=== PATIENT | female | born 1960 | race Caucasian/White ===

== ENCOUNTER → 2020-06-19 07:49 | Outpatient (BNVA) | payer OTHER, SELFPAY | PROVIDERS: Visit Provider Internal Medicine Endocrinology, Diabetes & Metabolism ==

== ENCOUNTER 2020-06-19 08:37 | Outpatient (REF) | payer OTHER, SELFPAY ==
[2020-06-19 10:58] LABS: Free T4 (Free Thyroxine) 1.38 ng/dL (0.71-1.85); Thyroid Stimulating Hormone 0.33 uIU/mL (0.32-4.0)
[2020-06-22 04:52] LABS: Thyroglobulin Antibody <1 IU/mL (<=1); Thyroglobulin Level <0.1 ng/mL
== END 2020-06-19 08:38 | disposition home or self-care (01) ==
LOC: HO.10HDL 08:37
PROVIDERS: Visit Provider Internal Medicine Endocrinology, Diabetes & Metabolism
DX: C73 Malignant neoplasm of thyroid gland (principal); R79.89 Other specified abnormal findings of blood chemistry
CPT/HCPCS: 36415; 82306; 84432; 84439; 84443; 86800

== ENCOUNTER 2020-06-27 14:27 | Outpatient (REF) | payer OTHER, SELFPAY ==
--- NOTE | ~2020-06-27 | US_ITS ---
EXAMINATION: US THYROID CLINICAL INFORMATION: Total thyroidectomy. COMPARISON: Ultrasound soft tissues lymph node 06/29/2019. Ultrasound thyroid soft tissues 12/15/2017. TECHNIQUE: Linear transducer grayscale and color Doppler examination with attention to the region of the thyroid. FINDINGS: No residual thyroid soft tissue seen. Although some subcentimeter benign-appearing lymph nodes are present, there is abnormal bilateral lymphadenopathy. There is a new 2.3 x 0.9 x 2.3 cm right level 2 lymph node which is round and cystic in appearance. There is a new 1.3 x 0.7 x 2.0 cm right level 1B lymph node which is round and cystic in appearance. There is a new 1.5 x 0.7 x 1.6 cm left level 1B lymph node which is round and cystic in appearance. A 2.3 x 0.9 x 2.0 cm left level 2 lymph node has increased in size from 1.1 x 1.4 x 2.0 cm which is round and cystic in appearance. A left level 2 lymph node has increased in size to 2.3 x 0.7 x 1.4 cm, previously 0.8 x 0.8 x 1.1 cm which is round and cystic in appearance. There is a new left level 5A lymph node that measures 2.0 x 0.5 x 0.9 cm with effacement of the central fatty hilum. US/US soft tiss head and/or neck IMPRESSION: No residual thyroid soft tissue present, status post total thyroidectomy. There is bilateral cervical lymphadenopathy with multiple abnormal lymph nodes new or increased in size from prior study 06/30/2019. The appearance is concerning for metastatic disease.
== END 2020-06-27 14:28 | disposition home or self-care (01) ==
LOC: HO.US 14:27
PROVIDERS: Visit Provider Internal Medicine Endocrinology, Diabetes & Metabolism
DX: C73 Malignant neoplasm of thyroid gland (principal)
CPT/HCPCS: 76536

== ENCOUNTER 2020-08-03 07:44 | Outpatient (REF) | payer OTHER, SELFPAY ==
--- NOTE | 2020-08-03 09:13 | PM.OP ---
Brief Operative Note Date of Service: 08/03/20 Pre-op diagnosis: HISTORY OF PTC, ABNORMAL LYMPHADENOPATHY Post-op diagnosis: same Procedure: This procedure was explained to the patient. Alternatives, risks and benefits were discussed. Written consent was obtained. The whole neck was scan to confirm that abnormal lymphadenopathy reported in prior ultrasound was truly abnormal. The right level 2 lymph node 2.3 x 0.9 x 2.3 cm was a normal morphology lymph node with normal fatty hilum. No need for biopsy. The right submandibular lymph node was also a normal morphology lymph node, this lymph node was not biopsied. Left neck showed that the left level 5 a lymph node was actually not a level 5 lymph node was a level 3. Biopsy of this lymph node was performed. The 2 level 2 left lateral neck lymph nodes had not significant change in morphology they were mostly Normal lymph nodes. I did perform a biopsy of the 1 that significantly increased in size level 2 1. Size 2 x 0.9 x 1.8 cm After sterile preparation of the skin, fine-needle aspiration biopsy of left lateral neck level 3 lymph node size 1.3 x 0.8 cm was performed under direct ultrasound guidance to confirm accurate needle placement. Two passes were performed with 25 gauge needles. Sample was submitted to cytology, initial cytology reading was adequate. One pass were dedicated for thyroglobulin washout of the needle. Second fine-needle aspiration of left lateral neck level 2 lymph nodes size 2 x 0.9 x 1.8 cm was performed under ultrasound guidance to confirm accurate needle placement. Two passes were performed with 25 gauge needles. One pass was dedicated for thyroglobulin washout of the needle. Patient tolerated procedure well. Aftercare instructions were provided. Impression: uncomplicated fine-needle aspiration biopsy of left lateral neck level 3 lymph node and left lateral neck level 2 lymph node under direct ultrasound guidance. Surgeon: Nikole Carranza MD Anesthesia: local (Lidocaine 1% 2 mL) Estimated blood loss (mL): 0 Condition: stable Disposition: same day
[2020-08-03] MEDS: Lidocaine HCl 1 % 20 ML VIAL 5 ML SUBCUT (12:09)
[2020-08-05 23:37] LABS: Thyroglobulin, Fine Needle Asp <0.1 ng/mL
== END 2020-08-03 07:45 | disposition home or self-care (01) ==
LOC: HO.US 07:44
PROVIDERS: Visit Provider Internal Medicine Endocrinology, Diabetes & Metabolism
DX: C73 Malignant neoplasm of thyroid gland (principal)
CPT/HCPCS: 10005; 10006; 36415; 88172; 88173; 88177; 88300

== ENCOUNTER → 2020-08-07 08:49 | Outpatient (BNVA) | payer OTHER, SELFPAY | PROVIDERS: Visit Provider Internal Medicine Endocrinology, Diabetes & Metabolism | DX: C73 Malignant neoplasm of thyroid gland (principal) | CPT/HCPCS: 96372 ==

== ENCOUNTER → 2020-08-08 08:47 | Outpatient (BNVA) | payer OTHER, SELFPAY | PROVIDERS: Visit Provider Internal Medicine Endocrinology, Diabetes & Metabolism | DX: C73 Malignant neoplasm of thyroid gland (principal) | CPT/HCPCS: 96372 ==

== ENCOUNTER 2020-08-11 11:30 | Outpatient (REF) | payer OTHER, SELFPAY ==
[2020-08-14 05:36] LABS: Thyroglobulin Antibody <1 IU/mL (<=1); Thyroglobulin Level 0.1 ng/mL
== END 2020-08-11 11:31 | disposition home or self-care (01) ==
LOC: HO.LAB 11:30
PROVIDERS: Visit Provider Internal Medicine Endocrinology, Diabetes & Metabolism
DX: C73 Malignant neoplasm of thyroid gland (principal)
CPT/HCPCS: 36415; 84432; 84443; 86800

== ENCOUNTER → 2020-08-18 07:25 | Outpatient (BNVA) | payer OTHER, SELFPAY | PROVIDERS: Visit Provider Internal Medicine Endocrinology, Diabetes & Metabolism ==

== ENCOUNTER 2021-07-17 08:42 | Outpatient (REF) | payer OTHER, SELFPAY ==
--- NOTE | 2021-07-17 11:22 | PFT_ITS ---
Forced vital capacity 89%. FEV1 74%. FEV1/FVC ratio is 64, moderately decreased. QNI16-09 is 34% and MVV 85%. Post bronchodilator therapy, there is a small improvement in MRY49-26. Total lung capacity 126%. Residual volume 158% indicating hyperinflation and air trapping. Diffusion capacity is 76%. CONCLUSION: Moderately severe obstructive airway disorder. Only minimal improvement after bronchodilator therapy is noted. Clinical correlation recommended. MD SYLVAIN Cordova/GERARDO / [id number]
== END 2021-07-17 08:43 | disposition home or self-care (01) ==
LOC: HO.RESP 08:42
PROVIDERS: PCP Internal Medicine; Visit Provider Internal Medicine
DX: R06.00 Dyspnea, unspecified (principal)
CPT/HCPCS: 94060; 94727; 94729

== ENCOUNTER 2021-07-27 09:27 | Outpatient (REF) | payer OTHER, SELFPAY ==
[2021-08-01 16:42] LABS: HPV mRNA E6/E7 rflx Not Detected (Not Detected)
== END 2021-07-27 09:28 | disposition home or self-care (01) ==
LOC: HO.LAB 09:27
PROVIDERS: PCP Internal Medicine; Visit Provider Obstetrics & Gynecology
DX: Z01.419 Encounter for gynecological examination (general) (routine) without abnormal findings (principal); Z11.51 Encounter for screening for human papillomavirus (HPV)
CPT/HCPCS: 87624; 88142

== ENCOUNTER → 2021-08-10 09:56 | Outpatient (BNVA) | payer OTHER, SELFPAY | PROVIDERS: PCP Internal Medicine; Visit Provider Hospitalist | DX: J44.9 Chronic obstructive pulmonary disease, unspecified (principal); F17.200 Nicotine dependence, unspecified, uncomplicated; Z71.6 Tobacco abuse counseling | CPT/HCPCS: 99202 ==

== ENCOUNTER → 2021-08-23 09:53 | Outpatient (BNVA) | payer OTHER, SELFPAY | PROVIDERS: PCP Internal Medicine; Visit Provider Internal Medicine Endocrinology, Diabetes & Metabolism | DX: C73 Malignant neoplasm of thyroid gland (principal) | CPT/HCPCS: 99212 ==

== ENCOUNTER 2021-09-10 08:50 | Outpatient (REF) | payer OTHER, SELFPAY | END 2021-09-10 08:51 | disposition home or self-care (01) | LOC: HO.RESP 08:50 | PROVIDERS: PCP Internal Medicine; Visit Provider Hospitalist | DX: Z13.89 Encounter for screening for other disorder (principal) ==

== ENCOUNTER 2021-09-14 14:19 | Outpatient (REF) | payer OTHER, SELFPAY ==
--- NOTE | ~2021-09-14 | CT_ITS ---
EXAMINATION: CT CHEST SCREENING CLINICAL INFORMATION: Nicotine dependence. COMPARISON: None. TECHNIQUE: Multidetector volumetric CT imaging of the chest is performed without contrast using low dose technique. Additional 2D coronal and sagittal reformatted images and axial 3D maximum intensity projection (MIP) images are generated on the CT workstation. This CT examination was performed using dose optimization techniques as appropriate, variously including the following: *Automated exposure control *Adjustment of mA and/or kV according to patient size (this includes techniques or standardized protocols for targeted exams where dose is matched to indication/reason for exam; i.e. extremities or head) *Use of iterative reconstruction technique DLP: 52 mGy-cm FINDINGS: LUNGS: The lungs are well-expanded and clear acute pneumonic process. There are a few scattered pulmonary nodules. A 3 mm groundglass nodule right upper lobe axial image 13/4, 2 mm nodule right upper lobe subpleural based image 12/4, 2 mm nodule right upper lobe axial image 211/6, 2 mm nodule left upper lobe axial image 205/6, 2 mm nodule lingula axial image 357/6. No acute consolidation, mass or atelectasis seen. MEDIASTINUM: The thyroid lobes are symmetrical and normal. The central trachea and the bronchi are widely patent. The heart size and the great vessels are normal caliber. No abnormal size mediastinal or hilar lymphadenopathy seen. There is no pericardial effusion. PLEURA: There is no pleural effusion. No pleural mass or thickening. AXILLA: No lymphadenopathy. UPPER ABDOMEN: Visualized liver, spleen and pancreas unremarkable. OSSEOUS STRUCTURES: No lytic or sclerotic process seen. There is mild ventral spondylosis dorsal spine. CT/CT lung screening IMPRESSION: Small bilateral 2-3 100 range pulling nodules. No acute pneumonic process. ASSESSMENT: Lung-RADS category 2: Benign RECOMMENDATION: Low-dose annual CT chest exam
== END 2021-09-14 14:20 | disposition home or self-care (01) ==
LOC: HO.CT 14:19
PROVIDERS: PCP Internal Medicine; Visit Provider Physician Assistant Medical
DX: Z12.2 Encounter for screening for malignant neoplasm of respiratory organs (principal); F17.210 Nicotine dependence, cigarettes, uncomplicated
CPT/HCPCS: 71271; G0296

== ENCOUNTER → 2021-10-05 09:34 | Outpatient (BNVA) | payer OTHER, SELFPAY | PROVIDERS: PCP Internal Medicine; Visit Provider Hospitalist | DX: Z23 Encounter for immunization (principal); J44.9 Chronic obstructive pulmonary disease, unspecified; R91.8 Other nonspecific abnormal finding of lung field; Z87.891 Personal history of nicotine dependence | CPT/HCPCS: 90471; 90732; 99212 ==

== ENCOUNTER 2022-01-01 08:00 | Outpatient (RCR) | payer OTHER, SELFPAY ==
--- NOTE | 2021-12-18 08:51 | MHC.PT.EP ---
[facility] [place] Office [place] Office [place] Office [address] Theresa Loomis [address] [phone] F: [phone] F: [phone] F: [phone] F: [phone] Physical Therapy Plan of Care Date of Evaluation: Date of Surgery: NA Diagnosis: Pain in L shoulder Assessment: Ev is a 61 year old female who is referred to PT for L shoulder pain . She reports of having sudden onset of L shoulder pain about 6 months back. She denies any trauma or fall. On PT examination she presents with TTP over L UT, TTP over lateral deltoid, shoulder joint line, 4/10 pain with shoulder movements like lifting, carrying, reaching and L SL, pain with L shoulder motions, decreased L shoulder and scap strength and altered posture. Due to these impairments she has pain with all ALDS however is independent with them. She would benefit from skilled PT to address the aforementioned impairments and improve tolerance to functional activities. Frequency and Duration: The patient will be seen 2/week for 5 weeks Short Term Goals: 1. Pt will have 50% decrease in pain which will enable her to sleep through the night in 2 weeks. 2. Pt will be able to move shoulder through all planes of motion without pain which will enable her to wash her hair, dress upper body without pain in 3 weeks. Carrier Driver Goals: 1. Pt will demonstrate an increase in muscle strength by 1 grade which will enable her to perform all ADLS like carrying, and lifting without pain in 5 weeks. 2. Pt will be independent with HEP for symptom management and maintenance following d/c in 5 weeks. Treatment Plan: Modalities to reduce pain, spasms and effusion. Manual therapy to restore motion and function. Therapeutic exercise to improve strength and flexibility. Neuromuscular re-education for posture and balance. Therapeutic activities to return to functional activities of daily living. Electronically signed by: Justa Meek PT DPT Please sign and return to therapist. Thank you for your referral.
--- NOTE | 2022-01-10 08:39 | MHC.PT.DC ---
[facility] [place] Office [place] Office [place] Office [address] Theresa Loomis 140 [facility] [phone] F: [phone] F: [phone] F: [phone] F: [phone] Physical Therapy Discharge Report Diagnosis: Pain in L shoulder Date of Surgery: NA Date of Evaluation: 12/18/21 Date of Discharge: 01/10/22 Treatments to Date: 4 Cancellations to Date: 0 No Shows to Date: 0 Discharge Status: Patient Elected to Stop Discharge Summary: Ev completed 4 PT visits and then called and d/c herself from PT. Electronically signed by: Justa Meek PT DPT Please sign and return to therapist. Thank you for your referral.
== END 2022-01-10 08:40 | disposition home or self-care (01) ==
LOC: HO.PT 08:00
PROVIDERS: PCP Internal Medicine; Visit Provider Internal Medicine
DX: M25.512 Pain in left shoulder (principal)
CPT/HCPCS: 97110; 97112; 97140; 97161

== ENCOUNTER → 2022-01-22 11:49 | Outpatient (BNVA) | payer OTHER, SELFPAY | PROVIDERS: PCP Internal Medicine; Visit Provider Nurse Practitioner Family | DX: Z01.818 Encounter for other preprocedural examination (principal); Z85.038 Personal history of other malignant neoplasm of large intestine | CPT/HCPCS: 99202; 99212 ==

== ENCOUNTER 2022-02-18 08:43 | Outpatient (REF) | payer OTHER, SELFPAY ==
[2022-02-18 08:52] LABS: MANUAL DIFF FLAG NO
[2022-02-18 09:18] LABS: Basophils Absolute Auto 0.1 X10*3/uL (0.0-0.2); Basophils Percent Auto 0.7 % (0-2); Eosinophils Absolute Auto 0.5 X10*3/uL (0.0-0.4); Eosinophils Percent Auto 3.9 % (0-4); Hematocrit 45.3 % (37.0-47.0); Hemoglobin 14.9 g/dl (12.0-16.0); Imm Gran Abs Auto 0.04 X10*3/uL (0.00-0.03); Imm Gran Pct Auto 0.3 % (0.0-0.4); Lymphocytes Absolute Auto 3.5 X10*3/uL (1.2-4.9); Lymphocytes Percent Auto 28.3 % (20-40); Mean Corpuscular HGB Conc 32.9 g/dl (31.0-35.0); Mean Corpuscular Hemoglobin 30.5 pg (27.0-33.0); Mean Corpuscular Volume 92.8 fL (80.0-98.0); Mean Platelet Volume 9.6 fL (9.4-12.3); Monocytes Absolute Auto 0.7 X10*3/uL (0.1-1.2); Neutrophils Absolute Auto 7.4 x10*3/uL (2.0-8.3); Neutrophils Percent Auto 60.8 % (45-73); Platelet Count 348 X10*3/uL (160-400); Red Blood Count 4.88 X10*6/uL (4.20-5.50); Red Cell Distribution Width 13.8 % (11.0-16.0); White Blood Count 12.3 X10*3/uL (4.8-10.8)
[2022-02-18 09:57] LABS: Alanine Aminotransferase 22 U/L (0-31); Albumin Level 4.7 g/dL (3.5-5.0); Alkaline Phosphatase 79 U/L (39-117); Anion Gap 17 (12-20); Aspartate Amino Transferase 16 U/L (5-31); Bilirubin Total 0.6 mg/dL (0.0-1.0); Blood Urea Nitrogen 12 mg/dL (9-16); Carbon Dioxide 23 mmol/L (22-29); Chloride 104 mmol/L (96-108); Cholesterol 221 mg/dL; Estimated Glomerular Filt Rate > 60; Glucose Fasting 91 mg/dL (60-99); HDL Cholesterol 44 mg/dL; LDL Cholesterol Calculated 142 mg/dl; Potassium 4.3 mmol/L (3.3-5.1); Sodium 140 mmol/L (135-145); Total Protein 7.2 g/dL (6.5-8.0); Triglycerides 176 mg/dL
[2022-02-18 10:19] LABS: Free T4 (Free Thyroxine) 1.12 ng/dL (0.71-1.85); Thyroid Stimulating Hormone 0.42 uIU/mL (0.32-4.0); Vitamin D 25-OH Total 47.1 ng/mL (>30)
[2022-02-21 07:17] LABS: Thyroglobulin Antibody <1 IU/mL (<=1); Thyroglobulin Level <0.1 ng/mL
== END 2022-02-18 08:44 | disposition home or self-care (01) ==
LOC: HO.LAB 08:43
PROVIDERS: Absent Provider Internal Medicine Endocrinology, Diabetes & Metabolism; PCP Internal Medicine; Visit Provider Internal Medicine
DX: Z00.00 Encounter for general adult medical examination without abnormal findings (principal); E55.9 Vitamin D deficiency, unspecified; E89.0 Postprocedural hypothyroidism; C73 Malignant neoplasm of thyroid gland; J44.9 Chronic obstructive pulmonary disease, unspecified
CPT/HCPCS: 36415; 80053; 80061; 82306; 84432; 84439; 84443; 85025; 86800

== ENCOUNTER 2022-05-29 08:24 | Day surgery (SDC) | payer OTHER, SELFPAY ==
--- NOTE | 2022-05-28 12:38 | P.CONAN_ITS ---
Documented by User: Cate Christianson NP 05/28/22 12:43 HPI - Anesthesia Eval Consult details Narrative: 62yo F for Colonoscopy PMFSH Active Problems Active Problems: All Active Problems (Updated 02/19/22 @ 15:40 by Sue Reynoso MD) Elevated BP without diagnosis of hypertension (Acute) Leukocytosis (Acute) Pure hypercholesterolemia (Acute) Left shoulder pain (Acute) Physical exam (Acute) Pulmonary nodules (Acute) Primary thyroid cancer (Acute ~2013) Post-surgical hypothyroidism (Acute ~2013) COPD (chronic obstructive pulmonary disease) (Acute) Personal history of nicotine dependence (Acute) Overweight (BMI 25.0-29.9) (Acute) Dyspnea (Acute) Postmenopausal (Acute) Low vitamin D level (Acute) Past Medical History Medical History COPD (chronic obstructive pulmonary disease) Dyspnea Low vitamin D level Overweight (BMI 25.0-29.9) Personal history of nicotine dependence Post-surgical hypothyroidism (~2013) Postmenopausal Primary thyroid cancer (~2013) Pulmonary nodules Rectal adenoma Tubular adenoma Tubular adenoma of colon (~2009) Family History Family History Father No problems noted. Mother Polycythemia vera Sister Mental health disorder Surgical History Surgical History History of colonoscopy History of HPV infection (~1996) History of skin cancer (~2009) History of total thyroidectomy (~2013) Social History Social History Housing: House Alcohol intake: current Alcohol intake frequency: holidays/special occasions only Alcohol type: wine and hard liquor Patient Tobacco Use Status: Current everyday Tobacco user Tobacco use type: Cigarette Cigarettes Per Day: 6 Years Smoked: (onset 14, x47yrs, max 1ppd, now 1/2ppd - 40pyh) e-Cigarette/Vaping Use: Never Used Second Hand Smoke Exposure: No Use of substances other than those prescribed or required for medical reasons: No Are you DNR?: No Advance Directives: No Advance Directives Information Provided: Yes service: No Current occupational status: unemployed Cognitive needs: No Hearing needs: No Vision needs: No Meds Allergies Allergy/AdvReac Type Severity Reaction Status Date / Time bee stings Allergy Severe Severe Uncoded 02/19/22 15:25 Swelling Home Medications Medication Instructions Recorded Confirmed Last Taken Type albuterol sulfate 2.5 mg/3 mL 2.5 mg inhalation Q6H PRN wheezing 11/15/21 05/23/22 Unknown History (0.083 %) solution for nebulization Exam Exam Date and Time: May 28, 2022 1238 Pertinent Lab Results Pertinent Lab Results: Laboratory Tests 02/18/22 02/18/22 08:51 08:51 WBC 12.3 H Hgb 14.9 Hct 45.3 Plt Count 348 Sodium 140 Potassium 4.3 Chloride 104 Carbon Dioxide 23 BUN 12 Creatinine 0.75 Narrative Narrative: PFT 07/2021 CONCLUSION:? Moderately severe obstructive airway disorder. ? Only minimal improvement after bronchodilator therapy is noted. ? Clinical correlation recommended. Assessment and Plan Assessment Anesthesia Assessment: Chart Reviewed Documented by User: Aubree Jaime MD 05/29/22 09:41 PMFSH Past Medical History Medical History COPD (chronic obstructive pulmonary disease) Dyspnea Low vitamin D level Overweight (BMI 25.0-29.9) Personal history of nicotine dependence Post-surgical hypothyroidism (~2013) Postmenopausal Primary thyroid cancer (~2013) Pulmonary nodules Rectal adenoma Tubular adenoma Tubular adenoma of colon (~2009) Family History Family History Father No problems noted. Mother Polycythemia vera Sister Mental health disorder Family history of problems with anesthesia: No Surgical History Surgical History History of colonoscopy History of HPV infection (~1996) History of skin cancer (~2009) History of total thyroidectomy (~2013) History of Problems with Anesthesia: No Social History Social History Housing: House Alcohol intake: current Alcohol intake frequency: holidays/special occasions only Alcohol type: wine and hard liquor Patient Tobacco Use Status: Current everyday Tobacco user Tobacco use type: Cigarette Cigarettes Per Day: 6 Years Smoked: (onset 14, x47yrs, max 1ppd, now 1/2ppd - 40pyh) e-Cigarette/Vaping Use: Never Used Second Hand Smoke Exposure: No Use of substances other than those prescribed or required for medical reasons: No Are you DNR?: No Advance Directives: No Advance Directives Information Provided: Yes service: No Current occupational status: unemployed Cognitive needs: No Hearing needs: No Vision needs: No Meds Allergies Allergy/AdvReac Type Severity Reaction Status Date / Time bee stings Allergy Severe Severe Uncoded 02/19/22 15:25 Swelling Home Medications Medication Instructions Recorded Confirmed Last Taken Type albuterol sulfate 2.5 mg/3 mL 2.5 mg inhalation Q6H PRN wheezing 11/15/21 0 05/23/22 Unknown History (0.083 %) solution for nebulization Exam Airway Mallampati Class: II TM Dist: >3cm Neck ROM: Full Heart: rrr Lungs: cta Assessment and Plan Assessment Anesthesia Assessment: Anesthesia Plan Discussed and Chart Reviewed Final Anesthetic Review Family History of Problems with Anesthesia: No History of Problems with Anesthesia: No NPO: Yes ASA Class: II Final Preanesthetic Review: No Changes in Pt Med Stat, Meds/Allgs Chart Reviewed and Consent Obtained/Reviewed Patient Risk: Intermediate Procedure Risk: Intermediate Anesthetic Plan Anesthetic Plan: MAC: Disposition: Standard PACU
[2022-05-29] VITALS (13 sets, daily range): BP systolic 121–143; BP diastolic 58–81; PULSE 64–706; RESP 16–18; TEMP 36.1–36.8; O2SAT 94–97; BMI 31.7
--- NOTE | 2022-05-29 09:01 | MHC.SHP ---
Pre-Procedural Eval Section A Date of Service: 05/29/22 Section B Chief Complaint: Encounter for screening for malignant neoplasm of Details of Present Illness: hx of colon cancer Relevant Family History (Specify if Yes): No Relevant Social History: Tobacco Use Present Medications: see Short Stay Collaborative assessment Medical History: Significant History (COPD (chronic obstructive pulmonary disease) Dyspnea Low vitamin D level Overweight (BMI 25.0-29.9) Personal history of nicotine dependence Post-surgical hypothyroidism (~2013) Postmenopausal Primary thyroid cancer (~2013) Pulmonary nodules Rectal adenoma Tubular adenoma Tubular adenoma of colon (~) History of Previous Operations: Relevant previous surgery/procedure and date(s) (History of colonoscopy History of HPV infection (~1996) History of skin cancer (~2009) History of total thyroidectomy (~2013)) Allergies: Allergies Allergy/AdvReac Type Severity Reaction Status Date / Time bee stings Allergy Severe Severe Uncoded 02/19/22 15:25 Swelling Review of Systems Sugical H&P ROS: Negative: Constitution, Cardiovascular, Respiratory, Neurological, Psychiatric, Hem-Onc, Allergic/Immunologic, Gastrointestinal, Genitourinary, Musculoskeletal, Integumentary, Endocrine and Eyes/Ears/Nose/Throat Exam Surgical H&P Exam: Normal: HEENT, Normal: Heart, Normal: Lungs, Normal: Extremities, Normal: Abdomen, Normal: Skin and Normal: Neurological Plan Diagnosis/Plan: Unchanged I have reviewed the history and physical and performed a pertinent physical examination on my patient. No changes have occurred unless specified. Time Spent With Patient Time: Total time managing care of this patient today ____ minutes.
[2022-05-29] MEDS: Lactated Ringers 1,000 ML 100 ML IVCONT (09:33)
--- NOTE | 2022-05-29 09:48 | W.PM.OPN ---
Operative Note Operative Note Date of Service: 05/29/22 Narrative: Operative Information Procedure Description: Colonoscopy Indication: surveillance -hx of colon cancer Anesthesia: MAC COLONOSCOPY Instrument: Olympus variable stiffness pediatric scope 190L Colonoscopy Monitoring: Vital signs and clinical assessment, continuous EKG monitoring, Pulse oximetry, Carbon Dioxide monitoring and blood pressure monitoring were done throughout the procedure. Colon withdrawal time was 56 minutes. Procedure: The patient was placed in the left lateral decubitis position and pre-procedure medications were administered. After a digital rectal examination of the ano-rectum, the video colonoscope was inserted into the rectum and advanced through the colon to the cecum/TI. The colonoscope was slowly withdrawn in a retrograde panoramic fashion and the colon mucosa was carefully examined including a retroflexed view of the rectum. Findings and interventions are described below. Procedure Difficulty: moderate Findings: Terminal Ileum-normal Cecum: Lateral spreading granular polyp noted about 15-20 mm lifted with ERBE jet and then removed piece meal using hot and cold snare as well as biopsy. Polyp base was then treated with 30 Daniels APC. and the edges also ablated. Ascending Colon: normal Transverse Colon - 6-7 mm sessile polyp removed with cold forceps Descending Colon:normal Sigmoid Colon: x 2 sessile polyps 6-9 mm removed with cold snare, moderate diverticulosis noted Rectum: Retroflexion with small internal hemorrhoids, grade I, 10 mm sessile polyp removed with cold snare Anorectum - normal Colon preparation: [place] Bowel Preparation Scale Right colon; 2 Transverse colon: 2 Left colon; 2 (0 = Unprepared colon segment with mucosa not seen due to solid stool that cannot be cleared. 1 = Portion of mucosa of the colon segment seen, but other areas of the colon segment not well seen due to staining, residual stool and/or opaque liquid. 2 = Minor amount of residual staining, small fragments of stool and/or opaque liquid, but mucosa of colon segment seen well. 3 = Entire mucosa of colon segment seen well with no residual staining, small fragments of stool or opaque liquid) Impression and Post Procedure Diagnosis: polyps internal hemorrhoids diverticular disease Plan: High fiber diet leaflet Avoid straining at stool, epsom salts and sitz bath, anusol supps or cream Repeat Colonoscopy in 3-4 months or earlier if clinically indicated Avoid nsaids like aspirin, alleve for 1 week consider genetic testing for polyposis syndromes if not done already come to ED [facility] if profuse rectal bleeding or abdominal pain, will give 1 week ABx to prevent post polypectomy syndrome Above findings were reviewed with the patient and relevant handouts were provided if indicated.
[2022-05-29] MEDS: metroNIDAZOLE/NS 500 MG/100 ML PIGGYBACK 100 MG IV (11:31)
[2022-05-29] MEDS: cefTRIAXone sodium 1 GM in 0.9 % Sodium Chloride 50 ML IV (12:56)
== END 2022-05-29 14:33 ==
LOC: HO.SSS 08:25
PROVIDERS: PCP Internal Medicine; Visit Provider Internal Medicine Gastroenterology
PROC: 0DJD8ZZ Inspection of Lower Intestinal Tract, Via Natural or Artificial Opening Endoscopic (ICD-10-PCS; CPT 45378; principal; 2022-05-29 10:00)
DX: Z12.11 Encounter for screening for malignant neoplasm of colon (principal); Z85.038 Personal history of other malignant neoplasm of large intestine; D12.3 Benign neoplasm of transverse colon; D12.5 Benign neoplasm of sigmoid colon; D12.8 Benign neoplasm of rectum; K63.5 Polyp of colon; K57.30 Diverticulosis of large intestine without perforation or abscess without bleeding; K64.0 First degree hemorrhoids; K59.00 Constipation, unspecified; E89.0 Postprocedural hypothyroidism; Z85.850 Personal history of malignant neoplasm of thyroid; G47.33 Obstructive sleep apnea (adult) (pediatric); J44.9 Chronic obstructive pulmonary disease, unspecified; R91.8 Other nonspecific abnormal finding of lung field; Z79.51 Long term (current) use of inhaled steroids; Z79.899 Other long term (current) drug therapy; Z85.828 Personal history of other malignant neoplasm of skin; F17.210 Nicotine dependence, cigarettes, uncomplicated
CPT/HCPCS: 45385; 45380; 45381; 88305; C2618; J0696; Q9968

== ENCOUNTER → 2022-06-12 11:52 | Outpatient (BNVA) | payer OTHER, SELFPAY | PROVIDERS: PCP Internal Medicine; Referring Provider Internal Medicine; Visit Provider Nurse Practitioner Family | DX: D36.9 Benign neoplasm, unspecified site (principal); Z98.890 Other specified postprocedural states | CPT/HCPCS: 99212 ==

== ENCOUNTER 2022-08-15 07:27 | Day surgery (SDC) | payer OTHER, SELFPAY ==
[2022-08-12 11:55] VITALS: BMI 32.2
[2022-08-15 07:36] VITALS: BMI 30.5
[2022-08-15 07:51] VITALS: BP 150/75; PULSE 67; RESP 16; TEMP 36.9; O2SAT 97
--- NOTE | 2022-08-15 08:01 | PC.NURSE ---
Dr. Pizarro made aware of patients respiratory status in preop. Faint expiratory and inspiratory wheezes throughout, diminished. Patient has diagnosed COPD, Smoker for 50+ years. Lung sounds normal for patient. Patient to use home inhaler before procedure start per Dr. Pizarro.
--- NOTE | 2022-08-15 08:06 | MHC.SHP ---
Pre-Procedural Eval Section A Date of Service: 08/15/22 Section B Chief Complaint: Benign neoplasm, unspecified site Relevant Family History (Specify if Yes): No Relevant Social History: None Present Medications: see Short Stay Collaborative assessment Medical History: Significant History (COPD (chronic obstructive pulmonary disease) Dyspnea Low vitamin D level Overweight (BMI 25.0-29.9) Personal history of nicotine dependence Post-surgical hypothyroidism (~2013) Postmenopausal Primary thyroid cancer (~2013) Pulmonary nodules Rectal adenoma Tubular adenoma Tubular adenoma of colon (~) History of Previous Operations: Relevant previous surgery/procedure and date(s) (History of colonoscopy History of HPV infection (~1996) History of skin cancer (~2009) History of total thyroidectomy (~2013)) Allergies: Allergies Allergy/AdvReac Type Severity Reaction Status Date / Time bee stings Allergy Severe Severe Uncoded 08/15/22 07:50 Swelling Review of Systems Sugical H&P ROS: Negative: Constitution, Cardiovascular, Respiratory, Neurological, Psychiatric, Hem-Onc, Allergic/Immunologic, Gastrointestinal, Genitourinary, Musculoskeletal, Integumentary, Endocrine and Eyes/Ears/Nose/Throat Exam Surgical H&P Exam: Normal: HEENT, Normal: Heart, Normal: Lungs, Normal: Extremities, Normal: Abdomen, Normal: Skin and Normal: Neurological Plan Diagnosis/Plan: Unchanged I have reviewed the history and physical and performed a pertinent physical examination on my patient. No changes have occurred unless specified. Time Spent With Patient Time: Total time managing care of this patient today ____ minutes.
[2022-08-15] MEDS: Lactated Ringers 1,000 ML 80 ML IVCONT (08:16)
--- NOTE | 2022-08-15 08:22 | W.PM.OPN ---
Operative Note Operative Note Date of Service: 08/15/22 Narrative: Operative Information Procedure Description: Colonoscopy Indication: hx of polyps Anesthesia: MAC COLONOSCOPY Instrument: Olympus variable stiffness pediatric scope 190L Colonoscopy Monitoring: Vital signs and clinical assessment, continuous EKG monitoring, Pulse oximetry, Carbon Dioxide monitoring and blood pressure monitoring were done throughout the procedure. Colon withdrawal time was 13 minutes. Procedure: The patient was placed in the left lateral decubitis position and pre-procedure medications were administered. After a digital rectal examination of the ano-rectum, the video colonoscope was inserted into the rectum and advanced through the colon to the cecum/TI. The colonoscope was slowly withdrawn in a retrograde panoramic fashion and the colon mucosa was carefully examined including a retroflexed view of the rectum. Findings and interventions are described below. Procedure Difficulty: moderate Findings: Terminal Ileum-normal Cecum:? normal Ascending Colon: normal Transverse Colon - 7-8 mm sessile polyp mm removed with cold snare Descending Colon:normal Sigmoid Colon:? x 1 sessile polyps 10 mm removed with cold snare, moderate diverticulosis noted Rectum: Retroflexion with small internal hemorrhoids, grade I, Anorectum - normal Colon preparation: [place] Bowel Preparation Scale Right colon; borderline 2 Transverse colon: 2 Left colon; 1-2 (0 = Unprepared colon segment with mucosa not seen due to solid stool that cannot be cleared. 1 = Portion of mucosa of the colon segment seen, but other areas of the colon segment not well seen due to staining, residual stool and/or opaque liquid. 2 = Minor amount of residual staining, small fragments of stool and/or opaque liquid, but mucosa of colon segment seen well. 3 = Entire mucosa of colon segment seen well with no residual staining, small fragments of stool or opaque liquid) Impression and Post Procedure Diagnosis: polyps internal hemorrhoids diverticular disease Plan: High fiber diet leaflet Avoid straining at stool, epsom salts and sitz bath, anusol supps or cream Repeat Colonoscopy in 2-3 years or earlier if clinically indicated due to hx of polyps and fair prep today on left side Above findings were reviewed with the patient and relevant handouts were provided if indicated.
--- NOTE | 2022-08-15 08:35 | HO.ANESPROP2 ---
HPI - Anesthesia Eval Consult details Narrative: 62F for surveillance colonoscopy [facility] Active Problems Active Problems: All Active Problems (Updated 02/19/22 @ 15:40 by Sue Reynoso MD) Elevated BP without diagnosis of hypertension (Acute) Leukocytosis (Acute) Pure hypercholesterolemia (Acute) Left shoulder pain (Acute) Physical exam (Acute) Pulmonary nodules (Acute) Primary thyroid cancer (Acute ~2013) Post-surgical hypothyroidism (Acute ~2013) COPD (chronic obstructive pulmonary disease) (Acute) Personal history of nicotine dependence (Acute) Overweight (BMI 25.0-29.9) (Acute) Dyspnea (Acute) Postmenopausal (Acute) Low vitamin D level (Acute) Past Medical History Medical History COPD (chronic obstructive pulmonary disease) Dyspnea Low vitamin D level Overweight (BMI 25.0-29.9) Personal history of nicotine dependence Post-surgical hypothyroidism (~2013) Postmenopausal Primary thyroid cancer (~2013) Pulmonary nodules Rectal adenoma Tubular adenoma Tubular adenoma of colon (~2009) Family History Family History Father No problems noted. Mother Polycythemia vera Sister Mental health disorder Family history of problems with anesthesia: No Surgical History Surgical History History of colonoscopy History of HPV infection (~1996) History of skin cancer (~2009) History of total thyroidectomy (~2013) History of Problems with Anesthesia: No Social History Social History Housing: House Alcohol intake: current Alcohol intake frequency: holidays/special occasions only Alcohol type: wine and hard liquor Patient Tobacco Use Status: Current everyday Tobacco user Tobacco use type: Cigarette Cigarettes Per Day: 6 Years Smoked: 50 Smoked in Last 30 Days: Yes e-Cigarette/Vaping Use: Never Used Second Hand Smoke Exposure: No Use of substances other than those prescribed or required for medical reasons: No Are you DNR?: No Advance Directives: No Advance Directives Information Provided: Yes service: No Current occupational status: unemployed Cognitive needs: No Hearing needs: No Vision needs: Yes Meds Allergies Allergy/AdvReac Type Severity Reaction Status Date / Time bee stings Allergy Severe Severe Uncoded 08/15/22 07:50 Swelling Active Medications: Current Medications Lactated Ringer's (Lr) 1,000 mls @ 80 mls/hr IVCONT .[id number] KAMALJIT Last Admin: 08/15/22 08:16 Dose: 80 mls/hr Home Medications Medication Instructions Recorded Confirmed Last Taken Type albuterol sulfate 2.5 mg/3 mL 2.5 mg inhalation Q6H PRN wheezing 11/15/21 08/15/22 Unknown History (0.083 %) solution for nebulization Exam Exam Date and Time: August 15, 2022 0835 Height,Weight and Vital Signs: Height 5 ft 4 in Weight 178 lb Last Vital Signs Temp 98.4 F 08/15/22 07:51 Pulse 67 08/15/22 07:51 Resp 16 08/15/22 07:51 BP 150/75 H 08/15/22 07:51 Pulse Ox 97 08/15/22 07:51 O2 Del Method Room Air 08/15/22 07:51 Airway TM Dist: >3cm Neck ROM: Full Denture: Upper and Lower Loose/Missing/Broken Teeth: Yes Assessment and Plan Assessment Anesthesia Assessment: Anesthesia Plan Discussed and Chart Reviewed Final Anesthetic Review Family History of Problems with Anesthesia: No History of Problems with Anesthesia: No NPO: Yes ASA Class: III Final Preanesthetic Review: No Changes in Pt Med Stat, Meds/Allgs Chart Reviewed, Consent Obtained/Reviewed and Anes Risks/Benef Reviewed Patient Risk: Intermediate Procedure Risk: Low Anesthetic Plan Anesthetic Plan: MAC: Disposition: Standard PACU
[2022-08-15 08:50] VITALS: BP 133/64; PULSE 65; RESP 18; TEMP 37; O2SAT 97
[2022-08-15 09:05] VITALS: BP 144/74; PULSE 61; RESP 18; TEMP 36.8; O2SAT 96
== END 2022-08-15 09:20 | disposition home or self-care (01) ==
PROVIDERS: PCP Internal Medicine; Visit Provider Internal Medicine Gastroenterology
PROC: 0DJD8ZZ Inspection of Lower Intestinal Tract, Via Natural or Artificial Opening Endoscopic (ICD-10-PCS; CPT 45378; principal; 2022-08-15 08:30)
DX: Z12.11 Encounter for screening for malignant neoplasm of colon (principal); D12.3 Benign neoplasm of transverse colon; D12.5 Benign neoplasm of sigmoid colon; K57.30 Diverticulosis of large intestine without perforation or abscess without bleeding; K64.0 First degree hemorrhoids; J44.9 Chronic obstructive pulmonary disease, unspecified; Z85.048 Personal history of other malignant neoplasm of rectum, rectosigmoid junction, and anus; Z86.010 Personal history of colon polyps
CPT/HCPCS: 45385; 88305

== ENCOUNTER 2022-08-21 06:33 | Outpatient (REF) | payer OTHER, SELFPAY ==
[2022-08-21 08:02] LABS: Alanine Aminotransferase 13 U/L (0-31); Albumin Level 4.6 g/dL (3.5-5.0); Alkaline Phosphatase 65 U/L (39-117); Anion Gap 13 (12-20); Aspartate Amino Transferase 17 U/L (5-31); Bilirubin Total 0.3 mg/dL (0.0-1.0); Blood Urea Nitrogen 13 mg/dL (9-16); Calcium 9.5 mg/dL (8.4-10.2); Carbon Dioxide 26 mmol/L (22-29); Chloride 109 mmol/L (96-108); Cholesterol 145 mg/dL; Estimated Glomerular Filt Rate > 60; Glucose Fasting 90 mg/dL (60-99); HDL Cholesterol 39 mg/dL; LDL Cholesterol Calculated 79 mg/dl; Sodium 143 mmol/L (135-145); Total Protein 6.7 g/dL (6.5-8.0); Triglycerides 135 mg/dL
[2022-08-21 08:22] LABS: Thyroid Stimulating Hormone 1.93 uIU/mL (0.32-4.0); Vitamin D 25-OH Total 65.4 ng/mL (>30)
== END 2022-08-21 06:34 | disposition home or self-care (01) ==
LOC: HO.LAB 06:33
PROVIDERS: PCP Internal Medicine; Visit Provider Internal Medicine
DX: E78.00 Pure hypercholesterolemia, unspecified (principal); E78.5 Hyperlipidemia, unspecified; C73 Malignant neoplasm of thyroid gland; E55.9 Vitamin D deficiency, unspecified
CPT/HCPCS: 36415; 80053; 80061; 82306; 84443

== ENCOUNTER → 2022-08-22 09:39 | Outpatient (BNVA) | payer OTHER, SELFPAY | PROVIDERS: PCP Internal Medicine; Visit Provider Internal Medicine Endocrinology, Diabetes & Metabolism | DX: E89.0 Postprocedural hypothyroidism (principal); Z85.850 Personal history of malignant neoplasm of thyroid; Z79.899 Other long term (current) drug therapy | CPT/HCPCS: 99212 ==

== ENCOUNTER → 2022-08-30 09:16 | Outpatient (BNVA) | payer OTHER, SELFPAY | PROVIDERS: PCP Internal Medicine; Visit Provider Nurse Practitioner Family | DX: K64.9 Unspecified hemorrhoids (principal); K57.90 Diverticulosis of intestine, part unspecified, without perforation or abscess without bleeding; D36.9 Benign neoplasm, unspecified site; Z98.890 Other specified postprocedural states | CPT/HCPCS: 99212 ==

== ENCOUNTER 2022-09-30 15:11 | Outpatient (REF) | payer OTHER, SELFPAY ==
--- NOTE | ~2022-09-30 | CT_ITS ---
EXAMINATION: CT CHEST SCREENING CLINICAL INFORMATION: 50 pack year history. Current smoker. COMPARISON: Previous chest CT September 2021 TECHNIQUE: Multidetector volumetric CT imaging of the chest is performed without contrast using low dose technique. Additional 2D coronal and sagittal reformatted images and axial 3D maximum intensity projection (MIP) images are generated on the CT workstation. This CT examination was performed using dose optimization techniques as appropriate, variously including the following: *Automated exposure control *Adjustment of mA and/or kV according to patient size (this includes techniques or standardized protocols for targeted exams where dose is matched to indication/reason for exam; i.e. extremities or head) *Use of iterative reconstruction technique DLP: 55 mGy-cm FINDINGS: LUNGS: Emphysema. There are multiple new bilateral pulmonary nodules. Heterogeneous semisolid peripheral right upper lobe nodule measuring 5 mm axial image 81 series 5. Heterogeneous or semisolid 5 mm left upper lobe nodule axial image 87 series 5. 3 mm heterogeneous semisolid peripheral right upper lobe nodule axial image 10 series 5. 4 mm left upper lobe nodule axial image 127 series 5. 2 mm left upper lobe nodule axial image 165 series 5. 3 mm peripheral or subpleural left lower lobe nodule adjacent to the fissure axial image 168 series 5. 4 mm left upper lobe nodule axial image 190 series 5. 3 mm left upper lobe nodule axial image 190 series 5. 8 mm paramediastinal left upper lobe nodule axial image 194 series 5 with spiculated margins. 6 mm right lower lobe nodule axial image 249 series 5 and 5 mm lingular nodule axial image 365 series 5. 3 mm peripheral or subpleural right lower lobe nodule adjacent to the major fissure axial image 332 series 5. 3 mm lingular nodule axial image 299 series 5. Question 5 mm central left lower lobe nodule posterior to the left pulmonary hilum versus vessel axial image 194 series 5. MEDIASTINUM: The thyroid gland has been removed. New enlarged mediastinal lymph nodes. Upper normal-size right pre-/paratracheal lymph node measuring 1 cm in short axis axial image 15 series 3. Enlarged AP window lymph node versus central lung mass measuring 3.4 cm in short axis axial image 20 series 3. Enlarged left precarinal lymph node measuring 1.9 cm in short axis axial image 22. Question enlarged left hilar adenopathy. This is separate from a nonenhanced vessels and possible central left lung mass. This measures 4 cm axial image 28 series 3. Normal heart size. No pericardial effusion. CORONARY ARTERY CALCIFICATION: None visualized on this study. PLEURA: There is no pleural effusion. No pleural mass or thickening. AXILLA: No lymphadenopathy. UPPER ABDOMEN: Unremarkable OSSEOUS STRUCTURES: Degenerative changes. CT/CT lung screening IMPRESSION: New abnormal mediastinal and left hilar lymphadenopathy. Multiple new bilateral pulmonary nodules. Largest pulmonary nodules are in the left upper lobe and right lower lobe. Largest pulmonary nodule measures 8 mm in the anterior segment. ASSESSMENT: Lung-RADS category 4X RECOMMENDATION: PET/CT scan or tissue sampling recommended. Contrast-enhanced chest CT may also be helpful to separate central lymphadenopathy from vascular structures. Findings will be communicated by the Same[employer] work flow shredder picker
--- NOTE | ~2022-09-30 | XR_ITS ---
EXAMINATION: XR SHOULDER, LEFT CLINICAL INFORMATION: Left shoulder pain. COMPARISON: None available. TECHNIQUE: Four views of the left shoulder. FINDINGS: No acute fractures or subluxation. Mild degenerative osteoarthritis of the acromioclavicular joint. No abnormal soft tissue calcifications. Left-sided mediastinal mass at the level of the aortopulmonary window, best characterized on a CTA of the chest performed subsequently on 10/15/2022. XR/XR shoulder LT min 2V IMPRESSION: 1. No acute fractures or subluxation. 2. Mild degenerative osteoarthritis of the acromioclavicular joint. 3. Left mediastinal mass, best characterized on a CTA of the chest performed subsequently on 10/15/2022.
== END 2022-09-30 15:12 | disposition home or self-care (01) ==
LOC: HO.XRAY 15:11
PROVIDERS: PCP Internal Medicine; Visit Provider Internal Medicine
DX: Z12.2 Encounter for screening for malignant neoplasm of respiratory organs (principal); F17.210 Nicotine dependence, cigarettes, uncomplicated; M25.512 Pain in left shoulder
CPT/HCPCS: 71271; 73030

== ENCOUNTER 2022-10-14 23:30 | Emergency (ER) | payer OTHER, SELFPAY ==
--- NOTE | ~2022-10-14 | CT_ITS ---
EXAMINATION: CT ANGIOGRAM OF THE CHEST WITH AND WITHOUT CONTRAST (CT PULMONARY ANGIOGRAM FOR PE) CLINICAL INFORMATION: Shortness of breath. COMPARISON: Lung screening chest CT dated 09/28/2022. TECHNIQUE: Prior to contrast administration, noncontrast localization images were obtained. Subsequently, multidetector volumetric imaging was performed from the thoracic inlet to below the diaphragms following the administration of 80 mL Omnipaque 350 intravenous contrast. No contrast reaction reported Sagittal, coronal, and MIP oblique sagittal reformatted images were obtained on the CT workstation, uploaded to PACS, and reviewed. This CT examination was performed using dose optimization techniques as appropriate, variously including the following: *Automated exposure control *Adjustment of mA and/or kV according to patient size (this includes techniques or standardized protocols for targeted exams where dose is matched to indication/reason for exam; i.e. extremities or head) *Use of iterative reconstruction technique Total exam dose-length product 324 mGy-cm FINDINGS: QUALITY OF STUDY/CONTRAST BOLUS: Satisfactory. PULMONARY ARTERIES: Narrowing of the left main pulmonary artery and proximal branches without intraluminal filling defects. THORACIC AORTA: Mild atherosclerosis in the aortic arch without significant dilatation. No evidence for dissection. LUNGS/PLEURA/AIRWAYS: Mild to moderate centrilobular emphysema is seen. Scattered pulmonary nodules are again seen. Accounting Technician nodules are as follows: Right apex, lateral: 0.4 cm, image 65, series 7 Right apex, anterior: 0.3 cm, image 93, series 7 Left upper lobe, anteromedial: 0.9 cm, image 188, series 7 Lingula lateral, posterior. Fissural: 0.6 cm, image 337, series 7 Right lower lobe, base: 0.6 cm, image 366, series 7 Linear nodularity posteriorly in the superior segment of the left lower lobe is again noted without significant change (image 200, series 7). Mild bibasilar linear atelectasis or scarring. There are no pleural effusions. The airways show mild narrowing of the left mainstem bronchus and proximal branches secondary to the mass without other significant abnormality. MEDIASTINUM: Status post thyroidectomy without abnormality in the thyroid bed. Normal heart size. No pericardial effusion. No evidence of septal bowing or right heart strain. Again seen is a large left hilar mass measuring approximately 7.0 x 5.0 x 7.0 cm (image 21, series 5; image 52, series 8). Several enlarged mediastinal and hilar lymph nodes are seen. A construction representative pretracheal lymph node measures 1.2 cm in short axis (image 15, series 5). A right hilar lymph node measures 1.0 cm (image 25, series 5). CORONARY ARTERY CALCIFICATION: None visualized on this study. CHEST WALL/AXILLA: No axillary or internal mammary lymphadenopathy. OSSEOUS STRUCTURES: No acute or suspicious osseous abnormality. UPPER ABDOMEN: Left adrenal nodules measuring 1.8 cm in the lateral limb and 1.1 cm in the medial limb (image 50, series 8; image 49, series 8). Mildly prominent adjacent lymph nodes are also seen. A construction representative lymph node measures 0.9 cm in short axis (image 39, series 8). No reflux of contrast into the hepatic veins to suggest elevated right heart pressures. CT/CT angio chest PE protocol IMPRESSION: 1. No evidence for pulmonary embolism. 2. Large left mediastinal mass as well as lymphadenopathy and pulmonary nodules concerning for malignancy. Biopsy and follow-up as per oncologic protocol. If not performed previously, a PET CT scan may be of value to better assess disease extent. 3. Left adrenal nodules are nonspecific but represents interval increase from the previous study and are concerning for metastatic nodules. Mildly enlarged adjacent lymph nodes may be related as well. VTE: Negative.
--- NOTE | ~2022-10-14 | XR_ITS ---
EXAMINATION: XR CHEST CLINICAL INFORMATION: Difficulty breathing COMPARISON: CT chest 09/30/2022 TECHNIQUE: 2 views of the chest were obtained. FINDINGS: Again seen is a large mediastinal mass in the AP window similar in appearance to the purse seiner radiograph from the CT on 09/30/2022. There is COPD with hyperexpansion and flattening of the diaphragms. Many pulmonary nodules seen on the prior CT scan are beyond the resolution of the chest radiograph and not appreciated. No pleural effusions. No pneumothorax. XR/XR chest 2V IMPRESSION: No acute intrathoracic disease. Large mediastinal mass unchanged when compared to the CT scan on 09/30/2022.
[2022-10-14 23:48] VITALS: BP 127/104; PULSE 74; RESP 22; TEMP 36.7; O2SAT 94; BMI 29.5
[2022-10-15 01:57] VITALS: BP 141/76; PULSE 90; RESP 16; TEMP 36.6; O2SAT 95
--- NOTE | 2022-10-15 02:07 | MHC.EDTECH ---
PATIENT BLOOD DRAWN AND SENT TO LAB ,VITALS SIGN RE CHECK .
[2022-10-15 02:09] LABS: Hematocrit 44.7 % (37.0-47.0); Hemoglobin 14.6 g/dl (12.0-16.0); Mean Corpuscular HGB Conc 32.7 g/dl (31.0-35.0); Mean Corpuscular Hemoglobin 30.6 pg (27.0-33.0); Mean Corpuscular Volume 93.7 fL (80.0-98.0); Mean Platelet Volume 9.5 fL (9.4-12.3); Platelet Count 266 X10*3/uL (160-400); Red Blood Count 4.77 X10*6/uL (4.20-5.50); Red Cell Distribution Width 13.1 % (11.0-16.0); White Blood Count 12.3 X10*3/uL (4.8-10.8)
[2022-10-15 02:27] LABS: Alanine Aminotransferase 23 U/L (0-31); Albumin Level 4.7 g/dL (3.5-5.0); Alkaline Phosphatase 83 U/L (39-117); Anion Gap 15 (12-20); Aspartate Amino Transferase 50 U/L (5-31); Bilirubin Total 0.3 mg/dL (0.0-1.0); Blood Urea Nitrogen 17 mg/dL (9-16); Calcium 10.6 mg/dL (8.4-10.2); Carbon Dioxide 25 mmol/L (22-29); Chloride 103 mmol/L (96-108); Creatinine Clr Calc Pharmacy 74.6; Estimated Glomerular Filt Rate > 60; Glucose Random 91 mg/dL (60-115); Potassium 4.7 mmol/L (3.3-5.1); Sodium 138 mmol/L (135-145); Total Protein 7.6 g/dL (6.5-8.0)
[2022-10-15 04:46] VITALS: BP 96/68; PULSE 72; RESP 12; TEMP 36.6; O2SAT 91
--- NOTE | 2022-10-15 05:44 | ED.SOB ---
HPI - SOB/Dyspnea General Chief Complaint: Dyspnea Stated Complaint: difficulty/painful breathing Time Seen by Provider: 10/15/22 04:44 History of Present Illness HPI Narrative: Patient is a 62-year-old female with a history of smoking. Positive previous history of having a mediastinal mass. Presented today with having increasing shortness of breath. Tightness in his chest. Patient from home. No coughing or congestion or respiratory symptoms. No diaphoresis. [place] short of breath. Very weak. Related Data Previous Rx's Medication Instructions Recorded levothyroxine 112 mcg tablet 112 mcg PO DAILY #90 tabs 01/21/22 rosuvastatin 10 mg tablet 10 mg PO BEDTIME 90 days #90 tabs 08/15/22 Ventolin HFA 90 mcg/actuation 2 puff PO Q6H PRN for wheezing 30 08/20/22 aerosol inhaler (albuterol sulfate) days #8 grams albuterol sulfate 2.5 mg/3 mL 2.5 mg (3 mL) inhalation Q6H PRN 08/20/22 (0.083 %) solution for nebulization wheezing #180 mL budesonide-formoterol HFA 160 2 puff inhalation BID 30 days 08/20/22 mcg-4.5 mcg/actuation aerosol #10.2 grams inhaler (Symbicort) nicotine 14 mg/24 hr daily 1 patch topical DAILY #28 patches 08/20/22 transdermal patch hydrocortisone 2.5 % topical cream 1 appl SD BID-QID PRN hemorrhoids 08/30/22 with perineal applicator #30 grams (Proctosol HC) polyethylene glycol 3350 17 17 g PO DAILY #510 grams 08/30/22 gram/dose oral powder (Miralax) cholecalciferol (vitamin D3) 50 50 mcg PO DAILY #30 caps 09/06/22 mcg (2,000 unit) capsule prednisone 20 mg tablet 40 mg PO DAILY 5 days #10 tabs 10/15/22 Allergies Allergy/AdvReac Type Severity Reaction Status Date / Time bee stings Allergy Severe Severe Uncoded 08/30/22 09:32 Swelling Review of Systems Review of Systems: Positive shortness of breath positive generalized malaise Yes all other systems are reviewed and are negative PMFSH Past Medical History Attestation statement: The following information was validated with the patient. Medical History COPD (chronic obstructive pulmonary disease) Dyspnea Low vitamin D level Nicotine dependence, cigarettes, uncomplicated Overweight (BMI 25.0-29.9) Post-surgical hypothyroidism (~2013) Postmenopausal Primary thyroid cancer (~2013) Pulmonary nodules Rectal adenoma Tubular adenoma Tubular adenoma of colon (~2009) Surgical History History of colonoscopy History of HPV infection (~1996) History of skin cancer (~2009) History of total thyroidectomy (~2013) Family History Family History Father No problems noted. Mother Polycythemia vera Sister Mental health disorder Social History Social History Housing: House Alcohol intake: never Patient Tobacco Use Status: Current everyday Tobacco user Tobacco use type: Cigarette Cigarettes Per Day: 6 Years Smoked: 50 Smoked in Last 30 Days: No e-Cigarette/Vaping Use: Never Used Second Hand Smoke Exposure: No Use of substances other than those prescribed or required for medical reasons: No Advance Directives: No Advance Directives Information Provided: Yes service: No Current occupational status: unemployed Cognitive needs: No Hearing needs: No Vision needs: Yes Physical Exam Vital Signs: Vital Signs: Last Vital Signs Temp 97.9 F 10/15/22 04:46 Pulse 71 10/15/22 08:32 Resp 16 10/15/22 08:32 BP 115/64 10/15/22 07:33 Pulse Ox 91 L 10/15/22 07:33 O2 Del Method Room Air 10/15/22 07:33 BMI result Body Mass Index 29.5 Appearance: Alert. Oriented X3. No acute distress. Eyes: Pupils equal, round and reactive to light. ENT: Pharynx normal. Neck: Normal inspection. Neck supple. No lymph nodes noted. No crepitus CVS: Normal heart rate and rhythm. Pulses normal. Normal S1 and S2 Respiratory: No respiratory distress. Breath sounds normal. No Wheezing. No rales Abdomen: Soft and nontender. No rigidity. No distention. good BS x4 Skin: Skin warm and dry. Normal skin color. Normal skin turgor. Extremities: No lower extremity edema. Neurovascular intact to all extremities. No Lacerations. No Rash Neuro: Oriented X 3. No motor deficit. No sensory deficit. Moving all extermities. No slurred speech Course Course Course Narrative: Rate: 94 Rhythm: NSR [place]: normal Normal P waves. Normal ESTEFANI. Normal QRS complex. ST T wave : inverted V1, nonspecific changes inf leads qTC: slightly prolonged at 470 prior studies: The study has been interpreted contemporaneously by me. . 94% on room air wants to go home will start on prednisone. states she is going to follow up with her sample preparation supervisor Medications Administered Discontinued Medications Generic Name Dose Route Start Last Admin Trade Name Freq PRN Reason Stop Dose Admin Albuterol Sulfate 2.5 mg 10/15/22 08:15 10/15/22 08:35 Albuterol Sulfate (0.083%) 2.5 Mg/3 Ml Vial.Neb INHALE 10/15/22 08:56 2.5 mg Q20M KAMALJIT Administration Albuterol/Ipratropium 3 ml 10/15/22 08:15 10/15/22 08:28 Albuterol/Iprat 2.5/0.5mg 3 Ml Ampul.Neb INHALE 10/15/22 08:16 3 ml ONCE ONE Administration Sodium Chloride 500 mls @ 999 mls/hr 10/15/22 06:00 10/15/22 06:58 Ns IV 10/15/22 06:30 Infused .Q31M KAMALJIT Infusion Iohexol 65 ml 10/15/22 08:23 10/15/22 08:24 Iohexol 350 Mg/Ml 100 Ml Infus..Btl IV 10/15/22 08:24 65 ml ONCE ONE Administration Methylprednisolone Sodium Succinate 125 mg 10/15/22 05:51 10/15/22 06:11 Methylprednisolone Sod Succ 125 Mg/2 Ml Vial IVPUSH 10/15/22 05:52 125 mg ONCE ONE Administration Medical Decision Making Medical Decision Making MDM Narrative: History of mediastinal mass. Complaining of shortness of breath with a history of COPD. Cannot exclude the possibility of PE. CTA was ordered. Patient troponin was normal. Chest pain shortness of breath has been ongoing. Patient given steroids. Will give neb treatment. EKG is pending. CTA of the chest is still pending. Patient's case being turned over the change of shift. Differential Diagnosis Differential Diagnoses: The differential diagnosis associated with the presentation includes COPD, CHF, pulmonary emboli, pneumonia Lab Data MDM Lab Attestation statement: I reviewed the patient's lab results. 10/15/22 02:05 10/15/22 02:05 Labs: Lab Results 10/15/22 10/15/22 10/15/22 Range/Units 02:05 02:05 02:05 WBC 12.3 H (4.8-10.8) X10*3/uL RBC 4.77 (4.20-5.50) X10*6/uL Hgb 14.6 (12.0-16.0) g/dl Hct 44.7 (37.0-47.0) % MCV 93.7 (80.0-98.0) fL MCH 30.6 (27.0-33.0) pg MCHC 32.7 (31.0-35.0) g/dl RDW 13.1 (11.0-16.0) % Plt Count 266 (160-400) X10*3/uL MPV 9.5 (9.4-12.3) fL Absolute Nucleated RBC 0.000 (0.0-0.012) X10*3/uL Nucleated RBC % (auto) 0.0 (0.0-0.2) /100WBC Sodium 138 (135-145) mmol/L Potassium 4.7 (3.3-5.1) mmol/L Chloride 103 (96-108) mmol/L Carbon Dioxide 25 (22-29) mmol/L Anion Gap 15 (12-20) BUN 17 H (9-16) mg/dL Creatinine 0.79 (0.5-1.4) mg/dL Estim Creat Clear Calc 74.6 Estimated GFR > 60 Random Glucose 91 (60-115) mg/dL Calcium 10.6 H D (8.4-10.2) mg/dL Magnesium 2.2 (1.6-2.6) mg/dL Total Bilirubin 0.3 (0.0-1.0) mg/dL AST 50 H (5-31) U/L ALT 23 (0-31) U/L Alkaline Phosphatase 83 (39-117) U/L Troponin I High Sens (<3.5-17.0) ng/L B-Natriuretic Peptide 15 (<100) pg/mL Total Protein 7.6 (6.5-8.0) g/dL Albumin 4.7 (3.5-5.0) g/dL 10/15/22 Range/Units 06:11 WBC (4.8-10.8) X10*3/uL RBC (4.20-5.50) X10*6/uL Hgb (12.0-16.0) g/dl Hct (37.0-47.0) % MCV (80.0-98.0) fL MCH (27.0-33.0) pg MCHC (31.0-35.0) g/dl RDW (11.0-16.0) % Plt Count (160-400) X10*3/uL MPV (9.4-12.3) fL Absolute Nucleated RBC (0.0-0.012) X10*3/uL Nucleated RBC % (auto) (0.0-0.2) /100WBC Sodium (135-145) mmol/L Potassium (3.3-5.1) mmol/L Chloride (96-108) mmol/L Carbon Dioxide (22-29) mmol/L Anion Gap (12-20) BUN (9-16) mg/dL Creatinine (0.5-1.4) mg/dL Estim Creat Clear Calc Estimated GFR Random Glucose (60-115) mg/dL Calcium (8.4-10.2) mg/dL Magnesium (1.6-2.6) mg/dL Total Bilirubin (0.0-1.0) mg/dL AST (5-31) U/L ALT (0-31) U/L Alkaline Phosphatase (39-117) U/L Troponin I High Sens < 2.7 (<3.5-17.0) ng/L B-Natriuretic Peptide (<100) pg/mL Total Protein (6.5-8.0) g/dL Albumin (3.5-5.0) g/dL Radiology Impression Discussion of test interpretation with radiology: I have reviewed the radiologist's reading. External Record Review External record reviewed: Outpatient record Discharge Plan Discharge Clinical Impression: COPD (chronic obstructive pulmonary disease), Shortness of breath Patient Disposition: Home, Self-Care Instructions: COPD (Chronic Obstructive Pulmonary Disease) (ED) Additional Instructions: return to ED for any worsening symptoms or concerns return for increased shortness of breath, fevers, chest pain or any other concerns. follow up with your sample preparation supervisor as soon as possible to get this mass worked up as it is causing. Prescriptions: New prednisone 20 mg tablet 40 mg PO DAILY 5 Days Qty: 10 0RF No Action levothyroxine 112 mcg tablet 112 mcg PO DAILY Qty: 90 2RF rosuvastatin 10 mg tablet 10 mg PO BEDTIME 90 Days Qty: 90 1RF albuterol sulfate [Ventolin HFA] 90 mcg/actuation HFA aerosol inhaler 2 puff PO Q6H PRN (Reason: for wheezing) 30 Days Qty: 8 2RF nicotine 14 mg/24 hr patch 24 hour 1 patch topical DAILY Qty: 28 3RF budesonide-formoterol [Symbicort] 160-4.5 mcg/actuation HFA aerosol inhaler 2 puff inhalation BID 30 Days Qty: 10.2 11RF albuterol sulfate 2.5 mg /3 mL (0.083 %) solution for nebulization 2.5 mg inhalation Q6H PRN (Reason: wheezing) Qty: 180 0RF cholecalciferol (vitamin D3) 50 mcg (2,000 unit) capsule 50 mcg PO DAILY Qty: 30 5RF polyethylene glycol 3350 [Miralax] 17 gram/dose powder 17 g PO DAILY Qty: 510 2RF hydrocortisone [Proctosol HC] 2.5 % cream with perineal applicator 1 appl SD BID-QID PRN (Reason: hemorrhoids) Qty: 30 2RF
[2022-10-15] MEDS: methylPREDNISolone Sod Succ 125 MG/2 ML VIAL IVPUSH (06:11)
[2022-10-15] MEDS: 0.9 % Sodium Chloride 500 ML 999 ML IV (06:12)
[2022-10-15 06:19] LABS: B Type Natriuretic Peptide 15 pg/mL (<100); Magnesium 2.2 mg/dL (1.6-2.6)
[2022-10-15 06:44] LABS: Troponin-I High Sensitivity < 2.7 ng/L (<3.5-17.0)
[2022-10-15 07:33] VITALS: BP 115/64; PULSE 71; RESP 15; O2SAT 91
--- NOTE | 2022-10-15 08:13 | ECG_ITS ---
Test Reason : cp Blood Pressure : / mmHG Vent. Rate : 094 BPM Atrial Rate : 094 BPM P-R Int : 190 ms QRS Dur : 094 ms QT Int : 376 ms P-R-T Axes : 056 020 059 degrees QTc Int : 470 ms Normal sinus rhythm Possible Left atrial enlargement Borderline ECG No previous ECGs available Referred By: Mago Castorena Electronically Signed By:Bryson Lynch
[2022-10-15] MEDS: iohexoL 350 MG/ML 100 ML INFUS..BTL 65 ML IV (08:24)
[2022-10-15] MEDS: Albuterol/Iprat 2.5/0.5MG 3 ML AMPUL.NEB INHALE (08:28)
[2022-10-15] MEDS: Albuterol Sulfate (0.083%) 2.5 MG/3 ML VIAL.NEB INHALE ×3 (08:29→08:35)
[2022-10-15 08:32] VITALS: PULSE 71; RESP 16; O2SAT 89
[2022-10-15 10:08] VITALS: BP 122/77; PULSE 88; RESP 18; TEMP 36.4; O2SAT 94
== END 2022-10-15 10:31 | disposition home or self-care (01) ==
PROVIDERS: Emergency Medicine Emergency Medical Services; Emergency Provider Emergency Medicine; PCP Internal Medicine
DX: J44.9 Chronic obstructive pulmonary disease, unspecified (principal); R06.02 Shortness of breath; Z79.02 Long term (current) use of antithrombotics/antiplatelets; Z79.899 Other long term (current) drug therapy; F17.210 Nicotine dependence, cigarettes, uncomplicated
CPT/HCPCS: 36415; 71046; 71275; 80053; 83735; 83880; 84484; 85027; 93005; 94640; 96361; 96374; 99285; J2930; Q9967

== ENCOUNTER 2022-10-16 11:47 | Day surgery (SDC) | payer OTHER, SELFPAY ==
--- NOTE | 2022-10-15 13:39 | P.CONAN_ITS ---
Documented by User: Cate Christianson NP 10/15/22 13:42 HPI - Anesthesia Eval Consult details Narrative: 62yo F for Endoscopic Bronchial Ultrasound [facility] 10/14/[address] Diaz recommend for chest tightness. Found to be COPD exac and started on prednisone 40mg daily s/p [place] 08/2022 with MAC PMFSH Active Problems Active Problems: All Active Problems (Updated 10/15/22 @ 08:19 by Mago Castorena MD) Shortness of breath (Acute) Pulmonary nodules (Acute) Nicotine dependence, cigarettes, uncomplicated (Acute) COPD (chronic obstructive pulmonary disease) (Acute) Primary thyroid cancer (Acute ~2013) Leukocytosis (Acute) Elevated BP without diagnosis of hypertension (Acute) Pure hypercholesterolemia (Acute) Left shoulder pain (Acute) Post-surgical hypothyroidism (Acute ~2013) Postmenopausal (Acute) Low vitamin D level (Acute) Overweight (BMI 25.0-29.9) (Acute) Past Medical History Medical History (Updated 10/16/22 @ 12:05 by Elle June RN) COPD (chronic obstructive pulmonary disease) Dyspnea HTN (hypertension) Low vitamin D level Nicotine dependence, cigarettes, uncomplicated Overweight (BMI 25.0-29.9) Post-surgical hypothyroidism (~2013) Postmenopausal Primary thyroid cancer (~2013) Pulmonary nodules Rectal adenoma Tubular adenoma of colon (~2009) Family History Family History Father No problems noted. Mother Polycythemia vera Sister Mental health disorder Family history of problems with anesthesia: No Surgical History Surgical History (Updated 10/16/22 @ 12:07 by Elle June RN) History of bilateral carpal tunnel release History of colonoscopy History of HPV infection (~1996) History of skin cancer (~2009) History of total thyroidectomy (~2013) Status post de Quervain's release surgery History of Problems with Anesthesia: No Social History Social History Housing: House Alcohol intake: never Patient Tobacco Use Status: Current everyday Tobacco user Tobacco use type: Cigarette Cigarettes Per Day: 2 Years Smoked: 50 e-Cigarette/Vaping Use: Never Used Second Hand Smoke Exposure: No Use of substances other than those prescribed or required for medical reasons: No Are you DNR?: No Advance Directives: No Advance Directives Information Provided: Yes service: No Current occupational status: unemployed Cognitive needs: No Hearing needs: No Vision needs: Yes Meds Allergies Allergy/AdvReac Type Severity Reaction Status Date / Time bee stings Allergy Severe Severe Uncoded 10/16/22 12:07 Swelling Exam Exam Date and Time: October 15, 2022 1339 Pertinent Lab Results Pertinent Lab Results: Laboratory Tests 10/15/22 10/15/22 02:05 02:05 WBC 12.3 H Hgb 14.6 Hct 44.7 Plt Count 266 Sodium 138 Potassium 4.7 Chloride 103 Carbon Dioxide 25 BUN 17 H Creatinine 0.79 Narrative Narrative: EKG 10/2022 Vent. Rate : 094 BPM ? ? Atrial Rate : 094 BPM ?? P-R Int : 190 ms? QRS Dur : 094 ms ? ? QT Int : 376 ms ? ? ? P-R-T Axes : 056 020 059 degrees ?? QTc Int : 470 ms ? Normal sinus rhythm Possible Left atrial enlargement Borderline ECG No previous ECGs available Chest CTA 10/2022 CT angio chest PE protocol IMPRESSION: 1. No evidence for pulmonary embolism. 2. Large left mediastinal mass as well as lymphadenopathy and pulmonary nodules concerning for malignancy. Biopsy and follow-up as per oncologic protocol. If not performed previously, a PET CT scan may be of value to better assess disease extent. 3. Left adrenal nodules are nonspecific but represents interval increase from the previous study and are concerning for metastatic nodules. Mildly enlarged adjacent lymph nodes may be related as well. Assessment and Plan Assessment Anesthesia Assessment: Chart Reviewed Final Anesthetic Review Family History of Problems with Anesthesia: No History of Problems with Anesthesia: No Documented by User: Rodrigo Bess MD 10/16/22 13:51 [facility] Past Medical History Medical History (Updated 10/16/22 @ 12:05 by Elle June RN) COPD (chronic obstructive pulmonary disease) Dyspnea HTN (hypertension) Low vitamin D level Nicotine dependence, cigarettes, uncomplicated Overweight (BMI 25.0-29.9) Post-surgical hypothyroidism (~2013) Postmenopausal Primary thyroid cancer (~2013) Pulmonary nodules Rectal adenoma Tubular adenoma of colon (~2009) Family History Family History Father No problems noted. Mother Polycythemia vera Sister Mental health disorder Surgical History Surgical History (Updated 10/16/22 @ 12:07 by Elle June RN) History of bilateral carpal tunnel release History of colonoscopy History of HPV infection (~1996) History of skin cancer (~2009) History of total thyroidectomy (~2013) Status post de Quervain's release surgery Social History Social History Housing: House Alcohol intake: never Patient Tobacco Use Status: Current everyday Tobacco user Tobacco use type: Cigarette Cigarettes Per Day: 2 Years Smoked: 50 e-Cigarette/Vaping Use: Never Used Second Hand Smoke Exposure: No Use of substances other than those prescribed or required for medical reasons: No Are you DNR?: No Advance Directives: No Advance Directives Information Provided: Yes service: No Current occupational status: unemployed Cognitive needs: No Hearing needs: No Vision needs: Yes Meds Allergies Allergy/AdvReac Type Severity Reaction Status Date / Time bee stings Allergy Severe Severe Uncoded 10/16/22 12:07 Swelling Exam Airway Mallampati Class: II TM Dist: >3cm Neck ROM: Full Heart: ok Lungs: ok Assessment and Plan Final Anesthetic Review NPO: Yes ASA Class: III Final Preanesthetic Review: No Changes in Pt Med Stat, Meds/Allgs Chart Reviewed, Consent Obtained/Reviewed and Anes Risks/Benef Reviewed Patient Risk: Intermediate Procedure Risk: Intermediate Anesthetic Plan Anesthetic Plan: MAC: and Agree w/ Assess. and Plan Disposition: Standard PACU
[2022-10-16] VITALS (9 sets, daily range): BP systolic 86–123; BP diastolic 39–68; PULSE 61–73; RESP 11–19; TEMP 36.2–36.5; O2SAT 89–98; BMI 29.5
--- NOTE | ~2022-10-16 | XR_ITS ---
EXAMINATION: XR CHEST CLINICAL INFORMATION: Status post bronchoscopy COMPARISON: Chest 10/15/2022 TECHNIQUE: AP upright portable view of the chest was obtained. 1510 hours FINDINGS: EKG leads project over the chest. Again seen is a large mediastinal mass in the AP window. There is increased lucency projected over this area. No pneumothorax. Again noted is COPD with flattening of the hemidiaphragms. No focal consolidation or interstitial pulmonary edema. Heart size is normal. Trace atelectasis at the left lung base. XR/XR chest 1V IMPRESSION: 1. No pneumothorax. 2. Large mediastinal mass. New increased lucency is seen over this area. 3. COPD. 4. Trace atelectasis at the left lung base.
--- NOTE | 2022-10-16 10:27 | MHC.SHP ---
Pre-Procedural Eval Section A Date of Service: 10/16/22 The patient is an INPATIENT: No Changes since office visit: No Cold of Flu in the past 2 weeks, No New Medical Problems, No Changes in Medication and No Patient answered all questions The History & Physical has been completed within 30 days and I have reviewed it.: No Section B Chief Complaint: Other nonspecific abnormal finding of lung field Relevant Family History (Specify if Yes): No Relevant Social History: None Present Medications: see Short Stay Collaborative assessment Medical History: Significant History History of Previous Operations: Relevant previous surgery/procedure and date(s) Allergies: Allergies Allergy/AdvReac Type Severity Reaction Status Date / Time bee stings Allergy Severe Severe Uncoded 08/30/22 09:32 Swelling Review of Systems Sugical H&P ROS: Negative: Constitution, Cardiovascular, Neurological, Psychiatric, Hem-Onc, Allergic/Immunologic, Gastrointestinal, Genitourinary, Musculoskeletal, Integumentary and Endocrine and Yes, Specify: Respiratory (cough) Exam Surgical H&P Exam: Normal: HEENT, Normal: Heart, Normal: Lungs, Normal: Extremities, Normal: Abdomen, Normal: Skin and Normal: Neurological Plan Diagnosis/Plan: Change (EBUS to assess Left hilar mass) I have reviewed the history and physical and performed a pertinent physical examination on my patient. No changes have occurred unless specified. Time Spent With Patient Time: Total time managing care of this patient today ____ minutes.
[2022-10-16] MEDS: Lactated Ringers 1,000 ML 100 ML IVCONT (12:45)
--- NOTE | 2022-10-16 14:52 | P.BOP_ITS ---
Brief Operative Note Date of Service: 10/16/22 Pre-op diagnosis: lung mass Post-op diagnosis: other (lung cancer) Procedure: EBUS with TBNA and bronchoscopy with biopsies THERESA Implants: Surgeon: Mick Diaz MD Anesthesia: GLMA Was an Doggy Daycare Activities Director used for this Procedure?: No Estimated blood loss (mL): 2 Pathology: other (THERESA biopsies; 4L TBNA) Condition: stable Disposition: same day
--- NOTE | 2022-10-17 01:48 | OP_ITS ---
DATE OF SERVICE: 10/16/2022 SURGEON: Mick Diaz MD PREOPERATIVE DIAGNOSIS: Mediastinal hilar mass. POSTOPERATIVE DIAGNOSIS: Lung cancer. PROCEDURE PERFORMED: ESTIMATED BLOOD LOSS: COMPLICATIONS: No complications noted. ANESTHESIA: LMA. ASSISTANTS: SPECIMENS: PROCEDURES PERFORMED: Endobronchial ultrasound, bronchoscopy with transbronchial needle aspiration of 4L and also bronchoscopy with left upper lobe biopsies. DESCRIPTION OF PROCEDURE: After the patient was adequately sedated, a flexible digital bronchoscope was inserted via LMA to the level of the larynx. Vocal cords moved symmetrically to the midline without any lesions or masses. After instilling additional lidocaine, the bronchoscope was then passed through vocal cords to the level of the trachea. After administering additional lidocaine using the endobronchial ultrasound bronchoscope, EBUS, we were able to visualize different stations. The patient did have a significant mass-like density at station 4L. Therefore, using 19-gauge needle, transbronchial needle aspirations were obtained, and cystologist documented evidence of malignant cells. Additional passes were done, a total of 5, and sent to the cystology. Afterwards, the bronchoscope was then removed and replaced with a regular bronchoscopy. The tracheobronchial tree was examined up to the subsegmental level. The patient did have irregular mucosa in airways primarily in the distal left mainstem bronchus and also in the left upper lobe area. Areas were fullness and hypervascular and friable mucosa. Some obstruction to the left upper lobe area. Using forceps, forceps biopsy was obtained from the left upper lobe. Difficult to visualize because of the bleeding and oozing and malacia of the airways. Specimens were sent to pathology in formalin. Bronchial washings were also collected and sent for cytology and also microbiology. No evidence of any active bleeding. Half an ampule of epinephrine was also used for good hemostasis. The bronchoscope was then removed. The total endoscopic time was approximately 45 minutes. The patient tolerated the procedure well. Vital signs were stable throughout the procedure. INTERPRETATION: 1. Significant hilar and mediastinal mass, status post EBUS with transbronchial needle aspirations identifying lung cancer in the mass. 2. Forceps biopsies of left upper lobe were abnormal and endobronchial lesion likely also consistent with the cancer. Washings were also collected. X-ray pending. Mick Diaz MD MR/MODL / [id number]
== END 2022-10-16 17:19 | disposition home or self-care (01) ==
PROVIDERS: PCP Internal Medicine; Visit Provider Hospitalist
PROC: (CPT 31628; principal; 2022-10-16 13:00)
DX: C34.12 Malignant neoplasm of upper lobe, left bronchus or lung (principal); C77.1 Secondary and unspecified malignant neoplasm of intrathoracic lymph nodes; J44.9 Chronic obstructive pulmonary disease, unspecified; R06.09 Other forms of dyspnea; Z85.850 Personal history of malignant neoplasm of thyroid; E89.0 Postprocedural hypothyroidism; F17.210 Nicotine dependence, cigarettes, uncomplicated; R05.8 Other specified cough; E55.9 Vitamin D deficiency, unspecified; E66.3 Overweight; Z68.29 Body mass index [BMI] 29.0-29.9, adult; Z79.51 Long term (current) use of inhaled steroids; Z85.828 Personal history of other malignant neoplasm of skin
CPT/HCPCS: 31628; 31652; 71045; 87070; 87077; 87102; 87106; 87116; 87186; 87205; 87206; 88172; 88173; 88177; 88305; 88341; 88342; J0171; J2250; J3010

== ENCOUNTER → 2022-10-22 14:00 | Outpatient (BNV) | payer OTHER, SELFPAY | PROVIDERS: PCP Internal Medicine; Visit Provider Internal Medicine | DX: C34.81 Malignant neoplasm of overlapping sites of right bronchus and lung (principal); C34.82 Malignant neoplasm of overlapping sites of left bronchus and lung; C79.51 Secondary malignant neoplasm of bone; R79.89 Other specified abnormal findings of blood chemistry | CPT/HCPCS: 99205; 99212; 99213; 99214 ==

== ENCOUNTER 2022-10-24 13:24 | Outpatient (REF) | payer OTHER, SELFPAY ==
--- NOTE | ~2022-10-24 | MR_ITS ---
EXAMINATION: MR BRAIN WITHOUT AND WITH CONTRAST CLINICAL INFORMATION: Lung carcinoma. Dizziness. COMPARISON: No relevant prior imaging. TECHNIQUE: Multiplanar MR imaging of brain was performed without and with contrast. A total of 8 mL Gadavist was utilized for this examination. FINDINGS: There are innumerable osseous lesions throughout the bone marrow the calvarium, skull base, and visualized upper cervical spine consistent with widespread metastatic disease in the setting of lung carcinoma. There is also relatively mild smooth dural thickening and enhancement over the cerebral convexities. Otherwise no discrete enhancing nodular lesion within the intracranial compartment. No abnormal intracranial mass effect. No midline shift or hydrocephalus. The cervicomedullary junction is normal. There is a small developmental venous anomaly traversing the right occipital lobe. No intracranial mass effect or midline shift. No abnormal extra-axial collection. Lateral and third ventricles are normal. No hydrocephalus. There is no acute territorial infarct. No pathological magnetic susceptibility artifact. Intracranial vascular flow voids are grossly maintained. There is no mastoid or middle ear effusion. Mild paranasal sinus disease primarily affecting the ethmoid air cells. Globes and orbits are symmetric. MR/MR head/brain wo/w con IMPRESSION: There is widespread osseous metastatic disease involving the calvarium, skull base, and visualized upper cervical spine. There is also relatively mild smooth dural thickening and enhancement over the cerebral convexities. Otherwise no discrete enhancing nodular lesion within the intracranial compartment. No abnormal intracranial mass effect or hydrocephalus.
== END 2022-10-24 13:25 | disposition home or self-care (01) ==
LOC: HO.MRI 13:24
PROVIDERS: PCP Internal Medicine; Visit Provider Internal Medicine
DX: C34.90 Malignant neoplasm of unspecified part of unspecified bronchus or lung (principal)
CPT/HCPCS: 70553; A9585

== ENCOUNTER → 2022-10-29 11:05 | Outpatient (BNVA) | payer OTHER, SELFPAY | PROVIDERS: PCP Internal Medicine; Referring Provider Internal Medicine; Visit Provider Surgery | DX: Z01.818 Encounter for other preprocedural examination (principal); C34.90 Malignant neoplasm of unspecified part of unspecified bronchus or lung | CPT/HCPCS: 99202 ==

== ENCOUNTER 2022-10-30 07:11 | Day surgery (SDC) | payer OTHER, SELFPAY ==
--- NOTE | 2022-10-29 14:28 | HO.ANESPROP2 ---
HPI - Anesthesia Eval Consult details Narrative: 62yo F for Port placement w/Doppler u/s Fluoroscopy Lung CA PMFSH Active Problems Active Problems: All Active Problems (Updated 10/22/22 @ 14:16 by Carmen Cisneros MD) Small cell lung cancer (Acute) Lung cancer (Acute) Left shoulder pain (Acute) Pure hypercholesterolemia (Acute) Leukocytosis (Acute) Elevated BP without diagnosis of hypertension (Acute) Pulmonary nodules (Acute) Nicotine dependence, cigarettes, uncomplicated (Acute) COPD (chronic obstructive pulmonary disease) (Acute) Primary thyroid cancer (Acute ~2013) Post-surgical hypothyroidism (Acute ~2013) Postmenopausal (Acute) Low vitamin D level (Acute) Overweight (BMI 25.0-29.9) (Acute) Past Medical History Medical History COPD (chronic obstructive pulmonary disease) Dyspnea HTN (hypertension) Low vitamin D level Lung cancer Nicotine dependence, cigarettes, uncomplicated Overweight (BMI 25.0-29.9) Post-surgical hypothyroidism (~2013) Postmenopausal Primary thyroid cancer (~2013) Pulmonary nodules Rectal adenoma Tubular adenoma of colon (~2009) Family History Family History Father No problems noted. Mother Polycythemia vera Pulmonary cancer Sister Mental health disorder Family history of problems with anesthesia: No Surgical History Surgical History History of bilateral carpal tunnel release History of colonoscopy History of HPV infection (~1996) History of skin cancer (~2009) History of total thyroidectomy (~2013) Status post de Quervain's release surgery History of Problems with Anesthesia: No Social History Social History Housing: House Alcohol intake: never Patient Tobacco Use Status: Current everyday Tobacco user Tobacco use type: Cigarette Cigarettes Per Day: 3 Years Smoked: 50 e-Cigarette/Vaping Use: Never Used Second Hand Smoke Exposure: No Do you feel safe in your current relationship?: Yes Do you have thoughts of harming others: None service: No Current occupational status: unemployed Cognitive needs: No Hearing needs: No Vision needs: Yes Meds Allergies Allergy/AdvReac Type Severity Reaction Status Date / Time bee stings Allergy Severe Severe Uncoded 10/31/22 09:32 Swelling Home Medications Medication Instructions Recorded Confirmed Last Taken Type nebulizers 10/31/22 Unknown History Exam Exam Date and Time: October 29, 2022 1428 Pertinent Lab Results Pertinent Lab Results: Laboratory Tests 10/25/22 10/25/22 09:25 09:25 WBC 10.7 Hgb 13.9 Hct 42.9 Plt Count 254 Sodium 138 Potassium 4.4 Chloride 104 Carbon Dioxide 25 BUN 18 H Creatinine 0.77 Narrative Narrative: EKG 10/2022 Vent. Rate : 094 BPM ? ? Atrial Rate : 094 BPM ?? P-R Int : 190 ms? QRS Dur : 094 ms ? ? QT Int : 376 ms ? ? ? P-R-T Axes : 056 020 059 degrees ?? QTc Int : 470 ms ? Normal sinus rhythm Possible Left atrial enlargement Borderline ECG No previous ECGs available Assessment and Plan Assessment Anesthesia Assessment: Chart Reviewed Final Anesthetic Review Family History of Problems with Anesthesia: No History of Problems with Anesthesia: No
[2022-10-30] VITALS (7 sets, daily range): BP systolic 131–142; BP diastolic 60–83; PULSE 74–92; RESP 16–18; TEMP 36.1–37.3; O2SAT 95–96; BMI 29.5
--- NOTE | ~2022-10-30 | FL_ITS ---
EXAMINATION: XR FLUOROSCOPY WITH IMAGES CLINICAL INFORMATION: Port placement. COMPARISON: None available. TECHNIQUE: Fluoroscopy Supervised By: Dr. Trevizo. Fluoroscopy Time: 37.4 seconds. Cumulative Dose: 5.35 mGy. DAP: Gycm2. Images: 2. FINDINGS: Images demonstrate a right jugular port with tip projecting over the cavoatrial junction. Endotracheal tube tip is 4 cm above the bita. FL/FL guidance in OR IMPRESSION: Fluoroscopy guidance for Port-A-Cath placement.
--- NOTE | 2022-10-30 07:21 | PC.NURSE ---
patient drank two cups of coffee this morning with sugar and cream. md nicole aware and is ok to proceed.
[2022-10-30] MEDS: Lactated Ringers 1,000 ML 100 ML IVCONT (07:56)
--- NOTE | 2022-10-30 08:02 | P.CONAN_ITS ---
COUNT INCLUDES THE [facility] Active Problems Active Problems: All Active Problems (Updated 10/22/22 @ 14:16 by Carmen Cisneros MD) Small cell lung cancer (Acute) Lung cancer (Acute) Left shoulder pain (Acute) Pure hypercholesterolemia (Acute) Leukocytosis (Acute) Elevated BP without diagnosis of hypertension (Acute) Pulmonary nodules (Acute) Nicotine dependence, cigarettes, uncomplicated (Acute) COPD (chronic obstructive pulmonary disease) (Acute) Primary thyroid cancer (Acute ~2013) Post-surgical hypothyroidism (Acute ~2013) Postmenopausal (Acute) Low vitamin D level (Acute) Overweight (BMI 25.0-29.9) (Acute) Past Medical History Medical History COPD (chronic obstructive pulmonary disease) Dyspnea HTN (hypertension) Low vitamin D level Lung cancer Nicotine dependence, cigarettes, uncomplicated Overweight (BMI 25.0-29.9) Post-surgical hypothyroidism (~2013) Postmenopausal Primary thyroid cancer (~2013) Pulmonary nodules Rectal adenoma Tubular adenoma of colon (~2009) Family History Family History Father No problems noted. Mother Polycythemia vera Pulmonary cancer Sister Mental health disorder Family history of problems with anesthesia: No Surgical History Surgical History History of bilateral carpal tunnel release History of colonoscopy History of HPV infection (~1996) History of skin cancer (~2009) History of total thyroidectomy (~2013) Status post de Quervain's release surgery History of Problems with Anesthesia: No Social History Social History Housing: House Alcohol intake: never Patient Tobacco Use Status: Current everyday Tobacco user Tobacco use type: Cigarette Cigarettes Per Day: 3 Years Smoked: 50 e-Cigarette/Vaping Use: Never Used Second Hand Smoke Exposure: No Use of substances other than those prescribed or required for medical reasons: No Are you DNR?: No Advance Directives: No Advance Directives Information Provided: Yes Recently lost weight without trying: No Nutrition Risks: No Nutritional Risk service: No Current occupational status: unemployed Cognitive needs: No Hearing needs: No Vision needs: Yes Meds Allergies Allergy/AdvReac Type Severity Reaction Status Date / Time bee stings Allergy Severe Severe Uncoded 10/29/22 11:24 Swelling Active Medications: Current Medications Albuterol Sulfate (Albuterol Sulfate (0.083%) 2.5 Mg/3 Ml Vial.Neb) 2.5 mg INHALE ONCE PRN PRN Reason: Shortness of Breath/Wheezing Lactated Ringer's (Lr) 1,000 mls @ 100 mls/hr IVCONT .Q10H KAMALJIT Last Admin: 10/30/22 07:56 Dose: 100 mls/hr Exam Exam Date and Time: October 30, 2022 0802 Height,Weight and Vital Signs: Height 5 ft 4 in Weight 78.018 kg Last Vital Signs Temp 99.1 F 10/30/22 07:48 Pulse 78 10/30/22 07:48 Resp 18 10/30/22 07:48 BP 136/77 10/30/22 07:48 Pulse Ox 96 10/30/22 07:48 O2 Del Method Room Air 10/30/22 07:48 Airway Mallampati Class: III (k) TM Dist: >3cm Neck ROM: Full Heart: RRR Lungs: CTA Assessment and Plan Final Anesthetic Review Family History of Problems with Anesthesia: No History of Problems with Anesthesia: No ASA Class: III Final Preanesthetic Review: Meds/Allgs Chart Reviewed and Consent Obtained/Reviewed Patient Risk: Intermediate Procedure Risk: Low Anesthetic Plan Anesthetic Plan: GA Disposition: Standard PACU
[2022-10-30] MEDS: Albuterol Sulfate (0.083%) 2.5 MG/3 ML VIAL.NEB INHALE (08:12)
--- NOTE | 2022-10-30 09:28 | P.OP_ITS ---
Operative Note Operative Note Date of Service: 10/30/22 Narrative: Preoperative diagnosis: [] Lung cancer Postop diagnosis: [] Same Procedure [] right internal jugular vein Port-A-Cath placement with Doppler ultrasound guidance and fluoroscopy Surgeon: [] Santhosh Pin Machine Operator: [] Type of Anesthesia: [] General Indication for surgery: [] Chemotherapy Findings: [] Patient was brought to the operating room, placed on operative table in supine position, and after adequate level of general anesthesia was induced, the right neck and chest were prepped draped in usual sterile fashion. Using Doppler ultrasound guidance, the right internal jugular vein was identified and cannulated using Seldinger technique. A wire was advanced to the level of the superior vena cava under fluoroscopic guidance. A pocket was fashioned approximately 3 finger breaths below the cannulation site using Bovie and tunneled to the wire. The catheter was placed through the subcutaneous tunnel, connected to a port, and the port secured to the pocket using 3-0 Vicryl sutures. Dilating sheath was then placed over the wire again under fluoroscopic guidance and a wire retrieved. The pre heparin flushed catheter was advanced over the dilating sheath to the level of superior vena cava under fluoroscopic guidance. Peel-away sheath was removed without incident. Antegrade and retrograde flow established easily. Wounds were irrigated, secured hemostasis, and closed using interrupted inverted dermal 3-0 Vicryl sutures followed by Steri-Strips and sterile dressings. At completion the procedure, the port was again tested for antegrade and retrograde flow which were easily established. Postprocedure x-ray in the operating room demonstrated catheter in good position with no pneumothorax. Sponge, needle, and instrument counts were reported to be correct. Patient tolerated the procedure well and emerged anesthesia stable condition. EBL minimal
--- NOTE | 2022-10-30 09:50 | HO.POSTANES ---
Post Anesthesia Evaluation Post Anesthesia Evaluation Date of Service: 10/30/22 Vital Signs: Vital Signs Temp Pulse Resp BP Pulse Ox O2 Del Method 10/30/22 09:48 85 16 134/70 95 Room Air 10/30/22 09:43 90 16 142/83 H 95 Room Air 10/30/22 09:38 97 F 92 16 136/60 95 Room Air 10/30/22 08:14 74 17 10/30/22 07:48 99.1 F 78 18 136/77 96 Room Air Anesthesia: General Endotracheal-GETA Mental Status: Awake Pain Control: Satisfactory Nausea/Vomiting: None Hydration: Adequate Anesthesia-Related Issues: No Anes. Related Issues
== END 2022-10-30 11:11 | disposition home or self-care (01) ==
PROVIDERS: PCP Internal Medicine; Visit Provider Surgery
PROC: (CPT 36561; principal; 2022-10-30 08:20)
DX: Z45.2 Encounter for adjustment and management of vascular access device (principal); C34.90 Malignant neoplasm of unspecified part of unspecified bronchus or lung; Z85.850 Personal history of malignant neoplasm of thyroid; E89.0 Postprocedural hypothyroidism; Z85.828 Personal history of other malignant neoplasm of skin; I10 Essential (primary) hypertension; J44.9 Chronic obstructive pulmonary disease, unspecified; F17.210 Nicotine dependence, cigarettes, uncomplicated; Z79.899 Other long term (current) drug therapy
CPT/HCPCS: 36561; 94640; C1788; J0690; J1643; J2250; J2795

== ENCOUNTER → 2022-10-31 09:24 | Outpatient (BNVA) | payer OTHER, SELFPAY | PROVIDERS: PCP Internal Medicine; Visit Provider Hospitalist | DX: C34.90 Malignant neoplasm of unspecified part of unspecified bronchus or lung (principal); J44.9 Chronic obstructive pulmonary disease, unspecified; R91.8 Other nonspecific abnormal finding of lung field; F17.200 Nicotine dependence, unspecified, uncomplicated | CPT/HCPCS: 99212 ==

== ENCOUNTER 2022-11-19 07:54 | Outpatient (REF) | payer OTHER, SELFPAY ==
--- NOTE | ~2022-11-19 | PE_ITS ---
EXAMINATION: Fluorine-18 FDG PET/CT Scan CLINICAL INDICATION: Subsequent treatment management. Bilateral lung cancer, chemotherapy started 3 weeks ago. PROCEDURE: 63 minutes following the intravenous administration of 17.1 mCi of fluorine 18 FDG, images from the base of the skull to the mid thighs were obtained using a combined PET/CT scanner with CT scan based attenuation correction. No oral contrast was administered. No intravenous contrast was administered. Transverse, coronal, sagittal, and volume reconstruction projections were obtained. The patient's blood glucose as determined by a finger stick, was 93 mg/dl immediately prior to injection. Total CT exam dose-length product 716.69 mGy-cm * These CT images were obtained using dose optimization techniques as appropriate, variously including the following: Automated exposure control * Adjustment of mA and/or kV according to patient size (this includes techniques or standardized protocols for targeted exams where dose is matched to indication/reason for exam; i.e. extremities or head) * Use of iterative reconstruction technique COMPARISON: No previous PET/CT scan is available for comparison. CT angiogram of the chest dated 10/15/2022 is available for comparison. MRI of the head dated 10/24/2022 is also available for comparison. FINDINGS: (Slice numbers described in this report are numbered superiorly to inferiorly with slice #1 in the head) NECK AND VISUALIZED HEAD: No definite foci of abnormal FDG activity are noted. The distribution of FDG activity is physiological. There is no cervical lymphadenopathy. There is no abnormal FDG activity associated with the extensive widespread osseous metastatic disease in the calvarium visualized on the 10/24/2022 MRI of the head. The absence of abnormal osseous FDG activity in the visualized calvarium may be due to this being inseparable from the adjacent intense physiological brain FDG activity or may be due to recent chemotherapy effect. There is no cervical lymphadenopathy. The patient is status post total thyroidectomy with multiple metallic surgical clips present in the thyroid bed region. There is no abnormal FDG activity in the thyroid bed region. THORAX: There is a focus of abnormal FDG activity in the left perihilar and AP window region showing SUVmax 4.7, slice 84/311. This is inseparable from and may extend into the adjacent left main stem pulmonary artery. This is in the region of the mass present on the 10/15/2022 CTA of the chest. Some residual soft tissue mass is probably present, but this is inseparable from the adjacent vessels on these nondiagnostic CT images performed without intravenous contrast. Several right upper lobe pulmonary nodules are visualized and appear unchanged from the 10/15/2022 CTA: 0.4 cm, slice 84/407; 0.4 cm anterolateral, slice 92/407; 0.4 cm lateral right upper lobe slice 95/407; and 0.4 cm slice 94/407. Additional nodules visualized on the CTA are not apparent on these nondiagnostic CT images. All of these pulmonary nodules are much too small to be characterized on the FDG PET images. There is no pleural or pericardial fluid, or pneumothorax. There is no additional mediastinal, supraclavicular, or axillary lymphadenopathy. A right-sided chest port with internal jugular catheter terminating in the superior vena cava is noted. ABDOMEN AND PELVIS: There is FDG activity of varying intensities present throughout the gastrointestinal tract. Although most of this is mild, much more intensely increased FDG activity is present in several foci in the right colon with no definite corresponding CT abnormalities. There is an additional discrete focus of more prominent FDG activity in the left pelvis within the rectosigmoid colon, also with no corresponding CT abnormality. There is diverticulosis without evidence of diverticulitis. The hollow viscera are otherwise unremarkable. The liver, gallbladder, spleen, kidneys, adrenal glands and pancreas are unremarkable. There is no retroperitoneal, mesenteric, pelvic or inguinal lymphadenopathy. The pelvic organs are unremarkable. MUSCULOSKELETAL: FDG avid foci are present in the lateral aspect of the right second rib, right fifth rib and in adjacent anterolateral aspects of the right fifth and sixth ribs. Corresponding fractures are present at these sites on the corresponding CT images. There is also an FDG avid focus in the posterior aspect of the left eighth rib in the small focus of increased FDG activity is present in the inferior aspect of the left scapula, slice 77/311. More intensely increased FDG activity is present associated with compression deformity in the T7 vertebral body showing SUVmax 5.7, slice 91/311. There is somewhat prominent marrow activity in the spine and pelvis diffusely as well as in the proximal marrow of the femurs bilaterally. There are no additional discrete foci of more prominently increased FDG activity visualized. VASCULAR: Scattered vascular calcifications are present. PET/PET CT fusion skull to thigh IMPRESSION: 1. The large left hilar mass visualized on the 10/15/2022 CTA of the chest has markedly diminished in size, but some focal abnormal FDG activity of mild intensity is present in this region. This is inseparable from the left main pulmonary artery and some vascular invasion may be present at this site. These findings are consistent with a significant partial response to therapy. A baseline FDG PET CT scan is not available to compare changes in FDG avidity. 2. An FDG avid T7 compression deformity is present, and likely represents metastatic disease although a recent osteoporotic insufficiency fracture might also have this appearance. 3. Several FDG avid rib fractures are present. These may represent healing traumatic fractures or pathologic fractures at the sites of rib metastases. 4. An FDG avid left scapular focus is likely a metastasis. 5. Extensive calvarial metastasis visualized on the 2022 MRI of the head are not visualized on these images which does not include the entire head. This may be due to a response to therapy or mildly FDG avid calvarial lesions may not be separable from the adjacent intense physiological FDG brain activity. 6. Discrete foci of FDG activity in the right colon and a smaller focus in the left side of the rectosigmoid colon are nonspecific. There are no corresponding CT abnormalities, but because of the very focal appearance, malignancy cannot be excluded. These could be further characterized with colonoscopy, if clinically indicated. 7. Diffuse FDG activity in the marrow of the spine, pelvis and proximal femurs is nonspecific. While this may be evidence of diffuse metastatic disease, bone marrow stimulating chemotherapy such as from Neulasta or Neupogen could also be responsible for this appearance. Clinical correlation is recommended. 8. No additional abnormalities suspicious for other metastatic or malignant lesions are noted.
== END 2022-11-19 07:55 | disposition home or self-care (01) ==
LOC: HO.PET 07:54
PROVIDERS: PCP Internal Medicine; Visit Provider Internal Medicine
DX: Z13.89 Encounter for screening for other disorder (principal)

== ENCOUNTER 2023-01-21 11:56 | Outpatient (REF) | payer OTHER, SELFPAY ==
--- NOTE | ~2023-01-21 | XR_ITS ---
EXAMINATION: XR CHEST CLINICAL INFORMATION: Rib pain, question fractures COMPARISON: 10/16/2022 TECHNIQUE: 2 views of the chest were obtained. FINDINGS: Right internal jugular tunneled chest port identified with internal tip in superior vena cava. Heart and mediastinum within normal limits. AP window mass seen on previous radiograph not appreciated currently. No vascular congestion, consolidations or effusions. Interval appearing rib fractures. On the right healing fractures are identified involving the fifth and sixth anterior ribs. More acute appearing fractures are suspected involving the right fifth through seventh lateral ribs. On the left, healing fractures are questioned involving the fourth and fifth anterior ribs. No pneumothoraces. XR/XR chest 2V IMPRESSION: Bilateral rib fractures of varying ages. Dedicated rib series or CT would provide more definitive evaluation.
== END 2023-01-21 11:57 | disposition home or self-care (01) ==
LOC: HO.XRAY 11:56
PROVIDERS: Visit Provider Internal Medicine
DX: C34.90 Malignant neoplasm of unspecified part of unspecified bronchus or lung (principal)
CPT/HCPCS: 71046

== ENCOUNTER 2023-01-23 16:43 | Outpatient (REF) | payer OTHER, SELFPAY ==
[2023-01-23 17:19] LABS: Basophils Absolute Auto 0.2 X10*3/uL (0.0-0.2); Basophils Percent Auto 0.8 % (0-2); Eosinophils Absolute Auto 0.2 X10*3/uL (0.0-0.4); Eosinophils Percent Auto 0.8 % (0-4); Hematocrit 37.7 % (37.0-47.0); Hemoglobin 12.5 g/dl (12.0-16.0); Imm Gran Abs Auto 0.25 X10*3/uL (0.00-0.03); Imm Gran Pct Auto 1.4 % (0.0-0.4); Lymphocytes Percent Auto 27.2 % (20-40); MANUAL DIFF FLAG SCAN; Mean Corpuscular HGB Conc 33.2 g/dl (31.0-35.0); Mean Corpuscular Hemoglobin 33.1 pg (27.0-33.0); Mean Corpuscular Volume 99.7 fL (80.0-98.0); Mean Platelet Volume 8.9 fL (9.4-12.3); Monocytes Absolute Auto 1.2 X10*3/uL (0.1-1.2); Monocytes Percent Auto 6.5 % (2-11); Neutrophils Absolute Auto 11.7 x10*3/uL (2.0-8.3); Neutrophils Percent Auto 63.3 % (45-73); Platelet Count 422 X10*3/uL (160-400); Red Blood Count 3.78 X10*6/uL (4.20-5.50); Red Cell Distribution Width 19.3 % (11.0-16.0); SCAN SMEAR FLAG 1; White Blood Count 18.5 X10*3/uL (4.8-10.8)
[2023-01-23 17:25] LABS: D Dimer High Sensitivity 195 NG/ML
[2023-01-23 17:45] LABS: SLIDE REVIEW VERIFIED
[2023-01-23 17:54] LABS: Anion Gap 15 (12-20); Blood Urea Nitrogen 26 mg/dL (9-16); Calcium 9.8 mg/dL (8.4-10.2); Carbon Dioxide 24 mmol/L (22-29); Chloride 104 mmol/L (96-108); Estimated Glomerular Filt Rate > 60; Glucose Random 84 mg/dL (60-115); Potassium 3.8 mmol/L (3.3-5.1); Sodium 139 mmol/L (135-145)
[2023-01-23 18:01] LABS: Erythrocyte Sedimentation Rate 32 MM/HR (0-20)
[2023-01-23 18:02] LABS: Troponin-I High Sensitivity < 2.7 ng/L (<3.5-17.0)
== END 2023-01-23 16:44 | disposition home or self-care (01) ==
LOC: HO.LAB 16:43
PROVIDERS: PCP Internal Medicine; Visit Provider Hospitalist
DX: R07.9 Chest pain, unspecified (principal)
CPT/HCPCS: 36415; 80048; 84484; 85025; 85379; 85652

== ENCOUNTER 2023-01-27 13:59 | Outpatient (REF) | payer OTHER, SELFPAY ==
--- NOTE | ~2023-01-27 | CT_ITS ---
EXAMINATION: CT ANGIOGRAM OF THE CHEST WITH AND WITHOUT CONTRAST (CT PULMONARY ANGIOGRAM FOR PE) CLINICAL INFORMATION: Lung cancer, pleuritic pain COMPARISON: 10/15/2022 CT, 01/21/2023 chest radiograph TECHNIQUE: Prior to contrast administration, noncontrast localization images were obtained. Subsequently, multidetector volumetric imaging was performed from the thoracic inlet to below the diaphragms following the administration of 80 mL Omnipaque 350 intravenous contrast. No contrast reaction reported Sagittal, coronal, and MIP oblique sagittal reformatted images were obtained on the CT workstation, uploaded to PACS, and reviewed. This CT examination was performed using dose optimization techniques as appropriate, variously including the following: *Automated exposure control *Adjustment of mA and/or kV according to patient size (this includes techniques or standardized protocols for targeted exams where dose is matched to indication/reason for exam; i.e. extremities or head) *Use of iterative reconstruction technique Total exam dose-length product 122 mGy-cm FINDINGS: QUALITY OF STUDY/CONTRAST BOLUS: Satisfactory. PULMONARY ARTERIES: Main pulmonary arteries are not dilated. No intra-arterial filling defects to suggest pulmonary thromboembolism THORACIC AORTA: Minimal atherosclerotic calcifications nonaneurysmal aorta. LUNGS: Trachea and bronchi are widely patent. Left mainstem and bronchial branch narrowings are no longer seen. Centrilobular emphysema is identified. Bilateral upper and lower lobe dependent atelectasis. Dense lingular atelectasis. NODULES: RUL: No change 4 mm, 7:80, 4 mm, 7:128. Slight decrease in size anterior nodule, 7:121. No change 3 mm subpleural, coronal 35/127, 3 mm subpleural, coronal 53/127. RML: No change 3 mm, 9:138. RLL: 6 mm nodule seen on previous study is no longer identified. THERESA: 9 mm nodule seen on previous study no longer identified. LINGULA: Significant decrease in size from 6 to 2 mm nodular density in close association with the left major fissure, 7:364. PLEURA: No pleural effusion or pneumothorax. Bilateral pleural nodularities have resolved. MEDIASTINUM: Thyroid has been surgically removed. Large left mediastinal mass seen on 10/15/2022 is significantly smaller. Only 2.9 x 1.4 cm residual tissue identified in the AP window. 1 cm short axis pretracheal lymph node is less well-defined than on previous study. 7 mm right hilar and subcarinal lymph nodes are less prominent. CORONARY ARTERY CALCIFICATION: None visualized on this study. Heart size within normal limits. No pericardial effusion. CHEST WALL/AXILLA: Tunneled right internal jugular chest port with internal tip in the superior vena cava. No pathologic lymphadenopathy. OSSEOUS STRUCTURES: Right fifth and sixth anterolateral healing rib fractures. On 10/15/2022, subtle nondisplaced right fifth anterolateral rib fracture is seen. Sclerotic right posterior ninth, left fourth and fifth anterior ribs. Sclerotic left base posterior rib with question pathologic fracture. Interval development of tiny sclerotic focus sternum. Worsening T7 compression fracture, anteriorly measuring 9 mm, previously 1.2 cm. T7 vertebral body is now diffusely sclerotic. Interval development of mild T10 sclerosis without loss of body height. Unchanged lucency right T1 vertebral body. UPPER ABDOMEN: Diffusely hypodense enlarged liver. 1.3 and 1.4 cm medial and lateral left adrenal lesions are no longer appreciated. 7 mm lymph node anterior to the left adrenal gland is unchanged. CT/CT angio chest PE protocol IMPRESSION: No CT evidence of pulmonary thromboembolism. Significant reduction in size large left mediastinal mass. Stable to decreasing pulmonary nodules and mediastinal lymph nodes. Left adrenal lesions on previous study are no longer appreciated. Interval development of bilateral rib and sternal sclerotic foci. Worsening T7 compression fracture with increasing sclerosis. Development of sclerotic T10 vertebral body all concerning for metastatic involvement. VTE: negative
[2023-01-27] MEDS: iohexoL 350 MG/ML 100 ML INFUS..BTL IV (15:16)
== END 2023-01-27 14:00 | disposition home or self-care (01) ==
LOC: HO.CT 13:59
PROVIDERS: PCP Internal Medicine; Visit Provider Internal Medicine
DX: C34.90 Malignant neoplasm of unspecified part of unspecified bronchus or lung (principal); R07.81 Pleurodynia
CPT/HCPCS: 71275; Q9967

== ENCOUNTER 2023-02-22 09:24 | Outpatient (AMB) | payer OTHER, SELFPAY ==
--- NOTE | 2023-02-22 11:01 | AM.OFFWIN_ITS ---
Intake Vital Signs 02/22/23 11:02 Height 5 ft 4 in Weight 179 lb BMI 30.7 BP 144/80 H Blood Pressure Location Lt brachial Position Sitting Pulse 83 Pulse Source Pulse Oximeter Temp 98.3 F Temp Source Oral Pulse Oximetry (%) 97 Oxygen Delivery Method Room Air Intake Visit Reasons: EP-Bi ear [phone] Intake Note: Patient is here with sore throat, bilateral ear pain, she had sweats, shivers last night. Patient Tobacco Use Status: Current everyday Tobacco user Allergies bee stings Allergy (Severe, Uncoded 02/22/23 11:05) Severe Swelling Do you need a note to return to daycare/school/sports/work: No HPI HPI Comments History of Present Illness Details This is a 63-year-old female who presents to the office today for sick visit. Patient complaining of chills/shivers x1 day in the setting of bilateral ear pain, right greater than left, x1 week. Patient has been taking her temperature and she has not had any measured fevers. She denies any cough or congestion/rhinorrhea. She does report a mild sore throat. She denies any dysphagia. She denies any throat swelling. [facility] Medical History (Updated 01/23/23 @ 16:10 by Mick Diaz MD) Chest pain Lung cancer HTN (hypertension) Nicotine dependence, cigarettes, uncomplicated Rectal adenoma Pulmonary nodules Tubular adenoma of colon (~2009) Overweight (BMI 25.0-29.9) COPD (chronic obstructive pulmonary disease) Dyspnea Postmenopausal Primary thyroid cancer (~2013) Low vitamin D level Post-surgical hypothyroidism (~2013) Surgical History Status post de Quervain's release surgery History of bilateral carpal tunnel release History of total thyroidectomy (~2013) History of colonoscopy History of skin cancer (~2009) History of HPV infection (~1996) Family History Father No problems noted. Mother Polycythemia vera Pulmonary cancer Sister Mental health disorder Social History Housing: House Alcohol intake: never Patient Tobacco Use Status: Current everyday Tobacco user Tobacco use type: Cigarette Cigarettes Per Day: 3 Years Smoked: 50 e-Cigarette/Vaping Use: Never Used Second Hand Smoke Exposure: No service: No Current occupational status: unemployed Cognitive needs: No Hearing needs: No Vision needs: Yes Female Reproductive History Menstrual Age of Menarche: 10 Review of Systems Const All systems reviewed & are unremarkable except as noted in HPI and below Reports no additional complaints Eyes Reports no additional complaints ENT Reports no additional complaints Card Reports no additional complaints Resp Reports no additional complaints GI Reports no additional complaints Reports no additional complaints Musc Reports no additional complaints Skin/Breast Reports system reviewed and no additional complaints, except as documented Neuro Reports no additional complaints Psych Reports no additional complaints Endo Reports no additional complaints Mak/Lymph Reports no additional complaints Aller/Immun Reports no additional complaints Physical Exam Vital Signs: Last Vital Signs Temp 98.3 F 02/22/23 11:02 Pulse 83 02/22/23 11:02 BP 144/80 H 02/22/23 11:02 Pulse Ox 97 02/22/23 11:02 Oxygen Delivery Method Room Air 02/22/23 11:02 BMI result Body Mass Index 30.7 Const Other: Vital signs reviewed. Constitutional: Non-toxic appearing. No acute distress. Well-developed and well-nourished. HEENT: Normocephalic and atraumatic. Tympanic membranes are erythematous and bulging bilaterally, right greater than left. External auditory canals without erythema or edema bilaterally. Moist mucous membranes. Mild posterior pharyngeal erythema but no exudates, unilateral tonsillar swelling, uvular deviation, or peritonsillar mass/cellulitis. No postauricular swelling, tenderness, or erythema. Skin: Warm and dry. No rashes or lesions noted. Neck: Full and painless range of motion. No cervical lymphadenopathy. Cardio: Regular rate. No lower extremity edema. No JVD. Pulmonary: No respiratory distress. No accessory muscle usage. Gastrointestinal: Soft, nontender, and nondistended in all 4 quadrants. Musculoskeletal: Normal range of motion in joints throughout the body. No deformity or other signs of injury. Neuro: Alert and oriented x4. Cranial nerves 2-12 grossly intact. No focal deficits appreciated. Psych: Normal mood and affect. Assessment & Plan Assessment & Plan (1) Acute otitis media: Code(s): H66.90 - Otitis media, unspecified, unspecified ear Plan: This is a 63-year-old female presenting to the office complaining of bilateral ear pain right greater than left with associated chills and sore throat. On physical examination, patient has bilateral tympanic membrane erythema and bulging as well as mild posterior pharyngeal erythema. No evidence of mastoiditis or peritonsillar abscess/cellulitis. Patient's vital signs are stabl e, physical exam is otherwise benign, and patient is overall nontoxic appearing. History and physical most consistent with acute otitis media and viral pharyngitis. Patient sent home on p.o. amoxicillin clavulanate twice daily times 10 days. Recommended symptomatic management including rest, increased fluids, advil/tylenol for pain/fever, salt water gargles, and over the counter throat lozenges/decongestants. Patient advised to follow up here or go to the emergency room for worsening/persistent symptoms. Patient verbalizes understanding and is in agreement the plan. Coding Level of Care Code Est Pt Level 3 (63890) Diagnoses Acute otitis media H66.90
[2023-02-22 11:02] VITALS: BP 144/80; PULSE 83; TEMP 36.8; O2SAT 97; BMI 30.7
== END 2023-02-22 11:21 | disposition home or self-care (01) ==
PROVIDERS: PCP Internal Medicine; Visit Provider Physician Assistant Medical
DX: H66.93 Otitis media, unspecified, bilateral (principal)
CPT/HCPCS: 99051; 99213

== ENCOUNTER 2023-02-25 12:30 | Outpatient (REF) | payer OTHER, SELFPAY ==
--- NOTE | ~2023-02-25 | PE_ITS ---
EXAMINATION: Fluorine-18 FDG PET/CT Scan CLINICAL INDICATION: Subsequent treatment management. Left lung cancer 1995, restaging. Chemotherapy, last treatment 2 weeks ago. PROCEDURE: 74 minutes following the intravenous administration of 16.4 mCi of fluorine 18 FDG, images from the base of the skull to the mid thighs were obtained using a combined PET/CT scanner with CT scan based attenuation correction. No oral contrast was administered. No intravenous contrast was administered. Transverse, coronal, sagittal, and volume reconstruction projections were obtained. The patient's blood glucose as determined by a finger stick, was 77 mg/dl immediately prior to injection. Total CT exam dose-length product 898.96 mGy-cm * These CT images were obtained using dose optimization techniques as appropriate, variously including the following: Automated exposure control * Adjustment of mA and/or kV according to patient size (this includes techniques or standardized protocols for targeted exams where dose is matched to indication/reason for exam; i.e. extremities or head) * Use of iterative reconstruction technique COMPARISON: The previous PET CT scan dated 11/19/2022 is available for comparison. CT angiogram of the chest dated 01/27/2023 is also available for comparison. FINDINGS: (Slice numbers described in this report are numbered superiorly to inferiorly with slice #1 in the head) NECK AND VISUALIZED HEAD: There is a small focus of mildly increased FDG activity in the posterior aspect of the mid left parotid gland, SUVmax 5.5, slice 25/267. The soft tissue density on the corresponding CT images measures 1.0 x 0.8 cm in largest transverse dimensions.c this focus was present on the prior 11/19/2022 PET/CT scan, but could not be well characterized because of the marked misregistration of the PET and CT images on that prior study, but this is not present on the current study. There are no other foci of abnormal FDG activity in the neck or visualized head. All the other activity appears physiological. As noted on the prior study, the patient is status post total thyroidectomy with multiple metallic sutures present in the thyroid bed region. There are no additional foci of abnormal FDG activity in the neck or visualized head. THORAX: There is a large somewhat patchy region of increased FDG activity in the right lung, predominantly in the right upper lobe but extending into the right middle lobe within additional small discrete similar region posteromedially in the right lower lobe. This does not have sharp margins and the most intense activity is anteromedially in the right upper lobe with SUVmax 3.0, slice 66/267. Definite associated CT findings are not present in these regions on either these nondiagnostic CT images, with the diagnostic CTA of the chest dated 01/27/2023. There is mildly abnormal FDG activity was not present on the prior 11/19/2022 PET/CT scan. Abnormal FDG activity in the perihilar region of the left lung on 11/19/2022 study shows marked diminution in FDG avidity, now showing SUVmax 2.8, slice 83/267 and also appears smaller in extent. Most of the previous scattered small subcentimeter pulmonary nodules visualized on the prior 11/19/2022 PET/CT scan and more recent 01/27/2023 diagnostic CTA of the chest are not well visualized on the current nondiagnostic CT images. The only clearly delineated such nodule is a 0.3 cm subpleural nodule located anterolaterally in the right upper lobe, slice 98/349. No new pulmonary nodules are suggested at all of the nodules visualized on the most recent 01/27/2023 CTA are much too small to be characterized on the FDG PET images. There is no mediastinal, supraclavicular, or axillary lymphadenopathy. There is no pleural or pericardial fluid, or pneumothorax. There is a right chest port with internal jugular catheter terminating in the superior vena cava in place. ABDOMEN AND PELVIS: FDG activity of varying intensities is present throughout the gastrointestinal tract, most prominently in the rectosigmoid colon. However there is no suspicious focal component and no corresponding CT abnormalities are present. There is diverticulosis without evidence of diverticulitis. The hollow viscera are otherwise unremarkable. There is diffuse fatty infiltration of the liver, but the liver is otherwise unremarkable. The gallbladder, spleen, kidneys, adrenal glands and pancreas are unremarkable. There is no retroperitoneal, mesenteric, pelvic or inguinal lymphadenopathy. The pelvic organs are unremarkable. MUSCULOSKELETAL: There is abnormal FDG activity in the T10 vertebral body, SUVmax 5.0, slice 109/267 and associated with subtle sclerosis on the CT images. This is similar in appearance to the 11/19/2022 study, when this showed SUVmax 4.7, slice 113/311, measured in retrospect. FDG avid compression deformity in the T7 vertebral body noted on the previous study is now slightly less intense, showing SUVmax 4.2, slice 87/267 versus SUVmax 5.7 previously. Is compression deformity appears more severe is more sclerotic on the current CT images. Mild FDG activity is present in a slightly heterogeneous pattern throughout the mid and lower thoracic spine and less intensely in the lumbar spine. Small lucency in the right side of the T1 vertebral body is unchanged from 01/27/2023 but was not definitely present on the 11/19/2022 PET/CT scan and there is no abnormal FDG activity at this site. Mildly FDG avid healing rib fractures noted on the prior study no longer show abnormal FDG activity. No additional suspicious sclerotic or lytic lesions are present, but there is slight prominence of FDG activity in the posterior iliac bones bilaterally and in the sacrum, but without definite corresponding CT abnormalities or focal component and this intensity is less prominent than on the prior 11/19/2022 PET/CT scan. VASCULAR: Scattered vascular calcifications are present. Reference SUVmax Levels: Mediastinal Blood Pool: 2.1, Slice 83/267 Liver: 3.3, Slice 143/267 PET/PET CT fusion skull to thigh IMPRESSION: 1. There is been significant decrease in FDG avidity of the left perihilar mass which also appears diminished in extent on the PET images. This is evidence of a significant partial metabolic response to therapy. 2. Diffuse poorly marginated FDG activity in the right lung, predominantly in the right upper lobe is noted as described above, without definite corresponding CT abnormalities. This is most likely inflammatory in etiology and could be due to post radiation or chemotherapy pneumonitis. 3. FDG avid osseous metastases persist but appear improved, particularly in the spine. No new FDG avid osseous lesions are present and FDG activity associated with several sclerotic or fractured ribs is no longer present. 4. A 1 cm FDG avid soft tissue focus in the left parotid gland is better visualized on the current study due to some misregistration on the prior. Although nonspecific, this is probably a benign parotid lesions such as a Pinellas's tumor or pleomorphic adenoma. Attention on follow-up imaging is recommended. 5. No additional abnormalities suspicious for other metastatic or malignant lesions are noted.
== END 2023-02-25 12:31 | disposition home or self-care (01) ==
LOC: HO.PET 12:30
PROVIDERS: PCP Internal Medicine; Visit Provider Internal Medicine
DX: Z13.89 Encounter for screening for other disorder (principal)

== ENCOUNTER 2023-03-11 15:02 | Outpatient (REF) | payer OTHER, SELFPAY ==
--- NOTE | ~2023-03-11 | MR_ITS ---
EXAMINATION: MR BRAIN WITH AND WITHOUT CONTRAST CLINICAL INFORMATION: Calvarial lesions, assess for intracranial metastases COMPARISON: MRI brain 10/24/2022 and PET/CT 02/25/2023 TECHNIQUE: MRI of the brain was obtained using routine sequences before and following administration of intravenous contrast. A total of 8 mL of Gadavist was administered intravenously. FINDINGS: Decreased size and new partial fatty marrow reconstitution of previously seen osseous metastases involving the calvarium, skull base, and imaged cervical spinal column compatible with favorable treatment response. However, there are multiple new enhancing lesions throughout the supratentorial and infratentorial compartment compatible with intracranial metastases, for example within the high left middle frontal gyrus, 2 mm; a couple in the lateral left postcentral gyrus, punctate; left maurice radiata, anterior left frontal lobe, and left lateral operculum all measuring 2 mm; left inferior temporal gyrus, 3.5 mm; anterior inferior left temporal lobe, 3.4 mm, right temporal periventricular white matter, 2.7 mm; right lateral precentral gyrus, 2.5 mm; and multiple within the left greater than right cerebellar hemispheres inclusive of the left cerebellar tonsil with largest in the peripheral left cerebellum, 4 mm. Some demonstrate corresponding T2 FLAIR signal abnormality, however there is no significant vasogenic edema or mass effect. Redemonstrated right temporal occipital developmental venous anomaly. No acute infarct. The GRE sequence is without susceptibility artifact to suggest acute or chronic blood products. No extra-axial fluid collection. Stable mild global cerebral volume loss. Redemonstrated few scattered T2 FLAIR hyperintense foci in the subcortical and periventricular white matter, nonspecific but presumably mild chronic microangiopathy. The intracranial dural venous sinus and arterial flow voids are preserved. Normal appearance of the midline structures. The orbits are grossly unremarkable. Mild paranasal sinus mucosal thickening. A couple opacified bilateral mastoid air cells. 1.3 cm lesion in the superficial lobe of the left parotid gland with corresponding FDG activity on PET, unchanged, and may reflect benign or malignant etiologies, including a pleomorphic adenoma, Warthin tumor, or ирина metastasis. MR/MR head/brain wo/w con IMPRESSION: 1. Multiple new small enhancing lesions throughout the supratentorial and infratentorial compartment suspicious for metastases, with largest measuring 4 mm in the left cerebellum. No significant vasogenic edema or mass effect. These findings were communicated to at 1:28pm on 03/14/2023. 2. Decreased size and new partial fatty marrow reconstitution of previously seen osseous metastatic disease involving the calvarium, skull base, and imaged cervical spinal column compatible with favorable treatment response. 3. 1.3 cm lesion in the superficial lobe of the left parotid gland with corresponding FDG activity on PET, unchanged, and may reflect benign or malignant etiologies, including a pleomorphic adenoma, Warthin tumor, or ирина metastasis.
[2023-03-11] MEDS: gadobutroL 10 ML VIAL IVPUSH (15:59)
== END 2023-03-11 15:03 | disposition home or self-care (01) ==
LOC: HO.MRI 15:02
PROVIDERS: PCP Internal Medicine; Visit Provider Internal Medicine
DX: C34.90 Malignant neoplasm of unspecified part of unspecified bronchus or lung (principal)
CPT/HCPCS: 70553; A9585

== ENCOUNTER 2023-04-01 14:44 | Outpatient (AMB) | payer OTHER, SELFPAY ==
[2023-04-01 14:45] VITALS: BP 130/70; PULSE 110; O2SAT 94; BMI 30.9
--- NOTE | 2023-04-01 14:45 | A.OFFPC_ITS ---
Vital Signs 04/01/23 14:45 Height 5 ft 4 in Weight 180 lb BMI 30.9 BP 130/70 Blood Pressure Location Lt brachial Position Sitting Pulse 110 H Pulse Source Pulse Oximeter Pulse Oximetry (%) 94 Oxygen Delivery Method Room Air Intake Visit Reasons: Annual Exam Intake Note: Patient here for an annual physical exam Verse Writer Required: No Accompanied by: Self / Same As Patient Allergies bee stings Allergy (Severe, Uncoded 04/01/23 15:03) Severe Swelling Medication List - Last Reconciled 04/01/23 by Sue Reynoso MD albuterol sulfate 2.5 mg (3 mL) inhalation Q6H PRN budesonide-formoterol 160-4.5 mcg/actuation (Symbicort) 2 puffs inhalation BID 30 days bupropion HCl 150 mg (2 x 75 mg) PO BID 30 days cholecalciferol (vitamin D3) 50 mcg PO DAILY levothyroxine 112 mcg PO DAILY nebulizers As directed ondansetron 8 mg PO Q8H PRN oxycodone 10 mg PO Q6H PRN polyethylene glycol 3350 (Miralax) 17 grams PO DAILY Ventolin HFA 90 mcg/actuation (albuterol sulfate) 2 puffs PO Q6H PRN 30 days NS Tobacco use date assessed: 07/03/22 Dental Screening Dental Screen Date: 04/01/23 Did you have a dental visit in the last 12 months?: No Did you have a dental problem in the last 6 months where you did not have access to dental care?: No Was dental information given to patient?: Patient has dentist HPI HPI Comments History of Present Illness Details This is 63-year-old female with COPD and small cell lung cancer comes for her physical exam. On longstanding inhaler for her COPD. She is follow by pulmonology. Was advised to quit smoking. Diagnosed October 2022 and last chemotherapy was last week. She will start radiotherapy next month. She follows with Hematology-Oncology which did MRI of the brain and lesions were there. Has not had a mammogram in over a year. Had colonoscopy 2022. Pap smear was last year and was normal. No chest pain or shortness of breath more than usual. [facility] Medical History Chest pain Lung cancer HTN (hypertension) Nicotine dependence, cigarettes, uncomplicated Rectal adenoma Pulmonary nodules Tubular adenoma of colon (~2009) Overweight (BMI 25.0-29.9) COPD (chronic obstructive pulmonary disease) Dyspnea Postmenopausal Primary thyroid cancer (~2013) Low vitamin D level Post-surgical hypothyroidism (~2013) Surgical History Status post de Quervain's release surgery History of bilateral carpal tunnel release History of total thyroidectomy (~2013) History of colonoscopy History of skin cancer (~2009) History of HPV infection (~1996) Family History Father No problems noted. Mother Polycythemia vera Pulmonary cancer Sister Mental health disorder Housing: House Alcohol intake: never Patient Tobacco Use Status: Current everyday Tobacco user Tobacco use type: Cigarette Cigarettes Per Day: 3 Years Smoked: 50 e-Cigarette/Vaping Use: Never Used Second Hand Smoke Exposure: No service: No Current occupational status: unemployed Cognitive needs: No Hearing needs: No Vision needs: Yes Female Reproductive History Menstrual Age of Menarche: 10 Questionnaire Thrive Questionnaire Date Thrive assessed: 07/03/22 ABNER-7 AMB Questionnaire ABNER-7 Date ABNER - 7 assessed: 07/03/22 Source: Developed by Drs. Edmund Azevedo, Nanette Romero, Abdiaziz Colon and colleagues, with an educational carl from [employer]. Review of Systems Const All systems reviewed & are unremarkable except as noted in HPI and below Eyes Reports no additional complaints, Denies change in vision and Denies other visual disturbances Card Denies chest pain at rest, Denies chest pain with activity, Denies edema, Denies irregular heart rhythm, Denies claudication, Denies dyspnea, Denies dyspnea on exertion, Denies orthopnea, Denies paroxysmal nocturnal dyspnea and Denies slow heart rate Resp Denies cough, Denies dyspnea and Denies dyspnea on exertion GI Denies abdominal pain, Denies change in bowel habits, Denies excessive flatus, Denies nausea and Denies vomiting Denies urinary incontinence, Denies urinary hesitancy and Denies urinary urgency Musc Denies abnormal gait, Denies atrophy, Denies deformity and Denies limited range of motion Skin/Breast Denies bleeding lesions, Denies changing lesions and Denies rash Neuro Denies abnormal gait, Denies confusion and Denies lack of coordination Psych Denies confusion Physical exam (Primary Care) Vital Signs: Last Vital Signs Pulse 110 H 04/01/23 14:45 BP 130/70 04/01/23 14:45 Pulse Ox 94 04/01/23 14:45 Oxygen Delivery Method Room Air 04/01/23 14:45 BMI result Body Mass Index 30.9 Tobacco/Smoking Status: Tobacco use Status Tobacco use date assessed 07/03/22 04/01/23 14:52 Patient Tobacco Use Status Current everyday Tobacco 04/01/23 15:08 Tobacco use type Cigarette 04/01/23 15:08 e-Cigarette/Vaping Use Never Used 04/01/23 15:08 Thrive Assessment: Date of Thrive Assessment Date Thrive assessed 07/03/22 04/01/23 14:52 Const General: No confusion Orientation/consciousness: patient oriented x3 and No confusion HENMT Head: Yes normal to inspection, Yes normocephalic and Yes atraumatic Ears: external ears normal Eyes General: appearance normal, both eyes and all related structures Eyelids: Yes eyelids normal Conjunctivae: conjunctivae normal Neck Neck: Yes normal visual inspection and Yes supple Resp Effort & Inspection: normal respiratory effort Auscultation: clear to auscultation bilaterally Cardio Jugular venous distension: no JVD Rate: regular rate Rhythm: regular rhythm Heart sounds: S1 normal heart sound present and S2 normal heart sound present GI Inspection: Yes normal to inspection Palpation (GI): Soft to palpation and nontender Auscultation: normal bowel sounds Skin General skin exam: no rashes or lesions noted Neuro General: patient oriented x3, no focal motor deficits and No confusion Extrem General: Yes full ROM Psych Appearance: grossly normal Office Procedures Flu Questionnaire Does the patient have a severe egg allergy?: No Immunizations flu vacc [id number] 6mos up(PF) 60 mcg(15 mcgx4)/0.5 mL IM syringe Performing Provider: Sue Reynoso MD [facility] Documented (not given) by: SAUD Tapia on 04/01/23 15:19 Reason Not Given: Patient Refused Assessment and Plan Assessment & Plan (1) Physical exam: Code(s): Z00.00 - Encounter for general adult medical examination without abnormal findings Plan: Repeat in a year. (2) Small cell lung cancer: Code(s): C34.90 - Malignant neoplasm of unspecified part of unspecified bronchus or lung Plan: Continue treatment. Follow-up with Hematology and pulmonology. (3) COPD (chronic obstructive pulmonary disease): Code(s): J44.9 - Chronic obstructive pulmonary disease, unspecified Plan: Continue Symbicort. Use rescue inhaler as needed. Orders: Orders Lipid Panel Today E78.5 - Hyperlipidemia, unspecified Thyroid Stimulating Hormone Today C73 - Malignant neoplasm of thyroid gland, E89.0 - Postprocedural hypothyroidism MM screening mammo BI Today Z12.31 - Encounter for screening mammogram for malignant neoplasm of breast Influenza [id number] Immunization Today Z23 - Encounter for immunization Coding Level of Care Code Est Pt Prev Care 40-64y(60553) Diagnoses Physical exam Z00.00 Small cell lung cancer C34.90 COPD (chronic obstructive pulmonary disease) J44.9 Time Spent (min) 34
== END 2023-04-01 15:17 | disposition home or self-care (01) ==
PROVIDERS: PCP Internal Medicine; Visit Provider Internal Medicine
DX: Z00.00 Encounter for general adult medical examination without abnormal findings (principal); C34.90 Malignant neoplasm of unspecified part of unspecified bronchus or lung; J44.9 Chronic obstructive pulmonary disease, unspecified; E55.9 Vitamin D deficiency, unspecified
CPT/HCPCS: 99396

== ENCOUNTER 2023-05-14 15:08 | Outpatient (REF) | payer OTHER, SELFPAY | END 2023-05-14 15:09 | disposition home or self-care (01) | LOC: HO.MAMMO 15:08 | PROVIDERS: PCP Internal Medicine; Visit Provider Internal Medicine | DX: Z12.31 Encounter for screening mammogram for malignant neoplasm of breast (principal) | CPT/HCPCS: 77063; 77067 ==

== ENCOUNTER → 2023-05-14 15:15 | Outpatient (BNV) | payer OTHER, SELFPAY | PROVIDERS: PCP Internal Medicine; Visit Provider Radiology Diagnostic Radiology | DX: Z12.31 Encounter for screening mammogram for malignant neoplasm of breast (principal) | CPT/HCPCS: 77063; 77067 ==

== ENCOUNTER 2023-05-27 09:54 | Outpatient (AMB) | payer OTHER, SELFPAY ==
--- NOTE | 2023-05-27 09:55 | A.OFFVIS_ITS ---
Intake Vital Signs 05/27/23 09:56 Height 5 ft 4 in Weight 164 lb 3.91 oz BMI 28.2 BP 138/72 Blood Pressure Location Rt brachial Position Sitting Pulse 107 H Pulse Source Pulse Oximeter Pulse Oximetry (%) 97 Oxygen Delivery Method Room Air Intake Visit Reasons: [place]/PFT Results Allergies bee stings Allergy (Severe, Uncoded 05/27/23 10:00) Severe Swelling HPI HPI Comments History of Present Illness Details The patient is a 63-year-old woman, active smoker, presenting with worsening respiratory symptoms now for the last year. Seems like it respiratory symptoms are getting worse. She is complaining of increasing dyspnea on exertion. Moderate severity. Also has a productive cough. Usually worse in the morning. The patient does have a rescue inhaler that she uses regularly. Does give her partial relief. Unfortunately she continues to smoke cigarettes. She is walking all her life. She did try Flovent, but was not helpful. Will switch over to a combination inhaler this time. Patient needs to be treated for bronchitis and will go ahead and evaluate her in the lung cancer screening program. 10/05/2021 the patient is here for a pulmonary follow-up visit. Overall the patient has been doing well from a respiratory status. She responded well to the Symbicort. However, she continues to smoke. She still struggling with that. The patient is willing to start Wellbutrin which she use in the past with good response and also she can also use a patch along with that. She did undergo the lung cancer screening program we did review together. The patient has pulmonary nodules that are subcentimeter in size and will need to be followed. 10/31/2022 the patient is here for pulmon le follow-up visit. She is status post bronchoscopy. Her cultures have been positive for Staph aureus. She was starte d on doxycycline am about to complete a 2 week course. Her respiratory status has been improved. Unfortunately she was diagnosed with small cell lung cancer. She was already evaluated by Oncology already had her port placed on a very short amount of time in already received her 1st course of chemotherapy. The MRI of the brain was done but is still pending as far as the results. Her breathing is good right now is overall better. I am hopeful that she can continue current respiratory therapy. Will plan to have her undergo PFTs in 6 months and a follow-up then. If the patient has any worsening symptoms prior to that she is to call for an earlier assessment. 05/27/2023 the patient is here for pulmon le follow-up visit. The patient overall is doing fairly well. She denies any significant shortness of breath or cough. The patient has been working closely with Oncology. She did complete her chemo radiation and now currently on maintenance immune therapy with the PDL1 inhibitor. She has not on any steroids. She is tolerating the therapy well without any evidence of any inflammatory reactions. She does have a PET scan scheduled coming up. In the meantime she does continue to use her Symbicort with good effect. She has not required her rescue inhaler. She will have a PET scan scheduled for restaging in the patient will follow-up with us in 6 months. [facility] Medical History Chest pain Lung cancer HTN (hypertension) Nicotine dependence, cigarettes, uncomplicated Rectal adenoma Pulmonary nodules Tubular adenoma of colon (~2009) Overweight (BMI 25.0-29.9) COPD (chronic obstructive pulmonary disease) Dyspnea Postmenopausal Primary thyroid cancer (~2013) Low vitamin D level Post-surgical hypothyroidism (~2013) Surgical History Status post de Quervain's release surgery History of bilateral carpal tunnel release History of total thyroidectomy (~2013) History of colonoscopy History of skin cancer (~2009) History of HPV infection (~1996) Family History Father No problems noted. Mother Polycythemia vera Pulmonary cancer Sister Mental health disorder Social History Housing: House Alcohol intake: never Patient Tobacco Use Status: Current everyday Tobacco user Tobacco use type: Cigarette Years Smoked: 50 e-Cigarette/Vaping Use: Never Used Second Hand Smoke Exposure: No Do you feel safe in your current relationship?: Yes Do you have thoughts of harming others: None service: No Current occupational status: unemployed Cognitive needs: No Hearing needs: No Vision needs: Yes Female Reproductive History Menstrual Age of Menarche: 10 Review of Systems Const Denies fever(s) Eyes Denies change in vision ENT Denies change in voice Card Denies chest pain and Reports dyspnea on exertion Resp Denies chest congestion, Reports cough, Reports dyspnea on exertion and Denies wheezing GI Reports no additional complaints Musc Reports no additional complaints Skin/Breast Denies rash Neuro Reports no additional complaints Aller/Immun Denies wheezing Physical Exam Vital Signs: Last Vital Signs Pulse 107 H 05/27/23 09:56 BP 138/72 05/27/23 09:56 Pulse Ox 97 05/27/23 09:56 Oxygen Delivery Method Room Air 05/27/23 09:56 BMI result Body Mass Index 28.2 Const General: alert Neck Neck: Yes normal visual inspection, Yes full ROM and Yes no lymphadenopathy Chest Chest palpation & inspection: normal inspection of the chest Resp Auscultation: diminished lung sounds Cardio Rate: regular rate Rhythm: regular rhythm Heart sounds: S1 normal heart sound present and S2 normal heart sound present GI Palpation (GI): Soft to palpation and nontender Auscultation: normal bowel sounds Skin General skin exam: rashes and/or lesions noted Immunizations pneumoc 20-jamison conj-dip cr(PF) 0.5 mL IM syringe Performing Provider: Mick Diaz MD Performing Location: [facility] [place] [facility] Administered by: Tatyana Lancaster LPN on 05/27/23 10:20 Dose Route Admin Location Dispensed Lot Number Expiration Date [facility] Ironing Pleater 0.5 mL IM Left Deltoid 0.5 mL [id number] 12/10/23 3319-9640-94 [email or web address] VIS Given Date VIS Provided VIS Publication Date 05/27/23 Single Vaccine 22 Eligibility Eligibility Date Funding Source Not [facility] [place] Eligible 05/27/23 Private Assessment & Plan Assessment & Plan (1) COPD (chronic obstructive pulmonary disease): Code(s): J44.9 - Chronic obstructive pulmonary disease, unspecified Qualifiers: COPD type: chronic bronchitis Chronic bronchitis type: simple Qualified Code(s): J41.0 - Simple chronic bronchitis (2) Personal history of nicotine dependence: Comment: (current smoker, onset 14, max 1ppd now 1/2ppd, x 48yrs, 40pyh) Code(s): Z87.891 - Personal history of nicotine dependence (3) Pulmonary nodules: Code(s): R91.8 - Other nonspecific abnormal finding of lung field (4) Small cell lung cancer: Code(s): C34.90 - Malignant neoplasm of unspecified part of unspecified bronchus or lung Plan Continue Symbicort NYDIA as needed smoking cessation Awaiting PET F/U 6 months Orders: Orders Pneumococcal 20 Immunization Today Z23 - Encounter for immunization Coding Level of Care Code Est Pt Level 4 (28790) Diagnoses Simple chronic bronchitis J41.0 COPD type: chronic bronchitis Chronic bronchitis type: simple Personal history of nicotine dependence Z87.891 Pulmonary nodules R91.8 Small cell lung cancer C34.90 Time Spent (min) 16
[2023-05-27 09:56] VITALS: BP 138/72; PULSE 107; O2SAT 97; BMI 28.2
== END 2023-05-27 10:19 | disposition home or self-care (01) ==
PROVIDERS: PCP Internal Medicine; Visit Provider Hospitalist
DX: Z23 Encounter for immunization (principal); J41.0 Simple chronic bronchitis; F17.210 Nicotine dependence, cigarettes, uncomplicated; R91.8 Other nonspecific abnormal finding of lung field; C34.90 Malignant neoplasm of unspecified part of unspecified bronchus or lung
CPT/HCPCS: 99214

== ENCOUNTER → 2023-05-27 09:54 | Outpatient (BNVA) | payer OTHER, SELFPAY | PROVIDERS: PCP Internal Medicine; Visit Provider Hospitalist | DX: J41.0 Simple chronic bronchitis (principal); R91.8 Other nonspecific abnormal finding of lung field; C34.90 Malignant neoplasm of unspecified part of unspecified bronchus or lung; Z87.891 Personal history of nicotine dependence; Z23 Encounter for immunization | CPT/HCPCS: 90471; 90677; 99212 ==

== ENCOUNTER 2023-06-23 08:46 | Outpatient (AMB) | payer OTHER, SELFPAY ==
--- NOTE | 2023-06-23 08:52 | MHC.OFFVIS ---
Intake Vital Signs 06/23/23 08:56 Height 5 ft 4 in Weight 169 lb BMI 29.0 BP 161/98 H Blood Pressure Location Rt brachial Position Sitting Pulse 104 H Intake Visit Reasons: Discuss port a cath access Intake Note: Port-a- cath placament on 10-30-22. Patient scheduled to discuss port a cath malfunctioning. Patient c/o: port not working when getting blood draws. Medication and txt still go in fine. Virtual Classroom Manager Required: No Accompanied by: Self / Same As Patient Allergies bee stings Allergy (Severe, Uncoded 06/23/23 08:55) Severe Swelling HPI HPI Comments History of Present Illness Details Patient presents for port evaluation. Patient had Port-A-Cath placed proximally I months ago for chemotherapy for lung cancer. Over last few sessions, the chemo was able to be infused but blood draws have been unsuccessful. Patient is well known to me. [facility] Medical History Chest pain Lung cancer HTN (hypertension) Nicotine dependence, cigarettes, uncomplicated Rectal adenoma Pulmonary nodules Tubular adenoma of colon (~2009) Overweight (BMI 25.0-29.9) COPD (chronic obstructive pulmonary disease) Dyspnea Postmenopausal Primary thyroid cancer (~2013) Low vitamin D level Post-surgical hypothyroidism (~2013) Surgical History Status post de Quervain's release surgery History of bilateral carpal tunnel release History of total thyroidectomy (~2013) History of colonoscopy History of skin cancer (~2009) History of HPV infection (~1996) Family History Father No problems noted. Mother Polycythemia vera Pulmonary cancer Sister Mental health disorder Social History Housing: House Alcohol intake: never Patient Tobacco Use Status: Current everyday Tobacco user Tobacco use type: Cigarette Cigarettes Per Day: 3 Years Smoked: 50 e-Cigarette/Vaping Use: Never Used Second Hand Smoke Exposure: No service: No Current occupational status: unemployed Cognitive needs: No Hearing needs: No Vision needs: Yes Female Reproductive History Menstrual Age of Menarche: 10 Physical Exam Vital Signs: Last Vital Signs Pulse 104 H 06/23/23 08:56 BP 161/98 H 06/23/23 08:56 BMI result Body Mass Index 29.0 Chest Other: Port site clean dry and intact. Under sterile technique, with alcohol prep, port was accessed and was able to be infused but no blood draw was obtained. Assessment & Plan Assessment & Plan (1) Encounter for care related to Port-a-Cath: Code(s): Z45.2 - Encounter for adjustment and management of vascular access device Plan Discussed the case with Radiology PA and current recommendation is for tPA infusion through the port at the infusion center. We will try to make arrangements for this for the patient with the infusion center all questions answered. Coding Level of Care Code Est Pt Level 4 (25596) Diagnoses Encounter for care related to Port-a-Cath Z45.2
[2023-06-23 08:56] VITALS: BP 161/98; PULSE 104; BMI 29.0
== END 2023-06-23 09:37 | disposition home or self-care (01) ==
PROVIDERS: PCP Internal Medicine; Visit Provider Surgery
DX: Z45.2 Encounter for adjustment and management of vascular access device (principal)
CPT/HCPCS: 99214

== ENCOUNTER → 2023-06-23 08:46 | Outpatient (BNVA) | payer OTHER, SELFPAY | PROVIDERS: PCP Internal Medicine; Visit Provider Surgery ==

== ENCOUNTER 2023-06-23 12:00 | Outpatient (RCR) | payer OTHER, SELFPAY ==
[2022-10-22 14:05] VITALS: BP 173/81; PULSE 80; TEMP 35.6; O2SAT 92; BMI 28.6
--- NOTE | 2022-10-22 14:16 | PM.HEMONCCN ---
Subjective - Subjective Chief complaint: Lung cancer Patient: new to practice Consult date: 10/22/22 Requesting Physician: Dr. Diaz Primary Care Provider: Sue Reynoso MD Medical Summary: Diagnosis: Extensive stage small cell lung cancer October 2022 HPI - Consult Narrative Reason for consult: Small cell lung cancer Narrative: Ev Pacheco is a 62 year old female was recently diagnosed with extensive stage small cell lung cancer. She says she has been having symptoms of cough for a while but has had increasing dyspnea in the last 2-3 months. She is an active smoker, she reports productive cough and exertional dyspnea but no hemoptysis. She has had about 15 lb weight loss in the last 2-3 months. In September 2021 she underwent lung cancer screening, CT chest at that time revealed subcentimeter pulmonary nodules for which follow-up was recommended. She had a 1 year follow-up CT chest in September 2022 which revealed multiple new bilateral pulmonary nodules along with abnormal mediastinal and left hilar lymphadenopathy. Largest pulmonary nodule measuring 8 mm, central lung mass measuring 3.4 cm and enlarged left precarinal lymph node measuring 1.9 cm. There was also left lung mass measuring 4 cm. She subsequently underwent CT angiogram which was negative for pulmonary embolism but showed significant hilar and mediastinal mass along with multiple bilateral lung nodules. She underwent EBUS with transbronchial needle aspiration of left upper lobe lung mass. Pathology from 10/16/2022 reported as small cell carcinoma. Lymph node, 4 L FNA was also positive for small cell carcinoma. Patient's family history significant for mother having of lung cancer at age 59 and maternal grandmother having of breast cancer. Patient reports overall worsening of her symptoms and she is now experiencing dizziness but no gait or balance problems. No focal numbness or tingling. She also reports nausea and poor appetite as well as weight loss. She reports pain in right lower chest area, she is taking Tylenol but it is not helping. She is also experiencing insomnia. She uses inhalers for her COPD. She denies any underlying heart problems, she is up-to-date with colonoscopy. She denies diabetes or neuropathy. She reports no autoimmune disorders. Review of Systems - Constitutional Reports as per HPI, Reports lack of energy, Reports malaise, Reports poor appetite, Reports weight loss - Cardiovascular Reports no additional cardiovascular complaints - Respiratory Reports no additional respiratory complaints - Gastrointestinal Reports no additional gastrointestinal complaints - Neurologic Reports no additional neurologic complaints Oncology Screenings - ECOG Performance Status ECOG Performance Status: 1 [facility] Medical History: Medical History (Last Reviewed 10/22/22 @ 14:08 by Allan Luna) COPD (chronic obstructive pulmonary disease) Dyspnea HTN (hypertension) Low vitamin D level Lung cancer Nicotine dependence, cigarettes, uncomplicated Overweight (BMI 25.0-29.9) Post-surgical hypothyroidism Onset Date: ~2013 Postmenopausal Primary thyroid cancer Onset Date: ~2013 Pulmonary nodules Rectal adenoma Tubular adenoma of colon Onset Date: ~2009 Family History: Family History (Last Reviewed 10/22/22 @ 14:08 by Allan Luna) Father No problems noted. Mother Polycythemia vera Pulmonary cancer Sister Mental health disorder Surgical History: Surgical History (Last Reviewed 10/22/22 @ 14:08 by Allan Luna) History of bilateral carpal tunnel release History of colonoscopy History of HPV infection Onset Date: ~1996 History of skin cancer Onset Date: ~2009 History of total thyroidectomy Onset Date: ~2013 Status post de Quervain's release surgery Social History: Social History (Last Updated 10/22/22 @ 14:09 by Allan Luna) Living Situation History: Housing: House Alcohol History Details: 1. How often do you have a drink containing alcohol?: b. Monthly or less 2. How many drinks containing alcohol do you have on a typical day when you are drinking?: a. 1 or 2 Tobacco History: Patient Tobacco Use Status: Current everyday Tobacco Tobacco use type: Cigarette Years Smoked: 50 e-Cigarette/Vaping Use: Never Used Second Hand Smoke Exposure: No Domestic Abuse History: Do you feel safe in your current relationship?: Yes Homicidal Assessment: Do you have thoughts of harming others: None Occupation Assessmet: service: No Current occupational status: unemployed Home Medications and Allergies Allergies Allergy/AdvReac Type Severity Reaction Status Date / Time bee stings Allergy Severe Severe Uncoded 10/22/22 14:09 Swelling Physical Exam Vital signs: Vital Signs Temp 96.1 F L 10/22/22 14:05 Pulse 80 10/22/22 14:05 BP 173/81 H 10/22/22 14:05 Pulse Ox 92 10/22/22 14:05 O2 Del Method Room Air 10/22/22 14:05 Intake & Output 10/21/22 10/22/22 10/22/22 18:59 06:59 18:59 Other: Weight 75.5 kg [place] Weight in Grams 98603 Weight 75.5 kg - Constitutional Present: no acute distress - Routine HEENT Exam Head: Present: normal inspection Eye: Present: EOMI - Routine Neck Exam Present: supple. Absent: lymphadenopathy - Routine Chest/Breast/Axilla Exam Breast: Present: Normal Exam Axillae: Absent: lymphadenopathy - Routine Respiratory Exam Present: prolonged expiratory phase, rhonchi. Absent: accessory muscle use - Routine Cardiovascular Exam Cardiovascular: Present: S1, S2 - Routine Abdominal Exam Present: soft - Routine Extremities Exam Present: pulses intact - Routine Skin Exam Present: intact - Routine Neurological Exam Present: alert, oriented X3 Hem/Onc Consult Result - Labs CBC & Chem 7: 10/22/22 14:47 Assessment and Plan Patient Active problem list reviewed?: Yes (1) Small cell lung cancer Status: Acute Assessment and plan: 1. This is 62-year-old woman, chronic smoker, diagnosed with extensive stage small cell lung cancer. CT angiogram performed 10/15/2022 revealed large left mediastinal mass as well as lymphadenopathy, left hilar mass measuring 7 x 5 x 7 cm. Several enlarged mediastinal, hilar and pretracheal lymph nodes largest measuring 1.2 cm. Bilateral lung nodules largest in the left upper lobe measuring 0.9 cm. Right lower lobe lung nodule measuring 0.6 cm. Upper abdomen showed left adrenal nodule measuring 1.8 cm and 1.1 cm in the medial limb, mildly prominent adjacent lymph nodes, interval increase in adrenal nodules compared to prior study concerning for metastatic disease. She underwent EBUS/bronchoscopy on 10/16/2022 which confirmed small cell lung cancer. Blood work today shows elevated LDH of 679, CEA 21.90 NG/mL and calcium of 10.9. Submit uric acid level and start allopurinol if necessary. For elevated calcium, PTH has been submitted. She could have bone metastasis. Paraneoplastic hypercalcemia is a possibility. For further staging I have ordered a PET-CT and brain MRI. I discussed treatment of extensive stage small cell lung cancer with chemotherapy and immunotherapy. She is not a candidate for concurrent chemoradiation therapy. Carboplatin with etoposide and atezolizumab will be administered in the first-line setting as per NCCN guidelines and data from [id number] study. We discussed possible side effects of chemotherapy such as immune related toxicities, GI toxicity, alopecia, risk of cytopenias and infection. Patient is interested in MediPort placement, this will be scheduled with surgery. 2. Distress management. For insomnia I have prescribed alprazolam 0.25 mg q.h.s. p.r.n.. 3. Pain management. She is experiencing chest wall pain. I have prescribed tramadol 50 mg q.8 p.r.n.. All of the above was explained to patient. Her questions were answered. She is being scheduled for treatment next week. Follow-up in 2 weeks. - Time Spent With Patient Time Spent with Patient (in minutes): 60
[2022-10-22 15:09] LABS: Prothrombin Time 11.9 SEC (10.0-13.1)
--- NOTE | 2022-10-22 15:19 | MHC.HEMONCMA ---
patient seen today new consult, vss, labs, following up on saturday 10/28 for chemo
--- NOTE | 2022-10-22 15:33 | MHC.HEMONC ---
Patient was in for oncology consult with Dr Cisneros for newly diagnosed small cell cancer of lung. She is struggling with pain under right rib cage and Dr Cisneros ordered Tramadol. She has lost 15 lbs or so in last month and had vomiting and dizziness. She will be having brain MRI scheduled by Allan. Port will be placed for cycle 2 due to pt needing to start chemo next Friday. I did chemo teach with her after labs were done and gave her written materials to review. She is aware of common side effects of chemo drugs and of immunotherapy. She signed consent. Dr Cisneros ordered ondansetron for home.
[2022-10-22 15:34] LABS: Anion Gap 15 (12-20); Blood Urea Nitrogen 24 mg/dL (9-16); Calcium 10.9 mg/dL (8.4-10.2); Carbon Dioxide 26 mmol/L (22-29); Chloride 104 mmol/L (96-108); Creatinine Clr Calc Pharmacy 71.6; Estimated Glomerular Filt Rate > 60; Glucose Fasting 101 mg/dL (60-99); Lactate Dehydrogenase 679 U/L (122-220); Potassium 4.4 mmol/L (3.3-5.1); Sodium 141 mmol/L (135-145)
[2022-10-22 17:49] LABS: Uric Acid 5.6 mg/dL (2.4-5.7)
--- NOTE | 2022-10-23 10:01 | HO.HEMONCPA ---
Addendum entered by Mildred Vizcarra 11/04/22 09:57: APPT BOOKED W/ILA ON 11/19/22 AT 8:15am Original Note: PA FOR PET/CT SCAN APPROVED. AUTH#[id number]. DOS - 10/23/22 to 04/21/23. DOCUMENT SCANNED IN THE CHART. ORDER FAXED TO [facility]
--- NOTE | 2022-10-23 10:03 | HO.HEMONCPA ---
NO PA REQUIRED FOR ATEZOLIZUMAB, CARBOPLATIN,ETOPOSIDE, NEULASTA & EMEND. CALL REF# MICHAEL.P. ON 10/23/22 at 9:49am
--- NOTE | 2022-10-23 13:53 | MHC.HEMONC ---
Brain MRI scheduled for 10/24 per pt.
--- NOTE | 2022-10-24 09:02 | MHC.HEMONCMA ---
Patient was booked for appt with Dr. Trevizo on 10/29/22 at 11:15 for consult for port insertion. Patient was notified and understands. [phone]
[2022-10-25 09:27] LABS: MANUAL DIFF FLAG NO
[2022-10-25 09:50] LABS: Basophils Absolute Auto 0.1 X10*3/uL (0.0-0.2); Basophils Percent Auto 0.9 % (0-2); Eosinophils Absolute Auto 0.2 X10*3/uL (0.0-0.4); Hematocrit 42.9 % (37.0-47.0); Hemoglobin 13.9 g/dl (12.0-16.0); Imm Gran Abs Auto 0.15 X10*3/uL (0.00-0.03); Imm Gran Pct Auto 1.4 % (0.0-0.4); Lymphocytes Absolute Auto 3.1 X10*3/uL (1.2-4.9); Lymphocytes Percent Auto 29.1 % (20-40); Mean Corpuscular HGB Conc 32.4 g/dl (31.0-35.0); Mean Corpuscular Hemoglobin 30.2 pg (27.0-33.0); Mean Corpuscular Volume 93.1 fL (80.0-98.0); Mean Platelet Volume 10.4 fL (9.4-12.3); Monocytes Percent Auto 9.4 % (2-11); Neutrophils Absolute Auto 6.1 x10*3/uL (2.0-8.3); Neutrophils Percent Auto 57.2 % (45-73); Platelet Count 254 X10*3/uL (160-400); Red Blood Count 4.61 X10*6/uL (4.20-5.50); Red Cell Distribution Width 13.4 % (11.0-16.0); White Blood Count 10.7 X10*3/uL (4.8-10.8)
[2022-10-25 10:15] LABS: Alanine Aminotransferase 9 U/L (0-31); Alkaline Phosphatase 76 U/L (39-117); Anion Gap 13 (12-20); Aspartate Amino Transferase 44 U/L (5-31); Bilirubin Total 0.3 mg/dL (0.0-1.0); Blood Urea Nitrogen 18 mg/dL (9-16); Calcium 10.4 mg/dL (8.4-10.2); Carbon Dioxide 25 mmol/L (22-29); Chloride 104 mmol/L (96-108); Creatinine Clr Calc Pharmacy 75.3; Estimated Glomerular Filt Rate > 60; Glucose Random 89 mg/dL (60-115); Potassium 4.4 mmol/L (3.3-5.1); Sodium 138 mmol/L (135-145)
[2022-10-25 10:37] LABS: HBS Num1 33.67 mIU/mL (0-7.99); HBc Num1 0.03 S/CO (0.00-0.79); Hepatitis B Core Antibody Nonreactive (Nonreactive); Hepatitis B Surface Antigen Negative (Negative); ~Hepatitis B Surface Antibody REACTIVE (Nonreactive)
--- NOTE | 2022-10-25 16:10 | MHC.HEMONC ---
Hep B surface antibody reactive, Dr Cisneros aware.
[2022-10-28 12:02] VITALS: BP 135/63; PULSE 75; RESP 18; TEMP 36.6; O2SAT 94; BMI 28.6
[2022-10-28] MEDS: Fosaprepitant Dimeglumine 150 MG in 0.9 % Sodium Chloride 145 ML 300 MG IV (12:38)
[2022-10-28] MEDS: Acetaminophen 325 MG TABLET 650 MG PO (12:42)
[2022-10-28] MEDS: Famotidine 20 MG TABLET PO (12:42)
[2022-10-28] MEDS: diphenhydrAMINE HCL 25 MG CAPSULE PO (12:42)
[2022-10-28] MEDS: dexAMETHasone sod phosphate/NS 12 MG/50 ML PIGGYBACK 200 MG IV (12:44)
[2022-10-28] MEDS: Atezolizumab 1,200 MG in 0.9 % Sodium Chloride 250 ML 270 MG IV (14:02)
--- NOTE | 2022-10-28 17:01 | MHC.HEMONC ---
Pt here for C1D1 Etoposide/Carbo/Atezolizumab. Labs drawn earlier reviewed-okay to receive treatment today. #22 angio inserted in left forearm with blood return noted. Pre medicated with tylenol, emend, zofran, dexamethasone, benadryl, pepcid. Atezolizumab/Carbo/Etoposide given as ordered-tolerated well. Peripheral IV left in place for C1D2. IV clamped and capped, wrapped with co-ease elastic wrap. Discharge packet given with next appointment scheduled-pt to return tomorrow for D2. Oncologist on-call number given to pt. Re educated on when to call office-verbalizes understanding
[2022-10-29 11:58] VITALS: BP 151/72; PULSE 88; RESP 18; TEMP 36.8; O2SAT 94; BMI 28.5
--- NOTE | 2022-10-29 15:42 | MHC.HEMONC ---
Pt here for C1D2 Etoposide. Peripheral IV inserted yesterday uncapped and flushed with 0.9% NS-patent with blood return noted. Pt states she feels well today. Labs drawn yesterday reviewed-okay to receive treatment today. Pre medicated with zofra. Etoposide given as ordered-tolerated well. Peripheral IV capped and clamped, wrapped with co-eaze for D3 tomorrow. Declined discharge packet-reminded to take dexamethasone twice today and tomorrow-verbalizes understanding of information given
--- NOTE | 2022-10-30 13:21 | MHC.HEMONC ---
c1d3 etoposide today. #22 IV placed in right hand with good blood return. Premedicated with IV zofran 16 mg. Etoposide tolerated well. Complains of discomfort, had port placed to right chest today. Per Dr Cisneros she will return tomorrow for neulasta. Calendar provided.
[2022-10-31 14:48] VITALS: BP 168/81; PULSE 101; RESP 19; TEMP 37.2; O2SAT 97
--- NOTE | 2022-10-31 14:50 | MHC.HEMONC ---
Pt here for neulasta injection. (NO PA required) Neulasta given SC in left arm-tolerated well. Pt given next appointment scheduled yesterday. Instructed to call with any side effects or concerns-verbalizes understanding of information given
--- NOTE | 2022-11-04 17:18 | MHC.HEMONC ---
Addendum entered by Hubert Frazier RN 11/13/22 10:35: Nurse was notified by Manager Levy that pt received PA for Monthly Xgeva, nurse booked pt to receive it on 11/18/22, during next chemo appt. Original Note: Dr. Cisneros informed this nurse pt will need to begin taking monthly Denosumab 120 mg SC, aka Xgeva, for bone mets. Nurse asked Manager Levy to please request PA for this drug, after which pt will be contacted to schedule 1st dose.
--- NOTE | 2022-11-06 14:38 | HO.HEMONCPA ---
Addendum entered by Mildred Vizcarra 11/08/22 13:57: NO PA REQUIRED FOR XGEVA. DRUG COVERED UNDER BU[employer] BILL MEDICAL BENEFITS. CALL REF#[id number]. SPOKE to CRISTIANA ON 11/08/22 at 1:58pm @[phone]. Original Note: PA FOR XGEVA REQUESTED. AWAITING DECISION
--- NOTE | 2022-11-15 09:46 | HE.ONCSEC ---
LVM reminding pt of appt on 11/18/22
--- NOTE | 2022-11-15 15:20 | HO.HEMONCSCH ---
Nurse called pt to inform her of change to her chemo appt time on D2, Fri, 11/19 and D3, Fri, 11/20 of her cycle 2 next week. Pt did not answer, but nurse left detailed VM, informing her that she should still come in for D1 on 11/18 at 11am, the originally scheduled time, as she will need blood work and the tx is longer, but that she should arrive at 1:00 pm for her txs on both Fri, 11/19, and Fri, 11/20. Nurse left CB#.
[2022-11-18 10:48] VITALS: BP 162/78; PULSE 92; RESP 15; TEMP 36.4; O2SAT 97; BMI 27.6
--- NOTE | 2022-11-18 10:53 | PM.HEMONCPN ---
Medical Summary - Medical Summary Date of Service: 11/18/22 Chief complaint: Follow-up Primary Care Provider: Sue Reynoso MD Medical Summary: Diagnosis: Extensive stage small cell lung cancer October 2022 In September 2021 she underwent lung cancer screening, CT chest at that time revealed subcentimeter pulmonary nodules for which follow-up was recommended. She had a 1 year follow-up CT chest in September 2022 which revealed multiple new bilateral pulmonary nodules along with abnormal mediastinal and left hilar lymphadenopathy. Largest pulmonary nodule measuring 8 mm, central lung mass measuring 3.4 cm and enlarged left precarinal lymph node measuring 1.9 cm. There was also left lung mass measuring 4 cm. She subsequently underwent CT angiogram which was negative for pulmonary embolism but showed significant hilar and mediastinal mass along with multiple bilateral lung nodules. She underwent EBUS with transbronchial needle aspiration of left upper lobe lung mass. Pathology from 10/16/2022 reported as small cell carcinoma. Lymph node, 4 L FNA was also positive for small cell carcinoma. Patient's family history significant for mother having of lung cancer at age 59 and maternal grandmother having of breast cancer. Interval History Interval history: Patient is here in follow-up. Received 1st cycle of chemotherapy which she tolerated quite well. She reports mild nausea. She is scheduled for PET-CT tomorrow. She denies any headache, fever or chills. No excessive fatigue. She is eating well and not losing weight. She denies any pain. Review of Systems - Constitutional Reports as per HPI, Reports malaise, Denies weight loss - Cardiovascular Reports no additional cardiovascular complaints - Respiratory Reports no additional respiratory complaints - Gastrointestinal Reports no additional gastrointestinal complaints - Neurologic Reports no additional neurologic complaints [facility] Medical History: Medical History (Last Reviewed 11/18/22 @ 10:50 by Precious Calles) COPD (chronic obstructive pulmonary disease) Dyspnea HTN (hypertension) Low vitamin D level Lung cancer Nicotine dependence, cigarettes, uncomplicated Overweight (BMI 25.0-29.9) Post-surgical hypothyroidism Onset Date: ~2013 Postmenopausal Primary thyroid cancer Onset Date: ~2013 Pulmonary nodules Rectal adenoma Tubular adenoma of colon Onset Date: ~2009 Family History: Family History (Last Reviewed 11/18/22 @ 10:50 by Precious Calles) Father No problems noted. Mother Polycythemia vera Pulmonary cancer Sister Mental health disorder Surgical History: Surgical History (Last Reviewed 11/18/22 @ 10:50 by Precious Calles) History of bilateral carpal tunnel release History of colonoscopy History of HPV infection Onset Date: ~1996 History of skin cancer Onset Date: ~2009 History of total thyroidectomy Onset Date: ~2013 Status post de Quervain's release surgery Social History: Social History (Last Reviewed 11/18/22 @ 10:50 by Precious Calles) Living Situation History: Housing: House Alcohol History Details: 1. How often do you have a drink containing alcohol?: b. Monthly or less 2. How many drinks containing alcohol do you have on a typical day when you are drinking?: a. 1 or 2 Tobacco History: Patient Tobacco Use Status: Current everyday Tobacco Tobacco use type: Cigarette Years Smoked: 50 e-Cigarette/Vaping Use: Never Used Second Hand Smoke Exposure: No Domestic Abuse History: Do you feel safe in your current relationship?: Yes Homicidal Assessment: Do you have thoughts of harming others: None Occupation Assessmet: service: No Current occupational status: unemployed Oncology Screenings - ECOG Performance Status ECOG Performance Status: 0 Home Medications and Allergies Home Medications Medication Instructions Recorded Confirmed Type nebulizers 10/31/22 11/18/22 History Allergies Allergy/AdvReac Type Severity Reaction Status Date / Time bee stings Allergy Severe Severe Uncoded 10/31/22 09:32 Swelling Exam Vital signs: Vital Signs Temp 97.6 F 11/18/22 10:48 Pulse 92 11/18/22 10:48 Resp 15 11/18/22 10:48 BP 162/78 H 11/18/22 10:48 Pulse Ox 97 11/18/22 10:48 O2 Del Method Room Air 11/18/22 10:48 Intake & Output 11/17/22 11/18/22 11/18/22 18:59 06:59 18:59 Other: Weight 72.9 kg [place] Weight in Grams 14368 Weight 72.9 kg BMI result Body Mass Index 27.6 - Constitutional Present: no acute distress - Routine HEENT Exam Head: Present: normal inspection - Routine Respiratory Exam Present: prolonged expiratory phase, rhonchi. Absent: accessory muscle use - Routine Cardiovascular Exam Cardiovascular: Present: S1, S2 - Routine Abdominal Exam Present: soft - Routine Extremities Exam Present: pulses intact - Routine Skin Exam Present: intact - Routine Neurological Exam Present: alert, oriented X3 Data - Labs CBC & Chem 7: 11/18/22 10:57 10/25/22 09:25 Labs: 10/22/22 14:47 Basic Metabolic Panel Fasting Routine CEA [Carcinoembryonic Antigen] Routine Lactate Dehydrogenase Routine Prothrombin Time INR Stat Uric Acid Stat 10/25/22 09:25 Complete Blood Count Auto Diff Stat Comprehensive Met. Panel Stat Hep B Scrn (HBsAg, HBc, HBs) [Hepatitis B Profile] Routine 10/28/22 00:00 Acetaminophen [Tylenol] 650 mg PO ONCE Atezolizumab [Tecentriq] 1,200 mg 0.9 % Sodium Chloride [Ns] 250 ml IV ONCE CARBOplatin [Paraplatin] 500 mg 0.9 % Sodium Chloride 250 ml IV ONCE Etoposide [Toposar] 184 mg 0.9 % Sodium Chloride PVC Free [NS PVC Free] 500 ml IV ONCE Famotidine [Pepcid] 20 mg PO ONCE Fosaprepitant Dimeglumine [Emend] 150 mg 0.9 % Sodium Chloride [Ns] 145 ml IV ONCE Heparin Sodium,Porcine Flush 500 unit IVFLUSH ONCE Ondansetron HCL/NS [Zofran] 16 mg in 50 ml IV ONCE dexAMETHasone sod phosphate/NS [Decadron] 12 mg in 50 ml IV ONCE diphenhydrAMINE HCL [Benadryl] 25 mg PO ONCE 10/29/22 00:00 Etoposide [Toposar] 184 mg 0.9 % Sodium Chloride PVC Free [NS PVC Free] 500 ml IV ONCE Heparin Sodium,Porcine Flush 500 unit IVFLUSH ONCE Ondansetron HCL/NS [Zofran] 16 mg in 50 ml IV ONCE 10/30/22 00:00 Etoposide [Toposar] 184 mg 0.9 % Sodium Chloride PVC Free [NS PVC Free] 500 ml IV ONCE Heparin Sodium,Porcine Flush 500 unit IVFLUSH ONCE Ondansetron HCL/NS [Zofran] 16 mg in 50 ml IV ONCE 10/31/22 14:23 Pegfilgrastim [Neulasta] 6 mg SUBCUT ONCE ONE 11/18/22 00:00 Acetaminophen [Tylenol] 650 mg PO ONCE Famotidine/PF [Pepcid/PF] 20 mg IVPUSH ONCE Fosaprepitant Dimeglumine [Emend] 150 mg 0.9 % Sodium Chloride [Ns] 145 ml IV ONCE Heparin Sodium,Porcine Flush 500 unit IVFLUSH ONCE Ondansetron HCL/NS [Zofran] 16 mg in 50 ml IV ONCE dexAMETHasone sod phosphate/NS [Decadron] 12 mg in 50 ml IV ONCE diphenhydrAMINE HCL [Benadryl] 25 mg PO ONCE Laboratory Last Values WBC 10.7 X10*3/uL (4.8-10.8) 10/25/22 09:25 RBC 4.61 X10*6/uL (4.20-5.50) 10/25/22 09:25 Hgb 13.9 g/dl (12.0-16.0) 10/25/22 09:25 Hct 42.9 % (37.0-47.0) 10/25/22 09:25 MCV 93.1 fL (80.0-98.0) 10/25/22 09:25 MCH 30.2 pg (27.0-33.0) 10/25/22 09:25 MCHC 32.4 g/dl (31.0-35.0) 10/25/22 09:25 RDW 13.4 % (11.0-16.0) 10/25/22 09:25 Plt Count 254 X10*3/uL (160-400) 10/25/22 09:25 MPV 10.4 fL (9.4-12.3) 10/25/22 09:25 Immature Gran % (Auto) 1.4 % (0.0-0.4) H 10/25/22 09:25 Neut % (Auto) 57.2 % (45-73) 10/25/22 09:25 Lymph % (Auto) 29.1 % (20-40) 10/25/22 09:25 [place] % (Auto) 9.4 % (2-11) 10/25/22 09:25 Eos % (Auto) 2.0 % (0-4) 10/25/22 09:25 Baso % (Auto) 0.9 % (0-2) 10/25/22 09:25 Lymph # (Auto) 3.1 X10*3/uL (1.2-4.9) 10/25/22 09:25 Randolph # (Auto) 1.0 X10*3/uL (0.1-1.2) 10/25/22 09:25 Eos # (Auto) 0.2 X10*3/uL (0.0-0.4) 10/25/22 09:25 Baso # (Auto) 0.1 X10*3/uL (0.0-0.2) 10/25/22 09:25 Abs Immat Gran (auto) 0.15 X10*3/uL (0.00-0.03) H 10/25/22 09:25 Absolute Neuts (auto) 6.1 x10*3/uL (2.0-8.3) 10/25/22 09:25 Absolute Nucleated RBC 0.000 X10*3/uL (0.0-0.012) 10/25/22 09:25 Nucleated RBC % (auto) 0.0 /100WBC (0.0-0.2) 10/25/22 09:25 PT 11.9 SEC (10.0-13.1) 10/22/22 14:47 INR 1.0 (0.9-1.1) 10/22/22 14:47 Sodium 138 mmol/L (135-145) 10/25/22 09:25 Potassium 4.4 mmol/L (3.3-5.1) 10/25/22 09:25 Chloride 104 mmol/L (96-108) 10/25/22 09:25 Carbon Dioxide 25 mmol/L (22-29) 10/25/22 09:25 Anion Gap 13 (12-20) 10/25/22 09:25 BUN 18 mg/dL (9-16) H 10/25/22 09:25 Creatinine 0.77 mg/dL (0.5-1.4) 10/25/22 09:25 Estim Creat Clear Calc 75.3 10/25/22 09:25 Estimated GFR > 60 10/25/22 09:25 Random Glucose 89 mg/dL (60-115) 10/25/22 09:25 Fasting Glucose 101 mg/dL (60-99) H 10/22/22 14:47 Uric Acid 5.6 mg/dL (2.4-5.7) 10/22/22 14:47 Calcium 10.4 mg/dL (8.4-10.2) H 10/25/22 09:25 Total Bilirubin 0.3 mg/dL (0.0-1.0) 10/25/22 09:25 AST 44 U/L (5-31) H 10/25/22 09:25 ALT 9 U/L (0-31) 10/25/22 09:25 Alkaline Phosphatase 76 U/L (39-117) 10/25/22 09:25 Lactate Dehydrogenase 679 U/L (122-220) H 10/22/22 14:47 Total Protein 7.0 g/dL (6.5-8.0) 10/25/22 09:25 Albumin 4.0 g/dL (3.5-5.0) 10/25/22 09:25 Carcinoembryonic Ag 21.90 ng/mL 10/22/22 14:47 PTH Intact Cancelled 10/22/22 14:47 Calcium (PTH Intact) Cancelled 10/22/22 14:47 Hep Bs Antigen Negative (Negative) 10/25/22 09:25 Hep Bs Antibody REACTIVE (Nonreactive) 10/25/22 09:25 Hep B Core Total Ab Nonreactive (Nonreactive) 10/25/22 09:25 Assessment and Plan Patient Active problem list reviewed?: Yes (1) Small cell lung cancer Status: Acute Assessment and plan: 1. This is 62-year-old woman, chronic smoker, diagnosed with extensive stage small cell lung cancer. CT angiogram performed 10/15/2022 revealed large left mediastinal mass as well as lymphadenopathy, left hilar mass measuring 7 x 5 x 7 cm. Several enlarged mediastinal, hilar and pretracheal lymph nodes largest measuring 1.2 cm. Bilateral lung nodules largest in the left upper lobe measuring 0.9 cm. Right lower lobe lung nodule measuring 0.6 cm. Upper abdomen showed left adrenal nodule measuring 1.8 cm and 1.1 cm in the medial limb, mildly prominent adjacent lymph nodes, interval increase in adrenal nodules compared to prior study concerning for metastatic disease. She underwent EBUS/bronchoscopy on 10/16/2022 which confirmed small cell lung cancer. Blood work today shows elevated LDH of 679, CEA 21.90 NG/mL and calcium of 10.9. Submit uric acid level and start allopurinol if necessary. For elevated calcium, PTH has been submitted. She could have bone metastasis. Paraneoplastic hypercalcemia is a possibility. Brain MRI performed 11/04/2022 showed widespread osseous metastatic disease involving calvarium and skull base and upper cervical spine. No intracranial lesions seen. PET-CT is scheduled for 11/19/2022. For further staging I have ordered a PET-CT and brain MRI. She started chemotherapy with Carboplatin with etoposide and atezolizumab as per [id number] study in 10/2022. She is scheduled for cycle 2 tomorrow. She will be started on denosumab 120 mg subQ monthly for bone metastasis. 2. Distress management. For insomnia I have prescribed alprazolam 0.25 mg q.h.s. p.r.n.. 3. Pain management. She is on tramadol as needed for chest wall pain. Her labs look good. Proceed with treatment tomorrow. Follow-up in 2 weeks. - Time Spent With Patient Time Spent with Patient (in minutes): 25
--- NOTE | 2022-11-18 11:26 | MHC.HEMONCMA ---
Patient seen today for followup lung CA, VSS, labs, followup on chemo day and start chemo tomorrow.
[2022-11-18 11:51] LABS: Alanine Aminotransferase 19 U/L (0-31); Albumin Level 4.3 g/dL (3.5-5.0); Alkaline Phosphatase 155 U/L (39-117); Anion Gap 15 (12-20); Aspartate Amino Transferase 14 U/L (5-31); Bilirubin Total 0.7 mg/dL (0.0-1.0); Blood Urea Nitrogen 13 mg/dL (9-16); Calcium 10.1 mg/dL (8.4-10.2); Carbon Dioxide 25 mmol/L (22-29); Chloride 105 mmol/L (96-108); Estimated Glomerular Filt Rate > 60; Glucose Random 101 mg/dL (60-115); Sodium 141 mmol/L (135-145)
[2022-11-18 12:51] LABS: Lactate Dehydrogenase 300 U/L (122-220)
[2022-11-19 10:39] VITALS: BP 140/62; PULSE 76; RESP 18; TEMP 37.1; O2SAT 96; BMI 26.9
[2022-11-19] MEDS: Acetaminophen 325 MG TABLET 650 MG PO (11:11)
[2022-11-19] MEDS: diphenhydrAMINE HCL 25 MG CAPSULE PO (11:11)
[2022-11-19] MEDS: dexAMETHasone sod phosphate/NS 12 MG/50 ML PIGGYBACK 200 MG IV (11:13)
[2022-11-19] MEDS: Famotidine/PF 20 MG/2 ML VIAL IVPUSH (11:14)
[2022-11-19] MEDS: Fosaprepitant Dimeglumine 150 MG in 0.9 % Sodium Chloride 145 ML 300 MG IV (12:23)
[2022-11-19] MEDS: Atezolizumab 1,200 MG in 0.9 % Sodium Chloride 250 ML 270 MG IV (13:08)
--- NOTE | 2022-11-19 13:38 | MHC.HEMONC ---
pt offer no new complaint toerated treatment well. port site healed nicely, will stay assessed for day 2 and 3. monthly xgeva given
[2022-11-20 13:14] VITALS: BP 142/72; PULSE 78; RESP 18; TEMP 36.1; O2SAT 97; BMI 27.3
[2022-11-20] MEDS: ondansetron HCL 4 MG/2 ML VIAL 16 MG IV (13:50)
--- NOTE | 2022-11-20 16:00 | MHC.HEMONC ---
Pt here for C2D2 Etoposide. Pt amb to room 3. Pt c/o pain in bilat thighs/groin area. Sharp pain that started on November 10 in left leg. now pain is in both legs. Denies numbness or tingling. States legs feel weak. Dr Cisneros notified. Pt had PET scan 11/19/22. Salma to request expedited reading. No new orders at this time. Labs reviewed from 11/18/22. Port remained accessed from yesterday. Good blood return. Pre med zofran given. Etoposide infused. Pt toll well. Port left accessed for tomorrows treatment. green cap applied and tubing secured to chest with gauze and tape. Calendar given. Pt returns tomorrow. Pt departed.
[2022-11-21 13:10] VITALS: BP 128/61; PULSE 79; RESP 20; TEMP 37.2; O2SAT 97; BMI 27.3
[2022-11-21] MEDS: Heparin Sodium,Porcine Flush 500 UNIT/5 ML SYRINGE IVFLUSH (13:49)
--- NOTE | 2022-11-21 16:12 | MHC.HEMONC ---
Pt here for C2D3 Etoposide. Pt amb to tx room 4. Pt offers no new compliants. Still with the bilat thigh/groin pain. Dr Cisneros waiting for PET report. Port was left accessed from previous day. Port flushed with saline good return. Labs used from 11/18/22. Pre meds given and Etoposide infused. Pt toll well. Port was de accessed with heparin. Calendar given with next treatment in 2 weeks. Pt departed.
[2022-11-22 14:34] VITALS: BP 141/73; PULSE 78; RESP 18; TEMP 36.8; O2SAT 96
--- NOTE | 2022-11-22 15:09 | MHC.HEMONC ---
Neulasta 6mg s/c administered to left upper arm and well tolerated. VSS. Patient declined discharge packet- No complaints at this time.
--- NOTE | 2022-11-25 15:43 | MHC.HEMONC ---
Pt called triage line, reported severe pain in her upper back and chest bentley, previously managed by PRN tramadol, but says that is ineffective. Pt did report that oxycodone which had been prescribed in the past had been effective. Dr. Cisneros was informed, sent new scrip for PO oxycodone 5 mg to pt's [facility] on [address]. Nurse notified pt by phone.
--- NOTE | 2022-12-09 09:12 | HE.ONCSEC ---
LVM reminding pt of appt on 12/10/22
[2022-12-10 10:52] LABS: MANUAL DIFF FLAG NO
[2022-12-10 10:58] LABS: Basophils Absolute Auto 0.1 X10*3/uL (0.0-0.2); Basophils Percent Auto 0.7 % (0-2); Eosinophils Absolute Auto 0.1 X10*3/uL (0.0-0.4); Eosinophils Percent Auto 0.7 % (0-4); Hemoglobin 11.4 g/dl (12.0-16.0); Imm Gran Abs Auto 0.13 X10*3/uL (0.00-0.03); Imm Gran Pct Auto 1.1 % (0.0-0.4); Lymphocytes Absolute Auto 1.7 X10*3/uL (1.2-4.9); Lymphocytes Percent Auto 15.1 % (20-40); Mean Corpuscular HGB Conc 31.7 g/dl (31.0-35.0); Mean Corpuscular Hemoglobin 31.1 pg (27.0-33.0); Mean Corpuscular Volume 98.4 fL (80.0-98.0); Mean Platelet Volume 8.8 fL (9.4-12.3); Monocytes Absolute Auto 0.8 X10*3/uL (0.1-1.2); Monocytes Percent Auto 7.3 % (2-11); Neutrophils Absolute Auto 8.6 x10*3/uL (2.0-8.3); Neutrophils Percent Auto 75.1 % (45-73); Platelet Count 333 X10*3/uL (160-400); Red Blood Count 3.66 X10*6/uL (4.20-5.50); Red Cell Distribution Width 18.4 % (11.0-16.0); White Blood Count 11.4 X10*3/uL (4.8-10.8)
[2022-12-10 11:01] VITALS: BP 123/71; PULSE 89; RESP 18; TEMP 37.1; O2SAT 96; BMI 28.3
[2022-12-10 11:11] LABS: Alanine Aminotransferase 22 U/L (0-31); Albumin Level 4.4 g/dL (3.5-5.0); Alkaline Phosphatase 122 U/L (39-117); Anion Gap 15 (12-20); Aspartate Amino Transferase 18 U/L (5-31); Bilirubin Total 0.3 mg/dL (0.0-1.0); Blood Urea Nitrogen 13 mg/dL (9-16); Calcium 9.5 mg/dL (8.4-10.2); Carbon Dioxide 22 mmol/L (22-29); Chloride 110 mmol/L (96-108); Creatinine Clr Calc Pharmacy 90.2; Estimated Glomerular Filt Rate > 60; Glucose Random 111 mg/dL (60-115); Potassium 4.7 mmol/L (3.3-5.1); Sodium 142 mmol/L (135-145); Total Protein 7.2 g/dL (6.5-8.0)
[2022-12-10] MEDS: diphenhydrAMINE HCL 25 MG CAPSULE PO (11:41)
[2022-12-10] MEDS: Acetaminophen 325 MG TABLET 650 MG PO (11:42)
[2022-12-10] MEDS: Famotidine/PF 20 MG/2 ML VIAL IVPUSH (11:43)
[2022-12-10] MEDS: dexAMETHasone sod phosphate/NS 12 MG/50 ML PIGGYBACK 200 MG IV (11:43)
[2022-12-10] MEDS: Fosaprepitant Dimeglumine 150 MG in 0.9 % Sodium Chloride 145 ML 300 MG IV (12:03)
--- NOTE | 2022-12-10 12:15 | P.PNHO-ONC_ITS ---
Medical Summary - Medical Summary Date of Service: 12/10/22 Chief complaint: Follow-up and scheduled treatment Primary Care Provider: Sue Reynoso MD Medical Summary: Diagnosis: Extensive stage small cell lung cancer October 2022 In September 2021 she underwent lung cancer screening, CT chest at that time revealed subcentimeter pulmonary nodules for which follow-up was recommended. She had a 1 year follow-up CT chest in September 2022 which revealed multiple new bilateral pulmonary nodules along with abnormal mediastinal and left hilar lymphad enopathy. Largest pulmonary nodule measuring 8 mm, central lung mass measuring 3.4 cm and enlarged left precarinal lymph node measuring 1.9 cm. There was also left lung mass measuring 4 cm. She subsequently underwent CT angiogram which was negative for pulmonary embolism but showed significant hilar and mediastinal mass along with multiple bilateral lung nodules. She underwent EBUS with transbronchial needle aspiration of left upper lobe lung mass. Pathology from 10/16/2022 reported as small cell carcinoma. Lymph node, 4 L FNA was also positive for small cell carcinoma. Patient's family history significant for mother having of lung cancer at age 59 and maternal grandmother having of breast cancer. Interval History Interval history: Ev is here in follow-up and scheduled treatment. Today is cycle 3. So far she has been tolerating treatment well. She has some body pains, she takes oxycodone. She has constipation, she is on bowel regimen. She denies nausea emesis discomfort or diarrhea. She is taking Xanax at bedtime as needed. Review of Systems - Constitutional Reports as per HPI, Denies fatigue, Denies fever(s), Denies lack of energy, Denies malaise - Cardiovascular Reports no additional cardiovascular complaints - Respiratory Reports no additional respiratory complaints - Gastrointestinal Reports no additional gastrointestinal complaints - Neurologic Reports no additional neurologic complaints FORMERLY [facility], [facility] Medical History: Medical History (Last Reviewed 11/18/22 @ 10:50 by Precious Calles) COPD (chronic obstructive pulmonary disease) Dyspnea HTN (hypertension) Low vitamin D level Lung cancer Nicotine dependence, cigarettes, uncomplicated Overweight (BMI 25.0-29.9) Post-surgical hypothyroidism Onset Date: ~2013 Postmenopausal Primary thyroid cancer Onset Date: ~2013 Pulmonary nodules Rectal adenoma Tubular adenoma of colon Onset Date: ~2009 Family History: Family History (Last Reviewed 11/18/22 @ 10:50 by Precious Calles) Father No problems noted. Mother Polycythemia vera Pulmonary cancer Sister Mental health disorder Surgical History: Surgical History (Last Reviewed 11/18/22 @ 10:50 by Precious Calles) History of bilateral carpal tunnel release History of colonoscopy History of HPV infection Onset Date: ~1996 History of skin cancer Onset Date: ~2009 History of total thyroidectomy Onset Date: ~2013 Status post de Quervain's release surgery Social History: Social History (Last Reviewed 11/18/22 @ 10:50 by Precious Calles) Living Situation History: Housing: House Alcohol History Details: 1. How often do you have a drink containing alcohol?: b. Monthly or less 2. How many drinks containing alcohol do you have on a typical day when you are drinking?: a. 1 or 2 Tobacco History: Patient Tobacco Use Status: Current everyday Tobacco Tobacco use type: Cigarette Years Smoked: 50 e-Cigarette/Vaping Use: Never Used Second Hand Smoke Exposure: No Domestic Abuse History: Do you feel safe in your current relationship?: Yes Homicidal Assessment: Do you have thoughts of harming others: None Occupation Assessmet: service: No Current occupational status: unemployed Home Medications and Allergies Current Medications: Current Medications Acetaminophen (Acetaminophen 325 Mg Tablet) 650 mg PO ONCE KAMALJIT Stop: 12/10/22 23:59 Last Admin: 12/10/22 11:42 Dose: 650 mg Diphenhydramine HCl (Diphenhydramine Hcl 25 Mg Capsule) 25 mg PO ONCE KAMALJIT Stop: 12/10/22 23:59 Last Admin: 12/10/22 11:41 Dose: 25 mg Famotidine (Famotidine/Pf 20 Mg/2 Ml Vial) 20 mg IVPUSH ONCE KAMALJIT Stop: 12/10/22 23:59 Last Admin: 12/10/22 11:43 Dose: 20 mg Heparin Sodium (Porcine) (Heparin Sodium,Porcine Flush 500 Unit/5 Ml Syringe) 500 unit IVFLUSH ONCE KAMALJIT Stop: 12/10/22 23:59 Dexamethasone Sodium Phosphate (Decadron) 12 mg in 50 mls @ 200 mls/hr IV ONCE KAMALJIT Stop: 12/10/22 23:59 Last Infusion: 12/10/22 11:58 Dose: Infused Ondansetron HCl (Zofran) 16 mg in 50 mls @ 200 mls/hr IV ONCE KAMALJIT Stop: 12/10/22 23:59 Last Admin: 12/10/22 11:43 Dose: 200 mls/hr Fosaprepitant 150 mg/ Sodium (Chloride) 150 mls @ 300 mls/hr IV ONCE KAMALJIT Stop: 12/10/22 23:59 Last Admin: 12/10/22 12:03 Dose: 300 mls/hr Atezolizumab 1,200 mg/ Sodium (Chloride) 270 mls @ 540 mls/hr IV ONCE KAMALJIT Stop: 12/10/22 23:59 Etoposide 184 mg/ Sodium (Chloride) 509.2 mls @ 509.2 mls/hr IV ONCE KAMALJIT Stop: 12/10/22 23:59 Carboplatin 550 mg/ Sodium (Chloride) 305 mls @ 610 mls/hr IV ONCE KAMALJIT Stop: 12/10/22 23:59 Home Medications Medication Instructions Recorded Confirmed Type nebulizers 10/31/22 12/10/22 History Allergies Allergy/AdvReac Type Severity Reaction Status Date / Time bee stings Allergy Severe Severe Uncoded 12/10/22 11:10 Swelling Exam Vital signs: Vital Signs Temp 98.7 F 12/10/22 11:01 Pulse 89 12/10/22 11:01 Resp 18 12/10/22 11:01 BP 123/71 12/10/22 11:01 Pulse Ox 96 12/10/22 11:01 O2 Del Method Room Air 12/10/22 11:01 Intake & Output 12/09/22 12/10/22 12/10/22 18:59 06:59 18:59 Intake Total 50 / 50 Balance 50 / 50 Intake: Intake, IV Amount 50 / 50 dexAMETHasone sod phosphate/NS 50 / 50 12 mg In 50 ml @ 200 mls/hr IV ONCE KAMALJIT Rx#:[id number] Other: Weight 74.7 kg [place] Weight in Grams 27266 Weight 74.7 kg BMI result Body Mass Index 28.3 - Constitutional Present: no acute distress - Routine HEENT Exam Head: Present: normal inspection - Routine Respiratory Exam Present: prolonged expiratory phase, rhonchi. Absent: accessory muscle use - Routine Cardiovascular Exam Cardiovascular: Present: S1, S2 - Routine Abdominal Exam Present: soft - Routine Extremities Exam Present: pulses intact - Routine Skin Exam Present: intact - Routine Neurological Exam Present: alert, oriented X3 Data - Labs CBC & Chem 7: 12/10/22 10:50 12/10/22 10:50 Assessment and Plan Patient Active problem list reviewed?: Yes (1) Small cell lung cancer Status: Acute Assessment and plan: 1. This is 62-year-old woman, chronic smoker, diagnosed with extensive stage small cell lung cancer. CT angiogram performed 10/15/2022 revealed large left mediastinal mass as well as lymphadenopathy, left hilar mass measuring 7 x 5 x 7 cm. Several enlarged mediastinal, hilar and pretracheal lymph nodes largest measuring 1.2 cm. Bilateral lung nodules largest in the left upper lobe measuring 0.9 cm. Right lower lobe lung nodule measuring 0.6 cm. Upper abdomen showed left adrenal nodule measuring 1.8 cm and 1.1 cm in the medial limb, mildly prominent adjacent lymph nodes, interval increase in adrenal nodules compared to prior study concerning for metastatic disease. She underwent EBUS/bronchoscopy on 10/16/2022 which confirmed small cell lung cancer. Blood work today shows elevated LDH of 679, CEA 21.90 NG/mL and calcium of 10.9. Brain MRI performed 10/2022 showed widespread osseous metastatic disease involving calvarium and skull base and upper cervical spine. No intracranial lesions seen. PET-CT performed on 11/19/2022 showed large left hilar mass with abnormal FDG activity, FDG avid T7 compression deformity, several FDG avid rib fractures, extensive calvarial metastasis. She started chemotherapy with Carboplatin with etoposide and atezolizumab as per [id number] study in 10/2022. 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 2. Distress management. For insomnia I have prescribed alprazolam 0.25 mg q.h.s. p.r.n.. 3. Pain management. She is on oxycodone 5 mg every 8 hours as needed. Her labs look good. Proceed with treatment today. CEA level is coming down. Follow-up in 3 weeks. - Time Spent With Patient Time Spent with Patient (in minutes): 15
[2022-12-10] MEDS: Atezolizumab 1,200 MG in 0.9 % Sodium Chloride 250 ML 540 MG IV (13:05)
--- NOTE | 2022-12-10 14:28 | MHC.HEMONC ---
Pt here for C3D1 Carboplatin/Etoposide/ Atezolizumab. Pt states she continue with fatigue, constipation, and occasional nausea. States has chest wall pain 7/10 squeezing (mostly in the mornings) which she takes oxycodone for with relief. States she manages constipation with stool softeners. States she has a dry cough at times with some dysphnea on exertion, states she is eating and sleeping well. States has had difficulty lifting left leg since chemotherapy started-states Dr Cisneros is aware. Labs drawn by veterinary epidemiologist-specimen to lab. Dr Cisneros into see pt. Plan for PET scan after C4 per DR Cisneros-pt notified. Lab results reviewed-okay to receive treatment today. Port accessed with blood return noted. Pre medicated with tylenol, benadryl, pepcid, zofran, dexamethasone, emend. Etoposide/Carboplatin/Atezolizumab given as ordered-tolerated well. Port capped and taped in place. Next appointments scheduled. Pt to return tomorrow for C3D2 Etoposide. Discharge packet given. Instructed to call department with any concerns or questions-verbalizes understanding of information given
[2022-12-10 19:15] LABS: Thyroid Stimulating Hormone 0.24 uIU/mL (0.32-4.0)
[2022-12-11 12:58] VITALS: BP 147/73; PULSE 90; RESP 18; TEMP 36.7; O2SAT 95; BMI 28.4
[2022-12-11] MEDS: ondansetron HCL 4 MG/2 ML VIAL IVPUSH (13:27)
--- NOTE | 2022-12-11 16:02 | MHC.HEMONC ---
Here for C3 D2 Etoposide. Port flushed with NS, good blood return noted. Premedicated with zofran 4mg IV as ordered. Treatment done and tolerated well. Port clamped with cap in place. Departed unit, and scheduled to return for D3 on 12/12.
[2022-12-12 13:00] VITALS: BP 142/58; PULSE 87; RESP 18; TEMP 36.5; O2SAT 96; BMI 28.8
[2022-12-12] MEDS: Heparin Sodium,Porcine Flush 500 UNIT/5 ML SYRINGE IVFLUSH (13:13)
--- NOTE | 2022-12-12 15:17 | MHC.HEMONC ---
Pt here for C3D3 Etoposide. Port accessed on 12/10/22-cap removed, unclampe. Port flushed with 0.9% NS patent with blood return noted. Pt states she had nausea last night-states took zofran at 0230 today with relief. Pre medicated with zofran 16mg IV. Etoposide given as ordered-tolerated well. Port flushed with heparin and de accessed. Pt to return tomorrow for Neulasta injection. Declined discharge packet-states received discharge packet on 12/10/22. Instructed to call with any questions or concerns-verbalizes understanding of information given
[2022-12-13 13:32] VITALS: BP 159/80; PULSE 76; RESP 20; TEMP 36.4; O2SAT 98; BMI 28.2
--- NOTE | 2022-12-13 13:35 | MHC.HEMONC ---
Neulasta SC given in left arm-tolerated well. No PA required
[2022-12-17 13:43] VITALS: BP 138/65; PULSE 94; RESP 18; TEMP 36.8; O2SAT 95; BMI 37.1
--- NOTE | 2022-12-17 13:59 | MHC.HEMONC ---
Pt here for monthly Xgeva SC injection (no PA required) Labs draw 12/10/22 Calcium level 9.5 Xgevia 120mg SC given in left arm-tolerated well. Pt aware of next scheduled appointment-declines discharge packet
--- NOTE | 2022-12-20 15:48 | MHC.HEMONC ---
Triage call-pt called requesting refill on Oxycodone 5mg. Dr Cisneros notified.
--- NOTE | 2022-12-26 14:26 | MHC.HEMONCMA ---
Patient called triage line due to having middle back pain that goes around to front, feels like its squeezing her, if she moves she gets winded. I went and got Salma Patel RN to speak with patient directly, patient informed her same symptoms and Salma asked her to go to ER to get evaluated, patient refused to go, Salma stated to call 911 if she gets chest pain or worse SOB. Patient stated again she is not going to ER, once again when Salma suggested it due to weekend coming up, patient says she has people to get her there if needed.
--- NOTE | 2022-12-30 09:44 | HE.ONCSEC ---
LVM reminding pt of appt on 12/31/22
[2022-12-31 11:36] VITALS: BP 131/71; PULSE 93; RESP 18; TEMP 36.4; O2SAT 97; BMI 28.2
[2022-12-31 11:36] LABS: MANUAL DIFF FLAG NO
[2022-12-31 11:40] LABS: Basophils Absolute Auto 0.1 X10*3/uL (0.0-0.2); Basophils Percent Auto 0.6 % (0-2); Eosinophils Absolute Auto 0.1 X10*3/uL (0.0-0.4); Eosinophils Percent Auto 0.8 % (0-4); Hematocrit 38.6 % (37.0-47.0); Hemoglobin 12.6 g/dl (12.0-16.0); Imm Gran Abs Auto 0.36 X10*3/uL (0.00-0.03); Imm Gran Pct Auto 2.3 % (0.0-0.4); Lymphocytes Absolute Auto 1.6 X10*3/uL (1.2-4.9); Lymphocytes Percent Auto 10.3 % (20-40); Mean Corpuscular HGB Conc 32.6 g/dl (31.0-35.0); Mean Corpuscular Hemoglobin 32.4 pg (27.0-33.0); Mean Corpuscular Volume 99.2 fL (80.0-98.0); Mean Platelet Volume 9.1 fL (9.4-12.3); Monocytes Absolute Auto 0.4 X10*3/uL (0.1-1.2); Monocytes Percent Auto 2.5 % (2-11); Neutrophils Absolute Auto 13.2 x10*3/uL (2.0-8.3); Neutrophils Percent Auto 83.5 % (45-73); Platelet Count 374 X10*3/uL (160-400); Red Blood Count 3.89 X10*6/uL (4.20-5.50); Red Cell Distribution Width 19.4 % (11.0-16.0); White Blood Count 15.8 X10*3/uL (4.8-10.8)
[2022-12-31 11:58] LABS: Alanine Aminotransferase 16 U/L (0-31); Albumin Level 4.4 g/dL (3.5-5.0); Alkaline Phosphatase 89 U/L (39-117); Anion Gap 14 (12-20); Aspartate Amino Transferase 14 U/L (5-31); Bilirubin Total 0.2 mg/dL (0.0-1.0); Blood Urea Nitrogen 13 mg/dL (9-16); Calcium 9.4 mg/dL (8.4-10.2); Carbon Dioxide 22 mmol/L (22-29); Chloride 108 mmol/L (96-108); Creatinine Clr Calc Pharmacy 87.3; Estimated Glomerular Filt Rate > 60; Glucose Random 109 mg/dL (60-115); Sodium 140 mmol/L (135-145); Total Protein 7.1 g/dL (6.5-8.0)
[2022-12-31 12:12] LABS: Thyroid Stimulating Hormone 1.34 uIU/mL (0.32-4.0)
[2022-12-31] MEDS: dexAMETHasone sod phosphate/NS 12 MG/50 ML PIGGYBACK 200 MG IV (12:21)
[2022-12-31] MEDS: diphenhydrAMINE HCL 25 MG CAPSULE PO (12:21)
[2022-12-31] MEDS: Acetaminophen 325 MG TABLET 650 MG PO (12:21)
[2022-12-31] MEDS: Fosaprepitant Dimeglumine 150 MG in 0.9 % Sodium Chloride 145 ML 300 MG IV (12:22)
[2022-12-31] MEDS: Famotidine/PF 20 MG/2 ML VIAL IVPUSH (12:26)
[2022-12-31] MEDS: Atezolizumab 1,200 MG in 0.9 % Sodium Chloride 250 ML 540 MG IV (13:58)
--- NOTE | 2022-12-31 16:31 | MHC.HEMONC ---
Here for C4 D1 Atezalizumab/Carbo/Etoposide. Port accessed with good blood return noted. Labs obtained. States is feeling good and tolerating treatments well. She states she only had one bad day with nausea. Premeds given as ordered. Treatment done and tolerated well. Port remains accessed for D2 Etoposide. Departed unit.
[2023-01-01 12:53] VITALS: BP 153/68; PULSE 95; RESP 20; TEMP 36.7
[2023-01-02 13:11] VITALS: BP 151/68; PULSE 113; RESP 18; TEMP 36.6; O2SAT 94; BMI 28.1
[2023-01-02] MEDS: ondansetron HCL 4 MG/2 ML VIAL 8 MG IVPUSH (13:54)
--- NOTE | 2023-01-02 14:41 | P.PNHO-ONC_ITS ---
Medical Summary - Medical Summary Date of Service: 01/02/23 Chief complaint: Follow-up Primary Care Provider: Sue Reynoso MD Medical Summary: Diagnosis: Extensive stage small cell lung cancer October 2022 In September 2021 she underwent lung cancer screening, CT chest at that time revealed subcentimeter pulmonary nodules for which follow-up was recommended. She had a 1 year follow-up CT chest in September 2022 which revealed multiple new bilateral pulmonary nodules along with abnormal mediastinal and left hilar lymphadenopathy. Largest pulmonary nodule measuring 8 mm, central lung mass measuring 3.4 cm and enlarged left precarinal lymph node measuring 1.9 cm. There was also left lung mass measuring 4 cm. She subsequently underwent CT angiogram which was negative for pulmonary embolism but showed significant hilar and mediastinal mass along with multiple bilateral lung nodules. She underwent EBUS with transbronchial needle aspirat ion of left upper lobe lung mass. Pathology from 10/16/2022 reported as small cell carcinoma. Lymph node, 4 L FNA was also positive for small cell carcinoma. Patient's family history significant for mother having of lung cancer at age 59 and maternal grandmother having of breast cancer. Interval History Interval history: Ev is here in follow-up and scheduled treatment. Today is cycle 4 day 3. She has some questions about when she should have repeat imaging study and what to expect in the next few months. She is seeking a 2nd opinion as well. She does get body aches a week or so after her treatment. Has been taking Tylenol. She denies any other symptoms such as nausea, emesis, cough, abdominal pain or diarrhea. Her appetite has improved and she has gained weight. Overall she feels better after starting her treatment. Review of Systems - Constitutional Reports as per HPI - Neurologic Reports no additional neurologic complaints [facility] Medical History: Medical History (Last Reviewed 11/18/22 @ 10:50 by Precious Calles) COPD (chronic obstructive pulmonary disease) Dyspnea HTN (hypertension) Low vitamin D level Lung cancer Nicotine dependence, cigarettes, uncomplicated Overweight (BMI 25.0-29.9) Post-surgical hypothyroidism Onset Date: ~2013 Postmenopausal Primary thyroid cancer Onset Date: ~2013 Pulmonary nodules Rectal adenoma Tubular adenoma of colon Onset Date: ~2009 Family History: Family History (Last Reviewed 11/18/22 @ 10:50 by Precious Calles) Father No problems noted. Mother Polycythemia vera Pulmonary cancer Sister Mental health disorder Surgical History: Surgical History (Last Reviewed 11/18/22 @ 10:50 by Precious Calles) History of bilateral carpal tunnel release History of colonoscopy History of HPV infection Onset Date: ~1996 History of skin cancer Onset Date: ~2009 History of total thyroidectomy Onset Date: ~2013 Status post de Quervain's release surgery Social History: Social History (Last Reviewed 11/18/22 @ 10:50 by Precious Calles) Living Situation History: Housing: House Alcohol History Details: 1. How often do you have a drink containing alcohol?: b. Monthly or less 2. How many drinks containing alcohol do you have on a typical day when you are drinking?: a. 1 or 2 Tobacco History: Patient Tobacco Use Status: Current everyday Tobacco Tobacco use type: Cigarette Years Smoked: 50 e-Cigarette/Vaping Use: Never Used Second Hand Smoke Exposure: No Domestic Abuse History: Do you feel safe in your current relationship?: Yes Homicidal Assessment: Do you have thoughts of harming others: None Occupation Assessmet: service: No Current occupational status: unemployed Home Medications and Allergies Current Medications: Current Medications Heparin Sodium (Porcine) (Heparin Sodium,Porcine Flush 500 Unit/5 Ml Syringe) 500 unit IVFLUSH ONCE KAMALJIT Stop: 01/02/23 23:59 Etoposide 184 mg/ Sodium (Chloride) 509.2 mls @ 509.2 mls/hr IV ONCE KAMALJIT Stop: 01/02/23 23:59 Last Admin: 01/02/23 13:55 Dose: 509.2 mls/hr Pegfilgrastim (Pegfilgrastim 6 Mg Syringe) 6 mg SUBCUT ONCE KAMALJIT Stop: 01/02/23 23:59 Home Medications Medication Instructions Recorded Confirmed Type nebulizers 10/31/22 12/10/22 History Allergies Allergy/AdvReac Type Severity Reaction Status Date / Time bee stings Allergy Severe Severe Uncoded 12/10/22 11:10 Swelling Exam Vital signs: Vital Signs Temp 97.9 F 01/02/23 13:11 Pulse 113 H 01/02/23 13:11 Resp 18 01/02/23 13:11 BP 151/68 H 01/02/23 13:11 Pulse Ox 94 01/02/23 13:11 O2 Del Method Room Air 08/24/23 13:11 Intake & Output 01/01/23 01/02/23 01/02/23 18:59 06:59 18:59 Intake Total 509.2 / 509.2 Balance 509.2 / 509.2 Intake: Intake, IV Amount 509.2 / 509.2 Etoposide 184 mg In 0.9 % 509.2 / 509.2 Sodium Chloride PVC Free 500 ml @ 509.2 mls/hr IV ONCE KAMALJIT Rx# :[id number] Other: Weight 74.3 kg [place] Weight in Grams 82154 Weight 74.3 kg BMI result Body Mass Index 28.1 - Constitutional Present: no acute distress - Routine HEENT Exam Head: Present: normal inspection - Routine Respiratory Exam Present: prolonged expiratory phase, rhonchi. Absent: accessory muscle use - Routine Cardiovascular Exam Cardiovascular: Present: S1, S2 - Routine Abdominal Exam Present: soft - Routine Extremities Exam Present: pulses intact - Routine Skin Exam Present: intact - Routine Neurological Exam Present: alert, oriented X3 Data - Labs CBC & Chem 7: 12/31/22 11:30 12/31/22 11:30 Assessment and Plan Patient Active problem list reviewed?: Yes (1) Small cell lung cancer Status: Acute Assessment and plan: 1. This is 62-year-old woman, chronic smoker, diagnosed with extensive stage small cell lung cancer. CT angiogram performed 10/15/2022 revealed large left mediastinal mass as well as lymphadenopathy, left hilar mass measuring 7 x 5 x 7 cm. Several enlarged mediastinal, hilar and pretracheal lymph nodes largest measuring 1.2 cm. Bilateral lung nodules largest in the left upper lobe measuring 0.9 cm. Right lower lobe lung nodule measuring 0.6 cm. Upper abdomen showed left adrenal nodule measuring 1.8 cm and 1.1 cm in the medial limb, mildly prominent adjacent lymph nodes, interval increase in adrenal nodules compared to prior study concerning for metastatic disease. She underwent EBUS/bronchoscopy on 10/16/2022 which confirmed small cell lung cancer. Blood work today shows elevated LDH of 679, CEA 21.90 NG/mL and calcium of 10.9. Brain MRI performed 10/2022 showed widespread osseous metastatic disease involving calvarium and skull base and upper cervical spine. No intracranial lesions seen. PET-CT performed on 11/19/2022 showed large left hilar mass with abnormal FDG activity, FDG avid T7 compression deformity, several FDG avid rib fractures, extensive calvarial metastasis. She started chemotherapy with Carboplatin with etoposide and atezolizumab as per [id number] study in 10/2022. 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 2. Distress management. For insomnia I have prescribed alprazolam 0.25 mg q.h.s. p.r.n.. 3. Pain management. She is on oxycodone 5 mg every 8 hours as needed. She is also experiencing bone pain secondary to Neulasta. I have encouraged her to take Claritin 1 tablet Q 12 as needed. Today is cycle 4 day 1. I explained to her that a PET-CT will be repeated in February after she completes 6 cycles of chemo immunotherapy. LDH and CEA level submitted today. They have been coming down. Follow-up in 3 weeks. - Time Spent With Patient Time Spent with Patient (in minutes): 15
[2023-01-02] MEDS: Heparin Sodium,Porcine Flush 500 UNIT/5 ML SYRINGE IVFLUSH (15:08)
[2023-01-02 15:49] LABS: Lactate Dehydrogenase 165 U/L (122-220)
--- NOTE | 2023-01-02 16:07 | MHC.HEMONC ---
C4D3: ETOPOSIDE. VSS. Port-uncapped and flushes easily with positive blood return. Pre-medicated with Zofran 8mg IVP. Etoposide well tolerated. Dr. Cisneros in to speak with patient. Labs ordered- CEA/LDH. - labs obtained through port. Port de-accessed and flushed with Heparin. Patient to return tomorrow for Neulasta.
[2023-01-03 13:52] VITALS: BP 161/73; PULSE 73; RESP 18; TEMP 36.6; O2SAT 97
--- NOTE | 2023-01-06 17:08 | MHC.HEMONC ---
Triage call-pt called stating her throat is sore states throat so raw it hurts to swallow. Denies fever. Instructed to take tylenol and gargle with salt water. Instructed to call department if condition does not improve. Verbalizes understanding of information given
--- NOTE | 2023-01-14 12:18 | MHC.HEMONC ---
Triage call-pt called stating she had a sore throat over 10 days ago. States she gargled with salt water and increased fluids which improved oral ulcers. Requesting magic mouth wash for future issues. Dr Blancas covering for Dr Cisneros notified-see orders
[2023-01-14 13:59] LABS: Alanine Aminotransferase 16 U/L (0-31); Albumin Level 4.1 g/dL (3.5-5.0); Alkaline Phosphatase 79 U/L (39-117); Anion Gap 9 (12-20); Aspartate Amino Transferase 15 U/L (5-31); Bilirubin Total 0.3 mg/dL (0.0-1.0); Blood Urea Nitrogen 7 mg/dL (9-16); Calcium 9.5 mg/dL (8.4-10.2); Carbon Dioxide 26 mmol/L (22-29); Chloride 110 mmol/L (96-108); Creatinine Clr Calc Pharmacy 83.4; Estimated Glomerular Filt Rate > 60; Glucose Random 93 mg/dL (60-115); Potassium 3.9 mmol/L (3.3-5.1); Sodium 141 mmol/L (135-145); Total Protein 6.9 g/dL (6.5-8.0)
[2023-01-14 14:07] VITALS: BP 142/69; PULSE 77; RESP 18; TEMP 36.1; O2SAT 95
--- NOTE | 2023-01-14 14:23 | MHC.HEMONC ---
Pt here for monthly Xgeva injection (No PA required) Labs drawn by harvest manager-specimen to lab. Calcium level 9.6 Xgeva SC given in left arm-tolerated well. No edema or redness at site after injection. Calendar given with next appointment scheduled
[2023-01-21 11:08] LABS: MANUAL DIFF FLAG NO
[2023-01-21 11:11] LABS: Basophils Absolute Auto 0.1 X10*3/uL (0.0-0.2); Basophils Percent Auto 0.7 % (0-2); Eosinophils Absolute Auto 0.1 X10*3/uL (0.0-0.4); Eosinophils Percent Auto 1.1 % (0-4); Hematocrit 37.5 % (37.0-47.0); Hemoglobin 12.2 g/dl (12.0-16.0); Imm Gran Abs Auto 0.19 X10*3/uL (0.00-0.03); Imm Gran Pct Auto 1.4 % (0.0-0.4); Lymphocytes Percent Auto 15.2 % (20-40); Mean Corpuscular HGB Conc 32.5 g/dl (31.0-35.0); Mean Corpuscular Hemoglobin 32.5 pg (27.0-33.0); Mean Platelet Volume 8.8 fL (9.4-12.3); Monocytes Absolute Auto 0.8 X10*3/uL (0.1-1.2); Monocytes Percent Auto 5.7 % (2-11); Neutrophils Absolute Auto 10.1 x10*3/uL (2.0-8.3); Neutrophils Percent Auto 75.9 % (45-73); Platelet Count 370 X10*3/uL (160-400); Red Blood Count 3.75 X10*6/uL (4.20-5.50); Red Cell Distribution Width 19.3 % (11.0-16.0); White Blood Count 13.3 X10*3/uL (4.8-10.8)
--- NOTE | 2023-01-21 11:32 | P.PNHO-ONC_ITS ---
Medical Summary - Medical Summary Date of Service: 01/21/23 Chief complaint: Bilateral lower rib pain Primary Care Provider: Sue Reynoso MD Medical Summary: Diagnosis: Extensive stage small cell lung cancer October 2022 In September 2021 she underwent lung cancer screening, CT chest at that time revealed subcentimeter pulmonary nodules for which follow-up was recommended. She had a 1 year follow-up CT chest in September 2022 which revealed multiple new bilateral pulmonary nodules along with abnormal mediastinal and left hilar lymphadenopathy. Largest pulmonary nodule measuring 8 mm, central lung mass measuring 3.4 cm and enlarged left precarinal lymph node measuring 1.9 cm. There was also left lung mass measuring 4 cm. She subsequently underwent CT angiogram which was negative for pulmonary embolism but showed significant hilar and mediastinal mass along with multiple bilateral lung nodules. She underwent EBUS with transbronchial needle aspiration of left upper lobe lung mass. Pathology from 10/16/2022 reported as small cell carcinoma. Lymph node, 4 L FNA was also positive for small cell carcinoma. Patient's family history significant for mother having of lung cancer at age 59 and maternal grandmother having of breast cancer. Interval History Interval history: Ev is here in follow-up and scheduled treatment. She states for the last month or so she has been experiencing bilateral lower rib cage pain. It gets worse when she tries to take a deep breath or coughs. She denies any shortness of breath at rest or chest pain at rest. No nausea, diaphoresis or dizziness. No loss of appetite or weight loss. No fever or chills. Review of Systems - Constitutional Reports as per HPI - Neurologic Reports no additional neurologic complaints [facility]AC[facility] BY [facility] Medical History: Medical History (Last Reviewed 11/18/22 @ 10:50 by Precious Calles) COPD (chronic obstructive pulmonary disease) Dyspnea HTN (hypertension) Low vitamin D level Lung cancer Nicotine dependence, cigarettes, uncomplicated Overweight (BMI 25.0-29.9) Post-surgical hypothyroidism Onset Date: ~2013 Postmenopausal Primary thyroid cancer Onset Date: ~2013 Pulmonary nodules Rectal adenoma Tubular adenoma of colon Onset Date: ~2009 Family History: Family History (Last Reviewed 11/18/22 @ 10:50 by Precious Calles) Father No problems noted. Mother Polycythemia vera Pulmonary cancer Sister Mental health disorder Surgical History: Surgical History (Last Reviewed 11/18/22 @ 10:50 by Precious Calles) History of bilateral carpal tunnel release History of colonoscopy History of HPV infection Onset Date: ~1996 History of skin cancer Onset Date: ~2009 History of total thyroidectomy Onset Date: ~2013 Status post de Quervain's release surgery Social History: Social History (Last Reviewed 11/18/22 @ 10:50 by Precious Calles) Living Situation History: Housing: House Tobacco History: Patient Tobacco Use Status: Current everyday Tobacco Tobacco use type: Cigarette Cigarettes Per Day: 3 Years Smoked: 50 e-Cigarette/Vaping Use: Never Used Second Hand Smoke Exposure: No Occupation Assessmet: service: No Current occupational status: unemployed Home Medications and Allergies Current Medications: Current Medications Acetaminophen (Acetaminophen 325 Mg Tablet) 650 mg PO ONCE KAMALJIT Stop: 01/21/23 23:59 Diphenhydramine HCl (Diphenhydramine Hcl 25 Mg Capsule) 25 mg PO ONCE KAMALJIT Stop: 01/21/23 23:59 Famotidine (Famotidine 20 Mg Tablet) 20 mg PO ONCE KAMALJIT Stop: 01/21/23 23:59 Heparin Sodium (Porcine) (Heparin Sodium,Porcine Flush 500 Unit/5 Ml Syringe) 500 unit IVFLUSH ONCE KAMALJIT Stop: 01/21/23 23:59 Ondansetron HCl (Ondansetron Odt 8 Mg Tab.Rapdis) 8 mg TRANSLINGU ONCE KAMALJIT Stop: 01/21/23 23:59 Home Medications Medication Instructions Recorded Confirmed Type nebulizers 10/31/22 12/10/22 History Allergies Allergy/AdvReac Type Severity Reaction Status Date / Time bee stings Allergy Severe Severe Uncoded 12/10/22 11:10 Swelling Exam Vital signs: Vital Signs Temp 97.0 F 01/14/23 14:07 Pulse 77 01/14/23 14:07 Resp 18 01/14/23 14:07 BP 142/69 H 01/14/23 14:07 Pulse Ox 95 01/14/23 14:07 O2 Del Method Room Air 01/14/23 14:07 Weight 74.3 kg BMI result Body Mass Index 28.1 - Constitutional Present: no acute distress - Routine HEENT Exam Head: Present: normal inspection - Routine Respiratory Exam Present: prolonged expiratory phase, rhonchi. Absent: accessory muscle use - Routine Cardiovascular Exam Cardiovascular: Present: S1, S2 - Routine Abdominal Exam Present: soft - Routine Extremities Exam Present: pulses intact - Routine Skin Exam Present: intact - Routine Neurological Exam Present: alert, oriented X3 Data - Labs CBC & Chem 7: 01/21/23 11:00 01/21/23 11:00 Assessment and Plan Patient Active problem list reviewed?: Yes (1) Small cell lung cancer Status: Acute Assessment and plan: 1. This is 62-year-old woman, chronic smoker, diagnosed with extensive stage small cell lung cancer. CT angiogram performed 10/15/2022 revealed large left mediastinal mass as well as lymphadenopathy, left hilar mass measuring 7 x 5 x 7 cm. Several enlarged mediastinal, hilar and pretracheal lymph nodes largest measuring 1.2 cm. Bilateral lung nodules largest in the left upper lobe measuring 0.9 cm. Right lower lobe lung nodule measuring 0.6 cm. Upper abdomen showed left adrenal nodule measuring 1.8 cm and 1.1 cm in the medial limb, mildly prominent adjacent lymph nodes, interval increase in adrenal nodules compared to prior study concerning for metastatic disease. She underwent EBUS/bronchoscopy on 10/16/2022 which confirmed small cell lung cancer. Blood work today shows elevated LDH of 679, CEA 21.90 NG/mL and calcium of 10.9. Brain MRI performed 10/2022 showed widespread osseous metastatic disease involving calvarium and skull base and upper cervical spine. No intracranial lesions seen. PET-CT performed on 11/19/2022 showed large left hilar mass with abnormal FDG activity, FDG avid T7 compression deformity, several FDG avid rib fractures, extensive calvarial metastasis. She started chemotherapy with Carboplatin with etoposide and atezolizumab as per [id number] study in 10/2022. 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 2. Distress management. For insomnia I have prescribed alprazolam 0.25 mg q.h.s. p.r.n.. 3. Pain management. She is on oxycodone 5 mg every 8 hours as needed. She is also experiencing bone pain secondary to Neulasta. I have encouraged her to take Claritin 1 tablet Q 12 as needed. Today is 1st cycle of maintenance Atezolizumab. PET scan to be repeated next month. 4. She is experiencing bilateral lower rib cage pain. This could be related to worsening bone metastasis in her ribs/rib fracture is possible. If her x-rays are negative, CT angiogram to rule out pulmonary embolism. - Time Spent With Patient Time Spent with Patient (in minutes): 15
[2023-01-21 11:38] LABS: Alanine Aminotransferase 13 U/L (0-31); Albumin Level 4.5 g/dL (3.5-5.0); Alkaline Phosphatase 74 U/L (39-117); Anion Gap 14 (12-20); Aspartate Amino Transferase 14 U/L (5-31); Bilirubin Total 0.3 mg/dL (0.0-1.0); Blood Urea Nitrogen 13 mg/dL (9-16); Calcium 10.4 mg/dL (8.4-10.2); Carbon Dioxide 26 mmol/L (22-29); Chloride 106 mmol/L (96-108); Creatinine Clr Calc Pharmacy 73.8; Estimated Glomerular Filt Rate > 60; Glucose Random 106 mg/dL (60-115); Lactate Dehydrogenase 214 U/L (122-220); Potassium 4.2 mmol/L (3.3-5.1); Sodium 142 mmol/L (135-145); Total Protein 7.1 g/dL (6.5-8.0)
[2023-01-21 11:56] VITALS: BP 144/74; PULSE 107; RESP 19; TEMP 36.3; O2SAT 96; BMI 29.1
[2023-01-21] MEDS: diphenhydrAMINE HCL 25 MG CAPSULE PO (12:30)
[2023-01-21] MEDS: Ondansetron ODT 8 MG TAB.RAPDIS TRANSLINGU (12:30)
[2023-01-21] MEDS: Famotidine 20 MG TABLET PO (12:30)
[2023-01-21] MEDS: Acetaminophen 325 MG TABLET 650 MG PO (12:30)
[2023-01-21] MEDS: Heparin Sodium,Porcine Flush 500 UNIT/5 ML SYRINGE IVFLUSH (12:32)
[2023-01-21] MEDS: Atezolizumab 1,200 MG in 0.9 % Sodium Chloride 250 ML 540 MG IV (12:58)
--- NOTE | 2023-01-21 14:23 | MHC.HEMONC ---
Pt here for C5D1 Atezolizumab (maintenance) Port accessed with blood return noted. Labs drawn from port-specimen to lab. Pt states she has ribcage pain and chest tightness at times. States pain is 10/10 when it comes. Dysphneic on exertion-SAO2 96% on RA. Pt requesting to go to pain clinic for pain control. Dr Cisneros notified and in room to see pt. Pt to xray for CXR. CT angio chest ordered by Dr Cisneros-Precious Cline to facilitate-pt notified. Lab results reviewed-okay to receive treatment today. Pre medicated with tylenol,benadryl, pepcid, zofran. Atezolizumab given as ordered-tolerated well. Port flushed with heparin and de accessed. Next appointment scheduled. Discharge packet given. Pt instructed to call department with any questions or concerns-verbalizes understanding of information given. Declines wheelchair for discharge
--- NOTE | 2023-01-22 11:11 | MHC.HEMONC ---
I called patient at request of Dr Cisneros to discuss findings on her imaging yesterday. There is not a concern for PE but she does have multiple rib fractures. She said she does have severe pain from time to time and has nothing to take for it. She cannot take NSAIDS. Dr Cisneros to send RX for Tramadol. Pt was advised to call us for any concerning side effects or if it does not alleviate the pain.
--- NOTE | 2023-01-24 13:58 | MHC.HEMONC ---
Triage line- I returned call to patient to inform her Per Dr Cisneros, Rx for Tramadol will be sent to pharmacy. CT angio scan ordered.
--- NOTE | 2023-01-24 14:34 | HO.HEMONCPA ---
[facility] approved for ct angio chest [id number] auth # [id number] DOS 01/21/23 - 07/20/23
--- NOTE | 2023-01-24 14:35 | HO.HEMONCSCH ---
PT booked for CT Angio chest on Friday, January 27, 2023 at 2pm patient is aware
--- NOTE | 2023-02-07 12:58 | MHC.HEMONC ---
Pt called to request a Rx refill for Oxycodone.Msg sent to Dr Cisneros. Doc. Pt received a partial refill from the last Rx sent.
[2023-02-11 11:06] VITALS: BP 167/79; PULSE 98; RESP 18; TEMP 36.5; O2SAT 96; BMI 31.6
[2023-02-11 12:16] LABS: MANUAL DIFF FLAG NO
[2023-02-11 12:20] LABS: Basophils Absolute Auto 0.1 X10*3/uL (0.0-0.2); Basophils Percent Auto 0.2 % (0-2); Eosinophils Absolute Auto 0.1 X10*3/uL (0.0-0.4); Eosinophils Percent Auto 0.2 % (0-4); Imm Gran Abs Auto 0.81 X10*3/uL (0.00-0.03); Imm Gran Pct Auto 3.5 % (0.0-0.4); Lymphocytes Absolute Auto 1.5 X10*3/uL (1.2-4.9); Lymphocytes Percent Auto 6.5 % (20-40); Mean Corpuscular HGB Conc 32.4 g/dl (31.0-35.0); Mean Corpuscular Volume 101.6 fL (80.0-98.0); Mean Platelet Volume 9.3 fL (9.4-12.3); Monocytes Percent Auto 4.1 % (2-11); Neutrophils Absolute Auto 19.7 x10*3/uL (2.0-8.3); Neutrophils Percent Auto 85.5 % (45-73); Platelet Count 284 X10*3/uL (160-400); Red Blood Count 3.64 X10*6/uL (4.20-5.50); Red Cell Distribution Width 17.1 % (11.0-16.0); White Blood Count 23.1 X10*3/uL (4.8-10.8)
[2023-02-11 12:41] LABS: Alanine Aminotransferase 21 U/L (0-31); Albumin Level 3.8 g/dL (3.5-5.0); Alkaline Phosphatase 39 U/L (39-117); Anion Gap 14 (12-20); Aspartate Amino Transferase 13 U/L (5-31); Bilirubin Total 0.3 mg/dL (0.0-1.0); Blood Urea Nitrogen 21 mg/dL (9-16); Calcium 8.9 mg/dL (8.4-10.2); Carbon Dioxide 23 mmol/L (22-29); Chloride 103 mmol/L (96-108); Creatinine Clr Calc Pharmacy 84.7; Estimated Glomerular Filt Rate > 60; Glucose Random 162 mg/dL (60-115); Potassium 3.4 mmol/L (3.3-5.1); Sodium 137 mmol/L (135-145); Total Protein 6.2 g/dL (6.5-8.0)
[2023-02-11] MEDS: diphenhydrAMINE HCL 25 MG CAPSULE PO (12:58)
[2023-02-11] MEDS: Famotidine 20 MG TABLET PO (12:58)
[2023-02-11] MEDS: Acetaminophen 325 MG TABLET 650 MG PO (12:59)
[2023-02-11] MEDS: Ondansetron ODT 8 MG TAB.RAPDIS TRANSLINGU (12:59)
[2023-02-11] MEDS: Heparin Sodium,Porcine Flush 500 UNIT/5 ML SYRINGE IVFLUSH (13:00)
[2023-02-11] MEDS: Atezolizumab 1,200 MG in 0.9 % Sodium Chloride 250 ML 540 MG IV (13:32)
--- NOTE | 2023-02-11 13:37 | MHC.HEMONC ---
Pt here for C6D1 Atezolizumab. Port accessed with blood return noted. Labs drawn from port-specimen to lab. Pt states she continues with 10/10 back and rib pain unrelieved with 5mg oxycodone. Pt states she supplements with marijuana for pain control with some relief. Plan to notify Dr Cisneros when she returns next week to increase pain medication dose and time.-Pt aware and agreeable to plan. States she continues with fatigue, states has a yeast infection under breasts which she uses gold otero powder and cream as needed. States left foot and leg are numb at times since second day of chemotherapy. States has intermittent oral sores . Mild nausea today relieved with zofran. Lab results reviewed-okay to receive treatmetn today. Pre medciated with tylenol, benadryl, pepcid, zofran. Atezolizumab (maintenance) given as ordered-tolerated well. Port flushed with heparin and de accessed. Next appointment scheduled. Discharge packet given. Instructed to call with any questions or concerns-verbalizes understanding of information given. Pt declines wheelchair for discharge
--- NOTE | 2023-02-20 09:34 | HO.HEMONCPA ---
[facility] APPROVED FOR PET/CT SCAN SKULL TO THIGH [id number] AUTH # [id number] DOS 02/20/23 - 08/19/23 SENT TO [facility] FOR SCHEDULING
--- NOTE | 2023-02-20 11:39 | HO.HEMONCSCH ---
PET/CT SKULL TO THIGH 16051 BOOKED WITH [facility] ON 02/25/23 AT 12:45PM
--- NOTE | 2023-02-27 10:56 | HO.HEMONCPA ---
Triage- Pt called to request a refill of oxycodone.Msg sent to Dr Cisneros
[2023-03-04 11:13] VITALS: BP 162/84; PULSE 88; RESP 18; TEMP 36.3; O2SAT 98; BMI 32.2
[2023-03-04 11:40] LABS: MANUAL DIFF FLAG NO
[2023-03-04 11:47] LABS: Basophils Percent Auto 0.4 % (0-2); Eosinophils Absolute Auto 0.3 X10*3/uL (0.0-0.4); Eosinophils Percent Auto 3.1 % (0-4); Hematocrit 34.6 % (37.0-47.0); Hemoglobin 11.1 g/dl (12.0-16.0); Imm Gran Abs Auto 0.21 X10*3/uL (0.00-0.03); Imm Gran Pct Auto 2.3 % (0.0-0.4); Lymphocytes Absolute Auto 1.6 X10*3/uL (1.2-4.9); Lymphocytes Percent Auto 17.1 % (20-40); Mean Corpuscular HGB Conc 32.1 g/dl (31.0-35.0); Mean Corpuscular Hemoglobin 31.8 pg (27.0-33.0); Mean Corpuscular Volume 99.1 fL (80.0-98.0); Mean Platelet Volume 8.3 fL (9.4-12.3); Monocytes Absolute Auto 0.7 X10*3/uL (0.1-1.2); Monocytes Percent Auto 7.4 % (2-11); Neutrophils Absolute Auto 6.4 x10*3/uL (2.0-8.3); Neutrophils Percent Auto 69.7 % (45-73); Platelet Count 350 X10*3/uL (160-400); Red Blood Count 3.49 X10*6/uL (4.20-5.50); Red Cell Distribution Width 15.6 % (11.0-16.0); White Blood Count 9.1 X10*3/uL (4.8-10.8)
[2023-03-04 12:02] LABS: Alanine Aminotransferase 14 U/L (0-31); Albumin Level 3.7 g/dL (3.5-5.0); Alkaline Phosphatase 66 U/L (39-117); Anion Gap 16 (12-20); Aspartate Amino Transferase 13 U/L (5-31); Bilirubin Total 0.2 mg/dL (0.0-1.0); Blood Urea Nitrogen 9 mg/dL (9-16); Calcium 10.2 mg/dL (8.4-10.2); Carbon Dioxide 26 mmol/L (22-29); Chloride 100 mmol/L (96-108); Creatinine Clr Calc Pharmacy 89.3; Estimated Glomerular Filt Rate > 60; Glucose Random 96 mg/dL (60-115); Potassium 4.6 mmol/L (3.3-5.1); Sodium 137 mmol/L (135-145); Total Protein 7.2 g/dL (6.5-8.0)
--- NOTE | 2023-03-04 12:32 | PM.HEMONCPN ---
Medical Summary - Medical Summary Date of Service: 03/04/23 Chief complaint: Follow-up and scheduled treatment Primary Care Provider: Sue Reynoso MD Medical Summary: Diagnosis: Extensive stage small cell lung cancer October 2022 In September 2021 she underwent lung cancer screening, CT chest at that time revealed subcentimeter pulmonary nodules for which follow-up was recommended. She had a 1 year follow-up CT chest in September 2022 which revealed multiple new bilateral pulmonary nodules along with abnormal mediastinal and left hilar lymphadenopathy. Largest pulmonary nodule measuring 8 mm, central lung mass measuring 3.4 cm and enlarged left precarinal lymph node measuring 1.9 cm. There was also left lung mass measuring 4 cm. She subsequently underwent CT angiogram which was negative for pulmonary embolism but showed significant hilar and mediastinal mass along with multiple bilateral lung nodules. She underwent EBUS with transbronchial needle aspiration of left upper lobe lung mass. Pathology from 10/16/2022 reported as small cell carcinoma. Lymph node, 4 L FNA was also positive for small cell carcinoma. Patient's family history significant for mother having of lung cancer at age 59 and maternal grandmother having of breast cancer. Interval History Interval history: Ev is here in follow-up and scheduled treatment. She was recently treated for here infection with Augmentin. She could not finish the course because of diarrhea. He has symptoms as well as diarrhea have now resolved. She denies any fever or chills. No nausea or emesis. She takes 3-4 oxycodone tablets a day for bilateral ribs, chest wall pain. No complaints such as headache or dizziness. She is tolerating immunotherapy well. Review of Systems - Constitutional Reports as per HPI, Denies fatigue, Denies lack of energy, Denies malaise, Denies poor appetite - Cardiovascular Reports no additional cardiovascular complaints - Respiratory Reports no additional respiratory complaints - Gastrointestinal Reports no additional gastrointestinal complaints - Neurologic Reports no additional neurologic complaints [facility] Medical History: Medical History (Last Updated 01/23/23 @ 16:10 by Mick Diaz MD) Chest pain COPD (chronic obstructive pulmonary disease) Dyspnea HTN (hypertension) Low vitamin D level Lung cancer Nicotine dependence, cigarettes, uncomplicated Overweight (BMI 25.0-29.9) Post-surgical hypothyroidism Onset Date: ~2013 Postmenopausal Primary thyroid cancer Onset Date: ~2013 Pulmonary nodules Rectal adenoma Tubular adenoma of colon Onset Date: ~2009 Family History: Family History (Last Reviewed 11/18/22 @ 10:50 by Precious Calles) Father No problems noted. Mother Polycythemia vera Pulmonary cancer Sister Mental health disorder Surgical History: Surgical History (Last Reviewed 11/18/22 @ 10:50 by Precious Calles) History of bilateral carpal tunnel release History of colonoscopy History of HPV infection Onset Date: ~1996 History of skin cancer Onset Date: ~2009 History of total thyroidectomy Onset Date: ~2013 Status post de Quervain's release surgery Social History: Social History (Last Reviewed 11/18/22 @ 10:50 by Precious Calles) Living Situation History: Housing: House Alcohol History Details: 1. How often do you have a drink containing alcohol?: b. Monthly or less 2. How many drinks containing alcohol do you have on a typical day when you are drinking?: a. 1 or 2 Tobacco History: Patient Tobacco Use Status: Current everyday Tobacco Tobacco use type: Cigarette Cigarettes Per Day: 3 Years Smoked: 50 e-Cigarette/Vaping Use: Never Used Second Hand Smoke Exposure: No Domestic Abuse History: Do you feel safe in your current relationship?: Yes Homicidal Assessment: Do you have thoughts of harming others: None Occupation Assessmet: service: No Current occupational status: unemployed Home Medications and Allergies Current Medications: Current Medications Acetaminophen (Acetaminophen 325 Mg Tablet) 650 mg PO ONCE KAMALJIT Stop: 03/04/23 23:59 Diphenhydramine HCl (Diphenhydramine Hcl 25 Mg Capsule) 25 mg PO ONCE KAMALJIT Stop: 03/04/23 23:59 Famotidine (Famotidine 20 Mg Tablet) 20 mg PO ONCE KAMALJIT Stop: 03/04/23 23:59 Heparin Sodium (Porcine) (Heparin Sodium,Porcine Flush 500 Unit/5 Ml Syringe) 500 unit IVFLUSH ONCE KAMALJIT Stop: 03/04/23 23:59 Atezolizumab 1,200 mg/ Sodium (Chloride) 270 mls @ 540 mls/hr IV ONCE KAMALJIT Stop: 03/04/23 23:59 Ondansetron HCl (Ondansetron Odt 8 Mg Tab.Rapdis) 8 mg TRANSLINGU ONCE KAMALJIT Stop: 03/04/23 23:59 Home Medications Medication Instructions Recorded Confirmed Type nebulizers 10/31/22 02/11/23 History Allergies Allergy/AdvReac Type Severity Reaction Status Date / Time bee stings Allergy Severe Severe Uncoded 02/22/23 11:05 Swelling Exam Vital signs: Vital Signs Temp 97.3 F 03/04/23 11:13 Pulse 88 03/04/23 11:13 Resp 18 03/04/23 11:13 BP 162/84 H 03/04/23 11:13 Pulse Ox 98 03/04/23 11:13 O2 Del Method Room Air 03/04/23 11:13 Intake & Output 03/03/23 03/04/23 03/04/23 18:59 06:59 18:59 Other: Weight 85 kg Weight in Grams [id number] Weight 85 kg BMI result Body Mass Index 32.2 - Constitutional Present: no acute distress - Routine HEENT Exam Head: Present: normal inspection - Routine Respiratory Exam Present: prolonged expiratory phase, rhonchi. Absent: accessory muscle use - Routine Cardiovascular Exam Cardiovascular: Present: S1, S2 - Routine Abdominal Exam Present: soft - Routine Extremities Exam Present: pulses intact - Routine Skin Exam Present: intact - Routine Neurological Exam Present: alert, oriented X3 Data - Labs CBC & Chem 7: 03/04/23 11:39 03/04/23 11:39 Assessment and Plan Patient Active problem list reviewed?: Yes (1) Small cell lung cancer Status: Chronic Assessment and plan: 1. This is 63-year-old woman, chronic smoker, diagnosed with extensive stage small cell lung cancer. CT angiogram performed 10/15/2022 revealed large left mediastinal mass as well as lymphadenopathy, left hilar mass measuring 7 x 5 x 7 cm. Several enlarged mediastinal, hilar and pretracheal lymph nodes largest measuring 1.2 cm. Bilateral lung nodules largest in the left upper lobe measuring 0.9 cm. Right lower lobe lung nodule measuring 0.6 cm. Upper abdomen showed left adrenal nodule measuring 1.8 cm and 1.1 cm in the medial limb, mildly prominent adjacent lymph nodes, interval increase in adrenal nodules compared to prior study concerning for metastatic disease. She underwent EBUS/bronchoscopy on 10/16/2022 which confirmed small cell lung cancer. Blood work today shows elevated LDH of 679, CEA 21.90 NG/mL and calcium of 10.9. Brain MRI performed 10/2022 showed widespread osseous metastatic disease involving calvarium and skull base and upper cervical spine. No intracranial lesions seen. PET-CT performed on 11/19/2022 showed large left hilar mass with abnormal FDG activity, FDG avid T7 compression deformity, several FDG avid rib fractures, extensive calvarial metastasis. She started chemotherapy with Carboplatin with etoposide and atezolizumab as per [id number] study in 10/2022. 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 She is now on maintenance atezolizumab. 2. Distress management. For insomnia I have prescribed alprazolam 0.25 mg q.h.s. p.r.n.. 3. Pain management. She is on oxycodone 5 mg every 8 hours as needed. She is also experiencing bone pain secondary to Neulasta. I have encouraged her to take Claritin 1 tablet Q 12 as needed. PET scan performed in February 2023 shows good metabolic response to treatment and no new lesions. I will repeat brain MRI at this time. She will also be referred to Radiation Oncology for prophylactic brain XRT if no intracranial lesions found. Has several bony calvarial lesions. Blood work looks good today, proceed with treatment. - Time Spent With Patient Time Spent with Patient (in minutes): 15
[2023-03-04] MEDS: Ondansetron ODT 8 MG TAB.RAPDIS TRANSLINGU (12:49)
[2023-03-04] MEDS: Famotidine 20 MG TABLET PO (12:49)
[2023-03-04] MEDS: diphenhydrAMINE HCL 25 MG CAPSULE PO (12:49)
[2023-03-04] MEDS: Acetaminophen 325 MG TABLET 650 MG PO (12:50)
[2023-03-04] MEDS: Heparin Sodium,Porcine Flush 500 UNIT/5 ML SYRINGE IVFLUSH (12:50)
[2023-03-04] MEDS: Atezolizumab 1,200 MG in 0.9 % Sodium Chloride 250 ML 540 MG IV (13:12)
--- NOTE | 2023-03-04 13:41 | MHC.HEMONC ---
C7: Atezolizumab. Port to right chest wall accessed without difficulty- positive blood return after several position changes. Labs obtained and reviewed. Pre-medicated with Zofran 8mg PO, Tylenol 650mg PO, Benadryl 25mg PO, and Pepcid 20mg PO. Chemo infused and well tolerated. Port flushed with Heparin and de-accessed. Follow up with Dr. Cisneros today. Plan for repeat MRI and prophylactic brain radiation. Salma kingston. Jana provided with next appt.
--- NOTE | 2023-03-04 13:47 | MHC.HEMONC ---
Referral sent to [facility] for prophlactic brain RT. Will r/o brain lesion(s) first with MRI.
--- NOTE | 2023-03-04 13:49 | HO.HEMONCPA ---
[facility] APPROVED FOR MRI BRAIN WITH/WITHOUT CONTRAST [id number] AUTH #[id number] DOS 03/04/23 - 08/31/23
--- NOTE | 2023-03-05 13:31 | MHC.HEMONC ---
Triage - Pt called to request a refill of oxycodone. Msg sent to Dr Cisneros
--- NOTE | 2023-03-14 15:08 | MHC.HEMONC ---
Pt has appt at [facility] re: brain RT on 03/26/[address] Anderson
[2023-03-25 11:52] LABS: MANUAL DIFF FLAG NO
[2023-03-25 11:54] LABS: Basophils Absolute Auto 0.1 X10*3/uL (0.0-0.2); Basophils Percent Auto 0.7 % (0-2); Eosinophils Absolute Auto 0.4 X10*3/uL (0.0-0.4); Eosinophils Percent Auto 3.8 % (0-4); Hemoglobin 13.3 g/dl (12.0-16.0); Imm Gran Abs Auto 0.06 X10*3/uL (0.00-0.03); Imm Gran Pct Auto 0.5 % (0.0-0.4); Lymphocytes Absolute Auto 2.4 X10*3/uL (1.2-4.9); Lymphocytes Percent Auto 20.5 % (20-40); Mean Corpuscular HGB Conc 33.3 g/dl (31.0-35.0); Mean Corpuscular Hemoglobin 31.3 pg (27.0-33.0); Mean Corpuscular Volume 94.1 fL (80.0-98.0); Mean Platelet Volume 9.5 fL (9.4-12.3); Monocytes Absolute Auto 0.8 X10*3/uL (0.1-1.2); Monocytes Percent Auto 7.1 % (2-11); Neutrophils Absolute Auto 7.7 x10*3/uL (2.0-8.3); Neutrophils Percent Auto 67.4 % (45-73); Platelet Count 273 X10*3/uL (160-400); Red Blood Count 4.25 X10*6/uL (4.20-5.50); White Blood Count 11.5 X10*3/uL (4.8-10.8)
[2023-03-25 11:55] VITALS: BP 133/75; PULSE 85; RESP 18; TEMP 36.1; O2SAT 95; BMI 30.9
[2023-03-25 12:12] LABS: Alanine Aminotransferase 41 U/L (0-31); Albumin Level 4.3 g/dL (3.5-5.0); Alkaline Phosphatase 58 U/L (39-117); Anion Gap 12 (12-20); Aspartate Amino Transferase 36 U/L (5-31); Bilirubin Total 0.4 mg/dL (0.0-1.0); Blood Urea Nitrogen 11 mg/dL (9-16); Calcium 9.6 mg/dL (8.4-10.2); Carbon Dioxide 26 mmol/L (22-29); Chloride 106 mmol/L (96-108); Creatinine Clr Calc Pharmacy 90.1; Estimated Glomerular Filt Rate > 60; Glucose Random 97 mg/dL (60-115); Potassium 3.8 mmol/L (3.3-5.1); Sodium 140 mmol/L (135-145); Total Protein 7.2 g/dL (6.5-8.0)
[2023-03-25] MEDS: Heparin Sodium,Porcine Flush 500 UNIT/5 ML SYRINGE IVFLUSH (12:48)
[2023-03-25] MEDS: Acetaminophen 325 MG TABLET 650 MG PO (12:49)
[2023-03-25] MEDS: Famotidine 20 MG TABLET PO (12:49)
[2023-03-25] MEDS: Ondansetron ODT 8 MG TAB.RAPDIS TRANSLINGU (12:49)
[2023-03-25] MEDS: diphenhydrAMINE HCL 25 MG CAPSULE PO (12:49)
[2023-03-25] MEDS: Atezolizumab 1,200 MG in 0.9 % Sodium Chloride 250 ML 540 MG IV (13:17)
--- NOTE | 2023-03-25 17:17 | MHC.HEMONC ---
Pt was in today for C8D1 Atezolizumab, nurse confirmed no PA needed, VSS, nurse accessed pt's R chest implanted port in sterile procedure, found it exhibited positive blood return, nurse obtained ordered specimens. Nurse admin pre-meds: PO tylenol, PO benadryl, PO pepcid, and PO Zofran. Pt was admin IV Atezolizumab over 30 min, well-tolerated. Pt's port was flushed w/ NS and heparin 500 units before being de-accessed. Pt states she has RT appt w/ Dr. Anderson at [facility] tomorrow to discuss brain RT, does not know what her schedule will be, but this nurse asked her to please call clinic to update us, to see if her chemo schedule will need adjusting. Pt was given d/c packet, next to return in 3 weeks for C9.
--- NOTE | 2023-04-02 13:33 | MHC.HEMONC ---
Pt called, requested new scrip for oxycodone 10 mg PO Q6H PRN, nurse asked Dr. Cisneros, who sent e-scrip to pt's [facility] [address]
[2023-04-15 11:13] VITALS: BP 151/65; PULSE 95; RESP 20; TEMP 36.3; O2SAT 96
[2023-04-15 11:39] LABS: MANUAL DIFF FLAG NO
[2023-04-15 11:42] LABS: Basophils Absolute Auto 0.1 X10*3/uL (0.0-0.2); Eosinophils Absolute Auto 0.5 X10*3/uL (0.0-0.4); Hematocrit 43.6 % (37.0-47.0); Hemoglobin 14.2 g/dl (12.0-16.0); Imm Gran Abs Auto 0.05 X10*3/uL (0.00-0.03); Imm Gran Pct Auto 0.5 % (0.0-0.4); Lymphocytes Percent Auto 28.1 % (20-40); Mean Corpuscular HGB Conc 32.6 g/dl (31.0-35.0); Mean Corpuscular Hemoglobin 30.7 pg (27.0-33.0); Mean Corpuscular Volume 94.2 fL (80.0-98.0); Mean Platelet Volume 9.6 fL (9.4-12.3); Monocytes Percent Auto 9.1 % (2-11); Neutrophils Absolute Auto 5.9 x10*3/uL (2.0-8.3); Neutrophils Percent Auto 56.3 % (45-73); Platelet Count 269 X10*3/uL (160-400); Red Blood Count 4.63 X10*6/uL (4.20-5.50); Red Cell Distribution Width 14.6 % (11.0-16.0); White Blood Count 10.5 X10*3/uL (4.8-10.8)
[2023-04-15 12:07] LABS: Alanine Aminotransferase 60 U/L (0-31); Albumin Level 4.3 g/dL (3.5-5.0); Alkaline Phosphatase 59 U/L (39-117); Anion Gap 13 (12-20); Aspartate Amino Transferase 48 U/L (5-31); Bilirubin Total 0.5 mg/dL (0.0-1.0); Blood Urea Nitrogen 10 mg/dL (9-16); Calcium 9.6 mg/dL (8.4-10.2); Carbon Dioxide 24 mmol/L (22-29); Chloride 104 mmol/L (96-108); Creatinine Clr Calc Pharmacy 81.4; Estimated Glomerular Filt Rate > 60; Glucose Random 120 mg/dL (60-115); Potassium 3.4 mmol/L (3.3-5.1); Sodium 138 mmol/L (135-145)
--- NOTE | 2023-04-15 12:10 | P.PNHO-ONC_ITS ---
Medical Summary - Medical Summary Date of Service: 04/15/23 Chief complaint: Follow-up Primary Care Provider: Sue Reynoso MD Medical Summary: Diagnosis: Extensive stage small cell lung cancer October 2022 In September 2021 she underwent lung cancer screening, CT chest at that time revealed subcentimeter pulmonary nodules for which follow-up was recommended. She had a 1 year follow-up CT chest in September 2022 which revealed multiple new bilateral pulmonary nodules along with abnormal mediastinal and left hilar lymphadenopathy. Largest pulmonary nodule measuring 8 mm, central lung mass measuring 3.4 cm and enlarged left precarinal lymph node measuring 1.9 cm. There was also left lung mass measuring 4 cm. She subsequently underwent CT angiogram which was negative for pulmonary embolism but showed significant hilar and mediastinal mass along with multiple bilateral lung nodules. She underwent EBUS with transbronchial needle aspiration of left upper lobe lung mass. Pathology from 10/16/2022 reported as small cell carcinoma. Lymph node, 4 L FNA was also positive for small cell carcinoma. Patient's family history significant for mother having of lung cancer at age 59 and maternal grandmother having of breast cancer. She underwent EBUS/bronchoscopy on 10/16/2022 which confirmed small cell lung cancer. Blood work showed elevated LDH of 679, CEA 21.90 NG/mL and calcium of 10.9. Brain MRI performed 10/2022 showed widespread osseous metastatic disease involving calvarium and skull base and upper cervical spine. No intracranial lesions seen. PET-CT performed on 11/19/2022 showed large left hilar mass with abnormal FDG activity, FDG avid T7 compression deformity, several FDG avid rib fractures, extensive calvarial metastasis. Interval History Interval history: Ev is here in follow-up and scheduled treatment. She denies any complaints such as headache, cough, shortness of breath, abdominal pain or diarrhea. She continues to have bilateral rib pain. She is going to start radiation therapy at [facility] from tomorrow. Review of Systems - Constitutional Denies anorexia, Denies fatigue, Denies night sweats, Denies weight loss - Eyes Denies blurry vision, Denies change in vision - Cardiovascular Denies chest pain with activity - Respiratory Denies cough, Denies hemoptysis - Neurologic Reports system reviewed and no additional complaints, except as documented PMFSH Medical History: Medical History (Last Reviewed 04/01/23 @ 15:22 by Sue Reynoso MD) Chest pain COPD (chronic obstructive pulmonary disease) Dyspnea HTN (hypertension) Low vitamin D level Lung cancer Nicotine dependence, cigarettes, uncomplicated Overweight (BMI 25.0-29.9) Post-surgical hypothyroidism Onset Date: ~2013 Postmenopausal Primary thyroid cancer Onset Date: ~2013 Pulmonary nodules Rectal adenoma Tubular adenoma of colon Onset Date: ~2009 Family History: Family History (Last Reviewed 04/01/23 @ 15:07 by Sue Reynoso MD) Father No problems noted. Mother Polycythemia vera Pulmonary cancer Sister Mental health disorder Surgical History: Surgical History (Last Reviewed 04/01/23 @ 17:20 by Sue Reynoso MD) History of bilateral carpal tunnel release History of colonoscopy History of HPV infection Onset Date: ~1996 History of skin cancer Onset Date: ~2009 History of total thyroidectomy Onset Date: ~2013 Status post de Quervain's release surgery Social History: Social History (Last Reviewed 04/01/23 @ 17:20 by Sue Reynoso MD) Living Situation History: Housing: House Alcohol History Details: 1. How often do you have a drink containing alcohol?: b. Monthly or less 2. How many drinks containing alcohol do you have on a typical day when you are drinking?: a. 1 or 2 Tobacco History: Patient Tobacco Use Status: Current everyday Tobacco Tobacco use type: Cigarette Years Smoked: 50 e-Cigarette/Vaping Use: Never Used Second Hand Smoke Exposure: No Domestic Abuse History: Do you feel safe in your current relationship?: Yes Homicidal Assessment: Do you have thoughts of harming others: None Occupation Assessmet: service: No Current occupational status: unemployed Home Medications and Allergies Current Medications: Current Medications Acetaminophen (Acetaminophen 325 Mg Tablet) 650 mg PO ONCE KAMALJIT Stop: 04/15/23 23:59 Diphenhydramine HCl (Diphenhydramine Hcl 25 Mg Capsule) 25 mg PO ONCE KAMALJIT Stop: 04/15/23 23:59 Famotidine (Famotidine 20 Mg Tablet) 20 mg PO ONCE KAMALJIT Stop: 04/15/23 23:59 Heparin Sodium (Porcine) (Heparin Sodium,Porcine Flush 500 Unit/5 Ml Syringe) 500 unit IVFLUSH ONCE KAMALJIT Stop: 04/15/23 23:59 Ondansetron HCl (Ondansetron Odt 8 Mg Tab.Rapdis) 8 mg TRANSLINGU ONCE KAMALJIT Stop: 04/15/23 23:59 Home Medications Medication Instructions Recorded Confirmed Type nebulizers 10/31/22 04/01/23 History Allergies Allergy/AdvReac Type Severity Reaction Status Date / Time bee stings Allergy Severe Severe Uncoded 04/01/23 15:03 Swelling Exam Vital signs: Vital Signs Temp 97.4 F 04/15/23 11:13 Pulse 95 04/15/23 11:13 Resp 20 04/15/23 11:13 BP 151/65 H 04/15/23 11:13 Pulse Ox 96 04/15/23 11:13 O2 Del Method Room Air 04/15/23 11:13 Intake & Output 04/14/23 04/15/23 04/15/23 18:59 06:59 18:59 Other: Weight 79.3 kg Weight in Grams 57790 Weight 79.3 kg BMI result Body Mass Index 30.0 - Constitutional Present: no acute distress - Routine HEENT Exam Head: Present: normal inspection Eye: Present: PERRL - Routine Neck Exam Absent: lymphadenopathy - Routine Respiratory Exam Present: prolonged expiratory phase, rhonchi. Absent: accessory muscle use - Routine Cardiovascular Exam Cardiovascular: Present: S1, S2 - Routine Abdominal Exam Present: soft - Routine Extremities Exam Present: pulses intact - Routine Skin Exam Present: intact - Routine Neurological Exam Present: alert, oriented X3 Data - Labs CBC & Chem 7: 04/15/23 11:25 04/15/23 11:25 Assessment and Plan Patient Active problem list reviewed?: Yes (1) Small cell lung cancer Status: Chronic Assessment and plan: 1. This is 63-year-old woman, chronic smoker, diagnosed with extensive stage small cell lung cancer. CT angiogram performed 10/15/2022 revealed large left mediastinal mass as well as lymphadenopathy, left hilar mass measuring 7 x 5 x 7 cm. Several enlarged mediastinal, hilar and pretracheal lymph nodes largest measuring 1.2 cm. Bilateral lung nodules largest in the left upper lobe measuring 0.9 cm. Right lower lobe lung nodule measuring 0.6 cm. Upper abdomen showed left adrenal nodule measuring 1.8 cm and 1.1 cm in the medial limb, mildly prominent adjacent lymph nodes, interval increase in adrenal nodules compared to prior study concerning for metastatic disease. She underwent EBUS/bronchoscopy on 10/16/2022 which confirmed small cell lung cancer. She started chemotherapy with Carboplatin with etoposide and atezolizumab as per [id number] study in 10/2022. 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 She is now on maintenance atezolizumab. PET scan performed in February 2023 shows good metabolic response to treatment and no new lesions. Surveillance brain MRI performed 03/11/2023 unfortunately showed multiple new small enhancing lesions throughout supratentorial and infratentorial compartments suspicious for metastasis, largest measuring 4 mm in the left cerebellum. No vasogenic edema or mass effect. Patient has been referred to Dr. Anderson at [facility] for palliative radiation therapy to the brain. 2. Distress management. For insomnia I have prescribed alprazolam 0.25 mg q.h.s. p.r.n.. 3. Pain management. She is on oxycodone 5 mg every 8 hours as needed. She is also experiencing bone pain secondary to Neulasta. I have encouraged her to take Claritin 1 tablet Q 12 as needed. PET-CT will be repeated in May to see if there is any progression outside of the brain. Continue with atezolizumab every 3 weeks for now. Follow-up in 6 weeks. - Time Spent With Patient Time Spent with Patient (in minutes): 20
[2023-04-15] MEDS: Famotidine 20 MG TABLET PO (12:25)
[2023-04-15] MEDS: Ondansetron ODT 8 MG TAB.RAPDIS TRANSLINGU (12:26)
[2023-04-15] MEDS: Acetaminophen 325 MG TABLET 650 MG PO (12:26)
[2023-04-15] MEDS: diphenhydrAMINE HCL 25 MG CAPSULE PO (12:26)
[2023-04-15] MEDS: Heparin Sodium,Porcine Flush 500 UNIT/5 ML SYRINGE IVFLUSH (12:27)
[2023-04-15] MEDS: Atezolizumab 1,200 MG in 0.9 % Sodium Chloride 250 ML 540 MG IV (13:23)
--- NOTE | 2023-04-15 15:48 | MHC.HEMONC ---
Here for C9 Atezolizumab. States is feeling well. Is starting RT tomorrow. Port accessed with good blood return noted. Labs obtained. Premeds given as ordered. Treatment done and tolerated well. Denosumab 120mg sc given as ordered. Denosumab to be given q6 weeks per Dr Cisneros. Dr Cisneros in to see pt for follow up. Port flushed with heparin 500units and de-accessed. Departure packet given and pt departed unit.
[2023-05-06 13:06] VITALS: BP 145/77; PULSE 92; RESP 18; TEMP 36.6; O2SAT 97; BMI 28.7
[2023-05-06 13:07] LABS: MANUAL DIFF FLAG NO
[2023-05-06 13:14] LABS: Basophils Absolute Auto 0.1 X10*3/uL (0.0-0.2); Basophils Percent Auto 0.7 % (0-2); Eosinophils Absolute Auto 0.4 X10*3/uL (0.0-0.4); Eosinophils Percent Auto 5.7 % (0-4); Hematocrit 46.4 % (37.0-47.0); Hemoglobin 15.6 g/dl (12.0-16.0); Imm Gran Abs Auto 0.03 X10*3/uL (0.00-0.03); Imm Gran Pct Auto 0.4 % (0.0-0.4); Lymphocytes Absolute Auto 1.1 X10*3/uL (1.2-4.9); Lymphocytes Percent Auto 15.2 % (20-40); Mean Corpuscular HGB Conc 33.6 g/dl (31.0-35.0); Mean Corpuscular Volume 89.2 fL (80.0-98.0); Mean Platelet Volume 9.2 fL (9.4-12.3); Monocytes Absolute Auto 0.8 X10*3/uL (0.1-1.2); Monocytes Percent Auto 10.1 % (2-11); Neutrophils Absolute Auto 5.1 x10*3/uL (2.0-8.3); Neutrophils Percent Auto 67.9 % (45-73); Platelet Count 236 X10*3/uL (160-400); Red Cell Distribution Width 14.4 % (11.0-16.0); White Blood Count 7.5 X10*3/uL (4.8-10.8)
[2023-05-06 13:34] LABS: Alanine Aminotransferase 22 U/L (0-31); Albumin Level 4.4 g/dL (3.5-5.0); Alkaline Phosphatase 50 U/L (39-117); Anion Gap 15 (12-20); Aspartate Amino Transferase 19 U/L (5-31); Bilirubin Total 0.3 mg/dL (0.0-1.0); Blood Urea Nitrogen 11 mg/dL (9-16); Carbon Dioxide 21 mmol/L (22-29); Chloride 107 mmol/L (96-108); Creatinine Clr Calc Pharmacy 92.6; Estimated Glomerular Filt Rate > 60; Glucose Random 99 mg/dL (60-115); Potassium 3.9 mmol/L (3.3-5.1); Sodium 139 mmol/L (135-145); Total Protein 7.2 g/dL (6.5-8.0)
[2023-05-06] MEDS: Sucralfate 1 GM TABLET PO (13:35)
[2023-05-06] MEDS: Ondansetron ODT 8 MG TAB.RAPDIS TRANSLINGU (13:43)
[2023-05-06] MEDS: Acetaminophen 325 MG TABLET 650 MG PO (13:43)
[2023-05-06] MEDS: diphenhydrAMINE HCL 25 MG CAPSULE PO (13:43)
[2023-05-06] MEDS: Famotidine 20 MG TABLET PO (13:44)
[2023-05-06] MEDS: Heparin Sodium,Porcine Flush 500 UNIT/5 ML SYRINGE IVFLUSH (13:45)
[2023-05-06 13:49] LABS: Thyroid Stimulating Hormone 0.69 uIU/mL (0.32-4.0)
[2023-05-06] MEDS: Atezolizumab 1,200 MG in 0.9 % Sodium Chloride 250 ML 540 MG IV (14:08)
--- NOTE | 2023-05-06 15:09 | MHC.HEMONC ---
Pt here for C10D1 Atezolizumab )concurrent with radiation therapy at [facility]). Port accessed with no blood return noted initially. Pt repositioned several times with several 0.9% NS flushes with no blood return. Labs drawn peripherally by neurology professor-specimen to lab. IV fluids run freely via gravity-IV fluid rate increased to 500ml hour with eventual blood return noted. Lab results reviewed-okay to receive treatment today. Pt states she continues with fatigue, states has had diarrhea for 3 days after last treatment-none today. States has had GERD symptoms with nausea/vomiting, and esophageal burning at times-symptoms reported to Dr Cisneros. Carafate 1 gram slurry given as ordered with some relief of discomfort per pt. Plan for Dr Cisneros to ordered carafate for home use-pt notified. Pre medicated with tylenol, benadryl, pepcid, zofran. Atezolizumab given as ordered-tolerated well. Port flushed with heparin and de accessed. Next appointmetn scheduled. Discharge packet given. Declines wheelchair for discharge. Instructed to call with any questiosn or concerns-verbalizes understanding of information given.
--- NOTE | 2023-05-15 12:52 | MHC.HEMONC ---
Triage call-pt called for refill on oxycodone 10mg-request given to Dr Blancas
--- NOTE | 2023-05-15 15:05 | MHC.HEMONC ---
Triage call-pt called requesting refill on oxycodone. Dr Blancas notified of refill request
--- NOTE | 2023-05-27 09:14 | HO.HEMONCPA ---
Addendum entered by Darlyn Perez 05/28/23 14:10: [facility] LOCATION CHANGED TO SHIELD PET AT [facility] DUE TO [facility] NOT HAVING CONTRACT WITH MEDICAID SENT TO [facility] FOR SCHEDULING Original Note: [facility] APPROVED FOR PET/CT SKULL TO THIGH [id number] PER [facility] FOR [facility] AUTH # [id number] DOS 05/27/23 - 11/23/23 SENT TO [facility] FOR SCHEDULING
[2023-05-27 10:58] VITALS: BP 121/73; PULSE 103; RESP 20; TEMP 36.1; O2SAT 94; BMI 28.0
[2023-05-27 11:23] LABS: MANUAL DIFF FLAG NO
[2023-05-27 11:29] LABS: Basophils Absolute Auto 0.1 X10*3/uL (0.0-0.2); Eosinophils Absolute Auto 0.5 X10*3/uL (0.0-0.4); Eosinophils Percent Auto 6.4 % (0-4); Hematocrit 45.1 % (37.0-47.0); Hemoglobin 14.8 g/dl (12.0-16.0); Imm Gran Abs Auto 0.04 X10*3/uL (0.00-0.03); Imm Gran Pct Auto 0.6 % (0.0-0.4); Lymphocytes Absolute Auto 0.6 X10*3/uL (1.2-4.9); Lymphocytes Percent Auto 9.1 % (20-40); Mean Corpuscular HGB Conc 32.8 g/dl (31.0-35.0); Mean Corpuscular Hemoglobin 29.3 pg (27.0-33.0); Mean Corpuscular Volume 89.3 fL (80.0-98.0); Mean Platelet Volume 10.2 fL (9.4-12.3); Monocytes Absolute Auto 0.7 X10*3/uL (0.1-1.2); Monocytes Percent Auto 9.8 % (2-11); Neutrophils Absolute Auto 5.2 x10*3/uL (2.0-8.3); Neutrophils Percent Auto 73.1 % (45-73); Platelet Count 174 X10*3/uL (160-400); Red Blood Count 5.05 X10*6/uL (4.20-5.50); Red Cell Distribution Width 14.7 % (11.0-16.0); White Blood Count 7.1 X10*3/uL (4.8-10.8)
[2023-05-27 11:40] LABS: Alanine Aminotransferase 25 U/L (0-31); Albumin Level 4.3 g/dL (3.5-5.0); Alkaline Phosphatase 60 U/L (39-117); Anion Gap 12 (12-20); Aspartate Amino Transferase 31 U/L (5-31); Bilirubin Total 0.4 mg/dL (0.0-1.0); Blood Urea Nitrogen 7 mg/dL (9-16); Calcium 9.2 mg/dL (8.4-10.2); Carbon Dioxide 23 mmol/L (22-29); Chloride 104 mmol/L (96-108); Creatinine Clr Calc Pharmacy 69.2; Estimated Glomerular Filt Rate > 60; Glucose Random 112 mg/dL (60-115); Potassium 3.4 mmol/L (3.3-5.1); Sodium 136 mmol/L (135-145); Total Protein 6.8 g/dL (6.5-8.0)
--- NOTE | 2023-05-27 11:50 | P.PNHO-ONC_ITS ---
Medical Summary - Medical Summary Date of Service: 05/27/23 Chief complaint: Follow up and scheduled treatment Primary Care Provider: Sue Reynoso MD Medical Summary: Diagnosis: Extensive stage small cell lung cancer October 2022 In September 2021 she underwent lung cancer screening, CT chest at that time revealed subcentimeter pulmonary nodules for which follow-up was recommended. She had a 1 year follow-up CT chest in September 2022 which revealed multiple new bilateral pulmonary nodules along with abnormal mediastinal and left hilar lymphadenopathy. Largest pulmonary nodule measuring 8 mm, central lung mass measuring 3.4 cm and enlarged left precarinal lymph node measuring 1.9 cm. There was also left lung mass measuring 4 cm. She subsequently underwent CT angiogram which was negative for pulmonary embolism but showed significant hilar and mediastinal mass along with multiple bilateral lung nodules. She underwent EBUS with transbronchial needle aspiration of left upper lobe lung mass. Pathology from 10/16/2022 reported as small cell carcinoma. Lymph node, 4 L FNA was also positive for small cell carcinoma. Patient's family history significant for mother having of lung cancer at age 59 and maternal grandmother having of breast cancer. She underwent EBUS/bronchoscopy on 10/16/2022 which confirmed small cell lung cancer. Blood work showed elevated LDH of 679, CEA 21.90 NG/mL and calcium of 10.9. Brain MRI performed 10/2022 showed widespread osseous metastatic disease involving calvarium and skull base and upper cervical spine. No intracranial lesions seen. PET-CT performed on 11/19/2022 showed large left hilar mass with abnormal FDG activity, FDG avid T7 compression deformity, several FDG avid rib fractures, extensive calvarial metastasis. Interval History Interval history: Ev is here in follow-up and scheduled treatment. She denies any complaints such as headache, cough, shortness of breath, abdominal pain or diarrhea. She completed radiation therapy at [facility] to the brain and rib lesions. She did report nausea and weakness during treatment. Review of Systems - Neurologic Reports no additional neurologic complaints [facility] Medical History: Medical History (Last Reviewed 04/01/23 @ 15:22 by Sue Reynoso MD) Chest pain COPD (chronic obstructive pulmonary disease) Dyspnea HTN (hypertension) Low vitamin D level Lung cancer Nicotine dependence, cigarettes, uncomplicated Overweight (BMI 25.0-29.9) Post-surgical hypothyroidism Onset Date: ~2013 Postmenopausal Primary thyroid cancer Onset Date: ~2013 Pulmonary nodules Rectal adenoma Tubular adenoma of colon Onset Date: ~2009 Family History: Family History (Last Reviewed 04/01/23 @ 15:07 by Seu Reynoso MD) Father No problems noted. Mother Polycythemia vera Pulmonary cancer Sister Mental health disorder Surgical History: Surgical History (Last Reviewed 04/01/23 @ 17:20 by Sue Reynoso MD) History of bilateral carpal tunnel release History of colonoscopy History of HPV infection Onset Date: ~1996 History of skin cancer Onset Date: ~2009 History of total thyroidectomy Onset Date: ~2013 Status post de Quervain's release surgery Social History: Social History (Last Reviewed 04/01/23 @ 17:20 by Sue Reynoso MD) Living Situation History: Housing: House Alcohol History Details: 1. How often do you have a drink containing alcohol?: b. Monthly or less 2. How many drinks containing alcohol do you have on a typical day when you are drinking?: a. 1 or 2 Tobacco History: Patient Tobacco Use Status: Current everyday Tobacco Tobacco use type: Cigarette Cigarettes Per Day: 3 Years Smoked: 50 e-Cigarette/Vaping Use: Never Used Second Hand Smoke Exposure: No Domestic Abuse History: Do you feel safe in your current relationship?: Yes Homicidal Assessment: Do you have thoughts of harming others: None Occupation Assessmet: service: No Current occupational status: unemployed Home Medications and Allergies Current Medications: Current Medications Acetaminophen (Acetaminophen 325 Mg Tablet) 650 mg PO ONCE KAMALJIT Stop: 05/27/23 23:59 Diphenhydramine HCl (Diphenhydramine Hcl 25 Mg Capsule) 25 mg PO ONCE KAMALJIT Stop: 05/27/23 23:59 Famotidine (Famotidine 20 Mg Tablet) 20 mg PO ONCE KAMALJIT Stop: 05/27/23 23:59 Heparin Sodium (Porcine) (Heparin Sodium,Porcine Flush 500 Unit/5 Ml Syringe) 500 unit IVFLUSH ONCE KAMALJIT Stop: 05/27/23 23:59 Ondansetron HCl (Ondansetron Odt 8 Mg Tab.Rapdis) 8 mg TRANSLINGU ONCE KAMALJIT Stop: 05/27/23 23:59 Home Medications Medication Instructions Recorded Confirmed Type nebulizers 10/31/22 04/01/23 History Allergies Allergy/AdvReac Type Severity Reaction Status Date / Time bee stings Allergy Severe Severe Uncoded 05/27/23 10:00 Swelling Exam Vital signs: Vital Signs Temp 97.0 F 05/27/23 10:58 Pulse 103 H 05/27/23 10:58 Resp 20 05/27/23 10:58 BP 121/73 05/27/23 10:58 Pulse Ox 94 05/27/23 10:58 O2 Del Method Room Air 05/27/23 10:58 Intake & Output 05/26/23 05/27/23 05/27/23 18:59 06:59 18:59 Other: Weight 74.1 kg Weight in Grams 07445 Weight 74.1 kg BMI result Body Mass Index 28.0 - Constitutional Present: no acute distress - Routine HEENT Exam Head: Present: normal inspection - Routine Neck Exam Absent: lymphadenopathy - Routine Respiratory Exam Present: prolonged expiratory phase, rhonchi. Absent: accessory muscle use - Routine Cardiovascular Exam Cardiovascular: Present: S1, S2 - Routine Abdominal Exam Present: soft - Routine Extremities Exam Present: pulses intact - Routine Skin Exam Present: intact - Routine Neurological Exam Present: alert, oriented X3 Data - Labs CBC & Chem 7: 05/27/23 11:05 05/27/23 11:05 Assessment and Plan Patient Active problem list reviewed?: Yes (1) Small cell lung cancer Status: Chronic Assessment and plan: 1. This is 63-year-old woman, chronic smoker, diagnosed with extensive stage small cell lung cancer. CT angiogram performed 10/15/2022 revealed large left mediastinal mass as well as lymphadenopathy, left hilar mass measuring 7 x 5 x 7 cm. Several enlarged mediastinal, hilar and pretracheal lymph nodes largest measuring 1.2 cm. Bilateral lung nodules largest in the left upper lobe measuring 0.9 cm. Right lower lobe lung nodule measuring 0.6 cm. Upper abdomen showed left adrenal nodule measuring 1.8 cm and 1.1 cm in the medial limb, mildly prominent adjacent lymph nodes, interval increase in adrenal nodules compared to prior study concerning for metastatic disease. She underwent EBUS/bronchoscopy on 10/16/2022 which confirmed small cell lung cancer. She started chemotherapy with Carboplatin with etoposide and atezolizumab as per [id number] study in 10/2022. 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 She is now on maintenance atezolizumab. PET scan performed in February 2023 shows good metabolic response to treatment and no new lesions. Surveillance brain MRI performed 03/11/2023 unfortunately showed multiple new small enhancing lesions throughout supratentorial and infratentorial compartments suspicious for metastasis, largest measuring 4 mm in the left cerebellum. No vasogenic edema or mass effect. Patient received palliative radiation therapy at at [facility] to brain and rib lesions in april 2023. 2. Distress management. For insomnia I have prescribed alprazolam 0.25 mg q.h.s. p.r.n.. 3. Pain management. She is on oxycodone 5 mg every 8 hours as needed. She is also experiencing bone pain secondary to Neulasta. I have encouraged her to take Claritin 1 tablet Q 12 as needed. PET-CT will be repeated in May to see if there is any progression outside of the brain. Continue with atezolizumab every 3 weeks for now. If there is progression, consider chemo with carbo/etoposide since she is more than 4 months out from last cycle of chemotherapy. Follow-up in 6 weeks. - Time Spent With Patient Time Spent with Patient (in minutes): 20
[2023-05-27] MEDS: diphenhydrAMINE HCL 25 MG CAPSULE PO (12:12)
[2023-05-27] MEDS: Famotidine 20 MG TABLET PO (12:12)
[2023-05-27] MEDS: Acetaminophen 325 MG TABLET 650 MG PO (12:12)
[2023-05-27] MEDS: Ondansetron ODT 8 MG TAB.RAPDIS TRANSLINGU (12:13)
[2023-05-27] MEDS: Heparin Sodium,Porcine Flush 500 UNIT/5 ML SYRINGE IVFLUSH (12:14)
[2023-05-27 12:30] LABS: Lactate Dehydrogenase 306 U/L (122-220)
[2023-05-27] MEDS: Atezolizumab 1,200 MG in 0.9 % Sodium Chloride 250 ML 540 MG IV (12:34)
--- NOTE | 2023-05-27 14:52 | MHC.HEMONC ---
Pt was in for C11D1 Atezolizumab, Q6week Denosumab inj, also Onc f/u appt, nurse confirmed no PA needed, VSS, nurse accessed pt's R chest implanted port in sterile procedure, was initially unable to get blood return, but was achieved after pt leaned body forward. Nurse obtained blood specimens. Nurse admin pre-meds: PO tylenol, PO benadryl, PO pepcid, and PO Zofran. Pt was admin IV Atezolizumab over 30 min, well-tolerated. Nurse admin Denosumab 120 mg SC to pt's LUE, which she also tolerated well. Pt's port was flushed w/ NS and heparin 500 units before being de-accessed. Dr. Cisneros met w/ pt, who received d/c packet, to return in 3 weeks for C12.
--- NOTE | 2023-06-05 09:20 | MHC.HEMONC ---
Pt called for oxycodone refill. Given to Dr Blancas
--- NOTE | 2023-06-06 10:42 | HO.HEMONCSCH ---
Addendum entered by Darlyn Perez 06/18/23 12:18: Called [facility] they do have an opening tomorrow 06/19 at 1130am called patient she is going to call them to change her appointment Addendum entered by Darlyn Perez 06/09/23 10:25: Called [facility] to try and get an earlier appointment for patient. They did not have any opens in [place] at this time but placed patient on the wait list for Jun 12 and Jun 19. Addendum entered by Darlyn Perez 06/06/23 10:45: Left message for patient to see if possible to go for her PET/CT sooner than 06/26/23 left number for [facility] and for office if she has any questions Original Note: Patient booked for PET/CT Skull to Thigh at [facility] in [place] [employer] on June 26, 2023 at 2:30 PM
[2023-06-17 11:14] VITALS: BP 177/83; PULSE 83; RESP 18; TEMP 36.4; O2SAT 94; BMI 28.3
--- NOTE | 2023-06-17 11:41 | MHC.HEMONC ---
Addendum entered by Sharona Ryan RN 06/17/23 15:23: Lab results reviewed. AST and ALT increased. Dr Cisneros aware. Treatment to be held and rescheduled for 1 week. Pt aware and agreeable. Port flushed with heparin 500units and de-accessed. Calendar given and pt departed unit. Original Note: Here for C6 Atezolizumab. Feels well, except for c/o nausea since having RT. Port accessed, but no blood return noted. Flushes easily with no pain or swelling at the site. IV fluids infusing, and lab draw done peripherally. Dr Cisneros made aware of difficulty with blood return.
[2023-06-17 11:49] LABS: MANUAL DIFF FLAG NO
[2023-06-17 11:53] LABS: Basophils Absolute Auto 0.1 X10*3/uL (0.0-0.2); Basophils Percent Auto 0.3 % (0-2); Eosinophils Percent Auto 0.1 % (0-4); Hematocrit 41.7 % (37.0-47.0); Hemoglobin 14.1 g/dl (12.0-16.0); Imm Gran Abs Auto 0.52 X10*3/uL (0.00-0.03); Imm Gran Pct Auto 3.3 % (0.0-0.4); Lymphocytes Absolute Auto 0.8 X10*3/uL (1.2-4.9); Lymphocytes Percent Auto 5.2 % (20-40); Mean Corpuscular HGB Conc 33.8 g/dl (31.0-35.0); Mean Corpuscular Hemoglobin 29.6 pg (27.0-33.0); Mean Corpuscular Volume 87.6 fL (80.0-98.0); Monocytes Absolute Auto 1.4 X10*3/uL (0.1-1.2); Monocytes Percent Auto 8.8 % (2-11); Neutrophils Percent Auto 82.3 % (45-73); Platelet Count 226 X10*3/uL (160-400); Red Blood Count 4.76 X10*6/uL (4.20-5.50); White Blood Count 15.8 X10*3/uL (4.8-10.8)
[2023-06-17 12:13] LABS: Alanine Aminotransferase 132 U/L (0-31); Albumin Level 3.8 g/dL (3.5-5.0); Alkaline Phosphatase 114 U/L (39-117); Anion Gap 13 (12-20); Aspartate Amino Transferase 86 U/L (5-31); Bilirubin Total 0.2 mg/dL (0.0-1.0); Blood Urea Nitrogen 18 mg/dL (9-16); Calcium 9.2 mg/dL (8.4-10.2); Carbon Dioxide 28 mmol/L (22-29); Chloride 104 mmol/L (96-108); Creatinine Clr Calc Pharmacy 82.5; Estimated Glomerular Filt Rate > 60; Glucose Random 119 mg/dL (60-115); Potassium 3.9 mmol/L (3.3-5.1); Sodium 141 mmol/L (135-145); Total Protein 6.4 g/dL (6.5-8.0)
--- NOTE | 2023-06-19 11:18 | MHC.HEMONC ---
Addendum entered by Sharona Ryan RN 06/19/23 11:32: Return call from pt. PET scan has been rescheduled for 07/03 at 1125. Original Note: Triage call from pt stating her PET scan scheduled for today was cancelled because the machine was down. Pt to call and reschedule scan
[2023-06-23 11:26] LABS: Hematocrit 43.7 % (37.0-47.0); Hemoglobin 14.6 g/dl (12.0-16.0); Mean Corpuscular HGB Conc 33.4 g/dl (31.0-35.0); Mean Corpuscular Hemoglobin 29.1 pg (27.0-33.0); Mean Corpuscular Volume 87.2 fL (80.0-98.0); Mean Platelet Volume 9.5 fL (9.4-12.3); NRBC Pct Auto 0.1 /100WBC (0.0-0.2); Platelet Count 220 X10*3/uL (160-400); Red Blood Count 5.01 X10*6/uL (4.20-5.50); Red Cell Distribution Width 16.8 % (11.0-16.0); White Blood Count 20.7 X10*3/uL (4.8-10.8)
[2023-06-23 11:43] VITALS: BP 171/83; PULSE 102; RESP 20; TEMP 36.6; O2SAT 96; BMI 29.7
[2023-06-23 11:51] LABS: Alanine Aminotransferase 153 U/L (0-31); Alkaline Phosphatase 115 U/L (39-117); Anion Gap 16 (12-20); Aspartate Amino Transferase 108 U/L (5-31); Band Neutrophils Percent 13 % (3-5); Bilirubin Total 0.5 mg/dL (0.0-1.0); Blood Urea Nitrogen 19 mg/dL (9-16); Calcium 8.7 mg/dL (8.4-10.2); Carbon Dioxide 31 mmol/L (22-29); Chloride 98 mmol/L (96-108); Creatinine Clr Calc Pharmacy 87.1; Estimated Glomerular Filt Rate > 60; Glucose Random 144 mg/dL (60-115); Lymphocytes Absolute Manual 0.8 X10*3/uL (1.2-4.9); Lymphocytes Percent Manual 4 % (20-40); Monocytes Absolute Manual 1.7 X10*3/uL (0.1-1.2); Monocytes Percent Manual 8 % (2-11); Neutrophils Absolute Manual 18.2 X10*3/uL (2.0-8.3); Neutrophils Percent Manual 75 % (45-73); Ovalocytes 1+ (5-14) /OIF; Platelet Estimate NORMAL (NORMAL); Platelet Morphology Comment NORMAL; Potassium 2.8 mmol/L (3.3-5.1); RBC Morphology NOTED; Schistocytes 1+ (0-2) /OIF; Sodium 142 mmol/L (135-145); Total Protein 6.6 g/dL (6.5-8.0)
[2023-06-23 11:52] LABS: Basophilic Stippling 1+ (0-2) /OIF; Burr Cells 1+ (0-2) /OIF; Hypochromasia 1+ (5-14) /OIF; Polychromasia 1+ (0-2) /OIF; Toxic Granulation PRESENT; Toxic Vacuolation PRESENT
--- NOTE | 2023-06-23 12:05 | PM.HEMONCPN ---
Medical Summary - Medical Summary Date of Service: 06/23/23 Chief complaint: Abdominal distention Primary Care Provider: Sue Reynoso MD Medical Summary: Diagnosis: Extensive stage small cell lung cancer October 2022 In September 2021 she underwent lung cancer screening, CT chest at that time revealed subcentimeter pulmonary nodules for which follow-up was recommended. She had a 1 year follow-up CT chest in September 2022 which revealed multiple new bilateral pulmonary nodules along with abnormal mediastinal and left hilar lymphadenopathy. Largest pulmonary nodule measuring 8 mm, central lung mass measuring 3.4 cm and enlarged left precarinal lymph node measuring 1.9 cm. There was also left lung mass measuring 4 cm. She subsequently underwent CT angiogram which was negative for pulmonary embolism but showed significant hilar and mediastinal mass along with multiple bilateral lung nodules. She underwent EBUS with transbronchial needle aspiration of left upper lobe lung mass. Pathology from 10/16/2022 reported as small cell carcinoma. Lymph node, 4 L FNA was also positive for small cell carcinoma. Patient's family history significant for mother having of lung cancer at age 59 and maternal grandmother having of breast cancer. She underwent EBUS/bronchoscopy on 10/16/2022 which confirmed small cell lung cancer. Blood work showed elevated LDH of 679, CEA 21.90 NG/mL and calcium of 10.9. Brain MRI performed 10/2022 showed widespread osseous metastatic disease involving calvarium and skull base and upper cervical spine. No intracranial lesions seen. PET-CT performed on 11/19/2022 showed large left hilar mass with abnormal FDG activity, FDG avid T7 compression deformity, several FDG avid rib fractures, extensive calvarial metastasis. Interval History Interval history: Ev came in for scheduled treatment, she is being seen urgently because of abnormal LFTs and elevated white count. On questioning she denies any fever or chills. She does say that she has intermittent abdominal pain. She is a poor historian but later did say that her abdomen has been getting distended. She denies diarrhea, nausea or emesis. She denies taking any steroids or being on new medications. Her PET scan has been postponed a few times. Review of Systems - Constitutional Reports as per HPI - Cardiovascular Reports no additional cardiovascular complaints - Respiratory Reports no additional respiratory complaints - Neurologic Reports no additional neurologic complaints [facility] Medical History: Medical History (Last Reviewed 06/23/23 @ 08:55 by SAUD Garcia) Chest pain COPD (chronic obstructive pulmonary disease) Dyspnea HTN (hypertension) Low vitamin D level Lung cancer Nicotine dependence, cigarettes, uncomplicated Overweight (BMI 25.0-29.9) Post-surgical hypothyroidism Onset Date: ~2013 Postmenopausal Primary thyroid cancer Onset Date: ~2013 Pulmonary nodules Rectal adenoma Tubular adenoma of colon Onset Date: ~2009 Family History: Family History (Last Reviewed 06/23/23 @ 08:55 by SAUD Garcia) Father No problems noted. Mother Polycythemia vera Pulmonary cancer Sister Mental health disorder Surgical History: Surgical History (Last Reviewed 06/23/23 @ 08:55 by SAUD Garcia) History of bilateral carpal tunnel release History of colonoscopy History of HPV infection Onset Date: ~1996 History of skin cancer Onset Date: ~2009 History of total thyroidectomy Onset Date: ~2013 Status post de Quervain's release surgery Social History: Social History (Last Reviewed 06/23/23 @ 08:55 by SAUD Garcia) Living Situation History: Housing: House Tobacco History: Patient Tobacco Use Status: Current everyday Tobacco Tobacco use type: Cigarette Cigarettes Per Day: 3 Years Smoked: 50 e-Cigarette/Vaping Use: Never Used Second Hand Smoke Exposure: No Occupation Assessmet: service: No Current occupational status: unemployed Home Medications and Allergies Current Medications: Current Medications Acetaminophen (Acetaminophen 325 Mg Tablet) 650 mg PO ONCE KAMALJIT Stop: 06/23/23 23:59 Diphenhydramine HCl (Diphenhydramine Hcl 25 Mg Capsule) 25 mg PO ONCE KAMALJIT Stop: 06/23/23 23:59 Famotidine (Famotidine 20 Mg Tablet) 20 mg PO ONCE KAMALJIT Stop: 06/23/23 23:59 Heparin Sodium (Porcine) (Heparin Sodium,Porcine Flush 500 Unit/5 Ml Syringe) 500 unit IVFLUSH ONCE KAMALJIT Stop: 06/23/23 23:59 Ondansetron HCl (Ondansetron Odt 8 Mg Tab.Rapdis) 8 mg TRANSLINGU ONCE KAMALJIT Stop: 06/23/23 23:59 Home Medications Medication Instructions Recorded Confirmed Type nebulizers 10/31/22 04/01/23 History Allergies Allergy/AdvReac Type Severity Reaction Status Date / Time bee stings Allergy Severe Severe Uncoded 06/23/23 08:55 Swelling Exam Vital signs: Vital Signs Temp 97.9 F 06/23/23 11:43 Pulse 102 H 06/23/23 11:43 Resp 20 06/23/23 11:43 BP 171/83 H 06/23/23 11:43 Pulse Ox 96 06/23/23 11:43 O2 Del Method Room Air 06/23/23 11:43 Intake & Output 06/22/23 06/23/23 06/23/23 18:59 06:59 18:59 Other: Weight 78.6 kg Weight in Grams 27619 Weight 78.6 kg BMI result Body Mass Index 29.7 - Constitutional Present: no acute distress - Routine HEENT Exam Head: Present: normal inspection - Routine Neck Exam Absent: lymphadenopathy - Routine Respiratory Exam Present: prolonged expiratory phase, rhonchi. Absent: accessory muscle use - Routine Cardiovascular Exam Cardiovascular: Present: S1, S2 - Routine Abdominal Exam Present: organomegaly, tenderness - Routine Extremities Exam Present: pulses intact - Routine Skin Exam Present: intact - Routine Neurological Exam Present: alert, oriented X3 Data - Labs CBC & Chem 7: 06/23/23 11:17 06/23/23 11:17 Assessment and Plan Patient Active problem list reviewed?: Yes (1) Small cell lung cancer Status: Chronic Assessment and plan: 1. This is 63-year-old woman, chronic smoker, diagnosed with extensive stage small cell lung cancer. CT angiogram performed 10/15/2022 revealed large left mediastinal mass as well as lymphadenopathy, left hilar mass measuring 7 x 5 x 7 cm. Several enlarged mediastinal, hilar and pretracheal lymph nodes largest measuring 1.2 cm. Bilateral lung nodules largest in the left upper lobe measuring 0.9 cm. Right lower lobe lung nodule measuring 0.6 cm. Upper abdomen showed left adrenal nodule measuring 1.8 cm and 1.1 cm in the medial limb, mildly prominent adjacent lymph nodes, interval increase in adrenal nodules compared to prior study concerning for metastatic disease. She underwent EBUS/bronchoscopy on 10/16/2022 which confirmed small cell lung cancer. She started chemotherapy with Carboplatin with etoposide and atezolizumab as per [id number] study in 10/2022. 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 She is now on maintenance atezolizumab. PET scan performed in February 2023 shows good metabolic response to treatment and no new lesions. Surveillance brain MRI performed 03/11/2023 unfortunately showed multiple new small enhancing lesions throughout supratentorial and infratentorial compartments suspicious for metastasis, largest measuring 4 mm in the left cerebellum. No vasogenic edema or mass effect. Patient received palliative radiation therapy at at [facility] to brain and rib lesions in april 2023. 2. Distress management. For insomnia I have prescribed alprazolam 0.25 mg q.h.s. p.r.n.. 3. Pain management. She is on oxycodone 5 mg every 8 hours as needed. She is also experiencing bone pain secondary to Neulasta. I have encouraged her to take Claritin 1 tablet Q 12 as needed. PET-CT was ordered but kept getting postponed for different reasons. She has progressive disease, I discussed starting her on Lubrinectidin in the second-line setting. 4. Abnormal blood tests. She has noted to have leukocytosis with hypokalemia and abnormal LFTs. On exam her abdomen is significantly distended with hepatomegaly and tenderness. She is being referred to emergency department for further evaluation Follow-up in 6 weeks. - Time Spent With Patient Time Spent with Patient (in minutes): 15
[2023-06-23] MEDS: Potassium Chloride/H20 20 MEQ/100 ML PIGGYBACK 100 MEQ IV (12:28)
[2023-06-23] MEDS: Potassium Chloride ER 20 MEQ TAB.ER.PRT 40 MEQ PO (12:32)
--- NOTE | 2023-06-23 14:32 | HO.HEMONCPA ---
Addendum entered by Darlyn Perez 06/24/23 08:46: NO PA REQUIRED FOR EMEND [id number] AND LURBINECTEDIN [id number] PER [facility] PORTAL REQUEST # [id number] CONF# [id number] Original Note: PA PENDING FOR EMEND [id number] AND LURBINECTEDIN [id number] AWAITING DECISION FROM [facility] CASE # [id number]
--- NOTE | 2023-06-23 16:10 | MHC.HEMONC ---
Here for C12 Atezolizumab. Pt had appointment with DR Trevizo this morning for him to check port, as there was trouble with blood return last week. No blood return noted, and pt scheduled for port study on 06/25. Per Dr Cisneros, ok to use port for treatment today. Port accessed with no blood return noted. Flushes without difficulty. Labs done peripherally and results reviewed. Liver enzymes increased from last week. Potassium level 2.8. Dr Cisneros aware. Order received for potassium 40meq po and 20meq IV. Pt will not get treatment today, and pharmacy notified. CEA added to todays labs and result pending. Pt denies any increased abd pain. She does state she feels uncomfortable if she needs to bend to tie her shoes. Denies vomiting/diarrhea. Dr Cisneros examined pt, and pt to go to ED for eval and urgent CT scan. Phone report given to charge nurse and pt brought to ED.
--- NOTE | 2023-06-24 10:37 | PM.EVENT ---
Because of LFT abnormalities and probability of worsening hepatic function with Lubrinectidin, I have switched her treatment to topotecan in the second-line setting.
--- NOTE | 2023-06-24 10:42 | HO.HEMONCPA ---
Addendum entered by Darlyn Perez 06/25/23 15:45: NO PA NEEDED FOR TOPOTECAN J9351 PER [facility] PORTAL REQUEST # [id number] AND CONF# [id number] Original Note: PA PENDING FOR TOPOTECAN J9351 AWAITING DECISION FROM [facility] CASE # [id number]
--- NOTE | 2023-06-24 11:52 | MHC.HEMONC ---
Triage call-spoke with pt who states she is being discharged from hospital today. Aware of appointment for fluoroscopy tomorrow. Informed of plan for new chemotherapy medication which will start on 07/01/23 at 1100. Pt verbalizes understanding of information given
--- NOTE | 2023-06-27 11:53 | MHC.HEMONC ---
Triage- Pt called to request a refill of Oxycodone. Msg sent to Dr Blancas
--- NOTE | 2023-07-01 09:48 | MHC.HEMONC ---
Nurse took t/c from pt, urgently requesting more oxycodone, Dr. Blancas sent scrip to pt's pharmacy. When nurse called pt to notify her, pt answered and replied that [place] [facility] [place], said she's in the right place, wouldn't have been able to manage her symptoms at home. Nurse notified chemo pharmacist and Nurse Floyd Marsh that she will not be treated today, that pt was admitted w/ Acute Resp Failure. Nurse cancelled pt's chemo and chemo teach appts.
== END 2023-07-03 | disposition home or self-care (01) ==
LOC: HO.ONC 12:00
PROVIDERS: PCP Internal Medicine; Visit Provider Internal Medicine
DX: C34.12 Malignant neoplasm of upper lobe, left bronchus or lung (principal); C79.51 Secondary malignant neoplasm of bone; G93.9 Disorder of brain, unspecified; D72.829 Elevated white blood cell count, unspecified; E87.6 Hypokalemia; R79.89 Other specified abnormal findings of blood chemistry; J44.9 Chronic obstructive pulmonary disease, unspecified; G47.00 Insomnia, unspecified; F17.210 Nicotine dependence, cigarettes, uncomplicated; Z79.891 Long term (current) use of opiate analgesic; Z92.3 Personal history of irradiation
CPT/HCPCS: 36415; 36591; 80048; 80053; 82378; 83615; 83970; 84443; 84550; 85007; 85025; 85027; 85610; 86704; 86706; 87340; 96366; 96367; 96372; 96375; 96413; 96415; 96417; 99205; 99214; 99215; J0897; J1100; J1453; J1642; J2405; J2506; J3480; J9022; J9045; J9181

== ENCOUNTER 2023-06-23 13:13 | Inpatient (IN) | payer OTHER, SELFPAY ==
--- NOTE | ~2023-06-23 | CT_ITS ---
EXAMINATION: CT ABDOMEN AND PELVIS WITH CONTRAST CLINICAL INFORMATION: Abdominal pain. COMPARISON: No prior dedicated CT scan of the abdomen or pelvis. PET/CT dated 02/25/2023. Chest CT dated 01/27/2023. TECHNIQUE: Multidetector volumetric images were obtained from the superior aspect of the liver through the pubic symphysis following administration 85 mL of Omnipaque 350 intravenous contrast. Sagittal and coronal reformatted images were obtained on the technologist's workstation. Oral contrast: No This CT examination was performed using dose optimization techniques as appropriate, variously including the following: *Automated exposure control *Adjustment of mA and/or kV according to patient size (this includes techniques or standardized protocols for targeted exams where dose is matched to indication/reason for exam; i.e. extremities or head) *Use of iterative reconstruction technique DLP: 576 mGy-cm FINDINGS: LUNG BASES: Mild bibasilar chronic interstitial fibrotic changes with a peripheral predominance, worse compared with 02/25/2023. 0.4 cm, peripheral left lower lobe lung nodule (image 46, series 4), not evident on 02/25/2023. No pleural effusion identified. LIVER, GALLBLADDER, AND BILIARY TREE: Extensive metastatic disease involving virtually the entire liver. This appears much worse compared with 02/25/2023. No biliary ductal dilatation is appreciated. Unremarkable appearance of the gallbladder. Patent portal vein. PANCREAS: Unremarkable SPLEEN: Unremarkable ADRENAL GLANDS: Nodularity of the adrenal glands bilaterally, new compared with 02/25/2023. KIDNEYS AND URETERS: The kidneys appear unremarkable in size, shape, and attenuation. No hydronephrosis, hydroureter, or calculi seen. BLADDER: Unremarkable GASTROINTESTINAL TRACT: Sigmoid diverticulosis without evidence of diverticulitis. Normal-appearing distal ileum and vermiform appendix. ABDOMINAL WALL: No significant hernia is appreciated. LYMPH NODES: No evidence of adenopathy by size criteria. VASCULAR: Unremarkable PELVIC VISCERA: Unremarkable OSSEOUS STRUCTURES: Partially imaged T10 sclerotic lesion, grossly similar compared with 02/25/2023. Nodularity of the adrenal glands bilaterally, new compared with 02/25/2023. CT/CT abdomen pelvis w IV con IMPRESSION: No acute finding. Extensive metastatic disease involving virtually the entire liver, much worse compared with 02/25/2023. Mild bibasilar chronic interstitial fibrotic changes with a peripheral predominance, worse compared with 02/25/2023. 0.4 cm, peripheral left lower lobe lung nodule, not evident on 02/25/2023. Partially imaged T10 sclerotic lesion, grossly similar compared with 02/25/2023.
--- NOTE | ~2023-06-23 | XR_ITS ---
EXAMINATION: XR CHEST CLINICAL INFORMATION: Cough. COMPARISON: None available. TECHNIQUE: Portable upright AP view of the chest was obtained. FINDINGS: The study is limited by portable technique and suboptimal inspiration. Findings suggest prominence of the pulmonary veins in their nondependent portions. No focal infiltrate, effusion, pneumothorax is seen. The cardiac silhouette is suboptimally evaluated. The tip of a presumed right internal jugular chest port catheter projects over the superior vena cava. Mild degenerative changes of the spine. Multiple old, healed, bilateral rib fractures. XR/XR chest 1V IMPRESSION: Limited study. Suspect mild pulmonary venous hypertension.
[2023-06-23 13:23] VITALS: BMI 32.8
--- NOTE | 2023-06-23 13:31 | ED.GENADULT ---
HPI - General Adult General Chief complaint: General Medical Stated complaint: Abnormal Labs Time Seen by Provider: 06/23/23 13:17 History of Present Illness HPI narrative: Patient is a 63-year-old female with a history of lung cancer metastatic has a port in place last dose of chemo was about a month ago has a history of COPD previous history of thyroid problems. Sent down from Oncology for abnormal labs. Patient denies any fever chills. No coughing or congestion. Was noted to have a low potassium. Was noted to have generalized weakness. Mild abdominal pain in the epigastric area. Large liver. A low potassium was noted. Patient was given some repletion earlier Related Data Home Medications Medication Instructions Recorded Confirmed nebulizers 10/31/22 04/01/23 Previous Rx's Medication Instructions Recorded budesonide-formoterol HFA 160 2 puff inhalation BID 30 days 08/20/22 mcg-4.5 mcg/actuation aerosol #10.2 grams inhaler (Symbicort) polyethylene glycol 3350 17 17 g PO DAILY #510 grams 08/30/22 gram/dose oral powder (Miralax) levothyroxine 112 mcg tablet 112 mcg PO DAILY #90 tabs 11/01/22 albuterol sulfate 2.5 mg/3 mL 2.5 mg (3 mL) inhalation Q6H PRN 11/25/22 (0.083 %) solution for nebulization for wheezing #150 mL cholecalciferol (vitamin D3) 50 50 mcg PO DAILY #90 caps 12/18/22 mcg (2,000 unit) capsule Ventolin HFA 90 mcg/actuation 2 puff PO Q6H PRN for wheezing 30 04/24/23 aerosol inhaler (albuterol sulfate) days #18 grams sucralfate 100 mg/mL oral 5 ml PO QID #200 mL 05/06/23 suspension (Carafate) bupropion HCl 75 mg tablet 150 mg (2 x 75 mg) PO BID #360 tabs 05/26/23 ondansetron 8 mg disintegrating 8 mg PO Q8H PRN Nausea #30 tabs 05/27/23 tablet oxycodone 10 mg tablet 10 mg PO Q6H PRN Pain (Scale Score 06/06/23 7-10) #90 tabs Allergies Allergy/AdvReac Type Severity Reaction Status Date / Time bee stings Allergy Severe Severe Uncoded 06/23/23 08:55 Swelling Review of Systems Review of Systems: Positive generalized malaise weakness Yes all other systems are reviewed and are negative [facility] Past Medical History Attestation statement: The following information was validated with the patient. Medical History Chest pain Lung cancer HTN (hypertension) Nicotine dependence, cigarettes, uncomplicated Rectal adenoma Pulmonary nodules Tubular adenoma of colon (~2009) Overweight (BMI 25.0-29.9) COPD (chronic obstructive pulmonary disease) Dyspnea Postmenopausal Primary thyroid cancer (~2013) Low vitamin D level Post-surgical hypothyroidism (~2013) Surgical History Status post de Quervain's release surgery History of bilateral carpal tunnel release History of total thyroidectomy (~2013) History of colonoscopy History of skin cancer (~2009) History of HPV infection (~1996) Family History Family History Father No problems noted. Mother Polycythemia vera Pulmonary cancer Sister Mental health disorder Social History Social History Housing: House Alcohol intake: never Patient Tobacco Use Status: Current everyday Tobacco user Tobacco use type: Cigarette Cigarettes Per Day: 3 Years Smoked: 50 Smoked in Last 30 Days: No e-Cigarette/Vaping Use: Never Used Second Hand Smoke Exposure: No Use of substances other than those prescribed or required for medical reasons: No Advance Directives: No Advance Directives Information Provided: Yes service: No Current occupational status: unemployed Cognitive needs: No Hearing needs: No Vision needs: Yes Physical Exam ED Vital Signs: Vital Signs - 24 hr 06/23/23 15:21 06/23/23 19:17 Temperature 97.9 F 97.0 F Pulse Rate 88 80 Respiratory Rate 16 22 H Blood Pressure 159/85 H 153/94 H Pulse Oximetry 96 94 Oxygen Delivery Method Room Air Room Air BMI result Body Mass Index 32.8 Appearance: Alert. Oriented X3. No acute distress. Eyes: Pupils equal, round and reactive to light. ENT: Pharynx normal. Neck: Normal inspection. Neck supple. No lymph nodes noted. No crepitus CVS: Normal heart rate and rhythm. Pulses normal. Normal S1 and S2 Respiratory: No respiratory distress. Breath sounds normal. No Wheezing. No rales Abdomen: Soft and nontender. No rigidity. Enlarged liver at least 4 fingerbreadths below the costal margin. good BS x4 Skin: Skin warm and dry. Normal skin color. Normal skin turgor. Extremities: No lower extremity edema. Neurovascular intact to all extremities. No Lacerations. No Rash Neuro: Oriented X 3. No motor deficit. No sensory deficit. Moving all extermities. No slurred speech Medications Administered Discontinued Medications Generic Name Dose Route Start Last Admin Trade Name Freq PRN Reason Stop Dose Admin Sodium Chloride 1,000 mls @ 999 mls/hr 06/23/23 13:45 06/23/23 14:50 Ns IV 06/23/23 14:45 999 mls/hr .Q1H1M KAMALJIT Administration Cefepime HCl 2 gm/ Sodium 50 mls @ 100 mls/hr 06/23/23 13:37 06/23/23 14:48 Chloride IV 06/23/23 14:06 100 mls/hr ONCE ONE Administration Sodium Chloride 2,523 mls @ 2,523 mls/hr 06/23/23 16:46 06/23/23 17:55 Ns 30 ml/kg infuse over 1 hr (2523 ml) 06/23/23 17:45 2,523 mls/hr IV Administration .Q1H STA Iohexol 100 ml 06/23/23 14:08 06/23/23 14:08 Iohexol 350 Mg/Ml 100 Ml Infus..Btl IV 06/23/23 14:09 85 ml ONCE ONE Administration Oxycodone HCl 10 mg 06/23/23 15:25 06/23/23 15:31 Oxycodone Hcl Immed Release 5 Mg Tablet PO 06/23/23 15:26 10 mg ONCE ONE Administration Potassium Chloride 40 meq 06/23/23 13:23 06/23/23 14:47 Potassium Chloride Packet 20 Meq Packet PO 06/23/23 13:24 40 meq ONCE ONE Administration Medical Decision Making Medical Decision Making MDM Narrative: Patient presented with elevated white count [facility] grade there is no chemo that was done. Patient white count was 20. Has a left shift. Cultures were obtained. 2 g of cefepime was given. 1 L of fluid was ordered initially there is no fever noted by Oncology. Patient appear weak had a enlarged liver per oncologist. Patient's lactate only came back at 16:35. Cultures are obtained initially. Antibiotics already started. Patient was given 1L of fluids initially. Chest x-ray showed minimal pulmonary fullness. BNP was slightly elevated. Will give the remaining 1524 cc. Repeat lactate pending. Patient is to be admitted. 18:40 After IV fluids patient's repeat lactate was elevated at 3.4. Question this is secondary to patient's liver disease. Antibiotic was started. Repeat focal exam for sepsis was done. Patient well-appearing at this point. Will admit for further evaluation. Case consulted by the hospitalist team. Patient's urine showed no signs of infection. Patient's COVID flu RSV were all negative. Chest x-ray showed no focal infiltrate. Potassium after repletion is now 3.1. BUN and creatinine is 19 and 0.6 consistent with some mild dehydration. Differential Diagnosis Differential Diagnoses: The differential diagnosis associated with the presentation includes Infection, liver disease, metastatic disease Admission/Observation Consideration of admission/observation: Escalation of care including admission/observation considered Will admit for further evaluation Consult Healthcare Provider Management of the patient was discussed with: Hospitalist and Cryptozoologist Oncologist Lab Data MDM Lab Attestation statement: I reviewed the patient's lab results. 06/23/23 13:59 Labs: Lab Results 06/23/23 06/23/23 06/23/23 Range/Units 13:52 13:59 15:18 Sodium 142 (135-145) mmol/L Potassium 3.1 L (3.3-5.1) mmol/L Chloride 101 (96-108) mmol/L Carbon Dioxide 29 (22-29) mmol/L Anion Gap 15 (12-20) BUN 19 H (9-16) mg/dL Creatinine 0.61 (0.5-1.4) mg/dL Estim Creat Clear Calc 96.9 Estimated GFR > 60 Random Glucose 142 H (60-115) mg/dL Lactic Acid 4.1 H* (0.5-2.0) mmol/L Lactic Acid F/U @ 2Hr (0.5-2.0) mmol/L Calcium 8.4 (8.4-10.2) mg/dL B-Natriuretic Peptide 147 H (<100) pg/mL Urine Color Yellow Urine Appearance Clear Urine pH 6.5 (5.0-9.0) Ur Specific Marlin >= 1.030 H (1.005-1.025) Urine Protein Trace (Neg-Trace) mg/dL Urine Glucose (UA) Negative (Negative) mg/dL Urine Ketones Negative (Negative) mg/dL Urine Blood Negative (Negative) Urine Nitrite Negative (Negative) Ur Leukocyte Esterase Negative (Negative) Urine RBC 0-2 (0-2) /HPF Urine WBC 0-5 (0-5) /HPF Ur Squamous Epith Cells 0-2 (0-2) /HPF Urine Bacteria None Seen (None Seen) Hyaline Casts 0-2 (0-2) /LPF Influenza Type A (PCR) NEGATIVE (Negative) Influenza Type B (PCR) NEGATIVE (Negative) RSV RNA Qual (PCR) NEGATIVE (Negative) SARS-CoV-2 RNA (RT-PCR) NEGATIVE (Negative) 06/23/23 Range/Units 18:25 Sodium (135-145) mmol/L Potassium (3.3-5.1) mmol/L Chloride (96-108) mmol/L Carbon Dioxide (22-29) mmol/L Anion Gap (12-20) BUN (9-16) mg/dL Creatinine (0.5-1.4) mg/dL Estim Creat Clear Calc Estimated GFR Random Glucose (60-115) mg/dL Lactic Acid (0.5-2.0) mmol/L Lactic Acid F/U @ 2Hr 3.4 H* (0.5-2.0) mmol/L Calcium (8.4-10.2) mg/dL B-Natriuretic Peptide (<100) pg/mL Urine Color Urine Appearance Urine pH (5.0-9.0) Ur Specific Marlin (1.005-1.025) Urine Protein (Neg-Trace) mg/dL Urine Glucose (UA) (Negative) mg/dL Urine Ketones (Negative) mg/dL Urine Blood (Negative) Urine Nitrite (Negative) Ur Leukocyte Esterase (Negative) Urine RBC (0-2) /HPF Urine WBC (0-5) /HPF Ur Squamous Epith Cells (0-2) /HPF Urine Bacteria (None Seen) Hyaline Casts (0-2) /LPF Influenza Type A (PCR) (Negative) Influenza Type B (PCR) (Negative) RSV RNA Qual (PCR) (Negative) SARS-CoV-2 RNA (RT-PCR) (Negative) Independent Interpretation I performed an independent interpretation of an: EKG (sinus heart rate is 80 UT QRS QTC within normal limits), Plain X-Ray (No focal infiltrate) and CT Scan (CT scan of the abdomen pelvis showed no acute obstruction abscess perforation enlarged liver with multiple meds noted) Radiology Impression Discussion of test interpretation with radiology: I have reviewed the radiologist's reading. Independent Historian Clinical information obtained from an independent historian. History obtained from or confirmed by: EMS External Record Review External record reviewed: Inpatient record and Office record Chronic Conditions Patient?s care impacted by: Cancer Critical Care Time Critical Care Time Critical Care Time: Yes Total Critical Care Time: 40 Attestation: I have personally provided 40 minutes of critical care time exclusive of time spent on separately billable procedures. ?Time includes review of lab data, radiology results, discussion with consultants, and monitoring for potential decompensation. ?Interventions were performed as documented above Discharge Plan Discharge Clinical Impression: Abdominal pain Prescriptions: No Action budesonide-formoterol [Symbicort] 160-4.5 mcg/actuation HFA aerosol inhaler 2 puff inhalation BID 30 Days Qty: 10.2 11RF levothyroxine 112 mcg tablet 112 mcg PO DAILY Qty: 90 2RF albuterol sulfate 2.5 mg /3 mL (0.083 %) solution for nebulization 2.5 mg inhalation Q6H PRN (Reason: for wheezing) Qty: 150 0RF cholecalciferol (vitamin D3) 50 mcg (2,000 unit) capsule 50 mcg PO DAILY Qty: 90 4RF albuterol sulfate [Ventolin HFA] 90 mcg/actuation HFA aerosol inhaler 2 puff PO Q6H PRN (Reason: for wheezing) 30 Days Qty: 18 2RF bupropion HCl 75 mg tablet 150 mg PO BID Qty: 360 2RF ondansetron 8 mg Tablet,Disintegrating 8 mg PO Q8H PRN (Reason: Nausea) Qty: 30 3RF sucralfate [Carafate] 100 mg/mL Suspension 5 ml PO QID Qty: 200 3RF Rx Instructions: swish in mouth and swallow; use after food/drink oxycodone 10 mg Tablet 10 mg PO Q6H PRN (Reason: Pain (Scale Score 7-10)) Qty: 90 0RF Rx Instructions: Partial Fill upon patient request. polyethylene glycol 3350 [Miralax] 17 gram/dose powder 17 g PO DAILY Qty: 510 2RF (DME) nebulizers Misc See Rx Instructions .Route Rx Instructions: As directed
--- NOTE | 2023-06-23 13:33 | ECG_ITS ---
Test Reason : CP Blood Pressure : / mmHG Vent. Rate : 078 BPM Atrial Rate : 078 BPM P-R Int : 148 ms QRS Dur : 082 ms QT Int : 408 ms P-R-T Axes : 051 020 043 degrees QTc Int : 465 ms Sinus rhythm with Premature atrial complexes Low voltage QRS Nonspecific ST abnormality Abnormal ECG When compared with ECG of 15-OCT-2022 09:34, Premature atrial complexes are now Present Referred By: Mago Castorena Electronically Signed By:Bryson Lynch
[2023-06-23] MEDS: iohexoL 350 MG/ML 100 ML INFUS..BTL IV (14:08)
[2023-06-23 14:38] LABS: B Type Natriuretic Peptide 147 pg/mL (<100)
[2023-06-23 14:44] LABS: Influenza A PCR NEGATIVE (Negative); Influenza B PCR NEGATIVE (Negative); Resp Syncy Virus RNA Qual PCR NEGATIVE (Negative); SARS COV2 PCR INHOUSE NEGATIVE (Negative)
[2023-06-23] MEDS: Potassium Chloride Packet 20 MEQ PACKET 40 MEQ PO (14:47)
[2023-06-23] MEDS: cefEPime HCl 2 GM in 0.9 % Sodium Chloride 50 ML IV (14:48)
[2023-06-23] MEDS: 0.9 % Sodium Chloride 1,000 ML 999 ML IV (14:50)
[2023-06-23 15:21] VITALS: BP 159/85; PULSE 88; RESP 16; TEMP 36.6; O2SAT 96
[2023-06-23 15:26] LABS: Appearance Urine Clear; Color Urine Yellow; Glucose Urine UA Negative (Negative); Leukocyte Esterase Urine Negative (Negative); Nitrite Urine Negative (Negative); PH 6.5 (5.0-9.0); Specific Gravity - Urine >= 1.030 (1.005-1.025); Urine Blood Negative (Negative); Urine Ketones Negative (Negative); Urine Protein Trace mg/dL (Neg-Trace)
[2023-06-23 15:31] LABS: Bacteria Urine None Seen (None Seen); Hyaline Casts Urine 0-2 /LPF (0-2); RBC Urine 0-2 /HPF (0-2); Squamous Epithelial Cell Urine 0-2 /HPF (0-2); WBC Urine 0-5 /HPF (0-5)
[2023-06-23] MEDS: oxyCODONE HCl Immed Release 5 MG TABLET 10 MG PO ×2 (15:31→22:28)
[2023-06-23 16:40] LABS: Anion Gap 15 (12-20); Blood Urea Nitrogen 19 mg/dL (9-16); Calcium 8.4 mg/dL (8.4-10.2); Carbon Dioxide 29 mmol/L (22-29); Chloride 101 mmol/L (96-108); Creatinine Clr Calc Pharmacy 96.9; Estimated Glomerular Filt Rate > 60; Glucose Random 142 mg/dL (60-115); Potassium 3.1 mmol/L (3.3-5.1); Sodium 142 mmol/L (135-145)
[2023-06-23 16:41] LABS: Lactic Acid 4.1 mmol/L (0.5-2.0); Reflex Lactate? Lactic Acid Added
[2023-06-23 18:44] LABS: ~Lactic Acid-LAB USE ONLY 3.4 mmol/L (0.5-2.0)
[2023-06-23 19:17] VITALS: BP 153/94; PULSE 80; RESP 22; TEMP 36.1; O2SAT 94
--- NOTE | 2023-06-23 19:55 | PHA.MEDREC ---
Pharmacy Consult ? Medication Reconciliation Pharmacy has completed the medication reconciliation. Patient reported medications. Reported he oxycodone is scheduled instead of prn. Reported not taking bupropion. Patient also reported her nebulizer blew up Norah Werner, OfeD
[2023-06-23 20:29] LABS: Reflex Lactate? 2 Y
--- NOTE | 2023-06-23 20:50 | P.HPHOSP_ITS ---
History of Present Illness Date of Service: 06/23/23 Attending physician on admission: Neda Quezada Chief Complaint: bandemia 63 year old female with history of thyroid cancer s/p thyroidectomy and RODRIGUEZ 2013, postsurgical hypothyroidism, hypercholesterolemia, hypertension, rectal adenoma, COPD, and metastatic small cell lung cancer (on carboplatin with etoposide and atezolizumab as well as denoumab for bony mets) following with Dr. Cisneros presented to the ED earlier today from oncology office due to leukocytosis and bandemia. Pt reports for the last week has had significant abdominal distention with diffuse tenderness to palpation, worst on the sides. No associated fevers, chills, nausea, vomiting, diarrhea, cough, shortness of breath, lightheadedness, headache, chest pain. No known sick contacts. Last bowel movement was yesterday and was reportedly normal. On arrival, patient initially tachycardic to 104, vital signs otherwise stable though slightly hypertensive to 153/94 on admission. Earlier today had a leukocytosis of 20.7, diff pending. Differential from 06/17 shows 75% neutrophils, ANC 18.5. Bandemia 13%. Renal function normal, electrolytes normal except for mild hypokalemia 3.1. Initial lactic acid 4.1, repeat 3.4. Urinalysis unremarkable. Negative for COVID-19, RSV, influenza. CXR negative for acute cardiopulmonary abnormality but shows suspicion for mild pulmonary venous hypertension. CT abdomen/pelvis negative for any acute finding which shows extensive metastatic disease involving virtually the entire liver worsened compared to prior studies. There is also mild bibasilar chronic interstitial fibrotic changes within the peripheral predominance worse compared to prior studies and a partially imaged T10 sclerotic lesion similar to prior imaging. In the ED, has received 3.5 L IV NS, 2 g cefepime, 40 mEq potassium chloride, 10 mg oxycodone. Review of Systems 2 Review of Systems: General: No fevers, malaise, unintentional weight loss HEENT: No blurred vision, diplopia. No sore throat, nasal congestion, rhinorrhea, sinus pain, ear pain Cardiovascular: No chest pain, palpitations, or leg edema Respiratory: No shortness of breath, wheezing, cough GI: +abd distention, +abd pain. No nausea, vomiting, diarrhea, constipation, melena, hematochezia : No dysuria, hematuria, increased urinary frequency, decreased urinary output MSK: No myalgia, back pain Neuro: No headaches, weakness, paresthesias Skin: No rashes or lesions [facility] Medical History Chest pain Lung cancer HTN (hypertension) Nicotine dependence, cigarettes, uncomplicated Rectal adenoma Pulmonary nodules Tubular adenoma of colon (~2009) Overweight (BMI 25.0-29.9) COPD (chronic obstructive pulmonary disease) Dyspnea Postmenopausal Primary thyroid cancer (~2013) Low vitamin D level Post-surgical hypothyroidism (~2013) Family History Father No problems noted. Mother Polycythemia vera Pulmonary cancer Sister Mental health disorder Surgical History Status post de Quervain's release surgery History of bilateral carpal tunnel release History of total thyroidectomy (~2013) History of colonoscopy History of skin cancer (~2009) History of HPV infection (~1996) Social History Housing: House Alcohol intake: never Patient Tobacco Use Status: Current everyday Tobacco user Tobacco use type: Cigarette Cigarettes Per Day: 3 Years Smoked: 50 Smoked in Last 30 Days: No e-Cigarette/Vaping Use: Never Used Second Hand Smoke Exposure: No Use of substances other than those prescribed or required for medical reasons: No Advance Directives: No Advance Directives Information Provided: Yes service: No Current occupational status: unemployed Cognitive needs: No Hearing needs: No Vision needs: Yes Meds Allergies Allergy/AdvReac Type Severity Reaction Status Date / Time bee stings Allergy Severe Severe Uncoded 06/23/23 08:55 Swelling Active Medications: Current Medications Acetaminophen (Acetaminophen 325 Mg Tablet) 650 mg PO Q6H PRN PRN Reason: Pain, Mild (Pain Scale 1-3) Albuterol Sulfate (Albuterol Sulfate 90 Mcg 8 Gm Inhaler) 2 puff INHALE Q6H PRN PRN Reason: for wheezing Enoxaparin Sodium (Enoxaparin Sodium 40 Mg/0.4 Ml Syringe) 40 mg SUBCUT Q24H [facility] Piperacillin Sod/Tazobactam (Sod 4.5 gm/ Sodium Chloride) 100 mls @ 200 mls/hr IV Q6H [facility] Levothyroxine Sodium (Levothyroxine Sodium 112 Mcg Tablet) 112 mcg PO DAILY [facility] Nicotine (Nicotine 7 Mg Patch.Td24) 7 mg TRANSDERMA DAILY [facility] Nicotine Polacrilex (Nicotine Polacrilex 2 Mg Gum) 2 mg BUCCAL Q2H PRN PRN Reason: Nicotine Cravings Non-Formulary Medication (Budesonide-Formoterol [Symbicort]) 2 puff INHALE BID [facility] Ondansetron HCl (Ondansetron Hcl 4 Mg/2 Ml Vial) 4 mg IVPUSH Q8H PRN PRN Reason: Nausea and Vomiting Oxycodone HCl (Oxycodone Hcl Immed Release 5 Mg Tablet) 10 mg PO 0200,0800,1600,2100 [facility] Pharmacy Consult (Consult Rx Vancomycin Dosing) 1 each MISCELLANE DAILY PRN PRN Reason: Consult order Senna (Sennosides 8.6 Mg Tablet) 17.2 mg PO BEDTIME PRN PRN Reason: Constipation Sodium Chloride (0.9 % Sodium Chloride Flush 3 Ml Syringe) 3 ml IVFLUSH QSHIFT [facility] Vitamin D (Cholecalciferol (Vitamin D3) 25 Mcg Tablet) 50 mcg PO DAILY [facility] Home Medications Medication Instructions Recorded Confirmed Last Taken Type oxycodone 10 mg tablet 10 mg PO 0200,0800,1600,2100 Pain 06/23/23 06/23/23 06/23/23 History (Scale Score 7-10) Physical Exam 2 Vital Signs and Narrative: Vital Signs: Last Vital Signs Temp 97.0 F 06/23/23 19:17 Pulse 80 06/23/23 19:17 Resp 22 H 06/23/23 19:17 BP 153/94 H 06/23/23 19:17 Pulse Ox 94 06/23/23 19:17 O2 Del Method Room Air 06/23/23 19:17 BMI result Body Mass Index 32.8 Constitutional - Awake and Alert, No apparent distress Eyes - PERRLA, EOMI Cardiovascular - S1S2, RRR, No edema Respiratory - Normal lung expansion, Normal respiratory effort, No respiratory distress, CTA bilaterally Gastrointestinal - significant abd distention with diffuse ttp, greatest RUQ. +BS; No rebound or guarding Extremities - no calf tenderness bilaterally, no swelling Skin - Warm/Dry Neurological - Alert & oriented x3 Psychological - Appropriate affect Results Labs 06/23/23 13:59 Labs: Laboratory Results - last 24 hr 06/23/23 06/23/23 06/23/23 13:52 13:59 15:18 Anion Gap 15 Estim Creat Clear Calc 96.9 Estimated GFR > 60 Random Glucose 142 H Lactic Acid 4.1 H* Lactic Acid F/U @ 2Hr Calcium 8.4 B-Natriuretic Peptide 147 H Urine Color Yellow Urine Appearance Clear Urine pH 6.5 Ur Specific [place] >= 1.030 H Urine Protein Trace Urine Glucose (UA) Negative Urine Ketones Negative Urine Blood Negative Urine Nitrite Negative Ur Leukocyte Esterase Negative Urine RBC 0-2 Urine WBC 0-5 Ur Squamous Epith Cells 0-2 Urine Bacteria None Seen Hyaline Casts 0-2 Influenza Type A (PCR) NEGATIVE Influenza Type B (PCR) NEGATIVE RSV RNA Qual (PCR) NEGATIVE SARS-CoV-2 RNA (RT-PCR) NEGATIVE 06/23/23 18:25 Anion Gap Estim Creat Clear Calc Estimated GFR Random Glucose Lactic Acid Lactic Acid F/U @ 2Hr 3.4 H* Calcium B-Natriuretic Peptide Urine Color Urine Appearance Urine pH Ur Specific [place] Urine Protein Urine Glucose (UA) Urine Ketones Urine Blood Urine Nitrite Ur Leukocyte Esterase Urine RBC Urine WBC Ur Squamous Epith Cells Urine Bacteria Hyaline Casts Influenza Type A (PCR) Influenza Type B (PCR) RSV RNA Qual (PCR) SARS-CoV-2 RNA (RT-PCR) Imaging Radiologist's Impressions: Impressions Chest X-Ray 06/23/23 13:44 IMPRESSION: Limited study. Suspect mild pulmonary venous hypertension. Abdomen/Pelvis CT 06/23/23 14:17 IMPRESSION: No acute finding. Extensive metastatic disease involving virtually the entire liver, much worse compared with 02/25/2023. Mild bibasilar chronic interstitial fibrotic changes with a peripheral predominance, worse compared with 02/25/2023. 0.4 cm, peripheral left lower lobe lung nodule, not evident on 02/25/2023. Partially imaged T10 sclerotic lesion, grossly similar compared with 02/25/2023. Assessment and Plan (1) Abdominal pain: Status: Acute (2) Small cell lung cancer: Status: Chronic (3) Metastatic cancer to liver: Status: Acute Plan 63 year old female with history of thyroid cancer s/p thyroidectomy and RODRIGUEZ 2013, postsurgical hypothyroidism, hypercholesterolemia, hypertension, rectal adenoma, COPD, and metastatic small cell lung cancer (on carboplatin with etoposide and atezolizumab as well as denoumab for bony mets) following with Dr. Cisneros presented to the ED earlier today from oncology office due to leukocytosis and bandemia. #Leukocytosis/bandemia -?r/t metastatic malignancy vs infection -intermittent tachycardia and tachypnea due to pain. Lactic acidosis r/t malignancy. Not septic -UA unremarkable, CXR negative. CT abd/pelvis shows metatstic disease, but no evidence of infectious source -Cover with broad spectrum abx for now- IV vanco and zosyn (initiated 06/23) -Follow CBC, cultures -Oncology consult #Abd distention/pain -likely r/t metastatic disease -continue oxycodone -oncology consult #Metastatic small cell lung CA -on carboplatin with etoposide and atezolizumab as well as denoumab for bony mets -Ct abd/pelvis shows worsening metastatic disease involving entire liver -oncology consult #HTN -not on antihypertensives at home, montior bp #post-operative hypothyroidism -continue levothyroxine #COPD -no acute exacerbation -continue maintenance inhalers, albuterol prn #nicotine dependence -cessation advised -patches for nrt DVT prophyalxis- lovenox full code Pt requires inpt stay at least 2 midnights due to bandemia/leukocytosis in immunocompromised pt with out clear infection source requiring empiric iv abx and expert consultation Quality Stroke Does the patient have a stroke diagnosis?: No VTE Prior VTE?: No VTE Risk Level:: Medical - moderate - high VTE Device Contraindication: Treatment Not Indicated VTE Drug Contraindication: N/A - Med Ordered
[2023-06-23 21:46] LABS: ~Lactic Acid-LAB USE ONLY 4.2 mmol/L (0.5-2.0)
[2023-06-23] MEDS: Enoxaparin Sodium 40 MG/0.4 ML SYRINGE SUBCUT (22:23)
[2023-06-23] MEDS: vancomycin/NS 2,000 MG/500 ML PLAST..BAG 250 MG IV (22:24)
[2023-06-23] MEDS: Piperacillin Sodium/Tazobactam 4.5 GM in 0.9 % Sodium Chloride 100 ML IV (22:29)
--- NOTE | 2023-06-23 22:36 | PHA.PROG ---
Admission Date/Time: June 23, 2023 20:45 Indication: Leukocytosis/bandemia Weight in k.1 kg Adjusted body weight in K KG [place] body weight in K.4 kg Obesity Dosing Indication % IBW: 160% Serum Creatinine - Last 168 Hours 06/23/23 13:59 Creatinine 0.61 Estimated CrCl and GFR - Last 168 Hours 06/23/23 13:59 Estim Creat Clear Calc 96.9 Estimated GFR > 60 Vancomycin Loading Dose: 2000 mg Current Vancomycin Dosing Regimen: 1250 mg Q12H Date and Time for next Vancomycin Level to be drawn: 06/25 @ 0900 Pharmacist Comments on Vancomycin Plan: patient received an adequate load dose in the ER on 06/23 @ 2224 maintenance dose vancomycin 1250 mg Q12H is schedule to start 06/24 @ 1100. Predicted AUC 471 with a trough of 13 Patient is obese with %IBW > 130% therefore careful monitoring is required due to vancomycin high volume of distribution Pharmacy will monitor renal function daily Norah Werner PharmD Vancomycin dosing will take advantage of [employer] as a clinical decision support tool that uses Bayesian modeling to calculate individual patient's pharmacokinetic parameters and forecast the patient's drug concentration time course with the target goal AUC 24 range of 400 - 600 mg/L/hr.
[2023-06-23 23:16] VITALS: BP 181/87; PULSE 83; RESP 20; TEMP 36.6; O2SAT 93
[2023-06-24 00:27] VITALS: BP 166/79; PULSE 75; RESP 18; TEMP 36; O2SAT 92
[2023-06-24 00:45] VITALS: BMI 31.6
[2023-06-24] MEDS: oxyCODONE HCl Immed Release 5 MG TABLET 10 MG PO ×2 (02:04→07:40)
[2023-06-24 03:58] VITALS: BP 137/75; PULSE 77; RESP 18; TEMP 36; O2SAT 94
[2023-06-24] MEDS: Piperacillin Sodium/Tazobactam 4.5 GM in 0.9 % Sodium Chloride 100 ML IV (04:53)
[2023-06-24] MEDS: Levothyroxine Sodium 112 MCG TABLET PO (05:29)
[2023-06-24 07:06] LABS: Hematocrit 39.1 % (37.0-47.0); Hemoglobin 13.2 g/dl (12.0-16.0); Mean Corpuscular HGB Conc 33.8 g/dl (31.0-35.0); Mean Corpuscular Hemoglobin 29.7 pg (27.0-33.0); Mean Corpuscular Volume 87.9 fL (80.0-98.0); NRBC Pct Auto 0.1 /100WBC (0.0-0.2); Platelet Count 187 X10*3/uL (160-400); Red Blood Count 4.45 X10*6/uL (4.20-5.50); Red Cell Distribution Width 17.2 % (11.0-16.0); White Blood Count 16.8 X10*3/uL (4.8-10.8)
[2023-06-24 07:27] VITALS: BP 156/81; PULSE 71; RESP 16; TEMP 36; O2SAT 94
[2023-06-24 07:31] LABS: Anion Gap 17 (12-20); Blood Urea Nitrogen 17 mg/dL (9-16); Calcium 7.5 mg/dL (8.4-10.2); Carbon Dioxide 27 mmol/L (22-29); Chloride 104 mmol/L (96-108); Creatinine Clr Calc Pharmacy 101.7; Estimated Glomerular Filt Rate > 60; Glucose Random 109 mg/dL (60-115); Sodium 145 mmol/L (135-145)
[2023-06-24] MEDS: 0.9 % Sodium Chloride Flush 3 ML SYRINGE IVFLUSH (07:41)
[2023-06-24] MEDS: Cholecalciferol (Vitamin D3) 25 MCG TABLET 50 MCG PO (07:41)
[2023-06-24] MEDS: ondansetron HCL 4 MG/2 ML VIAL IVPUSH (07:47)
[2023-06-24 08:24] LABS: Atypical Lymph Absolute Manual 0.3 x10*3/uL; Atypical Lymphs Percent Manual 2 % (0-6); Band Neutrophils Percent 8 % (3-5); Lymphocytes Absolute Manual 0.8 X10*3/uL (1.2-4.9); Lymphocytes Percent Manual 5 % (20-40); Metamyelocytes Absolute 0.3 X10*3/uL; Metamyelocytes Percent 2 %; Monocytes Absolute Manual 0.8 X10*3/uL (0.1-1.2); Monocytes Percent Manual 5 % (2-11); Myelocytes Absolute 0.2 X10*/uL; Myelocytes Percent 1 %; Neutrophils Absolute Manual 14.3 X10*3/uL (2.0-8.3); Neutrophils Percent Manual 77 % (45-73)
[2023-06-24 08:29] LABS: Platelet Estimate NORMAL (NORMAL); Platelet Morphology Comment NORMAL; RBC Morphology NORMAL
[2023-06-24 08:53] LABS: Alanine Aminotransferase 148 U/L (0-31); Albumin Level 3.4 g/dL (3.5-5.0); Alkaline Phosphatase 94 U/L (39-117); Aspartate Amino Transferase 106 U/L (5-31); Bilirubin Direct 0.5 mg/dL (0.0-0.5); Bilirubin Total 0.8 mg/dL (0.0-1.0); Total Protein 5.6 g/dL (6.5-8.0)
--- NOTE | 2023-06-24 09:13 | HO.PM.IMPN ---
Subjective Subjective Date of Service: 06/24/23 Interval History: Seen and evaluated feels better since last night and has more strength denies fever or chills Review of Systems Review of Systems: Yes all other systems are reviewed and are negative Physical Exam Vital Signs: Vital Signs: Last Vital Signs Temp 96.8 F 06/24/23 07:27 Pulse 71 06/24/23 07:27 Resp 16 06/24/23 07:27 BP 156/81 H 06/24/23 07:27 Pulse Ox 94 06/24/23 07:27 O2 Del Method Room Air 06/24/23 07:27 BMI result Body Mass Index 31.6 Const: Other: Constitutional : Awake, interactive, not in distress Neck : Normal inspection, Supple Cardiovascular : RRR, no JVP, no lower extremity edema Respiratory : good bilateral air entry, no crackles, wheezes or rhonchi Gastrointestinal: soft, lax, Normal bowel sounds, Non tender Skin : Warm, Dry, Port-a-cath in place with no surrounding erythema Neurological : Alert & oriented x3, No focal deficit Objective Data Active Medications Acetaminophen (Acetaminophen 325 Mg Tablet) 650 mg PO Q6H PRN PRN Reason: Pain, Mild (Pain Scale 1-3) Albuterol Sulfate (Albuterol Sulfate 90 Mcg 8 Gm Inhaler) 2 puff INHALE Q6H PRN PRN Reason: for wheezing Enoxaparin Sodium (Enoxaparin Sodium 40 Mg/0.4 Ml Syringe) 40 mg SUBCUT Q24H [facility] Last Admin: 06/23/23 22:23 Dose: 40 mg Documented By: RUBIN Fluticasone/Vilanterol (Fluticasone/Vilanterol 200/25 Blst.W.Dev) 1 puff INHALE RDAILY [facility] Piperacillin Sod/Tazobactam (Sod 4.5 gm/ Sodium Chloride) 100 mls @ 200 mls/hr IV Q6H [facility] Last Infusion: 06/24/23 05:27 Dose: Infused Documented By: PONCHO Vancomycin HCl 1,250 mg/ (Sodium Chloride) 250 mls @ 166.667 mls/hr IV Q12H [facility] Levothyroxine Sodium (Levothyroxine Sodium 112 Mcg Tablet) 112 mcg PO DAILY@0600 [facility] Last Admin: 06/24/23 05:29 Dose: 112 mcg Documented By: PONCHO Nicotine (Nicotine 7 Mg Patch.Td24) 7 mg TRANSDERMA DAILY [facility] Last Admin: 06/24/23 07:43 Dose: Not Given Documented By: PALMER Non-Admin Reason: Patient Refused Nicotine Polacrilex (Nicotine Polacrilex 2 Mg Gum) 2 mg BUCCAL Q2H PRN PRN Reason: Nicotine Cravings Ondansetron HCl (Ondansetron Hcl 4 Mg/2 Ml Vial) 4 mg IVPUSH Q8H PRN PRN Reason: Nausea and Vomiting Last Admin: 06/24/23 07:47 Dose: 4 mg Documented By: PALMER Oxycodone HCl (Oxycodone Hcl Immed Release 5 Mg Tablet) 10 mg PO 0200,0800,1600,2100 [facility] Last Admin: 06/24/23 07:40 Dose: 10 mg Documented By: PALMER Pharmacy Consult (Consult Rx Vancomycin Dosing) 1 each MISCELLANE DAILY PRN PRN Reason: Consult order Senna (Sennosides 8.6 Mg Tablet) 17.2 mg PO BEDTIME PRN PRN Reason: Constipation Sodium Chloride (0.9 % Sodium Chloride Flush 3 Ml Syringe) 3 ml IVFLUSH QSHIFT [facility] Last Admin: 06/24/23 07:41 Dose: 3 ml Documented By: PALMER Vitamin D (Cholecalciferol (Vitamin D3) 25 Mcg Tablet) 50 mcg PO DAILY [facility] Last Admin: 06/24/23 07:41 Dose: 50 mcg Documented By: PALMER Labs 06/24/23 05:58 06/24/23 05:58 Labs: Laboratory Results - last 24 hr 06/23/23 06/23/23 06/23/23 13:52 13:59 15:18 MCV MCH MCHC RDW Plt Count MPV Immature Gran % (Auto) Neut % (Auto) Lymph % (Auto) [place] % (Auto) Eos % (Auto) Baso % (Auto) Lymph # (Auto) [place] # (Auto) Eos # (Auto) Baso # (Auto) Abs Immat Gran (auto) Absolute Neuts (auto) Absolute Nucleated RBC Nucleated RBC % (auto) Neutrophils % (Manual) Band Neutrophils % Lymphocytes % (Manual) Atypical Lymphs % (Man) Monocytes % (Manual) Metamyelocytes % Myelocytes % Abs Neuts (Manual) Lymphocytes # (Manual) Atyp Lymphs # (Manual) Monocytes # (Manual) Metamyelocytes # Myelocytes # Platelet Estimate Plt Morphology Comment RBC Morphology Anion Gap 15 Estim Creat Clear Calc 96.9 Estimated GFR > 60 Random Glucose 142 H Lactic Acid 4.1 H* Lactic Acid F/U @ 2Hr Lactic Acid F/U @ 4Hr Calcium 8.4 Total Bilirubin Direct Bilirubin AST ALT Alkaline Phosphatase B-Natriuretic Peptide 147 H Total Protein Albumin Urine Color Yellow Urine Appearance Clear Urine pH 6.5 Ur Specific [place] >= 1.030 H Urine Protein Trace Urine Glucose (UA) Negative Urine Ketones Negative Urine Blood Negative Urine Nitrite Negative Ur Leukocyte Esterase Negative Urine RBC 0-2 Urine WBC 0-5 Ur Squamous Epith Cells 0-2 Urine Bacteria None Seen Hyaline Casts 0-2 Influenza Type A (PCR) NEGATIVE Influenza Type B (PCR) NEGATIVE RSV RNA Qual (PCR) NEGATIVE SARS-CoV-2 RNA (RT-PCR) NEGATIVE 06/23/23 06/23/23 06/24/23 18:25 21:15 05:58 MCV 87.9 MCH 29.7 MCHC 33.8 RDW 17.2 H Plt Count 187 MPV 10.0 Immature Gran % (Auto) Cancelled Neut % (Auto) Cancelled Lymph % (Auto) Cancelled [place] % (Auto) Cancelled Eos % (Auto) Cancelled Baso % (Auto) Cancelled Lymph # (Auto) Cancelled [place] # (Auto) Cancelled Eos # (Auto) Cancelled Baso # (Auto) Cancelled Abs Immat Gran (auto) Cancelled Absolute Neuts (auto) Cancelled Absolute Nucleated RBC 0.020 H Nucleated RBC % (auto) 0.1 Neutrophils % (Manual) 77 H Band Neutrophils % 8 H Lymphocytes % (Manual) 5 L Atypical Lymphs % (Man) 2 Monocytes % (Manual) 5 Metamyelocytes % 2 Myelocytes % 1 Abs Neuts (Manual) 14.3 H Lymphocytes # (Manual) 0.8 L Atyp Lymphs # (Manual) 0.3 Monocytes # (Manual) 0.8 Metamyelocytes # 0.3 Myelocytes # 0.2 Platelet Estimate NORMAL Plt Morphology Comment NORMAL RBC Morphology NORMAL Anion Gap 17 Estim Creat Clear Calc 101.7 Estimated GFR > 60 Random Glucose 109 Lactic Acid Lactic Acid F/U @ 2Hr 3.4 H* Lactic Acid F/U @ 4Hr 4.2 H* Calcium 7.5 L D Total Bilirubin 0.8 Direct Bilirubin 0.5 AST 106 H ALT 148 H Alkaline Phosphatase 94 B-Natriuretic Peptide Total Protein 5.6 L Albumin 3.4 L Urine Color Urine Appearance Urine pH Ur Specific [place] Urine Protein Urine Glucose (UA) Urine Ketones Urine Blood Urine Nitrite Ur Leukocyte Esterase Urine RBC Urine WBC Ur Squamous Epith Cells Urine Bacteria Hyaline Casts Influenza Type A (PCR) Influenza Type B (PCR) RSV RNA Qual (PCR) SARS-CoV-2 RNA (RT-PCR) Assessment and Plan (1) Metastatic cancer to liver: Status: Acute (2) Leukocytosis: Status: Acute (3) Abdominal pain: Status: Acute Plan 63 year old female with history of thyroid cancer s/p thyroidectomy and RODRIGUEZ 2013, postsurgical hypothyroidism, hypercholesterolemia, hypertension, rectal adenoma, COPD, and metastatic small cell lung cancer (on carboplatin with etoposide and atezolizumab as well as denoumab for bony mets) following with Dr. Cisneros presented to the ED earlier today from oncology office due to leukocytosis and bandemia. # Leukocytosis 2/2 metastatic malignancy vs infection No clear source of infection identified UA unremarkable, CXR negative. CT abd/pelvis shows metatstic disease, but no evidence of infectious source Pending cultures Continue broad spectrum abx for now: IV vanco and zosyn (initiated 06/23) Oncology consult Follow Vanco trough #Abd distention/pain 2/2 metastatic disease continue oxycodone #Metastatic small cell lung CA on carboplatin with etoposide and atezolizumab as well as denoumab for bony mets Ct abd/pelvis shows worsening metastatic disease involving entire liver # Lethargy PT Eval #HTN not on antihypertensives at home, montior bp #post-operative hypothyroidism continue levothyroxine #COPD no acute exacerbation continue maintenance inhalers, albuterol prn #nicotine dependence cessation advised patches for nrt DVT prophyalxis- lovenox full code Pt requires inpt stay overnight due to lethargy and bandemia/leukocytosis in immunocompromised pt with out clear infection source requiring empiric iv abx and expert consultation Quality Stroke Does the patient have a stroke diagnosis?: No VTE Prior VTE?: No VTE Risk Level:: Medical - moderate - high VTE Device Contraindication: Treatment Not Indicated VTE Drug Contraindication: N/A - Med Ordered
--- NOTE | 2023-06-24 09:35 | P.CNHO_ITS ---
Subjective - Subjective Chief complaint: Abdominal discomfort Patient: known to practice within the last 3 years Consult date: 06/24/23 Primary Care Provider: Sue Reynoso MD Medical Summary: Diagnosis: Extensive stage small cell lung cancer October 2022 In September 2021 she underwent lung cancer screening, CT chest at that time revealed subcentimeter pulmonary nodules for which follow-up was recommended. She had a 1 year follow-up CT chest in September 2022 which revealed multiple new bilateral pulmonary nodules along with abnormal mediastinal and left hilar lymphadenopathy. Largest pulmonary nodule measuring 8 mm, central lung mass measuring 3.4 cm and enlarged left precarinal lymph node measuring 1.9 cm. There was also left lung mass measuring 4 cm. She subsequently underwent CT angiogram which was negative for pulmonary embolism but showed significant hilar and mediastinal mass along with multiple bilateral lung nodules. She underwent EBUS with transbronchial needle aspiration of left upper lobe lung mass. Pathology from 10/16/2022 reported as small cell carcinoma. Lymph node, 4 L FNA was also positive for small cell carcinoma. Patient's family history significant for mother having of lung cancer at age 59 and maternal grandmother having of breast cancer. She underwent EBUS/bronchoscopy on 10/16/2022 which confirmed small cell lung cancer. Blood work showed elevated LDH of 679, CEA 21.90 NG/mL and calcium of 10.9. Brain MRI performed 10/2022 showed widespread osseous metastatic disease involving calvarium and skull base and upper cervical spine. No intracranial lesions seen. PET-CT performed on 11/19/2022 showed large left hilar mass with abnormal FDG activity, FDG avid T7 compression deformity, several FDG avid rib fractures, extensive calvarial metastasis. HPI - Consult Narrative Reason for consult: Extensive liver Mets, leukocytosis Narrative: Ev Pacheco is a 63 year old female who is well known to Oncology Service because of her history of extensive stage small cell lung cancer that was diagnosed in October 2022. She was on chemotherapy, in February she developed brain metastasis for which she underwent palliative whole-brain radiation therapy. She was on maintenance atezolizumab, blood work in Oncology office showed worsening transaminases as well as leukocytosis on. She was therefore referred to the emergency department. Exam she was noted to have significant distention of abdomen with hepatomegaly and tenderness. CT abdomen revealed extensive metastatic disease involving the entire liver. She was admitted for further management. Infectious disease workup has been submitted and she was started empirically on antibiotics. This time patient states that she is feeling already better and wants to go home if she can. She has had no fever, chills, dysuria, sore throat or cough. No diarrhea but has right quadrant discomfort. [facility] Medical History: Medical History (Last Reviewed 06/23/23 @ 21:04 by HERMANN Taylor) Chest pain COPD (chronic obstructive pulmonary disease) Dyspnea HTN (hypertension) Low vitamin D level Lung cancer Nicotine dependence, cigarettes, uncomplicated Overweight (BMI 25.0-29.9) Post-surgical hypothyroidism Onset Date: ~2013 Postmenopausal Primary thyroid cancer Onset Date: ~2013 Pulmonary nodules Rectal adenoma Tubular adenoma of colon Onset Date: ~2009 Family History: Family History (Last Reviewed 06/23/23 @ 21:04 by HERMANN Taylor) Father No problems noted. Mother Polycythemia vera Pulmonary cancer Sister Mental health disorder Surgical History: Surgical History (Last Reviewed 06/23/23 @ 21:04 by HERMANN Taylor) History of bilateral carpal tunnel release History of colonoscopy History of HPV infection Onset Date: ~1996 History of skin cancer Onset Date: ~2009 History of total thyroidectomy Onset Date: ~2013 Status post de Quervain's release surgery Social History: Social History (Last Reviewed 06/23/23 @ 21:04 by HERMANN Taylor) Living Situation History: Household Members: None Housing: House Do you presently have visiting nurse or other home services: No Tobacco History: Patient Tobacco Use Status: Current everyday Tobacco Tobacco use type: Cigarette Cigarette Packs Per Day: 0.25 Years Smoked: 50 e-Cigarette/Vaping Use: Never Used Second Hand Smoke Exposure: No Substance Use History: Substance Use Type: Marijuana Occupation Assessmet: service: No Current occupational status: unemployed Home Medications and Allergies Current Medications: Current Medications Acetaminophen (Acetaminophen 325 Mg Tablet) 650 mg PO Q6H PRN PRN Reason: Pain, Mild (Pain Scale 1-3) Albuterol Sulfate (Albuterol Sulfate 90 Mcg 8 Gm Inhaler) 2 puff INHALE Q6H PRN PRN Reason: for wheezing Enoxaparin Sodium (Enoxaparin Sodium 40 Mg/0.4 Ml Syringe) 40 mg SUBCUT Q24H KAMALJIT Last Admin: 06/23/23 22:23 Dose: 40 mg Fluticasone/Vilanterol (Fluticasone/Vilanterol 200/25 Blst.W.Dev) 1 puff INHALE RDAILY [facility] Piperacillin Sod/Tazobactam (Sod 4.5 gm/ Sodium Chloride) 100 mls @ 200 mls/hr IV Q6H [facility] Last Infusion: 06/24/23 05:27 Dose: Infused Vancomycin HCl 1,250 mg/ (Sodium Chloride) 250 mls @ 166.667 mls/hr IV Q12H [facility] Levothyroxine Sodium (Levothyroxine Sodium 112 Mcg Tablet) 112 mcg PO DAILY@0600 [facility] Last Admin: 06/24/23 05:29 Dose: 112 mcg Nicotine (Nicotine 7 Mg Patch.Td24) 7 mg TRANSDERMA DAILY [facility] Last Admin: 06/24/23 07:43 Dose: Not Given Nicotine Polacrilex (Nicotine Polacrilex 2 Mg Gum) 2 mg BUCCAL Q2H PRN PRN Reason: Nicotine Cravings Ondansetron HCl (Ondansetron Hcl 4 Mg/2 Ml Vial) 4 mg IVPUSH Q8H PRN PRN Reason: Nausea and Vomiting Last Admin: 06/24/23 07:47 Dose: 4 mg Oxycodone HCl (Oxycodone Hcl Immed Release 5 Mg Tablet) 10 mg PO 0200,0800,1600,2100 [facility] Last Admin: 06/24/23 07:40 Dose: 10 mg Pharmacy Consult (Consult Rx Vancomycin Dosing) 1 each MISCELLANE DAILY PRN PRN Reason: Consult order Senna (Sennosides 8.6 Mg Tablet) 17.2 mg PO BEDTIME PRN PRN Reason: Constipation Sodium Chloride (0.9 % Sodium Chloride Flush 3 Ml Syringe) 3 ml IVFLUSH QSHIFT [facility] Last Admin: 06/24/23 07:41 Dose: 3 ml Vitamin D (Cholecalciferol (Vitamin D3) 25 Mcg Tablet) 50 mcg PO DAILY [facility] Last Admin: 06/24/23 07:41 Dose: 50 mcg Home Medications Medication Instructions Recorded Confirmed Type oxycodone 10 mg tablet 10 mg PO 0200,0800,1600,2100 Pain 06/23/23 06/23/23 History (Scale Score 7-10) Allergies Allergy/AdvReac Type Severity Reaction Status Date / Time bee stings Allergy Severe Severe Uncoded 06/23/23 08:55 Swelling Physical Exam Vital signs: Vital Signs Temp 96.8 F 06/24/23 07:27 Pulse 71 06/24/23 07:27 Resp 16 06/24/23 07:27 BP 156/81 H 06/24/23 07:27 Pulse Ox 94 06/24/23 07:27 O2 Del Method Room Air 06/24/23 07:27 Intake & Output 06/23/23 06/24/23 06/24/23 18:59 06:59 18:59 Intake Total 4393 / 4393 Output Total 400 / 400 Balance 3993 / 3993 Urine Output (Average ml/kg/hr) 0.41 Intake: Intake, Oral Amount 120 / 120 Intake, IV Amount 4273 / 4273 0.9 % Sodium Chloride 2,523 ml 3523 / 3523 @ 2523 mls/hr IV .Q1H STA Rx#: [id number] Piperacillin Sodium/Tazobactam 200 / 200 4.5 gm In 0.9 % Sodium Chloride 100 ml @ 200 mls/hr IV Q6H KAMALJIT Rx#:[id number] cefEPime HCl 2 gm In 0.9 % 50 / 50 Sodium Chloride 50 ml @ 100 mls /hr IV ONCE ONE Rx#:[id number] vancomycin/NS 2,000 mg In 500 500 / 500 ml @ 250 mls/hr IV ONCE ONE Rx# :[id number] Output: Output, Urine Amount 400 / 400 Other: Urine Bathroom Urine Color Yellow Last Bowel Movement 06/23/23 Weight 84.1 kg 81 kg [place] Weight in Grams 24196 Weight 81 kg - Constitutional Present: mild distress, chronically ill appearing - Routine HEENT Exam Head: Present: normal inspection Eye: Present: PERRL - Routine Neck Exam Present: supple. Absent: lymphadenopathy - Routine Respiratory Exam Present: CTAB - Routine Cardiovascular Exam Cardiovascular: Present: RRR, S1, S2 - Routine Abdominal Exam Present: distended, organomegaly - Routine Skin Exam Present: intact Hem/Onc Consult Result - Labs CBC & Chem 7: 06/24/23 05:58 06/24/23 05:58 Labs: Short CBC 06/24/23 Range/Units 05:58 WBC 16.8 H (4.8-10.8) X10*3/uL Hgb 13.2 (12.0-16.0) g/dl Hct 39.1 (37.0-47.0) % Plt Count 187 (160-400) X10*3/uL BMP 06/23/23 06/24/23 13:59 05:58 Sodium 142 145 Potassium 3.1 L 3.0 L Chloride 101 104 Carbon Dioxide 29 27 BUN 19 H 17 H Creatinine 0.61 0.57 Calcium 8.4 7.5 L D Liver Function 06/24/23 Range/Units 05:58 Total Bilirubin 0.8 (0.0-1.0) mg/dL Direct Bilirubin 0.5 (0.0-0.5) mg/dL AST 106 H (5-31) U/L ALT 148 H (0-31) U/L Alkaline Phosphatase 94 (39-117) U/L Albumin 3.4 L (3.5-5.0) g/dL Urine 06/23/23 Range/Units 15:18 Urine Color Yellow Urine Appearance Clear Urine pH 6.5 (5.0-9.0) Ur Specific [place] >= 1.030 H (1.005-1.025) Urine Protein Trace (Neg-Trace) mg/dL Urine Glucose (UA) Negative (Negative) mg/dL Assessment and Plan Patient Active problem list reviewed?: Yes (1) Small cell lung cancer Status: Chronic Assessment and plan: 1. This is 63-year-old woman, chronic smoker, diagnosed with extensive stage small cell lung cancer. She started chemotherapy with Carboplatin with etoposide and atezolizumab as per [id number] study in 10/2022. PET scan performed in February 2023 showed good metabolic response to treatment and no new lesions. Surveillance brain MRI performed 03/11/2023 unfortunately showed multiple new small enhancing lesions throughout supratentorial and infratentorial compartments suspicious for metastasis, largest measuring 4 mm in the left cerebellum. No vasogenic edema or mass effect. Patient received palliative radiation therapy at at [facility] to brain and rib lesions in april 2023. She was noted to have worsening leukocytosis with hypokalemia and abnormal LFTs when she came in for her scheduled treatment with immunotherapy. Workup shows no evidence of infection but extensive liver metastasis virtually involving the whole liver. Leukocytosis is probably reactive secondary to malignancy. She has had some improvement with hydration. Continue oral replacement with potassium supplementation. Continue pain medications. I discussed above findings with the patient. She wishes to be DNR DNI but would like to receive palliative chemotherapy. She will be started on second-line chemotherapy next week. She can be discharged home if stable. I thank you for the consult. - Time Spent With Patient Time Spent with Patient (in minutes): 20
[2023-06-24] MEDS: Potassium Chloride ER 20 MEQ TAB.ER.PRT 40 MEQ PO (10:09)
[2023-06-24 10:23] VITALS: BP 156/81; PULSE 71; O2SAT 94
--- NOTE | 2023-06-24 10:33 | MHC.CM.PN ---
Addendum entered by Eileen Bravo 06/24/23 12:35: PT HAS BEEN MEDICALLY CLEARED FOR DC HOME WITH NEW [facility] FOR P.T. SERVICES. [facility] NOTIFIED OF TODAY'S DC. PT HAS OWN RIDE HOME. Original Note: CM MET WITH PT AT BEDSIDE. PT LIVES WITH FRIENDS. INDEPENDENT AT BASELINE. SOME SOB ON EXERTION. +HCP, CM REQUESTED COPY TO BE BROUGHT IN. PCP DR. BAXTER. DP: HOME WITH SERVICES IF RECOMMENDED. PT HAS OWN RIDE HOME. CM WILL CONTINUE TO FOLLOW FOR ANY CHANGE IN DC PLAN/NEEDS.
--- NOTE | 2023-06-24 11:33 | P.DS_ITS ---
DS: Providers Provider Date of Service: 06/24/23 Date of admission: 06/23/23 20:45 Primary care physician: Sue Reynoso MD Consults: 06/23/23 20:44 Consult to Hematology / Oncology Routine Consulting Provider: Carmen Cisneros Reason for consultation: bandemia immunocompromised pt DS: Diagnosis Discharge Diagnosis (1) Small cell lung cancer: Status: Chronic (2) Metastatic cancer to liver: Status: Acute (3) Leukocytosis: Status: Acute DS: Summary Hospital Course Hospital Course: Admission note HPI 63 year old female with history of thyroid cancer s/p thyroidectomy and RODRIGUEZ 2013, postsurgical hypothyroidism, hypercholesterolemia, hypertension, rectal adenoma, COPD, and metastatic small cell lung cancer (on carboplatin with etoposide and atezolizumab as well as denoumab for bony mets) following with Dr. Cisneros presented to the ED earlier today from oncology office due to leukocytosis and bandemia. Pt reports for the last week has had significant abdominal distention with diffuse tenderness to palpation, worst on the sides. No associated fevers, chills, nausea, vomiting, diarrhea, cough, shortness of breath, lightheadedness, headache, chest pain. No known sick contacts. Last bowel movement was yesterday and was reportedly normal. On arrival, patient initially tachycardic to 104, vital signs otherwise stable though slightly hypertensive to 153/94 on admission. Earlier today had a leukocytosis of 20.7, diff pending. Differential from 06/17 shows 75% neutrophils, ANC 18.5. Bandemia 13%. Renal function normal, electrolytes normal except for mild hypokalemia 3.1. Initial lactic acid 4.1, repeat 3.4. Urinalysis unremarkable. Negative for COVID-19, RSV, influenza. CXR negative for acute cardiopulmonary abnormality but shows suspicion for mild pulmonary venous hypertension. CT abdomen/pelvis negative for any acute finding which shows extensive metastatic disease involving virtually the entire liver worsened compared to prior studies. There is also mild bibasilar chronic interstitial fibrotic changes within the peripheral predominance worse compared to prior studies and a partially imaged T10 sclerotic lesion similar to prior imaging. In the ED, has received 3.5 L IV NS, 2 g cefepime, 40 mEq potassium chloride, 10 mg oxycodone. Hospital course The patient admitted for evaluation of Leukocytosis in state of metastatic malignancy vs possible infection. No clear source of infection identified. UA unremarkable, CXR negative. Lactic acidosis a result of malignancy not sepsis. CT abd/pelvis shows metatstic disease, but no evidence of infectious source. Pending cultures remains negative. Started on empirical broad spectrum abx for now: IV vanco and zosyn (initiated 06/23). She was evaluated by dr Cisneros from oncology who believes her leukocytosis and bandemia is likely from the cancer itself not due to infection as no clear source identified. To finish 5 days of PO Doxycycline. Ct abd/pelvis shows worsening metastatic disease involving entire liver. She is on on carboplatin with etoposide and atezolizumab as well as denoumab for bony mets. Because of LFT abnormalities and probability of worsening hepatic function with Lubrinectidin, dr Cisneros have switched her treatment to topotecan in the second-line setting and she will continue to follow with her as outpatient. The patient felt much better overnight and improved quicker than expected. she also agreed with dr Cisneros to go home and follow as outpatient on empirical antibiotics. Take doxycycline as prescribed; stop it for diarrhea Come back to the hospital for any fever, cough or abdominal pain Follow with dr Cisneros in office Time Attestation Discharge coordination time: Greater than 30 minutes Quality: Safe Use of Opioids Does Pt have an Active Cancer Diagnosis on the Problem List?: No Quality: Stroke Does the patient have a stroke diagnosis?: No Physical Exam Vital Signs: Vital Signs: Last Vital Signs Temp 96.8 F 06/24/23 07:27 Pulse 71 06/24/23 10:23 Resp 16 06/24/23 07:27 BP 156/81 H 06/24/23 10:23 Pulse Ox 94 06/24/23 10:23 O2 Del Method Room Air 06/24/23 07:27 BMI result Body Mass Index 31.6 Const: Other: Constitutional : Awake, interactive, not in distress Neck : Normal inspection, Supple Cardiovascular : RRR, no JVP, no lower extremity edema Respiratory : good bilateral air entry, no crackles, wheezes or rhonchi Gastrointestinal: soft, lax, Normal bowel sounds, Non tender Skin : Warm, Dry, Port-a-cath in place with no surrounding erythema Neurological : Alert & oriented x3, No focal deficit DS: Data Data Completed and Pending Labs on day of discharge: Laboratory Results - last 24 hr 06/23/23 06/23/23 06/23/23 13:52 13:59 15:18 WBC RBC Hgb Hct MCV MCH MCHC RDW Plt Count MPV Immature Gran % (Auto) Neut % (Auto) Lymph % (Auto) [place] % (Auto) Eos % (Auto) Baso % (Auto) Lymph # (Auto) [place] # (Auto) Eos # (Auto) Baso # (Auto) Abs Immat Gran (auto) Absolute Neuts (auto) Absolute Nucleated RBC Nucleated RBC % (auto) Neutrophils % (Manual) Band Neutrophils % Lymphocytes % (Manual) Atypical Lymphs % (Man) Monocytes % (Manual) Metamyelocytes % Myelocytes % Abs Neuts (Manual) Lymphocytes # (Manual) Atyp Lymphs # (Manual) Monocytes # (Manual) Metamyelocytes # Myelocytes # Platelet Estimate Plt Morphology Comment RBC Morphology Sodium 142 Potassium 3.1 L Chloride 101 Carbon Dioxide 29 Anion Gap 15 BUN 19 H Creatinine 0.61 Estim Creat Clear Calc 96.9 Estimated GFR > 60 Random Glucose 142 H Lactic Acid 4.1 H* Lactic Acid F/U @ 2Hr Lactic Acid F/U @ 4Hr Calcium 8.4 Total Bilirubin Direct Bilirubin AST ALT Alkaline Phosphatase B-Natriuretic Peptide 147 H Total Protein Albumin Urine Color Yellow Urine Appearance Clear Urine pH 6.5 Ur Specific [place] >= 1.030 H Urine Protein Trace Urine Glucose (UA) Negative Urine Ketones Negative Urine Blood Negative Urine Nitrite Negative Ur Leukocyte Esterase Negative Urine RBC 0-2 Urine WBC 0-5 Ur Squamous Epith Cells 0-2 Urine Bacteria None Seen Hyaline Casts 0-2 Influenza Type A (PCR) NEGATIVE Influenza Type B (PCR) NEGATIVE RSV RNA Qual (PCR) NEGATIVE SARS-CoV-2 RNA (RT-PCR) NEGATIVE 06/23/23 06/23/23 06/24/23 18:25 21:15 05:58 WBC 16.8 H RBC 4.45 Hgb 13.2 Hct 39.1 MCV 87.9 MCH 29.7 MCHC 33.8 RDW 17.2 H Plt Count 187 MPV 10.0 Immature Gran % (Auto) Cancelled Neut % (Auto) Cancelled Lymph % (Auto) Cancelled [place] % (Auto) Cancelled Eos % (Auto) Cancelled Baso % (Auto) Cancelled Lymph # (Auto) Cancelled [place] # (Auto) Cancelled Eos # (Auto) Cancelled Baso # (Auto) Cancelled Abs Immat Gran (auto) Cancelled Absolute Neuts (auto) Cancelled Absolute Nucleated RBC 0.020 H Nucleated RBC % (auto) 0.1 Neutrophils % (Manual) 77 H Band Neutrophils % 8 H Lymphocytes % (Manual) 5 L Atypical Lymphs % (Man) 2 Monocytes % (Manual) 5 Metamyelocytes % 2 Myelocytes % 1 Abs Neuts (Manual) 14.3 H Lymphocytes # (Manual) 0.8 L Atyp Lymphs # (Manual) 0.3 Monocytes # (Manual) 0.8 Metamyelocytes # 0.3 Myelocytes # 0.2 Platelet Estimate NORMAL Plt Morphology Comment NORMAL RBC Morphology NORMAL Sodium 145 Potassium 3.0 L Chloride 104 Carbon Dioxide 27 Anion Gap 17 BUN 17 H Creatinine 0.57 Estim Creat Clear Calc 101.7 Estimated GFR > 60 Random Glucose 109 Lactic Acid Lactic Acid F/U @ 2Hr 3.4 H* Lactic Acid F/U @ 4Hr 4.2 H* Calcium 7.5 L D Total Bilirubin 0.8 Direct Bilirubin 0.5 AST 106 H ALT 148 H Alkaline Phosphatase 94 B-Natriuretic Peptide Total Protein 5.6 L Albumin 3.4 L Urine Color Urine Appearance Urine pH Ur Specific [place] Urine Protein Urine Glucose (UA) Urine Ketones Urine Blood Urine Nitrite Ur Leukocyte Esterase Urine RBC Urine WBC Ur Squamous Epith Cells Urine Bacteria Hyaline Casts Influenza Type A (PCR) Influenza Type B (PCR) RSV RNA Qual (PCR) SARS-CoV-2 RNA (RT-PCR) Imaging CT scan - abdomen: Radiologist's impression: ITS Impressions Chest X-Ray 06/23/23 13:44 IMPRESSION: Limited study. Suspect mild pulmonary venous hypertension. Abdomen/Pelvis CT 06/23/23 14:17 IMPRESSION: No acute finding. Extensive metastatic disease involving virtually the entire liver, much worse compared with 02/25/2023. Mild bibasilar chronic interstitial fibrotic changes with a peripheral predominance, worse compared with 02/25/2023. 0.4 cm, peripheral left lower lobe lung nodule, not evident on 02/25/2023. Partially imaged T10 sclerotic lesion, grossly similar compared with 02/25/2023. Discharge Plan Discharge Anticipated Discharge Date/Time: 06/24/23 11:14 Patient Disposition: Home Health Service Discharge Diagnosis: Metastatic cancer Referrals: Sue Snyder MD [Primary Care Provider] - 1 Week Discharge Medications: New nicotine 7 mg/24 hr Patch 24 Hour 7 mg transdermal DAILY Qty: 30 0RF doxycycline monohydrate 100 mg capsule 100 mg PO BID Qty: 10 0RF Continued budesonide-formoterol [Symbicort] 160-4.5 mcg/actuation HFA aerosol inhaler 2 puff inhalation BID 30 Days Qty: 10.2 11RF levothyroxine 112 mcg tablet 112 mcg PO DAILY Qty: 90 2RF cholecalciferol (vitamin D3) 50 mcg (2,000 unit) capsule 50 mcg PO DAILY Qty: 90 4RF albuterol sulfate [Ventolin HFA] 90 mcg/actuation HFA aerosol inhaler 2 puff PO Q6H PRN (Reason: for wheezing) 30 Days Qty: 18 2RF ondansetron 8 mg Tablet,Disintegrating 8 mg PO Q8H PRN (Reason: Nausea) Qty: 30 3RF oxycodone 10 mg tablet 10 mg PO 0200,0800,1600,2100 Rx Instructions: Partial Fill upon patient request. Discharge Orders: Discharge Order (Routine); Ordered 06/24/23 Ordered By: Noé Archer Diet: Advance to usual diet Activity on Discharge: As tolerated Stand Alone Forms: Patient Portal Discharge page Care Plan Goals: Read below Health Concerns: Read below Plan of Treatment: Read below Assessment: Take doxycycline as prescribed; stop it for diarrhea Come back to the hospital for any fever, cough or abdominal pain Follow with dr Cisneros in office
--- NOTE | 2023-06-24 11:43 | P.F2F_ITS ---
Service Date Service Date: 06/24/23 Encounter Date of encounter: 06/24/23 Reasons for Services Signs and symptoms assessed: physical deconditioning Reason for physical therapy: home safety and mobility and therapeutic exercises Homebound: Leaving the home is medically contraindicated at this time without the asist of a device and/or another person due th the listed conditions above and below. Reason homebound: unsteady gait / fall risk Certification: Based on the above findings, I certify that this patient is confined to the home and needs intermittent intermediate care, physical therapy and/or speech therapy, or continues to need occupational therapy. The patient is under my care, and I have initiated the establishment of the plan of care. The patient will be followed by a physician who will periodically review the plan of care. Time Spent With Patient Time: Total time managing care of this patient today ____ minutes.
[2023-06-24] MEDS: Heparin Sodium,Porcine Flush 500 UNIT/5 ML SYRINGE IVFLUSH (11:52)
== END 2023-06-24 12:01 | disposition home health service (06) | DRG 281 ==
LOC: HO.ED 13:38 → HO.EDOVER 20:50 → HO.S3 23:22
PROVIDERS: Internal Medicine; Admitting Provider Physician Assistant; Emergency Provider Emergency Medicine Emergency Medical Services; PCP Internal Medicine; Visit Provider Student in an Organized Health Care Education/Training Program
DX: C78.7 Secondary malignant neoplasm of liver and intrahepatic bile duct (principal); C79.51 Secondary malignant neoplasm of bone; C34.82 Malignant neoplasm of overlapping sites of left bronchus and lung; C34.81 Malignant neoplasm of overlapping sites of right bronchus and lung; J44.9 Chronic obstructive pulmonary disease, unspecified; G89.3 Neoplasm related pain (acute) (chronic); Z66 Do not resuscitate; E78.00 Pure hypercholesterolemia, unspecified; I10 Essential (primary) hypertension; E89.0 Postprocedural hypothyroidism; F17.210 Nicotine dependence, cigarettes, uncomplicated; Z71.6 Tobacco abuse counseling; Z20.822 Contact with and (suspected) exposure to COVID-19; Z79.890 Hormone replacement therapy; Z79.899 Other long term (current) drug therapy
CPT/HCPCS: 0241U; 36415; 71045; 74177; 80048; 80076; 81001; 83605; 83880; 85007; 85025; 85027; 87040; 93005; 97162; 99221; 99285; J0692; J1642; J1650; J2405; J2543; J3370; Q9967

== ENCOUNTER → 2023-06-23 13:33 | Outpatient (BNV) | payer OTHER, SELFPAY | PROVIDERS: Admitting Provider Physician Assistant; Emergency Provider Emergency Medicine Emergency Medical Services; PCP Internal Medicine; Visit Provider Internal Medicine Cardiovascular Disease | DX: I49.1 Atrial premature depolarization (principal); R94.31 Abnormal electrocardiogram [ECG] [EKG] | CPT/HCPCS: 93010 ==

== ENCOUNTER → 2023-06-23 20:45 | Outpatient (BNV) | payer OTHER, SELFPAY | PROVIDERS: Admitting Provider Physician Assistant; Emergency Provider Emergency Medicine Emergency Medical Services; PCP Internal Medicine; Visit Provider Physician Assistant | DX: C78.7 Secondary malignant neoplasm of liver and intrahepatic bile duct (principal); D72.829 Elevated white blood cell count, unspecified; R10.9 Unspecified abdominal pain; C34.90 Malignant neoplasm of unspecified part of unspecified bronchus or lung; D72.825 Bandemia | CPT/HCPCS: 99223; 99238; 99499; G0180 ==

== ENCOUNTER → 2023-06-23 20:45 | Outpatient (BNV) | payer OTHER, SELFPAY | PROVIDERS: Admitting Provider Physician Assistant; Emergency Provider Emergency Medicine Emergency Medical Services; PCP Internal Medicine; Visit Provider Internal Medicine | DX: C34.90 Malignant neoplasm of unspecified part of unspecified bronchus or lung (principal); C78.7 Secondary malignant neoplasm of liver and intrahepatic bile duct; D72.829 Elevated white blood cell count, unspecified | CPT/HCPCS: 99222 ==

== ENCOUNTER 2023-06-25 | Outpatient (REF) | payer OTHER, SELFPAY | END 2023-06-25 00:01 | disposition home or self-care (01) | LOC: CF | PROVIDERS: PCP Internal Medicine; Visit Provider Surgery | DX: C34.90 Malignant neoplasm of unspecified part of unspecified bronchus or lung (principal); Z45.2 Encounter for adjustment and management of vascular access device; Z79.899 Other long term (current) drug therapy | CPT/HCPCS: 99212 ==

== ENCOUNTER 2023-06-30 07:14 | Inpatient (IN) | payer OTHER, SELFPAY ==
[2023-06-30] VITALS (12 sets, daily range): BP systolic 136–159; BP diastolic 67–86; PULSE 85–100; RESP 12–22; TEMP 36.2–36.8; O2SAT 86–95; BMI 29.5; BMI 30.5
--- NOTE | ~2023-06-30 | NM_ITS ---
EXAMINATION: PULMONARY PERFUSION STUDY CLINICAL INFORMATION: Shortness of breath, inconclusive CTA. COMPARISON: No previous lung scan is available for comparison. CT angiography of the chest dated 06/30/2023, the same date as this lung scan is, is available for comparison. A radiograph of the chest dated 06/23/2023 is also available for comparison. TECHNIQUE: Following the intravenous injection of 4.0 mCi Tc-99m MAA, the lungs were imaged in the anterior and posterior, left and right lateral and BELARUSIAN, ANDREWS, LPO, and RPO projections using a gamma scintillation camera. FINDINGS: No segmental perfusion defects are present. There is mild heterogeneity in the distribution of activity bilaterally. There are no focal anatomic appearing perfusion defects present. NM/NM pul perfusion IMPRESSION: Very low probability of pulmonary embolism.
--- NOTE | ~2023-06-30 | CT_ITS ---
EXAMINATION: CT ANGIOGRAM OF THE CHEST WITH AND WITHOUT CONTRAST (CT PULMONARY ANGIOGRAM FOR PE) CLINICAL INFORMATION: Reason for Exam CP, sob, hx of mets ( 92% Ra) COMPARISON: PET/CT 02/27/2023 TECHNIQUE: Prior to contrast administration, noncontrast localization images were obtained. Subsequently, multidetector volumetric imaging was performed from the thoracic inlet to below the diaphragms following the administration of 80 mL Omnipaque 350 intravenous contrast. No contrast reaction reported Sagittal, coronal, and MIP oblique sagittal reformatted images were obtained on the CT workstation, uploaded to PACS, and reviewed. This CT examination was performed using dose optimization techniques as appropriate, variously including the following: *Automated exposure control *Adjustment of mA and/or kV according to patient size (this includes techniques or standardized protocols for targeted exams where dose is matched to indication/reason for exam; i.e. extremities or head) *Use of iterative reconstruction technique Total exam dose-length product 535 mGy-cm FINDINGS: QUALITY OF STUDY/CONTRAST BOLUS: Suboptimal. PULMONARY ARTERIES: There is suboptimal contrast intensity in the pulmonary arteries. Cannot evaluate for PE. THORACIC AORTA: There is no evidence of aneurysm. LUNG: The lungs are expanded with platelike atelectasis in the lingula and left lung base. There is patchy reticular nodular opacities in several segments of right upper lobe, best visualized on axial image 24/6. There are several nodules and left upper and lower lobe. The largest nodule measures 6 mm on axial image 20/6.. Findings are suspicious for metastatic process. Past history of lung cancer. PLEURA: No pleural effusion or pneumothorax. MEDIASTINUM: Normal heart size. No pericardial effusion. No hilar or mediastinal lymphadenopathy. No evidence of septal bowing or right heart strain. CORONARY ARTERY CALCIFICATION: None visualized on this study. CHEST WALL/AXILLA: No axillary or internal mammary lymphadenopathy. OSSEOUS STRUCTURES: There is a compression fracture deformity T7 vertebra with sclerosis. There is mild sclerotic changes at T10 vertebra as well. The findings are suspicious for metastatic disease and likely pathological fracture of T7 vertebra. There are bilateral healing rib fractures. UPPER ABDOMEN: The liver is heterogeneous especially right hepatic lobe. Left adrenal gland appears unremarkable. No reflux of contrast into the hepatic veins to suggest elevated right heart pressures. CT/CT angio chest PE protocol IMPRESSION: Suboptimal exam for PE. Cannot exclude pulmonary emboli. Consider VQ scan or repeat CTA if patient has normal BUN/creatinine. No aortic aneurysm. Multiple bilateral lung nodules likely metastatic unless proven otherwise. Patient has a previous history of lung cancer. There are multiple bilateral healing rib fractures and a compression fracture deformity T7 vertebra, question cortical fracture. It is abnormal on the previous PET exam. There is a sclerotic lesion of T10 vertebra which is abnormal on PET scanning. Heterogeneous liver especially right hepatic lobe. VTE: Inconclusive
--- NOTE | ~2023-06-30 | US_ITS ---
EXAMINATION: US VENOUS ULTRASOUND WITH DOPPLER LOWER EXTREMITY, BILATERAL CLINICAL INFORMATION: Swelling. COMPARISON: None available. TECHNIQUE: Ultrasound of the deep veins is performed from the hip to the calf with compression sonography and color and pulse Doppler assessment. Spectral analysis with color-flow imaging is performed. FINDINGS: RIGHT: There is normal venous compression and respiratory variation and augmented flow. The visualized common femoral vein, superficial femoral vein, profunda femoral vein, popliteal vein, and the trifurcation region shows no evidence of deep venous thrombosis. There is no significant popliteal fossa cyst. LEFT: There is normal venous compression and respiratory variation and augmented flow. The visualized common femoral vein, superficial femoral vein, profunda femoral vein, popliteal vein, and the trifurcation region shows no evidence of deep venous thrombosis. There is no significant popliteal fossa cyst. If the patient's symptoms persist, followup ultrasound in 5 days 7 days might be of value to exclude proximal propagation from a non-visualized calf vein. US/US venous duplex LE BI IMPRESSION: No DVT demonstrated in the bilateral lower extremity.
--- NOTE | ~2023-06-30 | CT_ITS ---
EXAMINATION: CT ABDOMEN AND PELVIS WITH CONTRAST CLINICAL INFORMATION: Abdominal pain, transaminitis COMPARISON: CT abdomen pelvis 06/23/2023. TECHNIQUE: Multidetector volumetric images were obtained from the superior aspect of the liver through the pubic symphysis following administration 85 mL of Omnipaque 350 intravenous contrast. Sagittal and coronal reformatted images were obtained on the technologist's workstation. Oral contrast: No This CT examination was performed using dose optimization techniques as appropriate, variously including the following: *Automated exposure control *Adjustment of mA and/or kV according to patient size (this includes techniques or standardized protocols for targeted exams where dose is matched to indication/reason for exam; i.e. extremities or head) *Use of iterative reconstruction technique DLP: 535 mGy-cm FINDINGS: LUNG BASES: See CT chest report. LIVER, GALLBLADDER, AND BILIARY TREE: The liver is enlarged, right and left hepatic lobes and diffusely heterogeneous suspicious for metastatic disease. Differential diagnoses includes hepatic steatosis or combination. The gallbladder is unremarkable with no evidence of radiopaque gallstones, gallbladder wall thickening, or obvious pericholecystic inflammatory changes. PANCREAS: Unremarkable. SPLEEN: Unremarkable. ADRENAL GLANDS: The left adrenal gland is enlarged with nodules in the body and the lateral limb. The right adrenal gland is it is less nodular. The findings are unchanged to last CT abdomen exam KIDNEYS AND URETERS: The kidneys are normal in size, shape, and attenuation. No hydronephrosis, hydroureter, or calculi seen. No perinephric stranding. BLADDER: Unremarkable. GASTROINTESTINAL TRACT: There is scattered stool, diverticuli and gas seen in the colon without distention. The small bowel loops are normal caliber. Appendix is not visualized. No free air or free fluid seen. ABDOMINAL WALL: No significant hernia is appreciated. LYMPH NODES: Normal. VASCULAR: Unremarkable. PELVIC VISCERA: The uterus is anteverted and appears unremarkable. There is no free air or free fluid. No abnormal pelvic lymph nodes. OSSEOUS STRUCTURES: Sclerotic lesion T10 vertebra is again visualized. There is mild ventral spondylosis mid lumbar spine.. CT/CT abdomen pelvis w IV con IMPRESSION: 1. Enlarged liver with diffuse heterogeneous appearance suspicious for metastatic disease. Differential diagnoses includes hepatic steatosis or combination. 2. No abnormal lymphadenopathy seen. 3. Stable left adrenal nodule. The right gland is less nodular. No change from the last CT abdomen exam 4. Sclerotic lesion T10 vertebra is stable. 5. Mild constipation. Fleischner guidelines were followed.
--- NOTE | 2023-06-30 07:35 | ECG_ITS ---
Test Reason : SOB Blood Pressure : / mmHG Vent. Rate : 094 BPM Atrial Rate : 094 BPM P-R Int : 146 ms QRS Dur : 080 ms QT Int : 370 ms P-R-T Axes : 049 027 -16 degrees QTc Int : 462 ms Normal sinus rhythm with sinus arrhythmia Possible Left atrial enlargement Nonspecific ST and T wave abnormality Abnormal ECG When compared with ECG of 23-JUN-2023 13:41, Premature atrial complexes are no longer Present Referred By: Tyra Ledbetter Electronically Signed By:CEE RAMIREZ MD
--- NOTE | 2023-06-30 07:35 | ED_ITS ---
HPI - General Adult General Chief complaint: General Medical Stated complaint: DIFF BREATHING Time Seen by Provider: 06/30/23 07:33 Source: patient Mode of arrival: ambulatory Limitations: no limitations History of Present Illness HPI narrative: 63-year-old female DNR/DNI with history of primary thyroid cancer status post total thyroidectomy, metastatic small cell lung cancer to brain, lung, liver, brain, bone, COPD, obesity, hyperlipidemia presenting to the emergency department with worsening shortness of breath over the past 4 days. Patient reports that her shortness of breath is worse with exertion and better at rest however always present and this has seemed to be progressively worsening. Patient states that she is also having diffuse body pains throughout. She tells me she usually has this however it has been worse than usual. Denies chest pain, nausea, vomiting, headache, vision changes, dizziness, weakness, fevers and chills. Hasnt had chemo in a few weeks scheduled to start a new regimine tomorow. Followed by [facility] oncology Related Data Home Medications Medication Instructions Recorded Confirmed oxycodone 10 mg tablet 10 mg PO 0200,0800,1600,2100 Pain 06/23/23 06/23/23 (Scale Score 7-10) Previous Rx's Medication Instructions Recorded budesonide-formoterol HFA 160 2 puff inhalation BID 30 days 08/20/22 mcg-4.5 mcg/actuation aerosol #10.2 grams inhaler (Symbicort) cholecalciferol (vitamin D3) 50 50 mcg PO DAILY #90 caps 12/18/22 mcg (2,000 unit) capsule Ventolin HFA 90 mcg/actuation 2 puff PO Q6H PRN for wheezing 30 04/24/23 aerosol inhaler (albuterol sulfate) days #18 grams ondansetron 8 mg disintegrating 8 mg PO Q8H PRN Nausea #30 tabs 05/27/23 tablet doxycycline monohydrate 100 mg 100 mg PO BID #10 caps 06/24/23 capsule nicotine 7 mg/24 hr daily 7 mg transdermal DAILY #30 ea 06/24/23 transdermal patch levothyroxine 112 mcg tablet 112 mcg PO DAILY #90 tabs 06/25/23 Allergies Allergy/AdvReac Type Severity Reaction Status Date / Time bee stings Allergy Severe Severe Uncoded 06/23/23 08:55 Swelling Review of Systems 2 Review of Systems: Constitutional : No Weight loss, No Fever, No Chills, No Fatigue, No Malaise ENT/Mouth : No sore throat, No Rhinorrhea Eyes: No Eye Pain, No Swelling, No Redness Cardiovascular : No Chest Pain, + SOB, + Dyspnea on Exertion, No Orthopnea, No Edema, No Palpitations Respiratory : No Cough, No Sputum, No Wheezing Gastrointestinal : No Nausea, No Vomiting, No Diarrhea, No Constipation, No abdominal Pain, No Hematochezia, No Melena Genitourinary : No Dysuria, No Urinary Frequency, No Hematuria, Musculoskeletal : No joint pain, No Myalgias, No Joint Swelling Skin : No Skin Lesions, No rash Neuro : No Weakness, No Numbness, No Dizziness, No Headache Psych : No Anxiety/Panic, No Depression All other systems reviewed and are negative Yes all other systems are reviewed and are negative [facility] Past Medical History Attestation statement: The following information was validated with the patient. Source: old records reviewed and nursing notes reviewed Medical History Chest pain Lung cancer HTN (hypertension) Nicotine dependence, cigarettes, uncomplicated Rectal adenoma Pulmonary nodules Tubular adenoma of colon (~2009) Overweight (BMI 25.0-29.9) COPD (chronic obstructive pulmonary disease) Dyspnea Postmenopausal Primary thyroid cancer (~2013) Low vitamin D level Post-surgical hypothyroidism (~2013) Surgical History Status post de Quervain's release surgery History of bilateral carpal tunnel release History of total thyroidectomy (~2013) History of colonoscopy History of skin cancer (~2009) History of HPV infection (~1996) Family History Family History Father No problems noted. Mother Polycythemia vera Pulmonary cancer Sister Mental health disorder Social History Social History Household Members: None Housing: House Do you presently have visiting nurse or other home services: No Alcohol intake: never Patient Tobacco Use Status: Current everyday Tobacco user Tobacco use type: Cigarette Cigarette Packs Per Day: 0.25 Years Smoked: 50 Smoked in Last 30 Days: No e-Cigarette/Vaping Use: Never Used Second Hand Smoke Exposure: No Use of substances other than those prescribed or required for medical reasons: No Substance Use Type: Marijuana Advance Directives: No Advance Directives Information Provided: Yes Patient : No service: No Current occupational status: unemployed Cognitive needs: No Hearing needs: No Vision needs: Yes Physical Exam ED Vital Signs: Vital Signs - 24 hr 06/30/23 07:22 06/30/23 08:25 06/30/23 08:25 Temperature 98.3 F Pulse Rate 99 95 Respiratory Rate 20 20 20 Blood Pressure 159/72 H 150/73 H Pulse Oximetry 92 92 Oxygen Delivery Method Room Air Room Air Oxygen Flow Rate 06/30/23 09:02 06/30/23 10:26 Temperature 97.8 F Pulse Rate 95 88 Respiratory Rate 20 20 Blood Pressure 143/86 H Pulse Oximetry Oxygen Delivery Method Nasal Cannula Oxygen Flow Rate 2 BMI result Body Mass Index 29.5 vss Appearance: Alert.? Oriented X3.? No acute distress.? Head: Normocephalic, atraumatic, no step-offs or deformities Eyes: Pupils equal, round and reactive to light.? Neck: Normal inspection.? Neck supple.? CVS: Normal heart rate and rhythm.? Pulses normal.? Respiratory: No respiratory distress.? Breath sounds faint expiratory wheezing throughout.? Abdomen: Soft and diffuse abd discomfort.? Skin: Skin warm and dry.? Normal skin color.? Normal skin turgor.? Extremities: No lower extremity edema.? No calf ttp. 5/5 strength to bilateral upper and lower extremities Neuro: Oriented X 3.? No motor deficit.? No sensory deficit. CN 2-12 intact Course Reevaluation(s) Reevaluation #1: CBC with white blood cell count of 18.7 with neutrophil predominance 76% and bandemia of 13%. Chemistry with a sodium of 146, potassium of 3.0 will replete. BUN 22 slightly higher than baseline likely secondary to poor p.o. intake/dehydration. Total bilirubin is noted to be markedly higher than her previous bilirubin obtained on 06/24/2023 today's value 1.9, AST is and ALTs 194 and 191 respectively. Alk-phos also noted to be 142. Will obtain CT abdomen and pelvis at this time. This time infection suspected. Will order blood cultures, lactic acid, prophylactic antibiotics and fluid. Sepsis focus exam performed. Time: 08:55 Reevaluation #2: Flu/covid/rsv negative. Time: 09:03 Reevaluation #3: CT abdomen pelvis enlarged liver with diffuse heterogeneous appearance suspicious for metastatic disease. No abnormal lymphadenopathy. Stable left adrenal nodule. Sclerotic lesion of T10 stable. Mild constipation. CTA suboptimal exam for PE can not exclude pulmonary emboli. Consider V/Q scan or repeat CTA patient has normal BUN and creatinine V/Q scan has been ordered at this time. No aortic aneurysm. Multiple bilateral lung nodules likely metastatic. Multiple bilateral healing fractures and compression fracture deformity of T7 vertebra question cortical fracture. This is abnormal on the previous PET scan. They are sclerotic lesion of T10. Plan at this time is hospital admission. V/Q scan pending. Time: 11:40 Medications Administered Generic Name Dose Route Start Last Admin Trade Name Freq PRN Reason Stop Dose Admin Vancomycin HCl 2,000 mg in 500 mls @ 250 mls/hr 06/30/23 09:37 06/30/23 11:07 Vancomycin/Ns IV 06/30/23 11:36 250 mls/hr ONCE ONE Administration Discontinued Medications Generic Name Dose Route Start Last Admin Trade Name Freq PRN Reason Stop Dose Admin Albuterol Sulfate 2.5 mg 06/30/23 08:49 06/30/23 09:02 Albuterol Sulfate (0.083%) 2.5 Mg/3 Ml Vial.Neb INHALE 06/30/23 08:50 2.5 mg ONCE ONE Administration Hydromorphone HCl 0.5 mg 06/30/23 07:51 06/30/23 08:20 Hydromorphone Hcl 0.5 Mg/0.5 Ml Syringe IVPUSH 06/30/23 07:52 0.5 mg ONCE ONE Administration Protocol Hydromorphone HCl 1 mg 06/30/23 10:46 06/30/23 11:06 Hydromorphone Hcl 1 Mg/Ml Syringe IVPUSH 06/30/23 10:47 1 mg ONCE ONE Administration Protocol Sodium Chloride 2,337 mls @ 2,337 mls/hr 06/30/23 08:55 06/30/23 09:36 Ns 30 ml/kg infuse over 1 hr (2337 ml) 06/30/23 09:54 2,337 mls/hr IV Administration .Q1H STA Ceftriaxone Sodium 1 gm/ 50 mls @ 100 mls/hr 06/30/23 08:55 06/30/23 10:06 Sodium Chloride IV 06/30/23 09:24 Infused ONCE ONE Infusion Iohexol 65 ml 06/30/23 10:52 06/30/23 10:52 Iohexol 350 Mg/Ml 100 Ml Infus..Btl IV 06/30/23 10:53 65 ml ONCE ONE Administration Ondansetron HCl 4 mg 06/30/23 08:22 06/30/23 08:24 Ondansetron Hcl 4 Mg/2 Ml Vial IVPUSH 06/30/23 08:23 4 mg ONCE ONE Administration Potassium Chloride 40 meq 06/30/23 09:00 06/30/23 09:36 Potassium Chloride Er 20 Meq Tab.Er.Prt PO 06/30/23 09:01 40 meq ONCE ONE Administration Medical Decision Making Medical Decision Making [facility] Narrative: 0738 63 yo f hx of malignancy presents w/ sob w/ exertion X 4 days worsening PE Breath sounds faint expiratory wheezing throughout.? W/ diffuse abd discomfort throughot. Concerns for possible chronic lung disease versus pulmonary embolism due to history of malignancy versus viral illness. No signs of acute respiratory distress. Unlikely ACS, dissection. Will r/o PNA . Will rule out UTI/cystits and intra-abdominal etiologies such as obstruction. Less likely acute abdomen, cholecysitits. diverticulitis, appendicitits. Plan at this time labs, PE study. Differential Diagnosis Differential Diagnoses: The differential diagnosis associated with the presentation includes Concerns for possible chronic lung disease versus pulmonary embolism due to history of malignancy versus viral illness. No signs of acute respiratory distress. Unlikely ACS, dissection. Will r/o PNA. Will rule out UTI/cystits and intra-abdominal etiologies such as obstruction. Less likely acute abdomen, cholecysitits. diverticulitis, appendicitits. Admission/Observation Consideration of admission/observation: Escalation of care including admission/observation considered Likely Consult Healthcare Provider Management of the patient was discussed with: Hospitalist Lab Data [facility] Lab Attestation statement: I reviewed the patient's lab results. 06/30/23 08:17 06/30/23 08:16 Labs: Lab Results 06/30/23 06/30/23 06/30/23 Range/Units 08:01 08:16 08:17 WBC 18.7 H (4.8-10.8) X10*3/uL RBC 4.39 (4.20-5.50) X10*6/uL Hgb 12.8 (12.0-16.0) g/dl Hct 38.3 (37.0-47.0) % MCV 87.2 (80.0-98.0) fL MCH 29.2 (27.0-33.0) pg MCHC 33.4 (31.0-35.0) g/dl RDW 18.4 H (11.0-16.0) % Plt Count 133 L D (160-400) X10*3/uL MPV 9.9 (9.4-12.3) fL Immature Gran % (Auto) Cancelled Neut % (Auto) Cancelled Lymph % (Auto) Cancelled [place] % (Auto) Cancelled Eos % (Auto) Cancelled Baso % (Auto) Cancelled Lymph # (Auto) Cancelled [place] # (Auto) Cancelled Eos # (Auto) Cancelled Baso # (Auto) Cancelled Abs Immat Gran (auto) Cancelled Absolute Neuts (auto) Cancelled Absolute Nucleated RBC 0.110 H (0.0-0.012) X10*3/uL Nucleated RBC % (auto) 0.6 H (0.0-0.2) /100WBC Neutrophils % (Manual) 76 H (45-73) % Band Neutrophils % 13 H (3-5) % Lymphocytes % (Manual) 6 L (20-40) % Monocytes % (Manual) 3 (2-11) % Metamyelocytes % 1 % Myelocytes % 1 % Abs Neuts (Manual) 16.6 H (2.0-8.3) X10*3/uL Lymphocytes # (Manual) 1.1 L (1.2-4.9) X10*3/uL Monocytes # (Manual) 0.6 (0.1-1.2) X10*3/uL Metamyelocytes # 0.2 X10*3/uL Myelocytes # 0.2 X10*/uL Nucleated RBCs 2 H (0-0) /100WBC Platelet Estimate SLIGHTLY DECREASED (NORMAL) Plt Morphology Comment NORMAL RBC Morphology NORMAL PT 14.1 H (11.1-13.3) SEC INR 1.2 H (0.9-1.1) Sodium 146 H (135-145) mmol/L Potassium 3.0 L (3.3-5.1) mmol/L Chloride 103 (96-108) mmol/L Carbon Dioxide 27 (22-29) mmol/L Anion Gap 19 (12-20) BUN 22 H (9-16) mg/dL Creatinine 0.61 (0.5-1.4) mg/dL Estim Creat Clear Calc 95.3 Estimated GFR > 60 Random Glucose 97 (60-115) mg/dL Lactic Acid (0.5-2.0) mmol/L Calcium 7.8 L (8.4-10.2) mg/dL Magnesium 2.2 (1.6-2.6) mg/dL Total Bilirubin 1.9 H (0.0-1.0) mg/dL AST 194 H (5-31) U/L ALT 191 H (0-31) U/L Alkaline Phosphatase 142 H (39-117) U/L Troponin I High Sens 12.2 D (<3.5-17.0) ng/L Total Protein 5.6 L (6.5-8.0) g/dL Albumin 3.5 (3.5-5.0) g/dL Influenza Type A (PCR) NEGATIVE (Negative) Influenza Type B (PCR) NEGATIVE (Negative) RSV RNA Qual (PCR) NEGATIVE (Negative) SARS-CoV-2 RNA (RT-PCR) NEGATIVE (Negative) 06/30/23 Range/Units 09:10 WBC (4.8-10.8) X10*3/uL RBC (4.20-5.50) X10*6/uL Hgb (12.0-16.0) g/dl Hct (37.0-47.0) % MCV (80.0-98.0) fL MCH (27.0-33.0) pg MCHC (31.0-35.0) g/dl RDW (11.0-16.0) % Plt Count (160-400) X10*3/uL MPV (9.4-12.3) fL Immature Gran % (Auto) Neut % (Auto) Lymph % (Auto) [place] % (Auto) Eos % (Auto) Baso % (Auto) Lymph # (Auto) [place] # (Auto) Eos # (Auto) Baso # (Auto) Abs Immat Gran (auto) Absolute Neuts (auto) Absolute Nucleated RBC (0.0-0.012) X10*3/uL Nucleated RBC % (auto) (0.0-0.2) /100WBC Neutrophils % (Manual) (45-73) % Band Neutrophils % (3-5) % Lymphocytes % (Manual) (20-40) % Monocytes % (Manual) (2-11) % Metamyelocytes % % Myelocytes % % Abs Neuts (Manual) (2.0-8.3) X10*3/uL Lymphocytes # (Manual) (1.2-4.9) X10*3/uL Monocytes # (Manual) (0.1-1.2) X10*3/uL Metamyelocytes # X10*3/uL Myelocytes # X10*/uL Nucleated RBCs (0-0) /100WBC Platelet Estimate (NORMAL) Plt Morphology Comment RBC Morphology PT (11.1-13.3) SEC INR (0.9-1.1) Sodium (135-145) mmol/L Potassium (3.3-5.1) mmol/L Chloride (96-108) mmol/L Carbon Dioxide (22-29) mmol/L Anion Gap (12-20) BUN (9-16) mg/dL Creatinine (0.5-1.4) mg/dL Estim Creat Clear Calc Estimated GFR Random Glucose (60-115) mg/dL Lactic Acid 4.0 H* (0.5-2.0) mmol/L Calcium (8.4-10.2) mg/dL Magnesium (1.6-2.6) mg/dL Total Bilirubin (0.0-1.0) mg/dL AST (5-31) U/L ALT (0-31) U/L Alkaline Phosphatase (39-117) U/L Troponin I High Sens (<3.5-17.0) ng/L Total Protein (6.5-8.0) g/dL Albumin (3.5-5.0) g/dL Influenza Type A (PCR) (Negative) Influenza Type B (PCR) (Negative) RSV RNA Qual (PCR) (Negative) SARS-CoV-2 RNA (RT-PCR) (Negative) Independent Interpretation I performed an independent interpretation of an: EKG (Ventricular rate of 94 PA normal, QRS normal, QT/QTC normal. No ST elevation or inversions concerning for acute ischemia.) and CT Scan Radiology Impression Discussion of test interpretation with radiology: I have reviewed the radiologist's reading. External Record Review External record reviewed: Inpatient record, Office record, Outpatient record, Prior outpatient labs, Prior outpatient radiology, Primary care record and Outside ED record Chronic Conditions Patient?s care impacted by: Other (Malignancy, COPD, hypothyroidism,) Critical Care Time Critical Care Time Critical Care Time: Yes Total Critical Care Time: 60 Attestation: I attest to this time spent taking care of the patient, obtaining history, physical, reviewing labs, imaging, speaking to my attending, speaking to specialist. Discharge Plan Discharge Clinical Impression: Hypoxia, Bandemia, Shortness of breath, Fracture, ribs, Compression deformity of vertebra Patient Disposition: Admitted As Inpatient Prescriptions: No Action budesonide-formoterol [Symbicort] 160-4.5 mcg/actuation HFA aerosol inhaler 2 puff inhalation BID 30 Days Qty: 10.2 11RF cholecalciferol (vitamin D3) 50 mcg (2,000 unit) capsule 50 mcg PO DAILY Qty: 90 4RF albuterol sulfate [Ventolin HFA] 90 mcg/actuation HFA aerosol inhaler 2 puff PO Q6H PRN (Reason: for wheezing) 30 Days Qty: 18 2RF ondansetron 8 mg Tablet,Disintegrating 8 mg PO Q8H PRN (Reason: Nausea) Qty: 30 3RF levothyroxine 112 mcg tablet 112 mcg PO DAILY Qty: 90 2RF oxycodone 10 mg tablet 10 mg PO 0200,0800,1600,2100 Rx Instructions: Partial Fill upon patient request. nicotine 7 mg/24 hr Patch 24 Hour 7 mg transdermal DAILY Qty: 30 0RF doxycycline monohydrate 100 mg capsule 100 mg PO BID Qty: 10 0RF
[2023-06-30] MEDS: HYDROmorphone HCl 0.5 MG/0.5 ML SYRINGE IVPUSH (08:20)
--- NOTE | 2023-06-30 08:20 | PC.NURSE ---
patient a&ox3, rt chest port accessed, labs drawn, nasal swab obtained, pt medicated per order, pt c/o nausea will notify provider and continue to monitor
[2023-06-30] MEDS: ondansetron HCL 4 MG/2 ML VIAL IVPUSH (08:24)
--- NOTE | 2023-06-30 08:25 | PC.NURSE ---
pt medicated for nausea
[2023-06-30 08:32] LABS: Hematocrit 38.3 % (37.0-47.0); Hemoglobin 12.8 g/dl (12.0-16.0); Mean Corpuscular HGB Conc 33.4 g/dl (31.0-35.0); Mean Corpuscular Hemoglobin 29.2 pg (27.0-33.0); Mean Corpuscular Volume 87.2 fL (80.0-98.0); Mean Platelet Volume 9.9 fL (9.4-12.3); NRBC Pct Auto 0.6 /100WBC (0.0-0.2); Platelet Count 133 X10*3/uL (160-400); Red Blood Count 4.39 X10*6/uL (4.20-5.50); Red Cell Distribution Width 18.4 % (11.0-16.0); White Blood Count 18.7 X10*3/uL (4.8-10.8)
[2023-06-30 08:50] LABS: INTERNATIONAL NORM RATIO 1.2 (0.9-1.1); Prothrombin Time 14.1 SEC (11.1-13.3)
[2023-06-30 08:53] LABS: Neutrophils Percent Manual 76 % (45-73)
[2023-06-30 08:55] LABS: Band Neutrophils Percent 13 % (3-5); Lymphocytes Absolute Manual 1.1 X10*3/uL (1.2-4.9); Lymphocytes Percent Manual 6 % (20-40); Metamyelocytes Absolute 0.2 X10*3/uL; Metamyelocytes Percent 1 %; Monocytes Absolute Manual 0.6 X10*3/uL (0.1-1.2); Monocytes Percent Manual 3 % (2-11); Myelocytes Absolute 0.2 X10*/uL; Myelocytes Percent 1 %; Neutrophils Absolute Manual 16.6 X10*3/uL (2.0-8.3); Nucleated Red Blood Cells 2 /100WBC (0-0); Platelet Estimate SLIGHTLY DECREASED (NORMAL); RBC Morphology NORMAL
[2023-06-30 08:56] LABS: Platelet Morphology Comment NORMAL
[2023-06-30 08:57] LABS: Alanine Aminotransferase 191 U/L (0-31); Albumin Level 3.5 g/dL (3.5-5.0); Alkaline Phosphatase 142 U/L (39-117); Anion Gap 19 (12-20); Aspartate Amino Transferase 194 U/L (5-31); Bilirubin Total 1.9 mg/dL (0.0-1.0); Blood Urea Nitrogen 22 mg/dL (9-16); Calcium 7.8 mg/dL (8.4-10.2); Carbon Dioxide 27 mmol/L (22-29); Chloride 103 mmol/L (96-108); Creatinine Clr Calc Pharmacy 95.3; Estimated Glomerular Filt Rate > 60; Glucose Random 97 mg/dL (60-115); Magnesium 2.2 mg/dL (1.6-2.6); Sodium 146 mmol/L (135-145); Total Protein 5.6 g/dL (6.5-8.0)
[2023-06-30 09:00] LABS: Influenza A PCR NEGATIVE (Negative); Influenza B PCR NEGATIVE (Negative); Resp Syncy Virus RNA Qual PCR NEGATIVE (Negative); SARS COV2 PCR INHOUSE NEGATIVE (Negative)
[2023-06-30] MEDS: Albuterol Sulfate (0.083%) 2.5 MG/3 ML VIAL.NEB INHALE (09:02)
[2023-06-30 09:04] LABS: Troponin-I High Sensitivity 12.2 ng/L (<3.5-17.0)
[2023-06-30] MEDS: cefTRIAXone sodium 1 GM in 0.9 % Sodium Chloride 50 ML IV (09:36)
[2023-06-30] MEDS: Potassium Chloride ER 20 MEQ TAB.ER.PRT 40 MEQ PO (09:36)
--- NOTE | 2023-06-30 10:36 | PC.NURSE ---
ivf continue to run slowly through patients port. pt states her port generally runs slow and they are unable to get labs out of the port.
[2023-06-30] MEDS: iohexoL 350 MG/ML 100 ML INFUS..BTL 65 ML IV (10:52)
[2023-06-30] MEDS: HYDROmorphone HCl 1 MG/ML SYRINGE IVPUSH (11:06)
[2023-06-30] MEDS: vancomycin/NS 2,000 MG/500 ML PLAST..BAG 250 MG IV (11:07)
[2023-06-30 11:15] LABS: Reflex Lactate? Lactic Acid Added
--- NOTE | 2023-06-30 11:15 | PC.NURSE ---
patient a&ox3, pt ivf continue to run slowly, vanco started per order, pt medicated for 8/10 pain, call conrad within reach, will continue to monitor.
[2023-06-30 12:10] LABS: ~Lactic Acid-LAB USE ONLY 3.4 mmol/L (0.5-2.0)
--- NOTE | 2023-06-30 12:45 | PC.NURSE ---
pt a&ox3, vss, shoeblack intact nsr, pt states her pain is 6/10 but states she is ok at the moment, ivf continue to run and iv abx are running per order, call conrad within reach, will continue to monitor
--- NOTE | 2023-06-30 12:51 | PHA.MEDREC ---
Pharmacy Consult ? Medication Reconciliation Pharmacy has completed the medication reconciliation.
[2023-06-30] MEDS: Lidocaine 4 % Patch ADH..PATCH 2 PATCH TRANSDERMA (12:57)
[2023-06-30 13:45] LABS: Reflex Lactate? 2 Y
--- NOTE | 2023-06-30 14:09 | P.HPHOSP_ITS ---
History of Present Illness Date of Service: 06/30/23 Chief Complaint: shortness of breath The 63-year-old female has a history of thyroid cancer status post-thyroidectomy and RODRIGUEZ in 2013, postsurgical hypothyroidism, hypercholesterolemia, hypertension, rectal adenoma, COPD, and metastatic small cell lung cancer treated with carboplatin, etoposide, and atezolizumab, as well as denosumab for bony metastases, under the care of Dr. Cisneros. She was recently admitted from 06/23 to 04/23 for leukocytosis and bandemia, but no source of infection was identified, thought to be related to malignancy, and was treated with 5 days of Doxycycline. She presents to the ED today with worsening shortness of breath over the last 3 to 4 days, no fever or cough?worse with exertion, and in general, has been feeling very weak, spending most of the time on a couch. Workup for flu, RSV, or COVID-[address] of the chest shows no pneumonia, is inconclusive for VTE, and confirms the presence of metastatic disease. VQ scan is negative for PE. Additional labs include a lactic acid level of 4, sodium of 146, potassium of 3, and leukocytosis of 18 K. Review of Systems 2 Review of Systems: Gen: no fever Resp: + sob, no cough CV: no chest, + PEOPLES, no leg edema GI: No n/v, no abd pain Neuro: No confusion [facility] Medical History Chest pain Lung cancer HTN (hypertension) Nicotine dependence, cigarettes, uncomplicated Rectal adenoma Pulmonary nodules Tubular adenoma of colon (~2009) Overweight (BMI 25.0-29.9) COPD (chronic obstructive pulmonary disease) Dyspnea Postmenopausal Primary thyroid cancer (~2013) Low vitamin D level Post-surgical hypothyroidism (~2013) Family History Father No problems noted. Mother Polycythemia vera Pulmonary cancer Sister Mental health disorder Surgical History Status post de Quervain's release surgery History of bilateral carpal tunnel release History of total thyroidectomy (~2013) History of colonoscopy History of skin cancer (~2009) History of HPV infection (~1996) Social History Household Members: Spouse and Children Household Members Other:: daughter Housing: House Do you presently have visiting nurse or other home services: No Alcohol intake: never Patient Tobacco Use Status: Never used Tobacco Tobacco use type: Cigarette Cigarette Packs Per Day: 0.25 Years Smoked: 50 Smoked in Last 30 Days: No e-Cigarette/Vaping Use: Never Used Second Hand Smoke Exposure: No Use of substances other than those prescribed or required for medical reasons: No Substance Use Type: Marijuana Currently Displaying Signs/Symptoms of Drug Intoxication Withdrawal: No Do you feel safe in your current relationship?: Yes Advance Directives: No Advance Directives Information Provided: Yes Do you have thoughts of harming others: None Do you have a plan to hurt others: No Plan Recently lost weight without trying: Yes How much weight loss: 24-33 pounds Eating poorly because of decreased appetite: Yes Nutrition screen score: 6 Nutrition Risks: Anorexia, Dental problems, Difficulty chewing and Difficulty swallowing Patient : No : No Poor oral hygiene: Yes service: No Current occupational status: unemployed Cognitive needs: No Hearing needs: No Vision needs: Yes Meds Allergies Allergy/AdvReac Type Severity Reaction Status Date / Time bee stings Allergy Severe Severe Uncoded 06/23/23 08:55 Swelling Home Medications Medication Instructions Recorded Confirmed Last Taken Type oxycodone 10 mg tablet 10 mg PO 0200,0800,1600,2100 Pain 06/23/23 06/30/23 06/23/23 History (Scale Score 7-10) levothyroxine 112 mcg tablet 112 mcg PO DAILY@0630 06/30/23 06/30/23 Unknown History Physical Exam 2 Vital Signs and Narrative: Vital Signs: Last Vital Signs Temp 97.9 F 06/30/23 13:31 Pulse 86 06/30/23 13:31 Resp 16 06/30/23 13:31 BP 139/71 06/30/23 13:31 Pulse Ox 91 L 06/30/23 13:31 O2 Del Method Nasal Cannula 06/30/23 13:31 O2 Flow Rate 2 06/30/23 13:31 BMI result Body Mass Index 29.5 Constitutional - Awake and Alert, No apparent distress Eyes - PERRLA, EOMI Cardiovascular - S1S2, RRR, No edema Respiratory - Normal lung expansion, Normal respiratory effort, No respiratory distress, CTA bilaterally Gastrointestinal - significant abd distention with diffuse ttp, greatest RUQ. +BS; No rebound or guarding Extremities - bilateral swelling of both legs, left greater than righ Skin - Warm/Dry Neurological - Alert & oriented x3 Psychological - Appropriate affect Results Labs 06/30/23 08:17 07/01/23 05:29 Labs: Laboratory Results - last 24 hr 06/30/23 06/30/23 06/30/23 08:01 08:16 08:17 MCV 87.2 MCH 29.2 MCHC 33.4 RDW 18.4 H Plt Count 133 L D MPV 9.9 Immature Gran % (Auto) Cancelled Neut % (Auto) Cancelled Lymph % (Auto) Cancelled [place] % (Auto) Cancelled Eos % (Auto) Cancelled Baso % (Auto) Cancelled Lymph # (Auto) Cancelled [place] # (Auto) Cancelled Eos # (Auto) Cancelled Baso # (Auto) Cancelled Abs Immat Gran (auto) Cancelled Absolute Neuts (auto) Cancelled Absolute Nucleated RBC 0.110 H Nucleated RBC % (auto) 0.6 H Neutrophils % (Manual) 76 H Band Neutrophils % 13 H Lymphocytes % (Manual) 6 L Monocytes % (Manual) 3 Metamyelocytes % 1 Myelocytes % 1 Abs Neuts (Manual) 16.6 H Lymphocytes # (Manual) 1.1 L Monocytes # (Manual) 0.6 Metamyelocytes # 0.2 Myelocytes # 0.2 Nucleated RBCs 2 H Platelet Estimate SLIGHTLY DECREASED Plt Morphology Comment NORMAL RBC Morphology NORMAL PT 14.1 H INR 1.2 H Anion Gap 19 Estim Creat Clear Calc 95.3 Estimated GFR > 60 Random Glucose 97 Lactic Acid Lactic Acid F/U @ 2Hr Calcium 7.8 L Magnesium 2.2 Total Bilirubin 1.9 H AST 194 H ALT 191 H Alkaline Phosphatase 142 H Troponin I High Sens 12.2 D Total Protein 5.6 L Albumin 3.5 Influenza Type A (PCR) NEGATIVE Influenza Type B (PCR) NEGATIVE RSV RNA Qual (PCR) NEGATIVE SARS-CoV-2 RNA (RT-PCR) NEGATIVE 06/30/23 06/30/23 09:10 11:43 MCV MCH MCHC RDW Plt Count MPV Immature Gran % (Auto) Neut % (Auto) Lymph % (Auto) [place] % (Auto) Eos % (Auto) Baso % (Auto) Lymph # (Auto) [place] # (Auto) Eos # (Auto) Baso # (Auto) Abs Immat Gran (auto) Absolute Neuts (auto) Absolute Nucleated RBC Nucleated RBC % (auto) Neutrophils % (Manual) Band Neutrophils % Lymphocytes % (Manual) Monocytes % (Manual) Metamyelocytes % Myelocytes % Abs Neuts (Manual) Lymphocytes # (Manual) Monocytes # (Manual) Metamyelocytes # Myelocytes # Nucleated RBCs Platelet Estimate Plt Morphology Comment RBC Morphology PT INR Anion Gap Estim Creat Clear Calc Estimated GFR Random Glucose Lactic Acid 4.0 H* Lactic Acid F/U @ 2Hr 3.4 H* Calcium Magnesium Total Bilirubin AST ALT Alkaline Phosphatase Troponin I High Sens Total Protein Albumin Influenza Type A (PCR) Influenza Type B (PCR) RSV RNA Qual (PCR) SARS-CoV-2 RNA (RT-PCR) Imaging Radiologist's Impressions: Impressions Abdomen/Pelvis CT 06/30/23 10:54 IMPRESSION: 1. Enlarged liver with diffuse heterogeneous appearance suspicious for metastatic disease. Differential diagnoses includes hepatic steatosis or combination. 2. No abnormal lymphadenopathy seen. 3. Stable left adrenal nodule. The right gland is less nodular. No change from the last CT abdomen exam 4. Sclerotic lesion T10 vertebra is stable. 5. Mild constipation. Fleischner guidelines were followed. Chest CTA 06/30/23 10:54 IMPRESSION: Suboptimal exam for PE. Cannot exclude pulmonary emboli. Consider VQ scan or repeat CTA if patient has normal BUN/creatinine. No aortic aneurysm. Multiple bilateral lung nodules likely metastatic unless proven otherwise. Patient has a previous history of lung cancer. There are multiple bilateral healing rib fractures and a compression fracture deformity T7 vertebra, question cortical fracture. It is abnormal on the previous PET exam. There is a sclerotic lesion of T10 vertebra which is abnormal on PET scanning. Heterogeneous liver especially right hepatic lobe. VTE: Inconclusive Assessment and Plan (1) Acute hypoxic respiratory failure: Status: Acute Plan 63 year old female with history of thyroid cancer s/p thyroidectomy and RODRIGUEZ 2013, postsurgical hypothyroidism, hypercholesterolemia, hypertension, rectal adenoma, COPD, and metastatic small cell lung cancer on chrmo here with shortness of breath, hypoxia upon ambulation, leukocytosis, lactic acidosis. Shortness of breath: exact cause not clear, no PNA on CT, VTE inconclusive. I suspect multifactorial cause including copd exacerbaton, undelying lung cancer and infection not excluded either -VQ scan is negative for PE -supplemental O2 -bronchodilators by Neb -steroid for possible COPD exacerbation -Given Ceftriaxone in ED, leukocytosis is chronic, will add Doxy 100 bid for possible bronchitis COPD with possible exacerbation--Steroid, Nebs, O2 mild hypernatremia, just observe with oral water HypOkalemia 3.0, check mag, oral supplement leg edema--US to rule out DVT Acute lactic acidosis not due to sesis leukocytosis, chronic d/t malignancy not due to sepsis Metastatic small cell lung CA--On chemo by [facility], let Dr. Cisneros know in am that patient is admitted h/o HTN--BP normal, not on meds post-operative hypothyroidism -continue levothyroxine Tobacco use desorder--cesssation advised, NRT DVT prophyalxis- lovenox DNR/DNI--MOLST available Pt requires inpt stay for at least 2 midnights for management of acute hypoxic resp failure needing oxygen titration Quality Stroke Does the patient have a stroke diagnosis?: No VTE Prior VTE?: No VTE Risk Level:: Medical - moderate - high VTE Device Contraindication: Treatment Not Indicated VTE Drug Contraindication: N/A - Med Ordered
--- NOTE | 2023-06-30 14:33 | MHC.CM.PN ---
Met with patient in ER #3. Patient was discharged last week Home with services. Per patient report the services did not start. She states that it was her fault. She has moved in with her dtr, Loren). The patient returns to the ER with new Hypoxia. She is open to STR or home services at discharge. [facility] referral [facility] to [facility] They will follow for discharge. A new referral has been made to [facility] Options councilors. The patient is going to be admitted. A request has been sent for [facility] to meet with the patient, while she is here. Referrals for STR have been sent to SNFs with Respiratory programs and [facility]. The DP will be determined with the assist from PT and Home O2 evaluations. Patient may need assist with transport at discharge.
--- NOTE | 2023-06-30 14:35 | PC.NURSE ---
pt to nuc.med
[2023-06-30 14:41] LABS: ~Lactic Acid-LAB USE ONLY 2.9 mmol/L (0.5-2.0)
[2023-06-30 14:42] LABS: Appearance Urine Clear; Color Urine Dark Yellow; Glucose Urine UA Negative (Negative); Leukocyte Esterase Urine Negative (Negative); Nitrite Urine Negative (Negative); Specific Gravity - Urine >= 1.030 (1.005-1.025); Urine Blood Negative (Negative); Urine Ketones Negative (Negative); Urine Protein Trace mg/dL (Neg-Trace)
[2023-06-30] MEDS: Albuterol/Iprat 2.5/0.5MG 3 ML AMPUL.NEB INHALE ×2 (15:59→20:11)
--- NOTE | 2023-06-30 16:23 | MHC.EDTECH ---
This pct assumed care of Patient at 1500 ,vitals taken and Patient belonging list done .
[2023-06-30] MEDS: oxyCODONE HCl Immed Release 5 MG TABLET 10 MG PO ×2 (16:27→20:00)
[2023-06-30] MEDS: Enoxaparin Sodium 40 MG/0.4 ML SYRINGE SUBCUT (16:27)
[2023-06-30] MEDS: Doxycycline Hyclate 100 MG in 0.9 % Sodium Chloride 250 ML 166.67 MG IV (16:28)
[2023-06-30] MEDS: 0.9 % Sodium Chloride Flush 3 ML SYRINGE IVFLUSH (16:28)
--- NOTE | 2023-06-30 16:31 | PC.NURSE ---
patient a&ox3, vss, quality assurance monitor body nsr, iv abx hung per order, pt medicated for 8/10 generalized pain, call conrad within reach, will continue to monitor
[2023-06-30] MEDS: methylPREDNISolone Sod Succ 125 MG/2 ML VIAL 40 MG IVPUSH (20:00)
[2023-07-01] VITALS (8 sets, daily range): BP systolic 146–166; BP diastolic 69–90; PULSE 81–101; RESP 18–20; TEMP 36.1–36.2; O2SAT 91–98
[2023-07-01] MEDS: oxyCODONE HCl Immed Release 5 MG TABLET 10 MG PO ×4 (01:58→20:41)
[2023-07-01] MEDS: Doxycycline Hyclate 100 MG in 0.9 % Sodium Chloride 250 ML 166.67 MG IV ×2 (04:05→15:33)
[2023-07-01] MEDS: Levothyroxine Sodium 112 MCG TABLET PO (05:58)
[2023-07-01 06:10] LABS: Anion Gap 19 (12-20); Blood Urea Nitrogen 20 mg/dL (9-16); Carbon Dioxide 24 mmol/L (22-29); Chloride 108 mmol/L (96-108); Estimated Glomerular Filt Rate > 60; Glucose Random 139 mg/dL (60-115); Potassium 2.9 mmol/L (3.3-5.1); Sodium 148 mmol/L (135-145)
--- NOTE | 2023-07-01 06:26 | PC.NURSE ---
0610-message received from lab, potassium level 2.9 this am draw. Hospitalist on duty alerted and orders noted po supplement. will administer when pharmacy acknowledges.
[2023-07-01] MEDS: Potassium Chloride Packet 20 MEQ PACKET 40 MEQ PO ×2 (06:40→20:40)
[2023-07-01] MEDS: Cholecalciferol (Vitamin D3) 25 MCG TABLET 50 MCG PO (07:41)
[2023-07-01] MEDS: methylPREDNISolone Sod Succ 125 MG/2 ML VIAL 40 MG IVPUSH ×2 (07:41→20:40)
[2023-07-01] MEDS: Dextrose 5 % 1,000 ML 100 ML IVCONT ×2 (07:42→17:13)
[2023-07-01] MEDS: Ondansetron ODT 8 MG TAB.RAPDIS TRANSLINGU (07:42)
[2023-07-01] MEDS: Fluticasone/Vilanterol 200/25 BLST.W.DEV 1 PUFF INHALE (08:26)
[2023-07-01] MEDS: Albuterol/Iprat 2.5/0.5MG 3 ML AMPUL.NEB INHALE ×4 (08:26→19:09)
--- NOTE | 2023-07-01 08:40 | P.PNIM_ITS ---
Subjective Subjective Date of Service: 07/01/23 Interval History: f/u on acute hypoxic resp failure in setting of lung cancer, copd Physical Exam 2 Vital Signs: Vital Signs: Last Vital Signs Temp 97.0 F 07/01/23 08:00 Pulse 94 07/01/23 08:28 Resp 18 07/01/23 08:28 BP 164/75 H 07/01/23 03:31 Pulse Ox 94 07/01/23 08:00 O2 Del Method Nasal Cannula 07/01/23 08:00 O2 Flow Rate 2.0 07/01/23 08:00 BMI result Body Mass Index 30.5 Const: Other: General: AO X 3, mild distress Resp: diminished chioma, no accessory muslce use CVS: S1,S2,RRR, 2+ leg edema GI: +BS, NT, no distention Skin: No rash Neuro: motor grossly intact Psych: appropriate affect Objective Data Active Medications Al Hydroxide/Mg Hydroxide (Magnesium Hydrox/Alum Hydrox 30 Ml Oral.Susp) 30 ml PO Q4H PRN PRN Reason: Heartburn/Nausea Albuterol Sulfate (Albuterol Sulfate 90 Mcg 8 Gm Inhaler) 2 puff INHALE RQ6H PRN PRN Reason: for wheezing Albuterol/Ipratropium (Albuterol/Iprat 2.5/0.5mg 3 Ml Ampul.Neb) 3 ml INHALE RQ4H WHILE AWAKE [facility] Last Admin: 07/01/23 08:26 Dose: 3 ml Documented By: RAMANDEEP Enoxaparin Sodium (Enoxaparin Sodium 40 Mg/0.4 Ml Syringe) 40 mg SUBCUT Q24H [facility] Last Admin: 06/30/23 16:27 Dose: 40 mg Documented By: FLORES Fluticasone/Vilanterol (Fluticasone/Vilanterol 200/25 Blst.W.Dev) 1 puff INHALE DAILY [facility] Last Admin: 07/01/23 08:26 Dose: 1 puff Documented By: RAMANDEEP Doxycycline Hyclate 100 mg/ (Sodium Chloride) 250 mls @ 166.67 mls/hr IV Q12H [facility] Last Infusion: 07/01/23 05:35 Dose: Infused Documented By: KEVON Dextrose (D5w) 1,000 mls @ 100 mls/hr IVCONT .Q10H [facility] Last Admin: 07/01/23 07:42 Dose: 100 mls/hr Documented By: PALMER Levothyroxine Sodium (Levothyroxine Sodium 112 Mcg Tablet) 112 mcg PO DAILY@0600 [facility] Last Admin: 07/01/23 05:58 Dose: 112 mcg Documented By: KEVON Melatonin (Melatonin 3 Mg Tablet) 6 mg PO BEDTIME PRN PRN Reason: Insomnia Methylprednisolone Sodium Succinate (Methylprednisolone Sod Succ 125 Mg/2 Ml Vial) 40 mg IVPUSH BID [facility] Last Admin: 07/01/23 07:41 Dose: 40 mg Documented By: PALMER Nicotine (Nicotine 7 Mg Patch.Td24) 7 mg TRANSDERMA DAILY [facility] Last Admin: 07/01/23 07:41 Dose: Not Given Documented By: PALMER Non-Admin Reason: Patient Refused Ondansetron HCl (Ondansetron Odt 8 Mg Tab.Rapdis) 8 mg TRANSLINGU Q8H PRN PRN Reason: Nausea Last Admin: 07/01/23 07:42 Dose: 8 mg Documented By: PALMER Oxycodone HCl (Oxycodone Hcl Immed Release 5 Mg Tablet) 10 mg PO QID@0200,0800,1600,2100 [facility] Last Admin: 07/01/23 07:41 Dose: 10 mg Documented By: PALMER Potassium Chloride (Potassium Chloride Packet 20 Meq Packet) 40 meq PO BEDTIME ONE Stop: 07/01/23 21:01 Sodium Chloride (0.9 % Sodium Chloride Flush 3 Ml Syringe) 3 ml IVFLUSH QSHIFT [facility] Last Admin: 07/01/23 07:54 Dose: Not Given Documented By: PALMER Non-Admin Reason: IV Running Vitamin D (Cholecalciferol (Vitamin D3) 25 Mcg Tablet) 50 mcg PO DAILY [facility] Last Admin: 07/01/23 07:41 Dose: 50 mcg Documented By: PALMER Labs 06/30/23 08:17 07/01/23 05:29 Labs: Laboratory Results - last 24 hr 06/30/23 06/30/23 06/30/23 08:01 08:16 08:17 Neutrophils % (Manual) 76 H Band Neutrophils % 13 H Lymphocytes % (Manual) 6 L Monocytes % (Manual) 3 Metamyelocytes % 1 Myelocytes % 1 Abs Neuts (Manual) 16.6 H Lymphocytes # (Manual) 1.1 L Monocytes # (Manual) 0.6 Metamyelocytes # 0.2 Myelocytes # 0.2 Nucleated RBCs 2 H Platelet Estimate SLIGHTLY DECREASED Plt Morphology Comment NORMAL RBC Morphology NORMAL Hold Purple Top PT 14.1 H INR 1.2 H Anion Gap 19 Estim Creat Clear Calc 95.3 Estimated GFR > 60 Random Glucose 97 Lactic Acid Lactic Acid F/U @ 2Hr Lactic Acid F/U @ 4Hr Calcium 7.8 L Magnesium 2.2 Total Bilirubin 1.9 H AST 194 H ALT 191 H Alkaline Phosphatase 142 H Troponin I High Sens 12.2 D Total Protein 5.6 L Albumin 3.5 Urine Color Urine Appearance Urine pH Ur Specific [place] Urine Protein Urine Glucose (UA) Urine Ketones Urine Blood Urine Nitrite Ur Leukocyte Esterase Influenza Type A (PCR) NEGATIVE Influenza Type B (PCR) NEGATIVE RSV RNA Qual (PCR) NEGATIVE SARS-CoV-2 RNA (RT-PCR) NEGATIVE 06/30/23 06/30/23 06/30/23 09:10 11:43 14:14 Neutrophils % (Manual) Band Neutrophils % Lymphocytes % (Manual) Monocytes % (Manual) Metamyelocytes % Myelocytes % Abs Neuts (Manual) Lymphocytes # (Manual) Monocytes # (Manual) Metamyelocytes # Myelocytes # Nucleated RBCs Platelet Estimate Plt Morphology Comment RBC Morphology Hold Purple Top PT INR Anion Gap Estim Creat Clear Calc Estimated GFR Random Glucose Lactic Acid 4.0 H* Lactic Acid F/U @ 2Hr 3.4 H* Lactic Acid F/U @ 4Hr 2.9 H* Calcium Magnesium Total Bilirubin AST ALT Alkaline Phosphatase Troponin I High Sens Total Protein Albumin Urine Color Urine Appearance Urine pH Ur Specific [place] Urine Protein Urine Glucose (UA) Urine Ketones Urine Blood Urine Nitrite Ur Leukocyte Esterase Influenza Type A (PCR) Influenza Type B (PCR) RSV RNA Qual (PCR) SARS-CoV-2 RNA (RT-PCR) 06/30/23 07/01/23 07/01/23 14:32 05:29 05:45 Neutrophils % (Manual) Band Neutrophils % Lymphocytes % (Manual) Monocytes % (Manual) Metamyelocytes % Myelocytes % Abs Neuts (Manual) Lymphocytes # (Manual) Monocytes # (Manual) Metamyelocytes # Myelocytes # Nucleated RBCs Platelet Estimate Plt Morphology Comment RBC Morphology Hold Purple Top SEE NOTE PT INR Anion Gap 19 Estim Creat Clear Calc 91.0 Estimated GFR > 60 Random Glucose 139 H Lactic Acid Lactic Acid F/U @ 2Hr Lactic Acid F/U @ 4Hr Calcium 7.0 L D Magnesium Total Bilirubin AST ALT Alkaline Phosphatase Troponin I High Sens Total Protein Albumin Urine Color Dark Yellow Urine Appearance Clear Urine pH 6.0 Ur Specific [place] >= 1.030 H Urine Protein Trace Urine Glucose (UA) Negative Urine Ketones Negative Urine Blood Negative Urine Nitrite Negative Ur Leukocyte Esterase Negative Influenza Type A (PCR) Influenza Type B (PCR) RSV RNA Qual (PCR) SARS-CoV-2 RNA (RT-PCR) Assessment and Plan (1) Acute hypoxic respiratory failure: Status: Acute Plan 63 year old female with history of thyroid cancer s/p thyroidectomy and RODRIGUEZ 2013, postsurgical hypothyroidism, hypercholesterolemia, hypertension, rectal adenoma, COPD, and metastatic small cell lung cancer on chrmo here with shortness of breath, hypoxia upon ambulation, leukocytosis, lactic acidosis. Shortness of breath: exact cause not clear, no PNA on CT, VTE inconclusive, VQ scan negative for PE. I suspect multifactorial cause including copd exacerbaton, undelying lung cancer and infection not excluded -supplemental O2 -bronchodilators by Neb -steroid for possible COPD exacerbation -Given Ceftriaxone in ED, leukocytosis is chronic, Doxy 100 bid for possible bronchitis COPD with possible exacerbation--Steroid, Nebs, O2, and O2 with goall of 88-92 hypernatremia--148 today, encourage oral water, D5 and repeat later, nephrology consult HypOkalemia 2.9, oral suplement and repeat, check magnesium leg edema--DVT study negative Acute lactic acidosis not due to sepsis, and going down leukocytosis, chronic d/t malignancy not due to sepsis Metastatic small cell lung CA--On chemo by [facility], let Dr. Cisneros know in am that patient is admitted h/o HTN--BP normal, monitor and add meds if needed post-operative hypothyroidism -continue levothyroxine Tobacco use desorder--cesssation advised, NRT DVT prophyalxis- lovenox DNR/DNI--MOLST available need for inpatient for management of acute hypoxic resp failure needing oxygen titration, ivf for hypernatremia and frequent labs Quality Stroke Does the patient have a stroke diagnosis?: No VTE Prior VTE?: No VTE Risk Level:: Medical - moderate - high VTE Device Contraindication: Treatment Not Indicated VTE Drug Contraindication: N/A - Med Ordered
[2023-07-01 09:05] LABS: Magnesium 2.1 mg/dL (1.6-2.6)
--- NOTE | 2023-07-01 09:51 | MHC.CM.PN ---
Patient from home w/ daughter. States she was functionally independent [employer]. Now w/ weakness. PT eval pending. Recent admission, dc'd 06/24 w/ [facility], but did not start services as she moved in with her daughter. Would like to start services now. Referral in place. Reports she has a walker at home. Dx metastatic lung CA, gets chemo at [facility] [place], last time 2 weeks ago, isn't sure how often. PCP Sue Reynoso HCP Daughter Nuha - completed with patient and filed MOLST on file - DNR/DNI DP: Pending PT eval. Goal is home w/ services. Daughter to transport. CM will continue to follow.
[2023-07-01] MEDS: HYDROmorphone HCl 0.5 MG/0.5 ML SYRINGE IVPUSH ×2 (12:28→17:07)
--- NOTE | 2023-07-01 13:25 | P.CONNP_ITS ---
History of Present Illness Reason for Consult Consult date: 07/01/23 Chief Complaint Chief complaint: Acute hypoxic respiratory failure History of Present Illness Narrative: 63-year-old female has a history of thyroid cancer status post-thyroidectomy and RODRIGUEZ in 2013, postsurgical hypothyroidism, hypercholesterolemia, hypertension, rectal adenoma, COPD, and metastatic small cell lung cancer treated with carboplatin, etoposide, and atezolizumab, as well as denosumab for bony metastases, under the care of Dr. Cisneros. She was recently admitted from 06/23 to 04/23 for leukocytosis and bandemia, but no source of infection was identified, thought to be related to malignancy, and was treated with 5 days of Doxycycline. She presents to the ED today with worsening shortness of breath over the last 3 to 4 days, no fever or cough?worse with exertion, and in general, has been feeling very weak, spending most of the time on a couch. Workup for flu, RSV, or COVID-[address] of the chest shows no pneumonia, is inconclusive for VTE, and confirms the presence of metastatic disease. VQ scan is negative for PE. Additional labs include a lactic acid level of 4, sodium of 146, potassium of 3, and leukocytosis of 18 K. nephrology has been consulted for hypernatremia and hypokalemia. Review of Systems Review of Systems Yes all other systems are reviewed and are negative PMFSH Past Medical History Medical History Chest pain Lung cancer HTN (hypertension) Nicotine dependence, cigarettes, uncomplicated Rectal adenoma Pulmonary nodules Tubular adenoma of colon (~2009) Overweight (BMI 25.0-29.9) COPD (chronic obstructive pulmonary disease) Dyspnea Postmenopausal Primary thyroid cancer (~2013) Low vitamin D level Post-surgical hypothyroidism (~2013) Family History Family History Father No problems noted. Mother Polycythemia vera Pulmonary cancer Sister Mental health disorder Surgical History Surgical History Status post de Quervain's release surgery History of bilateral carpal tunnel release History of total thyroidectomy (~2013) History of colonoscopy History of skin cancer (~2009) History of HPV infection (~1996) Social History Social History Household Members: Spouse and Children Household Members Other:: daughter Housing: House Do you presently have visiting nurse or other home services: No Alcohol intake: never Patient Tobacco Use Status: Never used Tobacco Tobacco use type: Cigarette Cigarette Packs Per Day: 0.25 Years Smoked: 50 Smoked in Last 30 Days: No e-Cigarette/Vaping Use: Never Used Second Hand Smoke Exposure: No Use of substances other than those prescribed or required for medical reasons: No Substance Use Type: Marijuana Currently Displaying Signs/Symptoms of Drug Intoxication Withdrawal: No Do you feel safe in your current relationship?: Yes Advance Directives: No Advance Directives Information Provided: Yes Do you have thoughts of harming others: None Do you have a plan to hurt others: No Plan Recently lost weight without trying: Yes How much weight loss: 24-33 pounds Eating poorly because of decreased appetite: Yes Nutrition screen score: 6 Nutrition Risks: Anorexia, Dental problems, Difficulty chewing and Difficulty swallowing Patient : No : No Poor oral hygiene: Yes service: No Current occupational status: unemployed Cognitive needs: No Hearing needs: No Vision needs: Yes Meds Allergies Allergy/AdvReac Type Severity Reaction Status Date / Time bee stings Allergy Severe Severe Uncoded 06/23/23 08:55 Swelling Active Medications: Current Medications Al Hydroxide/Mg Hydroxide (Magnesium Hydrox/Alum Hydrox 30 Ml Oral.Susp) 30 ml PO Q4H PRN PRN Reason: Heartburn/Nausea Albuterol Sulfate (Albuterol Sulfate 90 Mcg 8 Gm Inhaler) 2 puff INHALE RQ6H PRN PRN Reason: for wheezing Albuterol/Ipratropium (Albuterol/Iprat 2.5/0.5mg 3 Ml Ampul.Neb) 3 ml INHALE RQ4H WHILE AWAKE [facility] Last Admin: 07/01/23 11:48 Dose: 3 ml Enoxaparin Sodium (Enoxaparin Sodium 40 Mg/0.4 Ml Syringe) 40 mg SUBCUT Q24H [facility] Last Admin: 06/30/23 16:27 Dose: 40 mg Fluticasone/Vilanterol (Fluticasone/Vilanterol 200/25 Blst.W.Dev) 1 puff INHALE DAILY [facility] Last Admin: 07/01/23 08:26 Dose: 1 puff Hydromorphone HCl (Hydromorphone Hcl 0.5 Mg/0.5 Ml Syringe) 0.5 mg IVPUSH Q4H PRN; Protocol PRN Reason: Pain, Severe (Pain Scale 7-10) Last Admin: 07/01/23 12:28 Dose: 0.5 mg Doxycycline Hyclate 100 mg/ (Sodium Chloride) 250 mls @ 166.67 mls/hr IV Q12H [facility] Last Infusion: 07/01/23 05:35 Dose: Infused Dextrose (D5w) 1,000 mls @ 100 mls/hr IVCONT .Q10H [facility] Last Admin: 07/01/23 07:42 Dose: 100 mls/hr Levothyroxine Sodium (Levothyroxine Sodium 112 Mcg Tablet) 112 mcg PO DAILY@0600 [facility] Last Admin: 07/01/23 05:58 Dose: 112 mcg Melatonin (Melatonin 3 Mg Tablet) 6 mg PO BEDTIME PRN PRN Reason: Insomnia Methylprednisolone Sodium Succinate (Methylprednisolone Sod Succ 125 Mg/2 Ml Vial) 40 mg IVPUSH BID [facility] Last Admin: 07/01/23 07:41 Dose: 40 mg Nicotine (Nicotine 7 Mg Patch.Td24) 7 mg TRANSDERMA DAILY [facility] Last Admin: 07/01/23 07:41 Dose: Not Given Ondansetron HCl (Ondansetron Odt 8 Mg Tab.Rapdis) 8 mg TRANSLINGU Q8H PRN PRN Reason: Nausea Last Admin: 07/01/23 07:42 Dose: 8 mg Oxycodone HCl (Oxycodone Hcl Immed Release 5 Mg Tablet) 10 mg PO QID@0200,0800,1600,2100 [facility] Last Admin: 07/01/23 07:41 Dose: 10 mg Potassium Chloride (Potassium Chloride Packet 20 Meq Packet) 40 meq PO BEDTIME ONE Stop: 07/01/23 21:01 Sodium Chloride (0.9 % Sodium Chloride Flush 3 Ml Syringe) 3 ml IVFLUSH QSHIFT [facility] Last Admin: 07/01/23 07:54 Dose: Not Given Vitamin D (Cholecalciferol (Vitamin D3) 25 Mcg Tablet) 50 mcg PO DAILY [facility] Last Admin: 07/01/23 07:41 Dose: 50 mcg Home Medications Medication Instructions Recorded Confirmed Last Taken Type oxycodone 10 mg tablet 10 mg PO 0200,0800,1600,2100 Pain 06/23/23 06/30/23 06/23/23 History (Scale Score 7-10) levothyroxine 112 mcg tablet 112 mcg PO DAILY@0630 06/30/23 06/30/23 Unknown History Physical Exam Vital Signs: Last Vital Signs Temp 97.0 F 07/01/23 08:00 Pulse 91 07/01/23 11:50 Resp 20 07/01/23 11:50 BP 164/90 H 07/01/23 08:00 Pulse Ox 94 07/01/23 08:00 O2 Del Method Nasal Cannula 07/01/23 08:00 O2 Flow Rate 2.0 07/01/23 08:00 BMI result Body Mass Index 30.5 Const General: comfortable and no acute distress Orientation/consciousness: patient oriented x3 HEENT Head: Yes normocephalic Mouth: Normal oral and palatal mucosa present Eyes EOM: EOMs intact bilaterally Neck Neck: Yes supple Resp Auscultation: clear to auscultation bilaterally Cardio Jugular venous distension: no JVD Rate: regular rate GI Palpation (GI): Soft to palpation Auscultation: normal bowel sounds General: Yes no CVA tenderness Back/Spine/Pelvis Back: no CVA tenderness Skin General skin exam: no rashes or lesions noted Neuro General: patient oriented x3 and moves all extremities Results Lab Results 06/30/23 08:17 07/01/23 05:29 Lab results: Chemistry 06/30/23 07/01/23 08:16 05:29 Sodium 146 H 148 H Potassium 3.0 L 2.9 L* Carbon Dioxide 27 24 BUN 22 H 20 H Creatinine 0.61 0.65 Calcium 7.8 L 7.0 L D Hematology 06/30/23 08:17 WBC 18.7 H Hgb 12.8 Plt Count 133 L D Urinalysis 06/30/23 14:32 Urine Color Dark Yellow Urine Appearance Clear Urine pH 6.0 Ur Specific [place] >= 1.030 H Urine Protein Trace Urine Glucose (UA) Negative Urine Ketones Negative Urine Blood Negative Urine Nitrite Negative Ur Leukocyte Esterase Negative Assessment and Plan (1) Hypokalemia: Status: Acute (2) Hypernatremia: Status: Acute Plan Vera has hypokalemia most likely due to tubular wasting. She is hypocalcemic. Her magnesium levels are over 2. She is hypernatremic with a water deficit. We shall replace potassium and free water. I have ordered PTH. Her intravenous fluids could be dextrose with potassium. We shall closely monitor her electrolytes for continued care. Procedures Date of Service Date of Service: 07/01/23
--- NOTE | 2023-07-01 14:03 | MHC.CLN ---
NUTRITION REVIEW OF WEIGHT HX X ONE YEAR SHOWS VARIABLE WEIGHTS. COMPARING CURRENT WEIGHT TO 07/03/22=85.275 KG, SHOWS NO SIGNIFICANT WEIGHT CHANGE X ONE YEAR.
--- NOTE | 2023-07-01 14:45 | PC.NURSE ---
MD Cardoza made aware pt having severe all over body pain at 12:11, PRN Dilaudid ordered and given with good effect. MD also aware pt has +2 pitting edema in bilateral LE, legs are weeping clear fluids, legs elevate on pillows. Pt requesting SCD's, ok'd, applied to bilateral legs.
[2023-07-01] MEDS: Enoxaparin Sodium 40 MG/0.4 ML SYRINGE SUBCUT (15:33)
[2023-07-01 16:28] LABS: Anion Gap 20 (12-20); Blood Urea Nitrogen 18 mg/dL (9-16); Calcium 7.2 mg/dL (8.4-10.2); Carbon Dioxide 24 mmol/L (22-29); Chloride 106 mmol/L (96-108); Creatinine Clr Calc Pharmacy 93.8; Estimated Glomerular Filt Rate > 60; Glucose Random 169 mg/dL (60-115); Potassium 3.8 mmol/L (3.3-5.1); Sodium 146 mmol/L (135-145)
[2023-07-02] MEDS: oxyCODONE HCl Immed Release 5 MG TABLET 10 MG PO ×4 (01:50→12:57)
[2023-07-02] MEDS: HYDROmorphone HCl 0.5 MG/0.5 ML SYRINGE IVPUSH (02:44)
[2023-07-02 03:41] VITALS: BP 160/74; PULSE 78; RESP 20; TEMP 36.3; O2SAT 94
[2023-07-02] MEDS: Doxycycline Hyclate 100 MG in 0.9 % Sodium Chloride 250 ML 166.67 MG IV ×2 (03:57→16:46)
[2023-07-02] MEDS: Levothyroxine Sodium 112 MCG TABLET PO (05:29)
[2023-07-02] MEDS: 0.9 % Sodium Chloride Flush 3 ML SYRINGE IVFLUSH ×2 (07:31→16:56)
[2023-07-02] MEDS: methylPREDNISolone Sod Succ 125 MG/2 ML VIAL 40 MG IVPUSH ×2 (07:31→21:24)
[2023-07-02 07:54] VITALS: BP 139/69; PULSE 81; RESP 19; TEMP 36.7; O2SAT 93
[2023-07-02] MEDS: Albuterol/Iprat 2.5/0.5MG 3 ML AMPUL.NEB INHALE ×2 (08:24→15:09)
[2023-07-02] MEDS: Fluticasone/Vilanterol 200/25 BLST.W.DEV 1 PUFF INHALE (08:24)
[2023-07-02 08:28] VITALS: PULSE 81; RESP 19; O2SAT 94
[2023-07-02] MEDS: HYDROmorphone HCl 1 MG/ML SYRINGE IVPUSH ×3 (10:30→21:45)
--- NOTE | 2023-07-02 11:41 | MHC.CM.PN ---
EMR reviewed. Patient not medically cleared for dc at this time. PT eval pending. CM will continue to follow.
--- NOTE | 2023-07-02 13:01 | P.PNIM_ITS ---
Subjective Subjective Date of Service: 07/02/23 Interval History: Complaining pain control is not adequate. No other acute issues Review of Systems Denies chest pain Admits to shortness of breath with minimal exertion Denies nausea vomiting diarrhea Admits to abdominal pain Physical Exam 2 Vital Signs: Vital Signs: Last Vital Signs Temp 98.1 F 07/02/23 07:54 Pulse 81 07/02/23 08:28 Resp 19 07/02/23 08:28 BP 139/69 07/02/23 07:54 Pulse Ox 93 07/02/23 07:54 O2 Del Method Nasal Cannula 07/02/23 07:54 O2 Flow Rate 2.0 07/02/23 07:54 BMI result Body Mass Index 30.5 Const: Other: Ill-appearing; uncomfortable sitting in chair Resp: Other: Coarse rhonchi throughout Cardio: Other: No S4; positive S1-S2; no S3 murmurs rubs or gallops GI: Other: Soft nontender nondistended normoactive bowel sounds; diffusely tender without rebound Extrem: Other: Trace edema bilaterally Objective Data Active Medications Al Hydroxide/Mg Hydroxide (Magnesium Hydrox/Alum Hydrox 30 Ml Oral.Susp) 30 ml PO Q4H PRN PRN Reason: Heartburn/Nausea Albuterol Sulfate (Albuterol Sulfate 90 Mcg 8 Gm Inhaler) 2 puff INHALE RQ6H PRN PRN Reason: for wheezing Albuterol/Ipratropium (Albuterol/Iprat 2.5/0.5mg 3 Ml Ampul.Neb) 3 ml INHALE RQ4H WHILE AWAKE [facility] Last Admin: 07/02/23 11:20 Dose: Not Given Documented By: RADHA Non-Admin Reason: Patient Asleep Enoxaparin Sodium (Enoxaparin Sodium 40 Mg/0.4 Ml Syringe) 40 mg SUBCUT Q24H [facility] Last Admin: 07/01/23 15:33 Dose: 40 mg Documented By: PALMER Fluticasone/Vilanterol (Fluticasone/Vilanterol 200/25 Blst.W.Dev) 1 puff INHALE DAILY [facility] Last Admin: 07/02/23 08:24 Dose: 1 puff Documented By: RADHA Hydromorphone HCl (Hydromorphone Hcl 1 Mg/Ml Syringe) 1 mg IVPUSH Q3H PRN; Protocol PRN Reason: Pain, Severe (Pain Scale 7-10) Last Admin: 07/02/23 10:30 Dose: 1 mg Documented By: ALECIA Doxycycline Hyclate 100 mg/ (Sodium Chloride) 250 mls @ 166.67 mls/hr IV Q12H [facility] Last Infusion: 07/02/23 05:27 Dose: Infused Documented By: PONCHO Levothyroxine Sodium (Levothyroxine Sodium 112 Mcg Tablet) 112 mcg PO DAILY@0600 [facility] Last Admin: 07/02/23 05:29 Dose: 112 mcg Documented By: PONCHO Melatonin (Melatonin 3 Mg Tablet) 6 mg PO BEDTIME PRN PRN Reason: Insomnia Methylprednisolone Sodium Succinate (Methylprednisolone Sod Succ 125 Mg/2 Ml Vial) 40 mg IVPUSH BID [facility] Last Admin: 07/02/23 07:31 Dose: 40 mg Documented By: ALECIA Nicotine (Nicotine 7 Mg Patch.Td24) 7 mg TRANSDERMA DAILY [facility] Last Admin: 07/02/23 09:02 Dose: Not Given Documented By: ALECIA Non-Admin Reason: Patient Refused Ondansetron HCl (Ondansetron Odt 8 Mg Tab.Rapdis) 8 mg TRANSLINGU Q8H PRN PRN Reason: Nausea Last Admin: 07/01/23 07:42 Dose: 8 mg Documented By: PALMER Oxycodone HCl (Oxycodone Hcl Immed Release 5 Mg Tablet) 10 mg PO Q4H [facility] Last Admin: 07/02/23 12:57 Dose: 10 mg Documented By: ALECIA Sodium Chloride (0.9 % Sodium Chloride Flush 3 Ml Syringe) 3 ml IVFLUSH QSHIFT [facility] Last Admin: 07/02/23 07:31 Dose: 3 ml Documented By: ALECIA Vitamin D (Cholecalciferol (Vitamin D3) 25 Mcg Tablet) 50 mcg PO DAILY [facility] Last Admin: 07/02/23 07:31 Dose: Not Given Documented By: ALECIA Non-Admin Reason: Patient Refused Labs 06/30/23 08:17 07/01/23 16:03 Labs: Laboratory Results - last 24 hr 07/01/23 16:03 Anion Gap 20 Estim Creat Clear Calc 93.8 Estimated GFR > 60 Random Glucose 169 H Calcium 7.2 L Microbiology Microbiology Results: Microbiology 06/30/23 09:22 Blood Culture - Preliminary Blood - Venous No growth after 48 hours. 06/30/23 09:10 Blood Culture - Preliminary Blood - Venous No growth after 48 hours. Assessment and Plan (1) Acute hypoxic respiratory failure: Status: Acute (2) COPD (chronic obstructive pulmonary disease): Status: Acute Plan 63 year old female with history of thyroid cancer s/p thyroidectomy and RODRIGUEZ 2013, postsurgical hypothyroidism, hypercholesterolemia, hypertension, rectal adenoma, COPD, and metastatic small cell lung cancer on chrmo here with shortness of breath, hypoxia upon ambulation, leukocytosis, lactic acidosis. Scheduled with outpatient chemo today however discussed with oncology; will hold till discharge 1. COPD exacerbation (multifactorial in backdrop of metastatic small-cell lung cancer and likely bronchitis) -continue IV steroids; increased to t.i.d. -titrate O2 to maintain sats greater than equal to 92% -continue doxycycline given sputum production 2.Hypernatremia -2 L free water deficit -will add D5W and follow -follow renal/divalents 3.HypOkalemia -appreciate renal input -follow renals/divalents 4.Metastatic small cell lung CA -discussed with oncology -will continue as outpatient 5.HTN -acceptable control off therapies -add back as appropriate Lovenox DNR/DNI--MOL[facility] available need for inpatient for management of acute hypoxic resp failure needing oxygen titration, ivf for hypernatremia and frequent labs Quality Stroke Does the patient have a stroke diagnosis?: No VTE Prior VTE?: No VTE Risk Level:: Medical - moderate - high VTE Device Contraindication: Treatment Not Indicated VTE Drug Contraindication: N/A - Med Ordered
[2023-07-02] MEDS: Dextrose 5 % 1,000 ML 100 ML IVCONT (14:07)
[2023-07-02 15:09] VITALS: PULSE 80; RESP 18; O2SAT 94
[2023-07-02 15:57] VITALS: BP 147/85; PULSE 89; RESP 18; TEMP 36.2; O2SAT 93
[2023-07-02] MEDS: Enoxaparin Sodium 40 MG/0.4 ML SYRINGE SUBCUT (16:47)
[2023-07-02] MEDS: diphenhydrAMINE HCL 50 MG/ML VIAL 25 MG IVPUSH (18:18)
[2023-07-02 19:53] VITALS: BP 169/90; PULSE 98; RESP 16
[2023-07-02] MEDS: diphenhydrAMINE HCL 50 MG/ML VIAL 12.5 MG IVPUSH (23:21)
[2023-07-03] MEDS: HYDROmorphone HCl 1 MG/ML SYRINGE IVPUSH ×2 (00:27→06:17)
[2023-07-03] MEDS: Albuterol Sulfate (0.083%) 2.5 MG/3 ML VIAL.NEB INHALE (00:37)
[2023-07-03 00:40] VITALS: PULSE 81; RESP 16; O2SAT 92
[2023-07-03] MEDS: Dextrose 5 % 1,000 ML 100 ML IVCONT (02:51)
[2023-07-03] MEDS: diphenhydrAMINE HCL 50 MG/ML VIAL IVPUSH ×2 (03:31→07:39)
[2023-07-03] MEDS: Doxycycline Hyclate 100 MG in 0.9 % Sodium Chloride 250 ML 166.67 MG IV (03:41)
[2023-07-03 04:00] VITALS: BP 160/92; PULSE 83; RESP 20; TEMP 36.2; O2SAT 93
[2023-07-03 07:28] VITALS: BP 169/86; PULSE 83; RESP 20; TEMP 35.9; O2SAT 91
[2023-07-03] MEDS: 0.9 % Sodium Chloride Flush 3 ML SYRINGE IVFLUSH (07:39)
[2023-07-03 08:30] LABS: Hematocrit 31.6 % (37.0-47.0); Hemoglobin 10.2 g/dl (12.0-16.0); Mean Corpuscular HGB Conc 32.3 g/dl (31.0-35.0); Mean Corpuscular Hemoglobin 29.7 pg (27.0-33.0); Mean Corpuscular Volume 92.1 fL (80.0-98.0); Red Blood Count 3.43 X10*6/uL (4.20-5.50); Red Cell Distribution Width 19.9 % (11.0-16.0); White Blood Count 16.2 X10*3/uL (4.8-10.8)
[2023-07-03 08:57] LABS: Alanine Aminotransferase 418 U/L (0-31); Alkaline Phosphatase 171 U/L (39-117); Anion Gap 28 (12-20); Aspartate Amino Transferase 842 U/L (5-31); Bilirubin Total 2.1 mg/dL (0.0-1.0); Blood Urea Nitrogen 47 mg/dL (9-16); Calcium 6.6 mg/dL (8.4-10.2); Carbon Dioxide 12 mmol/L (22-29); Chloride 108 mmol/L (96-108); Creatinine Clr Calc Pharmacy 44.1; Estimated Glomerular Filt Rate 40; Glucose Fasting 181 mg/dL (60-99); Potassium 6.2 mmol/L (3.3-5.1); Sodium 142 mmol/L (135-145); Total Protein 5.1 g/dL (6.5-8.0)
[2023-07-03 09:51] LABS: Band Neutrophils Percent 9 % (3-5); Lymphocytes Absolute Manual 2.6 X10*3/uL (1.2-4.9); Lymphocytes Percent Manual 16 % (20-40); Metamyelocytes Absolute 1.1 X10*3/uL; Metamyelocytes Percent 7 %; Monocytes Absolute Manual 0.6 X10*3/uL (0.1-1.2); Monocytes Percent Manual 4 % (2-11); Myelocytes Absolute 0.2 X10*/uL; Myelocytes Percent 1 %; Neutrophils Absolute Manual 11.7 X10*3/uL (2.0-8.3); Neutrophils Percent Manual 63 % (45-73); RBC Morphology NOTED
[2023-07-03 09:52] LABS: Hypochromasia 1+ (5-14) /OIF; Nucleated Red Blood Cells 1 /100WBC (0-0); Ovalocytes 1+ (5-14) /OIF; Platelet Estimate DECREASED (NORMAL); Platelet Morphology Comment NORMAL; Polychromasia 1+ (0-2) /OIF
[2023-07-03 09:53] LABS: Platelet Count 45 X10*3/uL (160-400)
[2023-07-03] MEDS: LORazepam 2 MG/ML VIAL 1 MG IVPUSH (10:32)
[2023-07-03] MEDS: Morphine Sulfate 4 MG/ML CARTRIDGE IVPUSH (10:48)
[2023-07-03] MEDS: Morphine Sulfate/NS 100 MG/100 ML PLAST..BAG IVCONT (11:40)
[2023-07-03] MEDS: Scopolamine 1.5 MG PATCH.TD.3 EAR-BEHIND (11:41)
--- NOTE | 2023-07-03 12:48 | P.CDIM_ITS ---
PROVIDER RESPONSE TEXT: To clarify, the appropriate diagnosis supported by the clinical indicators: Labs indicate a diagnosis of (please specify) QUERY TEXT: PHYSICIAN'S DOCUMENTATION REQUEST Date of Query: 07/03/2023 09:56 AM EST Patient Name: Ev Pacheco Admit Date: 06/30/2023 Dear Jad Howard, A review of the medical record indicates additional documentation may be needed. Please review below and update the documentation accordingly. Clinical Indicators: LAB FINDINGS: calcium 7.0 L 6.6 L Based on the above, is there a diagnosis that correlates with these lab findings: Hypocalcemia probable, suspected, possible etc Labs indicate a diagnosis of (please specify) Other (explain) Clinically unable to determine (explain) Thank you, Shirin Wilson, CCS, CDIS Use of terms such as suspected, likely, concern for, or probable (associated with a specific diagnosi s that is being evaluated, monitored, or treated as if it exists) are acceptable and can be coded in the inpatient se tting, when documented at the time of discharge. Please use your independent medical judgment in providing your response. THIS QUERY IS PART OF THE PERMANENT MEDICAL RECORD
--- NOTE | 2023-07-03 15:05 | PM.DDS ---
Discharge Sum: Prov Provider Primary care physician: Sue Reynoso MD Consults: 07/01/23 08:46 Consult to Nephrology Routine Consulting Provider: [facility] Reason for consultation: hypernatremia, hypokalemia Has provider been notified: Yes Discharge Sum: Diag Contributing Factors (1) Small cell lung cancer: (2) Metastatic cancer to liver: (3) Acute hypoxic respiratory failure: Discharge Sum: Summary Date and Time Date of admission: 06/30/23 15:51 Date of : 07/03/23 Time of : 14:50 Summary Details: 63-year-old female has a history of thyroid cancer status post-thyroidectomy and RODRIGUEZ in 2013, postsurgical hypothyroidism, hypercholesterolemia, hypertension, rectal adenoma, COPD, and metastatic small cell lung cancer treated with carboplatin, etoposide, and atezolizumab, as well as denosumab for bony metastases, under the care of Dr. Cisneros. She was recently admitted from 06/23 to 04/23 for leukocytosis and bandemia, but no source of infection was identified, thought to be related to malignancy, and was treated with 5 days of Doxycycline. She presents to the ED today with worsening shortness of breath over the last 3 to 4 days, no fever or cough?worse with exertion, and in general, has been feeling very weak, spending most of the time on a couch. Workup for flu, RSV, or COVID-[address] of the chest shows no pneumonia, is inconclusive for VTE, and confirms the presence of metastatic disease. VQ scan is negative for PE. Additional labs include a lactic acid level of 4, sodium of 146, potassium of 3, and leukocytosis of 18 K. Hospital Course Patient admitted to the general medical floor and treated conservatively with pain medication, steroids, IV doxycycline. Over the next 24 hours patient's condition deteriorated and a discussion was had with the family. On 07/03/2023, patient was made [employer] and placed on a morphine drip in a.m.. At 14:50 patient noted to have no respirations/heart sounds. Pronounced at 14:50. Family present Additional Data Attending physician: Jad Howard DO
== END 2023-07-03 17:13 | disposition expired | DRG 136 ==
LOC: HO.ED 15:07 → HO.EDOVER 15:59 → HO.S3 16:58
PROVIDERS: Physician Assistant; Admitting Provider Internal Medicine; Emergency Provider Emergency Medicine; PCP Internal Medicine; Visit Provider Hospitalist
DX: C78.01 Secondary malignant neoplasm of right lung (principal); J96.01 Acute respiratory failure with hypoxia; C79.51 Secondary malignant neoplasm of bone; E87.0 Hyperosmolality and hypernatremia; E87.21 Acute metabolic acidosis; E83.51 Hypocalcemia; C78.7 Secondary malignant neoplasm of liver and intrahepatic bile duct; Z51.5 Encounter for palliative care; I10 Essential (primary) hypertension; J44.1 Chronic obstructive pulmonary disease with (acute) exacerbation; E78.00 Pure hypercholesterolemia, unspecified; E87.6 Hypokalemia; Z85.850 Personal history of malignant neoplasm of thyroid; C79.31 Secondary malignant neoplasm of brain; E89.0 Postprocedural hypothyroidism; F17.210 Nicotine dependence, cigarettes, uncomplicated; Z71.6 Tobacco abuse counseling; Z20.822 Contact with and (suspected) exposure to COVID-19; Z79.890 Hormone replacement therapy; Z79.899 Other long term (current) drug therapy
CPT/HCPCS: 0241U; 36415; 71275; 74177; 78580; 80048; 80053; 81003; 83605; 83735; 84484; 85007; 85027; 85610; 87040; 93005; 93970; 94640; 97162; 99285; A9540; J0696; J1170; J1200; J1650; J2060; J2270; J2405; J2930; J3370; Q9957; Q9967

== ENCOUNTER → 2023-06-30 07:35 | Outpatient (BNV) | payer OTHER, SELFPAY | PROVIDERS: Admitting Provider Internal Medicine; Emergency Provider Emergency Medicine; PCP Internal Medicine; Visit Provider Internal Medicine Cardiovascular Disease | DX: R94.31 Abnormal electrocardiogram [ECG] [EKG] (principal) | CPT/HCPCS: 93010 ==

== ENCOUNTER → 2023-06-30 15:51 | Outpatient (BNV) | payer OTHER, SELFPAY | PROVIDERS: Admitting Provider Internal Medicine; Emergency Provider Emergency Medicine; PCP Internal Medicine; Visit Provider Internal Medicine | DX: C34.90 Malignant neoplasm of unspecified part of unspecified bronchus or lung (principal); C78.7 Secondary malignant neoplasm of liver and intrahepatic bile duct; J96.01 Acute respiratory failure with hypoxia | CPT/HCPCS: 99223; 99233; 99239 ==

== ENCOUNTER → 2023-06-30 15:51 | Outpatient (BNV) | payer OTHER, SELFPAY | PROVIDERS: Admitting Provider Internal Medicine; Emergency Provider Emergency Medicine; PCP Internal Medicine; Visit Provider Internal Medicine Nephrology | DX: E87.6 Hypokalemia (principal); E87.0 Hyperosmolality and hypernatremia; E83.51 Hypocalcemia | CPT/HCPCS: 99223 ==